=== PATIENT | female | born 1995 | race Asian ===

== ENCOUNTER 2021-06-24 12:14 | Inpatient (IN) ==
[2021-06-24 13:15] LABS: Eosinophils # (auto) 0.01 K/uL (0-0.5); Eosinophils % (auto) 0.2 %; Hematocrit (blood only) 33.2 % (37-47); Immature Granulocytes # (auto) 0.02 K/uL (0.00-0.02); Immature Granulocytes % (auto) 0.3 %; Lymphocytes # (auto) 1.26 K/uL (1.2-3.4); Mean Corpuscular Hemoglobin 29.1 pg (25-34); Mean Corpuscular Volume 87.8 fL (80-100); Mean Platelet Volume 9.9 fL (7.4-10.4); Monocytes # (auto) 0.22 K/uL (0.11-0.59); Monocytes % (auto) 3.3 %; Neutrophils # (auto) 5.12 K/uL (1.4-6.5); Neutrophils % (auto) 77.2 %; Platelet Count 115 K/uL (130-400); RDW Coefficient of Variation 13.3 % (11.5-14.5); RDW Standard Deviation 42.7 fL (36.4-46.3); Red Blood Count 3.78 M/uL (4.2-5.4); White Blood Count 6.63 K/uL (4.8-10.8)
[2021-06-24 13:21] LABS: Mean Corpuscular Hgb Conc 33.1 g/dL (32-36)
[2021-06-24 13:26] LABS: Alanine Aminotransferase 8 U/L (7-52); Albumin Globulin Ratio 0.8 (0.9-2); Albumin Level 3.2 gm/dl (3.4-5.0); Alkaline Phosphatase 236 U/L (34-104); Anion Gap 11 (3-11); Aspartate Aminotransferase 20 U/L (13-39); BUN Creatinine Ratio 22.9 (10-20); Bilirubin,Total 0.5 mg/dl (0.2-1.0); Blood Urea Nitrogen 11 mg/dl (6-23); Calcium 8.5 mg/dl (8.5-10.1); Carbon Dioxide 17 mmol/L (21-32); Chloride 103 mmol/L (98-107); Creatinine Clr Calc Pharmacy 162.1 ml/min; Est GFR (African American) > 150.0 ml/min; Est GFR (Non-African American) 137.3 ml/min; Globulin 4.1 gm/dl (2.5-4.0); Glucose 76 mg/dl (70-99(Fasting)); Potassium 3.9 mmol/L (3.5-5.1); Sodium 131 mmol/L (136-145); Total Protein 7.3 gm/dl (6.0-8.3)
[2021-06-24] MEDS ORDERED: OXYTOCIN 30 UNITS/500 ML BAG IV PRN ×2 (13:41→13:42)
[2021-06-24] MEDS ORDERED: MAG SULFATE 4GM BOLUS FROM BAG IV ONE (13:42)
[2021-06-24] MEDS ORDERED: MAGNESIUM SULFATE / WTR 40 GM/1,000 ML BAG IV SCH (13:45)
[2021-06-24] MEDS ORDERED: NIFEdipine 10 MG CAP PO STA ×2 (13:45→17:27)
[2021-06-24 14:21] LABS: Hematocrit (blood only) 33.2 % (37-47); Hemoglobin 10.9 g/dL (12.0-16.0); Mean Corpuscular Hemoglobin 28.9 pg (25-34); Mean Corpuscular Hgb Conc 32.8 g/dL (32-36); Mean Corpuscular Volume 88.1 fL (80-100); Mean Platelet Volume 10.2 fL (7.4-10.4); Platelet Count 119 K/uL (130-400); RDW Coefficient of Variation 13.3 % (11.5-14.5); RDW Standard Deviation 42.7 fL (36.4-46.3); Red Blood Count 3.77 M/uL (4.2-5.4)
--- NOTE | 2021-06-24 14:28 | History & Physical Report ---
Date of Service June 24, 2021 Assessment & Plan (1) Elevated blood pressure affecting in third trimester, antepartum: (2) Autoantibody titer positive: (3) Headache in : Plan: 25yo Female at 38W6D sent from OB clinic with concern for pre-eclampsia, noted clonus and elevated BP. -16/118 on admit 12:20 -ordered CMP, noted decreased platelets 119 -continue to monitor vitals -blood type O+, GBS - -ordered pitocin Admission and Anticipated Discharge Date Admission Date: June 24, 2021 History of Present Illness Chief Complaint: Pre-Eclampsia Primary Care Provider: Louise Bahena MD 25yo Female at 38W6D here for BP check sent from OB clinic with concern for PIH given elevated BP and beats clonus. Patient describes regular movement, denies contractions, bleeding or fluid discharge, has had regular pren atal care. Patient was taking vitamins until 2 weeks ago when she began feeling less well. She states he blood pressure had been within normal range until 2 weeks ago when it began going up. She describes a headache that has been on and off throughout , worse in the past 5 days occasionally relieved with tylenol. Patient has had nausea vomitting on and off throughout , describes SOB at night ongoing since 20W gestation. She describes ocasional feelings of stretching in her epigastric region but nothing painful. She describes swelling in her hands from carpal tunnel, denies swelling in feet. At one point she felt left sided chest discomfort, she states her doctors saw a normal cardiac strip during that time. She denies other medications, medical conditions, complications during this . No other concerns at this time. Allergies Allergy/AdvReac Type Severity Reaction Status Date / Time rhubarb Allergy Intermediate THROAT Verified 06/24/21 11:36 SLIGHTLY TIGHT, SWELLIN, RASH Home Medications Medication Instructions Recorded Confirmed Type ferrous sulfate 325 mg (65 mg 325 mg PO QAM 01/05/21 06/24/21 History iron) tablet vitamin with calcium 1 tab PO QAM 01/05/21 06/24/21 History no.72-iron 27 mg-folic acid 1 mg tablet (M- Plus) promethazine 25 mg rectal 25 mg KS HS PRN 04/17/21 06/24/21 History suppository promethazine 25 mg tablet 25 mg PO Q6H PRN #20 tab 05/19/21 06/24/21 Rx breast pump #1 ea 06/16/21 06/24/21 Rx Patient History Medical History (Updated 06/24/21 @ 14:24 by [place] Mcdonald DO) Heart palpitations Has monitor from [facility] History of migraine History of syncope Left wrist fracture Surgical History H/O wisdom tooth extraction No pertinent past surgical history Family History (Updated 05/17/21 @ 13:51 by Shirley CONTI, MANJIT) Grandmother (Maternal) Hypothyroidism Grandmother (Paternal) Diabetes Denies family history of Ovarian cancer Breast cancer Lung cancer Social History (Updated 05/17/21 @ 13:52 by Shirley CONTI, MANJIT) Smoking Status: Never smoker Second Hand Exposure: No; Hx Alcohol Use: No Hx Substance Use: No Preferred Language: Greek Communication Ability: Effective Visual Impairment: Partially Limited Hearing Ability: Normal Teacher Resource Required: No Beliefs That Will Affect Care: None marital status: Single marital status details: KARTHIK Disla (25) [phone] Current Living Situation: Significant Other Current Living Situation Comment: FOB and no pets current occupational status: student Feels Safe at Home: Yes Assistive Devices: None Review of Systems Positive headache 2/10 pain Denies fever, chills, sweats Denies shortness of breath, difficulty breathing, chest pain, palpitations, chest pressure. Denies breast pain. Denies dysuria. Denies changes in vision. Physical Exam Physical Exam: General: Alert, oriented. No acute distress. Cardiac: Regular rate and rhythm, no murmurs/rubs/gallops. Respiratory: Clear to auscultation bilaterally a/p, no wheezes/rales/rhonchi. No increased work of breathing. Symmetrical chest rise. No respiratory distress. Pelvic: Dilation 3cm; Effacement 100%; Station -[address] Reinoso Lower Extremities: 2 beat clonus on right foot, negative in left. +2 patellar reflexes b/l. No lower extremity edema or swelling. No deep calf pain. Jason's negative bilaterally Baseline:129 Variability:moderate Accelerations:present Decelerations:absent Results & Data ([facility]) Vital Signs (Past 12 Hours) Vital Signs Temp Pulse Resp BP 06/24/21 14:11 75 164/107 H 06/24/21 14:00 89 138/92 06/24/21 13:50 95 H 149/107 H 06/24/21 13:42 89 157/111 H 06/24/21 13:31 83 180/114 H 06/24/21 13:21 87 182/116 H 06/24/21 13:10 84 158/107 H 06/24/21 13:01 85 159/108 H 06/24/21 12:56 36.7 C 18 06/24/21 12:52 86 166/113 H 06/24/21 12:41 97 H 156/108 H 06/24/21 12:32 93 H 157/114 H 06/24/21 12:21 92 H 161/107 H 06/24/21 12:20 94 H 168/114 H Laboratory Results Initial OB Labs on 11/30/20 Blood Type & RH - O positive Antibody Screen - positive (see below) HCT/HGB - 13.4 / 41.7 Platelets - 308 Hep C IgG 13yrs+ Old - not preformed Pap Test - WNL Chlamydia - negative Gonorrhea- negative Rubella - positive RPR - reactive with 1:2 titer Urine Culture/Screen - WNL HBsAg - negative HIV - negative MCV - 84.4 Ultrasound anatomy scan on 02/09/21 WNL Supervising Physician Co-Signing Physician Notes Resident Physician Supervision Note: I interviewed and examined the patient. Discussed with Dr. [place] Mcdonald and agree with findings and plan as documented in the note. Any exceptions or clarifications are listed here: Platelet count on admission is 115 K. liver enzymes are normal. will repeat PET labs in 6 hours. Documented By: Latoya Wolfe MD, FACOG Resident Activity Tracking Resident Involvement: Resident Care Provided Care Provided: Adult Hospital Medicine and OB Delivery
[2021-06-24] MEDS: LACTATED RINGER'S 1,000 ML IV PRN ×3 (14:43→22:50)
[2021-06-24 16:08] LABS: Creatinine Urine Random 101.5 mg/dl; Protein Creatinine Ratio Urine 0.4 (0-0.2); Total Protein Urine Random 36.3 mg/dl (0-11.9)
[2021-06-24] MEDS ORDERED: PROMETHAZINE HCL 12.5 MG in SODIUM CHLORIDE 0.9% 50 ML IV PRN (17:01)
[2021-06-24] MEDS ORDERED: SODIUM CHLORIDE 0.9% 1000ML 500 ML IV ONE (19:04)
[2021-06-24] MEDS ORDERED: ACETAMINOPHEN 325 MG TAB ONE (19:23)
[2021-06-24] MEDS ORDERED: ACETAMINOPHEN 325 MG TAB PO PRN (19:25)
[2021-06-24 20:08] LABS: Hematocrit (blood only) 33.4 % (37-47); Hemoglobin 11.1 g/dL (12.0-16.0); Mean Corpuscular Hemoglobin 29.2 pg (25-34); Mean Corpuscular Volume 87.9 fL (80-100); Mean Platelet Volume 9.7 fL (7.4-10.4); Platelet Count 118 K/uL (130-400); RDW Coefficient of Variation 13.3 % (11.5-14.5); RDW Standard Deviation 42.6 fL (36.4-46.3); White Blood Count 6.13 K/uL (4.8-10.8)
[2021-06-24 20:11] LABS: Mean Corpuscular Hgb Conc 33.2 g/dL (32-36)
[2021-06-24] MEDS ORDERED: fentaNYL citrate 100 MCG/2 ML VIAL ONE (20:18)
[2021-06-24] MEDS ORDERED: SODIUM CHLORIDE 0.9% INJ 10 ML VIAL ONE (20:18)
[2021-06-24] MEDS ORDERED: BUPIVACAINE 0.25% 30 ML VIAL ONE (20:18)
[2021-06-24] MEDS ORDERED: ePHEDrine sulfate 50 MG/ML AMP ONE (20:18)
[2021-06-24] MEDS ORDERED: fentaNYL 2MCG/ML ROPIVACAINE 1.25MG/ML 100 ML BAG EPI ONE (20:19)
[2021-06-24 20:26] LABS: Alanine Aminotransferase 8 U/L (7-52); Albumin Globulin Ratio 0.8 (0.9-2); Albumin Level 3.1 gm/dl (3.4-5.0); Alkaline Phosphatase 246 U/L (34-104); Anion Gap 12 (3-11); Aspartate Aminotransferase 21 U/L (13-39); BUN Creatinine Ratio 20.8 (10-20); Bilirubin,Total 0.5 mg/dl (0.2-1.0); Blood Urea Nitrogen 10 mg/dl (6-23); Calcium 8.1 mg/dl (8.5-10.1); Carbon Dioxide 17 mmol/L (21-32); Chloride 102 mmol/L (98-107); Creatinine Clr Calc Pharmacy 162.1 ml/min; Est GFR (African American) > 150.0 ml/min; Est GFR (Non-African American) 137.3 ml/min; Globulin 4.1 gm/dl (2.5-4.0); Glucose 80 mg/dl (70-99(Fasting)); Potassium 3.8 mmol/L (3.5-5.1); Sodium 131 mmol/L (136-145); Total Protein 7.2 gm/dl (6.0-8.3)
[2021-06-24 20:39] LABS: Immature Granulocytes # (auto) 0.01 K/uL (0.00-0.02); Immature Granulocytes % (auto) 0.2 %; Lymphocytes # (auto) 1.35 K/uL (1.2-3.4); Monocytes # (auto) 0.16 K/uL (0.11-0.59); Monocytes % (auto) 2.6 %; Neutrophils # (auto) 4.61 K/uL (1.4-6.5); Neutrophils % (auto) 75.2 %
--- NOTE | 2021-06-24 21:18 | Anesthesiology Consultation ---
Date of Service June 24, 2021 Assessment & Plan (1) Encounter for pre-operative examination: Chart Review Chart Review: Patient NOT seen in Pre Admission Testing and Acceptable Risk for Labor Epidural Consults Requested none History Height/Weight Height: 4 ft 11 in Weight: 77.204 kg Allergies Allergy/AdvReac Type Severity Reaction Status Date / Time rhubarb Allergy Intermediate THROAT Verified 06/24/21 11:36 SLIGHTLY TIGHT, SWELLIN, RASH Medications Home Medications Medication Instructions Recorded Confirmed Last Taken ferrous sulfate 325 mg (65 mg 325 mg PO QAM 01/05/21 06/24/21 04/16/21 08:00 iron) tablet vitamin with calcium 1 tab PO QAM 01/05/21 06/24/21 04/16/21 08:00 no.72-iron 27 mg-folic acid 1 mg tablet (M- Plus) promethazine 25 mg rectal 25 mg [place] HS PRN 04/17/21 06/24/21 Unknown suppository promethazine 25 mg tablet 25 mg PO Q6H PRN #20 tab 05/19/21 06/24/21 Unknown breast pump #1 ea 06/16/21 06/24/21 Unknown Active Medications Generic Name Dose Route Start Last Admin Trade Name Freq PRN Reason Stop Dose Admin Lactated Ringer's 1,000 mls @ 125 mls/hr 06/24/21 13:41 06/24/21 20:50 Lr IV 06/26/21 13:40 999 mls/hr .Q8H PRN Infusion L&D Protocol Protocol Magnesium Sulfate 40 gm in 1,000 mls @ 50 mls/hr 06/24/21 13:45 06/24/21 19:45 Magnesium Sulfate / Wtr IV 07/24/21 13:44 50 mls/hr .Q20H GRETTA Infusion Oxytocin 30 units in 500 mls @ 15 mls/hr 06/24/21 13:42 06/24/21 20:50 Pitocin IV 06/26/21 13:41 0.9 units/hr .Q24H PRN 15 mls/hr Labor Induction/Augmentation Titration Protocol 0.9 UNITS/HR Promethazine HCl 12.5 mg/ 50.5 mls @ 202 mls/hr 06/24/21 17:01 06/24/21 19:45 Sodium Chloride IV 07/24/21 17:00 Infused Q6 PRN Infusion Nausea And Vomiting Past Medical History Medical History Heart palpitations Has monitor from [facility] History of migraine History of syncope Left wrist fracture Past Family History Family History Grandmother (Maternal) Hypothyroidism Grandmother (Paternal) Diabetes Denies family history of Ovarian cancer Breast cancer Lung cancer Past Surgical History Surgical History H/O wisdom tooth extraction No pertinent past surgical history Social History Smoking Status: Never smoker Hx Alcohol Use: No Hx Substance Use: No substance use type: does not use Physical Exam Vital Signs Last Vital Signs Temp 36.7 C 06/24/21 12:56 Pulse 90 06/24/21 21:09 Resp 16 06/24/21 20:56 BP 167/97 H 06/24/21 20:38 Pulse Ox 98 06/24/21 21:09 Testing Laboratory Results 06/24/21 19:56 06/24/21 19:55
[2021-06-24] MEDS ORDERED: ePHEDrine sulfate 50 MG/ML AMP IV PRN (21:53)
[2021-06-24] MEDS ORDERED: diphenhydrAMINE 50 MG/ML VIAL IV PRN (21:53)
[2021-06-24] MEDS ORDERED: PROMETHAZINE HCL 25 MG in SODIUM CHLORIDE 0.9% 50 ML IV PRN (21:53)
[2021-06-24] MEDS ORDERED: NALOXONE HCL 0.4 MG/1 ML VIAL/CARP IV PRN (21:53)
[2021-06-24] MEDS ORDERED: NALBUPHINE HCL INJ 10 MG/ML AMP IV PRN (21:53)
[2021-06-24] MEDS ORDERED: ONDANSETRON INJ 2 MG/ML 2 ML VIAL IV PRN (21:53)
[2021-06-24] MEDS ORDERED: fentaNYL 2MCG/ML ROPIVACAINE 1.25MG/ML 100 ML BAG EPI PRN (21:53)
[2021-06-24] MEDS ORDERED: NALOXONE HCL 1 MG in SODIUM CHLORIDE 0.9% 1000ML 1,000 ML IV PRN (21:53)
[2021-06-24] MEDS ORDERED: SODIUM CHLORIDE 0.9% 250 ML IV PRN (22:57)
[2021-06-24] MEDS ORDERED: CITRIC ACID/SODIUM CITRATE 15 ML UDC ONE ×2 (22:59→23:04)
--- NOTE | 2021-06-24 23:00 | Obstetrical Progress Note ---
Date of Service June 24, 2021 Assessment & Plan (1) Pre-eclampsia: Admission and Anticipated Discharge Date Admission Date: June 24, 2021 Subjective passed palm sized clot after AROM for clear fluid. cervix was 4cm 100/0. FHT's 's were reassuring initially then after epidural analgesia, her BP has also dropped to 100's/60-70. with ephedrine BP did come up - now with prolonged decelerations to 160's with spontaneous contractions that have continued after stopping pitocin. after discussing situation with patient and SOB,that baby is not tolerating labor and that the cause most likely is abruption. will consent her for section. all questions were answered to their satisfaction. Review of Systems Review of Systems: All systems reviewed & are unremarkable except as noted in HPI & below Physical Exam Constitutional: WD/WN, vitals as above Psychiatric: A+Ox3, euthymic affect Genitourinary: Manual OB Exam: + cervical dilation 6 cm, + cervical effacement 100% and + station -1 OB Exam Monitor Tracing: + external FHT monitor used, + external uterine monitor used, + category II, + normal FHT variability and + variable decelerations Results & Data ([facility]) Vital Signs (Past 12 Hours) Vital Signs Temp Pulse Resp BP Pulse Ox 06/24/21 22:49 88 100 06/24/21 22:48 88 100/55 L 06/24/21 22:45 94 H 113/64 06/24/21 22:44 89 100 06/24/21 22:42 87 109/56 L 06/24/21 22:39 91 H 120/68 100 06/24/21 22:36 71 92/55 L 06/24/21 22:34 65 99 06/24/21 22:33 79 100/55 L 06/24/21 22:31 79 104/53 L 06/24/21 22:30 86 104/58 L 06/24/21 22:29 82 98 06/24/21 22:27 81 105/58 L 06/24/21 22:24 84 109/59 L 97 06/24/21 22:21 90 113/58 L 06/24/21 22:19 91 H 98 06/24/21 22:18 95 H 116/63 06/24/21 22:15 96 H 112/63 06/24/21 22:14 93 H 97 04/22/22 22:12 99 H 118/67 06/24/21 22:09 94 H 127/68 98 06/24/21 22:06 107 H 129/58 L 06/24/21 22:04 109 H 98 06/24/21 22:03 109 H 135/66 06/24/21 22:00 127 H 147/78 H 06/24/21 21:59 120 H 146/94 H 98 06/24/21 21:54 112 H 124/64 98 06/24/21 21:53 80 95/53 L 06/24/21 21:52 78 94/53 L 06/24/21 21:51 81 95/51 L 06/24/21 21:49 84 96 06/24/21 21:48 90 102/56 L 06/24/21 21:45 106 H 116/55 L 06/24/21 21:44 105 H 98 06/24/21 21:39 119 H 139/78 98 06/24/21 21:36 75 147/79 H 06/24/21 21:34 77 105/64 98 06/24/21 21:32 82 107/65 06/24/21 21:29 86 99 06/24/21 21:27 100 H 133/73 06/24/21 21:24 102 H 98 06/24/21 21:19 102 H 98 06/24/21 21:18 97 H 181/118 H 06/24/21 21:14 92 H 98 06/24/21 21:09 90 98 06/24/21 21:04 97 H 99 06/24/21 20:59 96 H 98 06/24/21 20:56 16 06/24/21 20:54 92 H 99 06/24/21 20:49 92 H 99 06/24/21 20:44 97 H 98 06/24/21 20:39 96 H 98 06/24/21 20:38 96 H 167/97 H 06/24/21 20:34 96 H 99 06/24/21 20:29 102 H 99 06/24/21 20:24 108 H 153/97 H 06/24/21 20:00 16 06/24/21 19:07 95 H 144/96 H 06/24/21 19:00 16 06/24/21 18:45 18 06/24/21 18:38 90 152/106 H 06/24/21 18:07 93 H 161/98 H 06/24/21 17:45 19 06/24/21 17:37 86 146/91 H 06/24/21 16:59 85 150/99 H 06/24/21 16:49 87 132/92 06/24/21 16:40 88 153/101 H 06/24/21 16:39 18 06/24/21 16:29 86 154/105 H 06/24/21 16:20 86 149/102 H 06/24/21 16:09 87 148/101 H 06/24/21 15:59 86 144/97 H 06/24/21 15:49 92 H 142/107 H 06/24/21 15:45 18 06/24/21 15:39 88 137/101 H 06/24/21 15:29 101 H 143/101 H 06/24/21 15:19 123 H 176/105 H 06/24/21 15:09 90 143/99 H 06/24/21 14:59 90 140/99 06/24/21 14:49 82 151/96 H 06/24/21 14:45 18 06/24/21 14:11 75 164/107 H 06/24/21 14:00 89 138/92 06/24/21 13:50 95 H 149/107 H 06/24/21 13:42 89 157/111 H 06/24/21 13:31 83 180/114 H 06/24/21 13:21 87 182/116 H 06/24/21 13:10 84 158/107 H 06/24/21 13:01 85 159/108 H 06/24/21 12:56 98.1 F 18 06/24/21 12:52 86 166/113 H 06/24/21 12:41 97 H 156/108 H 06/24/21 12:32 93 H 157/114 H 06/24/21 12:21 92 H 161/107 H 06/24/21 12:20 94 H 168/114 H PG Care Time/CCT Total # of Minutes Spent Total Time Spent with Patient: Total time spent is greater than 50% in coordination of care (as documented) at patient's floor/unit and/or counseling patient: Coding Level of Care Code None Diagnoses Pre-eclampsia O14.90
[2021-06-24] MEDS ORDERED: ceFAZolin 2000MG 2,000 MG/15 ML SYR IV SCH (23:10)
[2021-06-24] MEDS ORDERED: OXYTOCIN 10 UNITS/ML VIAL ONE (23:18)
[2021-06-25] MEDS ORDERED: OXYTOCIN 10 UNITS/ML 10ML VIAL ONE ×5 (00:09→11:03)
[2021-06-25] MEDS ORDERED: PHENYLEPHRINE 100MCG/ML 5ML SYR ONE (00:09)
[2021-06-25] MEDS ORDERED: PHENYLEPHRINE HCL 10 MG/ML VIAL ONE (00:09)
[2021-06-25] MEDS ORDERED: LIDOCAINE 2%/EPINEPHRINE 1:200,000 20 ML SDV ONE (00:12)
[2021-06-25] MEDS ORDERED: MoRPHine SULFATE PF 1 MG/ML 10 ML AMP/VIAL ONE (00:20)
[2021-06-25] MEDS ORDERED: MIDAZOLAM HCL 1 MG/ML 2ML VIAL ONE ×3 (00:32→08:44)
[2021-06-25] MEDS ORDERED: MAGNESIUM HYDROXIDE SUSP 30 ML UDC PO PRN (01:18)
[2021-06-25] MEDS ORDERED: diphenhydrAMINE Capsule 25 MG CAP PO PRN (01:18)
[2021-06-25] MEDS ORDERED: DIPHTHERIA/TETANUS/PERTUSSIS 0.5 ML SYR/VIAL IM ONE (01:18)
[2021-06-25] MEDS ORDERED: SENNA 8.6 MG TAB PO PRN (01:18)
[2021-06-25] MEDS ORDERED: diphenhydrAMINE 50 MG/ML VIAL IV PRN ×2 (01:18→03:44)
[2021-06-25] MEDS ORDERED: IBUPROFEN 600 MG TAB PO PRN (01:18)
[2021-06-25] MEDS ORDERED: KETOROLAC 30 MG/ML VIAL IV PRN (01:18)
[2021-06-25] MEDS ORDERED: ONDANSETRON INJ 2 MG/ML 2 ML VIAL IV PRN ×2 (01:18→03:44)
[2021-06-25] MEDS ORDERED: HYDROCORTISONE ACETATE 25 MG SUPP PR PRN (01:18)
[2021-06-25] MEDS ORDERED: PROMETHAZINE HCL 25 MG in SODIUM CHLORIDE 0.9% 50 ML IV PRN (01:18)
[2021-06-25] MEDS ORDERED: BENZOCAINE 20% AER SPR 82.5 GM CAN EXT PRN (01:18)
[2021-06-25] MEDS ORDERED: MEPERIDINE HCL 50 MG/ML CARP IV PRN (01:18)
[2021-06-25] MEDS ORDERED: oxyCODONE/ACETAMINOPHEN 5mg/325mg TAB PO PRN (01:18)
--- NOTE | 2021-06-25 01:23 | Operative Report ---
PG Post Operative Report Pre & Post Diagnosis Operation Date: 06/24/21 23:30 Pre-Op Diagnosis: Primary Section for distress under services of Dr Reinoso Post-Op Diagnosis: Same; delivery of a live male child at 2358 I identified the patient and participated in the time-out.: Yes Procedure Operation Date: 06/24/21 23:30 Actual Procedures p Primary Section in LD for distress. Delivery of a viable baby boy at 2358.(Bilateral) - Latoya Wolfe MD, FACOG Surgeon Latoya Wolfe MD, FACOG [employer] Janis Braden RN Estimated Blood Loss 800 Findings Consistent with Post-Op Diagnosis gravid uterus bilateral ovaries and tubes are normal Specimens placenta Drains Nazario to straight drainage- clear urine at end of case Anesthesia Type Labor Epidural Complications none Disposition Accompanied Patient To Recovery: Yes Indications Patient is a 25-year-old 1 P0 female with an EDC of 07/02/2021 who presented at 39 weeks after having elevated blood pressure reading in the office today. Upon arrival in labor and delivery her pressures were markedly elevated with systolics in the 160s, & diastolics in the 100 range. Her labs are normal except her platelet count was decreased at 117,000 and urine protein to creatinine ratio was elevated at 0.4. She also was complaining of a frontal headache. She met the criteria for preeclampsia with severe features and she was admitted and begun on magnesium sulfate and Pitocin augmentation of her contractions. She progressed to 4 cm dilated and membranes were ruptured for clear fluid. Shortly after rupture she passed Palm sized clots vaginally. heart tones remained category 1 at this time. Following epidural analgesia her blood pressures markedly decreased and there was an increase in vaginal bleeding at this time. Subsequently, moderate to severe variables occurred with contractions but with good return to baseline in between the contractions. The Pitocin was discontinued and contractions continued to space out however the moderate to severe variables continued. At this time her exam was 6 cm dilated and 100% effaced with vertex at -1 station. Because of the persistence of the vaginal bleeding and the variable decelerations with contractions it felt prudent to proceed with section. The indications for the procedure as well as the procedure itself were reviewed at length with the patient and her significant other and they are willing to proceed after questions were answered to their satisfaction. Description of Procedure After the patient received effective epidural anesthesia, she was prepped and draped in usual sterile fashion. A low transverse skin incision was made with a scalpel and carried to the fascia with the same scalpel. The fascial incision was was extended with Aguilera scissors and the edges grasped with Heidi clamps. The rectus muscles were then bluntly sharply dissected off of the overlying fascia. The rectus muscles were then divided along the midline and the underlying peritoneum elevated and entered sharply. The bladder was then taken down off the anterior surface of the uterus and placed behind the bladder blade. The lower uterine segment was entered with the scalpel and extended transversely. There was clear amniotic fluid noted upon entering the uterine cavity. The was delivered from the vertex presentation and moderate fundal pressure. A body cord was also noted upon delivery. The was vigorous upon delivery and moving all 4 limbs. The cord was then clamped and cut after approximately 30 seconds. Placenta was expressed intact with a three- vessel cord. The uterus was then exteriorized and covered with a clean lap sponge. The uterine cavity was explored and some retained membranes were removed. The uterus was then closed in 2 layers in a running locking imbricating fashion with 0 Monocryl. Bleeding off of the left corner of the incision was secured with a [id number] stitch of 0 Monocryl. Hemostasis at this point was excellent from the incision. There appeared to be some bleeding coming from just behind the pubic symphysis. It took some time to identify the area of bleeding which appeared to be coming from the posterior side of the rectus muscle. [id number] stitches were placed within the muscle and at this point the bleeding was resolved. The area in question was observed for some time after the stitch and hemostasis continued to be satisfactory. There did appear to be some bleeding coming from the edge of the fascia as well. This was secured with the Bovie. The fascia was then closed in a running fashion with 0 Vicryl. The adipose layer was then irrigated and bleeding sites in the left corner of the incision were secured with the Bovie. Skin edges are then be brought approximated with a subcuticular stitch of 4-0 Vicryl. Urine was clear at the end of the case. Mother and infant were in stable condition upon arrival back in labor and delivery . I attest to the content of the Intraoperative Record and any orders documented therein. Any exceptions are noted below. OB Procedure Charges 75412
[2021-06-25] MEDS ORDERED: ALBUMIN 5% 250 ML IV ONE ×2 (01:59→03:58)
[2021-06-25 02:00] LABS: Hemoglobin 5.8 g/dL (12.0-16.0); Mean Corpuscular Hemoglobin 28.9 pg (25-34); Mean Corpuscular Hgb Conc 32.2 g/dL (32-36); Mean Corpuscular Volume 89.6 fL (80-100); Mean Platelet Volume 9.4 fL (7.4-10.4); Platelet Count 97 K/uL (130-400); RDW Coefficient of Variation 13.3 % (11.5-14.5); RDW Standard Deviation 43.4 fL (36.4-46.3); Red Blood Count 2.01 M/uL (4.2-5.4); White Blood Count 9.11 K/uL (4.8-10.8)
[2021-06-25] MEDS ORDERED: SODIUM CHLORIDE 0.9% 250 ML IV PRN ×2 (02:02→12:48)
[2021-06-25 02:10] LABS: Eosinophils # (auto) 0.01 K/uL (0-0.5); Eosinophils % (auto) 0.1 %; Immature Granulocytes # (auto) 0.02 K/uL (0.00-0.02); Immature Granulocytes % (auto) 0.2 %; Lymphocytes # (auto) 1.07 K/uL (1.2-3.4); Lymphocytes % (auto) 11.7 %; Monocytes # (auto) 0.24 K/uL (0.11-0.59); Monocytes % (auto) 2.6 %; Neutrophils # (auto) 7.77 K/uL (1.4-6.5); Neutrophils % (auto) 85.4 %; Platelet Estimate Decreased (Normal)
[2021-06-25 02:33] LABS: Alanine Aminotransferase 5 U/L (7-52); Albumin Globulin Ratio 0.9 (0.9-2); Albumin Level 1.8 gm/dl (3.4-5.0); Alkaline Phosphatase 129 U/L (34-104); Anion Gap 12 (3-11); Aspartate Aminotransferase 15 U/L (13-39); BUN Creatinine Ratio 16.1 (10-20); Bilirubin,Total 0.5 mg/dl (0.2-1.0); Blood Urea Nitrogen 9 mg/dl (6-23); Calcium 6.6 mg/dl (8.5-10.1); Carbon Dioxide 13 mmol/L (21-32); Chloride 107 mmol/L (98-107); Creatinine Clr Calc Pharmacy 138.9 ml/min; Est GFR (African American) > 150.0 ml/min; Est GFR (Non-African American) 130.5 ml/min; Globulin 2.1 gm/dl (2.5-4.0); Glucose 184 mg/dl (70-99(Fasting)); Magnesium Therapeutic L&D Only 6.4 mg/dL (4.0-8.0); Potassium 3.2 mmol/L (3.5-5.1); Sodium 132 mmol/L (136-145); Total Protein 3.9 gm/dl (6.0-8.3)
--- NOTE | 2021-06-25 03:13 | Obstetrical Progress Note ---
Date of Service June 25, 2021 Assessment & Plan Admission and Anticipated Discharge Date Admission Date: June 24, 2021 Subjective patient somnolent after but did receive Phenergan and anti-anxiolytics because of a panic attack during the section. urine output has been good with 300 ml's post-operatively which is not concentrated. BP's remain low but pulse is normal. surgical dressing is dry and lochia is small. uterus firm at 1 above U. labs drawn postoperatively show a normal Magnesium level but a hemoglobin of 5.8 and platelet count of 97,000 which is slightly down from 118,000. she will get albumin per Dr. Frias and we will transfuse 2units PRBC's now. & recheck CBC 2 hours post transfusion. Results & Data ([facility]) Vital Signs (Past 12 Hours) Vital Signs Temp Pulse Resp BP Pulse Ox 06/25/21 03:07 83 100 06/25/21 03:06 78 71/36 L 06/25/21 03:03 93 H 73/35 L 06/25/21 03:02 77 71/35 L 100 06/25/21 03:00 96.4 F L 16 99 06/25/21 02:57 90 100 06/25/21 02:53 84 73/35 L 06/25/21 02:52 80 99 06/25/21 02:51 83 73/38 L 06/25/21 02:47 84 100 06/25/21 02:43 90 79/46 L 06/25/21 02:42 84 98 06/25/21 02:37 79 100 06/25/21 02:33 78 79/37 L 06/25/21 02:32 77 99 06/25/21 02:30 16 100 06/25/21 02:28 75 81/37 L 06/25/21 02:27 77 100 06/25/21 02:23 16 97 06/25/21 02:22 86 98 06/25/21 02:20 16 100 06/25/21 02:17 84 99 06/25/21 02:16 83 89/42 L 06/25/21 02:12 84 99 06/25/21 02:07 69 100 06/25/21 02:06 82 72/36 L 06/25/21 02:02 80 98 06/25/21 02:01 75 75/38 L 06/25/21 01:57 66 100 06/25/21 01:56 61 59/31 L 06/25/21 01:55 70 60/22 L 06/25/21 01:52 60 100 06/25/21 01:50 67 88 L 06/25/21 01:47 73 100 06/25/21 01:46 73 69/32 L 06/25/21 01:45 74 73/36 L 06/25/21 01:42 80 100 06/25/21 01:38 82 84/45 L 06/25/21 01:37 86 97 06/25/21 01:36 88 84/46 L 06/25/21 01:34 88 83/40 L 06/25/21 01:32 87 98 06/25/21 01:31 88 94 06/25/21 01:30 90 87/43 L 06/25/21 01:28 92 H 95/52 L 06/24/21 23:35 90 100 06/24/21 23:30 109 H 117/75 100 06/24/21 23:24 120 H 100 06/24/21 23:21 120 H 129/60 06/24/21 23:19 112 H 100 06/24/21 23:15 114 H 115/62 06/24/21 23:14 114 H 99 06/24/21 23:12 118 H 115/65 06/24/21 23:10 100 H 134/67 06/24/21 23:09 114 H 98 06/24/21 23:06 68 86/48 L 06/24/21 23:04 75 99 06/24/21 23:03 76 84/48 L 06/24/21 23:00 83 94/51 L 06/24/21 22:59 82 100 06/24/21 22:57 85 84/45 L 06/24/21 22:54 86 93/52 L 100 06/24/21 22:51 83 89/52 L 06/24/21 22:49 88 100 06/24/21 22:48 88 100/55 L 06/24/21 22:45 94 H 113/64 06/24/21 22:44 89 100 06/24/21 22:42 87 109/56 L 06/24/21 22:39 91 H 120/68 100 06/24/21 22:36 71 92/55 L 06/24/21 22:34 65 99 06/24/21 22:33 79 100/55 L 06/24/21 22:31 79 104/53 L 06/24/21 22:30 86 104/58 L 06/24/21 22:29 82 98 06/24/21 22:27 81 105/58 L 06/24/21 22:24 84 109/59 L 97 06/24/21 22:21 90 113/58 L 06/24/21 22:19 91 H 98 06/24/21 22:18 95 H 116/63 06/24/21 22:15 96 H 112/63 06/24/21 22:14 93 H 97 06/24/21 22:12 99 H 118/67 06/24/21 22:09 94 H 127/68 98 06/24/21 22:06 107 H 129/58 L 06/24/21 22:04 109 H 98 06/24/21 22:03 109 H 135/66 06/24/21 22:00 127 H 147/78 H 06/24/21 21:59 120 H 146/94 H 98 06/24/21 21:54 112 H 124/64 98 06/24/21 21:53 80 95/53 L 06/24/21 21:52 78 94/53 L 06/24/21 21:51 81 95/51 L 06/24/21 21:49 84 96 06/24/21 21:48 90 102/56 L 06/24/21 21:45 106 H 116/55 L 06/24/21 21:44 105 H 98 06/24/21 21:39 119 H 139/78 98 06/24/21 21:36 75 147/79 H 06/24/21 21:34 77 105/64 98 06/24/21 21:32 82 107/65 06/24/21 21:29 86 99 06/24/21 21:27 100 H 133/73 06/24/21 21:24 102 H 98 06/24/21 21:19 102 H 98 06/24/21 21:18 97 H 181/118 H 06/24/21 21:14 92 H 98 06/24/21 21:09 90 98 06/24/21 21:04 97 H 99 06/24/21 20:59 96 H 98 06/24/21 20:56 16 06/24/21 20:54 92 H 99 06/24/21 20:49 92 H 99 06/24/21 20:44 97 H 98 06/24/21 20:39 96 H 98 06/24/21 20:38 96 H 167/97 H 06/24/21 20:34 96 H 99 06/24/21 20:29 102 H 99 06/24/21 20:24 108 H 153/97 H 06/24/21 20:00 16 06/24/21 19:07 95 H 144/96 H 06/24/21 19:00 16 06/24/21 18:45 18 06/24/21 18:38 90 152/106 H 06/24/21 18:07 93 H 161/98 H 06/24/21 17:45 19 06/24/21 17:37 86 146/91 H 06/24/21 16:59 85 150/99 H 06/24/21 16:49 87 132/92 06/24/21 16:40 88 153/101 H 06/24/21 16:39 18 06/24/21 16:29 86 154/105 H 06/24/21 16:20 86 149/102 H 06/24/21 16:09 87 148/101 H 06/24/21 15:59 86 144/97 H 06/24/21 15:49 92 H 142/107 H 06/24/21 15:45 18 06/24/21 15:39 88 137/101 H 06/24/21 15:29 101 H 143/101 H 06/24/21 15:19 123 H 176/105 H 06/24/21 15:09 90 143/99 H PG Care Time/CCT Total # of Minutes Spent Total Time Spent with Patient: Total time spent is greater than 50% in coordination of care (as documented) at patient's floor/unit and/or counseling patient: Coding Level of Care Code None
[2021-06-25] MEDS ORDERED: ePHEDrine sulfate 50 MG/ML AMP ONE (03:16)
[2021-06-25] MEDS ORDERED: ePHEDrine sulfate 50 MG/ML AMP IM ONE (03:33)
[2021-06-25] MEDS ORDERED: ACETAMINOPHEN 1000 MG/100 ML IV IV PRN (03:43)
[2021-06-25] MEDS ORDERED: NALOXONE HCL 1 MG in SODIUM CHLORIDE 0.9% 1000ML 1,000 ML IV PRN (03:44)
[2021-06-25] MEDS ORDERED: NALOXONE HCL 0.08 MG in SYRINGE 1.8 ML IV PRN (03:44)
[2021-06-25] MEDS ORDERED: PROMETHAZINE HCL 12.5 MG in SODIUM CHLORIDE 0.9% 50 ML IV PRN (03:44)
[2021-06-25] MEDS ORDERED: ePHEDrine sulfate 50 MG/ML AMP IV PRN (03:44)
[2021-06-25] MEDS ORDERED: NALOXONE HCL 0.4 MG/1 ML VIAL/CARP IV PRN (03:44)
[2021-06-25] MEDS ORDERED: MoRPHine SULFATE PF 1 MG/ML 10 ML AMP/VIAL EPI ONE (03:44)
[2021-06-25] MEDS ORDERED: NALBUPHINE HCL INJ 10 MG/ML AMP IV PRN (03:44)
[2021-06-25] MEDS ORDERED: LACTATED RINGER'S 500 ML IV PRN (03:44)
[2021-06-25] MEDS ORDERED: HYDROmorphone INJ 0.5 MG/0.5 ML SYR IV PRN (03:44)
[2021-06-25] MEDS ORDERED: SODIUM CHLORIDE 0.9% 1000ML 1,000 ML IV SCH ×2 (03:45→09:15)
[2021-06-25] MEDS ORDERED: DC INTRASPINAL MORPHINE SCH (03:45)
[2021-06-25] MEDS ORDERED: NO NARCOTICS OR SEDATIVES SCH (03:45)
[2021-06-25 04:25] LABS: Hematocrit (blood only) 21.7 % (37-47); Mean Corpuscular Hemoglobin 28.8 pg (25-34); Mean Corpuscular Volume 89.3 fL (80-100); Mean Platelet Volume 9.6 fL (7.4-10.4); Platelet Count 105 K/uL (130-400); RDW Coefficient of Variation 14.3 % (11.5-14.5); Red Blood Count 2.43 M/uL (4.2-5.4); White Blood Count 8.18 K/uL (4.8-10.8)
[2021-06-25 04:33] LABS: Mean Corpuscular Hgb Conc 32.3 g/dL (32-36)
--- NOTE | 2021-06-25 05:04 | Anesthesiology Progress Note ---
Date of Service June 25, 2021 Anesthesia Post Procedure Vital Signs Vital Signs: Temp Pulse Resp BP Pulse Ox 06/25/21 04:57 90 100 06/25/21 04:54 85 66/30 L 06/25/21 04:52 79 16 100 06/25/21 04:47 93 H 100 06/25/21 04:43 94 H 74/36 L 06/25/21 04:42 91 H 100 06/25/21 04:37 94 H 100 06/25/21 04:35 35.9 C L 84 18 74/36 L 100 06/25/21 04:34 96 H 69/40 L 06/25/21 04:33 35.9 C L 82 18 70/34 L 100 06/25/21 04:32 101 H 100 06/25/21 04:27 80 100 06/25/21 04:23 79 70/34 L 06/25/21 04:22 81 83 L 06/25/21 04:17 80 100 06/25/21 04:12 81 100 06/25/21 04:07 91 H 99 06/25/21 04:05 35.9 C L 90 16 85/43 L 100 06/25/21 04:04 92 H 85/43 L 06/25/21 04:02 91 H 100 06/25/21 03:57 68 100 06/25/21 03:53 75 64/30 L 06/25/21 03:52 78 99 06/25/21 03:50 36.3 C L 76 16 64/30 L 99 06/25/21 03:47 78 100 06/25/21 03:43 80 73/36 L 06/25/21 03:42 87 100 06/25/21 03:37 87 100 06/25/21 03:34 35.8 C L 86 16 84/50 L 100 06/25/21 03:33 81 84/50 L 06/25/21 03:32 84 100 06/25/21 03:31 73 88/50 L 06/25/21 03:27 77 100 06/25/21 03:26 60 54/24 L 06/25/21 03:25 36.1 C L 16 100 06/25/21 03:23 64 60/25 L 06/25/21 03:22 68 100 06/25/21 03:20 35.8 C L 63 16 60/25 L 100 06/25/21 03:17 72 100 06/25/21 03:13 74 66/31 L 06/25/21 03:12 76 99 06/25/21 03:07 83 100 06/25/21 03:06 78 71/36 L 06/25/21 03:03 93 H 73/35 L 06/25/21 03:02 77 71/35 L 100 06/25/21 03:00 35.8 C L 16 99 06/25/21 02:57 90 100 06/25/21 02:53 84 73/35 L 06/25/21 02:52 80 99 06/25/21 02:51 83 73/38 L 06/25/21 02:47 84 100 06/25/21 02:43 90 79/46 L 06/25/21 02:42 84 98 06/25/21 02:37 79 100 06/25/21 02:33 78 79/37 L 06/25/21 02:32 77 99 06/25/21 02:30 16 100 06/25/21 02:28 75 81/37 L 06/25/21 02:27 77 100 06/25/21 02:23 16 97 06/25/21 02:22 86 98 06/25/21 02:20 16 100 06/25/21 02:17 84 99 06/25/21 02:16 83 89/42 L 06/25/21 02:12 84 99 06/25/21 02:07 69 100 06/25/21 02:06 82 72/36 L 06/25/21 02:02 80 98 06/25/21 02:01 75 75/38 L 06/25/21 01:57 66 100 06/25/21 01:56 61 59/31 L 06/25/21 01:55 70 60/22 L 06/25/21 01:52 60 100 06/25/21 01:50 67 88 L 06/25/21 01:47 73 100 06/25/21 01:46 73 69/32 L 06/25/21 01:45 74 73/36 L 06/25/21 01:42 80 100 06/25/21 01:38 82 84/45 L 06/25/21 01:37 86 97 06/25/21 01:36 88 84/46 L 06/25/21 01:34 88 83/40 L 06/25/21 01:32 87 98 06/25/21 01:31 88 94 06/25/21 01:30 90 87/43 L 06/25/21 01:28 92 H 95/52 L 06/24/21 23:35 90 100 06/24/21 23:30 109 H 117/75 100 06/24/21 23:24 120 H 100 06/24/21 23:21 120 H 129/60 06/24/21 23:19 112 H 100 06/24/21 23:15 114 H 115/62 06/24/21 23:14 114 H 99 06/24/21 23:12 118 H 115/65 06/24/21 23:10 100 H 134/67 06/24/21 23:09 114 H 98 06/24/21 23:06 68 86/48 L 06/24/21 23:04 75 99 06/24/21 23:03 76 84/48 L 06/24/21 23:00 83 20 94/51 L 06/24/21 22:59 82 100 06/24/21 22:57 85 84/45 L 06/24/21 22:54 86 93/52 L 100 06/24/21 22:51 83 89/52 L 06/24/21 22:49 88 100 06/24/21 22:48 88 100/55 L 06/24/21 22:45 94 H 113/64 06/24/21 22:44 89 100 06/24/21 22:42 87 109/56 L 06/24/21 22:39 91 H 120/68 100 06/24/21 22:36 71 92/55 L 06/24/21 22:34 65 99 06/24/21 22:33 79 100/55 L 06/24/21 22:31 79 104/53 L 06/24/21 22:30 86 104/58 L 06/24/21 22:29 82 98 06/24/21 22:27 81 105/58 L 06/24/21 22:24 84 109/59 L 97 06/24/21 22:21 90 113/58 L 06/24/21 22:19 91 H 98 06/24/21 22:18 95 H 116/63 06/24/21 22:15 96 H 112/63 06/24/21 22:14 93 H 97 06/24/21 22:12 99 H 118/67 06/24/21 22:09 94 H 127/68 98 06/24/21 22:06 107 H 129/58 L 06/24/21 22:04 109 H 98 06/24/21 22:03 109 H 135/66 06/24/21 22:00 127 H 18 147/78 H 06/24/21 21:59 120 H 146/94 H 98 06/24/21 21:54 112 H 124/64 98 06/24/21 21:53 80 95/53 L 06/24/21 21:52 78 94/53 L 06/24/21 21:51 81 95/51 L 06/24/21 21:49 84 96 06/24/21 21:48 90 102/56 L 06/24/21 21:45 106 H 116/55 L 06/24/21 21:44 105 H 98 06/24/21 21:39 119 H 139/78 98 06/24/21 21:36 75 147/79 H 06/24/21 21:34 77 105/64 98 06/24/21 21:32 82 107/65 06/24/21 21:29 86 99 06/24/21 21:27 100 H 133/73 06/24/21 21:24 102 H 98 06/24/21 21:19 102 H 98 06/24/21 21:18 97 H 181/118 H 06/24/21 21:14 92 H 98 06/24/21 21:09 90 98 06/24/21 21:04 97 H 99 06/24/21 20:59 96 H 98 06/24/21 20:56 16 06/24/21 20:54 92 H 99 06/24/21 20:49 92 H 99 06/24/21 20:44 97 H 98 06/24/21 20:39 96 H 98 06/24/21 20:38 96 H 167/97 H 06/24/21 20:34 96 H 99 06/24/21 20:29 102 H 99 06/24/21 20:24 108 H 153/97 H 06/24/21 20:00 16 06/24/21 19:07 95 H 144/96 H 06/24/21 19:00 16 06/24/21 18:45 18 06/24/21 18:38 90 152/106 H 06/24/21 18:07 93 H 161/98 H 06/24/21 17:45 19 06/24/21 17:37 86 146/91 H 06/24/21 16:59 85 150/99 H 06/24/21 16:49 87 132/92 06/24/21 16:40 88 153/101 H 06/24/21 16:39 18 06/24/21 16:29 86 154/105 H 06/24/21 16:20 86 149/102 H 06/24/21 16:09 87 148/101 H 06/24/21 15:59 86 144/97 H 06/24/21 15:49 92 H 142/107 H 06/24/21 15:45 18 06/24/21 15:39 88 137/101 H 06/24/21 15:29 101 H 143/101 H 06/24/21 15:19 123 H 176/105 H 06/24/21 15:09 90 143/99 H 06/24/21 14:59 90 140/99 06/24/21 14:49 82 151/96 H 06/24/21 14:45 18 06/24/21 14:11 75 164/107 H 06/24/21 14:00 89 138/92 06/24/21 13:50 95 H 149/107 H 06/24/21 13:42 89 157/111 H 06/24/21 13:31 83 180/114 H 06/24/21 13:21 87 182/116 H 06/24/21 13:10 84 158/107 H 06/24/21 13:01 85 159/108 H 06/24/21 12:56 36.7 C 18 06/24/21 12:52 86 166/113 H 06/24/21 12:41 97 H 156/108 H 06/24/21 12:32 93 H 157/114 H 06/24/21 12:21 92 H 161/107 H 06/24/21 12:20 94 H 168/114 H Transfer of Care Handoff Completed per policy Notes Mental Status: alert / awake / arousable and participated in evaluation Nausea / Vomiting: adequately controlled Pain: adequately controlled Airway Patency, RR, SpO2: stable & adequate BP & HR: see Notes below Hydration State: stable & adequate Neuraxial Anesthesia: was administered and sensory block is resolving Anesthetic Complications: no major complications apparent and Pt Satisfied with anesthetic care Notes: Pt was hypotensive on arrival to recovery. IV phenylephrine and ephedrine were given with good response. Albumin was ordered and started. Stat cbc showed significant anemia and blood was ordered. I personally hung the first unit of blood to enable faster administration (unit # [id number]). Second unit of blood was hunb by nursing OB team. Patient remained hypotensive without any significant response. She was given 40 mg of IM ephedrine without improvement. A second bottle of albumin was ordered and hung. Despite these interventions, the patient is still requiring occasional boluses of phenylephrine to maintain SBP around 80s. The patient is arousable and denies pain or presyncope. She answers questions appropriately and epidural level is resolving. Dr. Reinoso plans to hold the patient's magnesium at this time to see if her BP improves. At this time, the patient still has her epidural in place. Will plan to pull epidural in the morning when repeat labs are done and patient's blood pressure is stabilized.
[2021-06-25] MEDS: OXYTOCIN 20 UNITS in LACTATED RINGER'S 1,000 ML IV SCH ×2 (06:53→12:18)
[2021-06-25 07:47] LABS: Hematocrit (blood only) 21.3 % (37-47); Hemoglobin 7.1 g/dL (12.0-16.0); Mean Corpuscular Hemoglobin 29.7 pg (25-34); Mean Corpuscular Hgb Conc 33.3 g/dL (32-36); Mean Corpuscular Volume 89.1 fL (80-100); Mean Platelet Volume 9.8 fL (7.4-10.4); Platelet Count 130 K/uL (130-400); RDW Coefficient of Variation 14.4 % (11.5-14.5); RDW Standard Deviation 47.3 fL (36.4-46.3); Red Blood Count 2.39 M/uL (4.2-5.4); White Blood Count 9.47 K/uL (4.8-10.8)
[2021-06-25] MEDS ORDERED: DOCUSATE SODIUM 100 MG CAP PO SCH (08:00)
[2021-06-25] MEDS ORDERED: FERROUS SULFATE 325 MG TAB PO SCH (08:00)
[2021-06-25] MEDS ORDERED: PRENATAL VITAMIN 1 TAB PO SCH (08:00)
[2021-06-25] MEDS ORDERED: SIMETHICONE 80 MG CHEW PO SCH (08:00)
[2021-06-25 08:09] LABS: ALC (manual) 1.25 K/uL (1.2-3.4); ANC (manual) 8.22 K/uL (1.4-6.5); Lymphocytes # (manual) 1.25 K/uL (1.2-3.4); Lymphocytes % (manual) 13.2 %; Neutrophils # (manual) 8.22 K/uL (1.4-6.5); Neutrophils % (manual) 86.8 %; Polychromasia 1+
[2021-06-25 08:11] LABS: INR 0.9 (0.9-1.1); Partial Thromboplastin Ratio 1.7; Prothrombin Time 9.9 Seconds (9.0-12.0)
[2021-06-25] MEDS ORDERED: OPTIRAY 320 125ml IV ONE (08:19)
[2021-06-25 08:21] LABS: Creatinine Clr Calc Pharmacy 73.4 ml/min; Est GFR (African American) 85.1 ml/min; Est GFR (Non-African American) 73.4 ml/min
--- NOTE | 2021-06-25 08:23 | CT Scan Report ---
HEAD CT NONCONTRAST CT DOSE: HISTORY: hypotension s/p TECHNIQUE: Multiaxial CT images of the head were performed without the use of intravenous contrast. A utomated exposure control was utilized for this study. A dose lowering technique was utilized adheri ng to the principles of ALARA. Comparison: Head CT 09/11/2020. Findings: The paranasal sinuses and mastoid air cells are clear. The calvarium and skull base are int act. The ventricles and sulci are within normal limits. There is no mass, hematoma, midline shift, or acute infarct. Impression: No acute intracranial abnormality. ACT 112: Negative or not required by law. Electronically signed by: Yared Acosta M.D. 06/25/2021 8:21 AM
--- NOTE | 2021-06-25 08:34 | CT Scan Report ---
CT ANGIOGRAPHY OF THE CHEST, PULMONARY EMBOLUS PROTOCOL CLINICAL HISTORY: unexplained hypotension- s/p section COMPARISON STUDY: Chest CT April 16, 2021. TECHNIQUE: Following IV administration of 120 mL of Optiray, helical axial images of the chest were o btained utilizing the pulmonary embolus protocol. Maximal intensity projections and sagittal and cor onal reformats were viewed on an independent 3D workstation. IV contrast was administered without co mplication. Automated exposure control was utilized for the study. A dose lowering technique was ut ilized adhering to the principles of ALARA. CT DOSE: 2176.21 mGy.cm FINDINGS: No central pulmonary emboli are identified. The remainder of the pulmonary arteries are steinberg boptimally assessed due to suboptimal opacification and respiratory motion artifact. There is no thor acic aortic dissection. Size of the heart is at the upper limits of normal. Trace pericardial effusio n. No pneumothorax or pleural effusion is noted. No consolidation is identified. Mildly enlarged bila teral axillary lymph nodes are similar to CT of April 16, 2021. Esophagus is mildly dilated. Gas w ithin the lower thoracic canal is likely related to recent anesthesia. Abdomen and pelvis will be rep orted separately. Hemoperitoneum is better depicted on that exam. IMPRESSION: 1. Technically compromised exam. No central pulmonary emboli. Remainder of pulmonary arteries subopti camilo assessed on this exam, as described above. 2. Hemoperitoneum, better depicted on the CT of the abdomen and pelvis which will be reported separat maynor. Please see that report for further description. 2. No change in mildly enlarged bilateral axillary lymph nodes since CT of April 16, 2021. These a re nonspecific. ACT 112: Negative or not required by law. Electronically signed by: William Spears M.D. 06/25/2021 8:33 AM
[2021-06-25 08:39] LABS: Partial Thromboplastin Time 47.7 Seconds (21.0-31.0)
--- NOTE | 2021-06-25 08:41 | CT Scan Report ---
CT OF THE ABDOMEN AND PELVIS WITH CONTRAST CLINICAL HISTORY: hypotension, status post COMPARISON STUDY: Renal ultrasound April 16, 2021. TECHNIQUE: Following IV administration of 120 mL of Optiray, axial images of the abdomen and pelvis w ere obtained from the lung bases to the proximal femurs. Images were reviewed in the axial, sagittal, and coronal planes. IV contrast was administered without complication. Automated exposure control w as utilized for the study. A dose lowering technique was utilized adhering to the principles of ANGELA Jacob. FINDINGS: The liver, spleen, adrenal glands, left kidney and pancreas are normal. There is no biliary or pancreatic ductal dilatation. There is mild right hydroureteronephrosis likely due to mass effect upon the ureter by the enlarged uterus. No evidence for a bowel obstruction. Moderate hemoperitoneum is noted with layering clot within the right paracolic gutter. This hemorrhage originates from the p tiffany with multiple sites of active extravasation within the anterior aspect of the pelvis, anterior to the uterus. There is associated extraperitoneal and intraperitoneal hemorrhage. Gas within the abd ominal wall as well as extraperitoneal gas is noted following recent section. The uterus is enlarged. There is gas and hemorrhage within the uterus which is not unexpected following se ction. Nazario balloon within the bladder is present. Epidural catheter is in place. IMPRESSION: 1. Moderate hemoperitoneum and moderate extraperitoneal hemorrhage with several sites of active extra vasation within the anterior pelvis, anterior to the uterus. These represent sites of active bleeding following recent section. Findings discussed with Dr. Wolfe at time of dictation. 2. Gas and clot within an enlarged uterus. 3. Mild right hydroureteronephrosis likely due to mass effect upon the distal ureter by the enlarged uterus. ACT 112: Negative or not required by law. Electronically signed by: William Spears M.D. 06/25/2021 8:39 AM
[2021-06-25] MEDS: LACTATED RINGER'S 1,000 ML IV SCH ×2 (08:43→12:54)
[2021-06-25] MEDS ORDERED: fentaNYL citrate 100 MCG/2 ML VIAL ONE ×2 (08:44→10:39)
--- NOTE | 2021-06-25 09:10 | Anesthesiology Consultation ---
Date of Service June 25, 2021 Assessment & Plan (1) Encounter for pre-operative examination: Chart Review Chart Review: Acceptable Risk for Surgery and Patient NOT seen in Pre Admission Testing Consults Requested none ASA [id number] Proposed Anesthesia Anesthesia Type: General Anesthesia Line Insertion: Arterial line Risk / Benefits Reviewed With: PT / POA / Parent / Guardian, Accepts Plan and Informed Consent Obtained Additional Notes Patient taken emergently to operating room - note completed after start of procedure due to the emergent nature of the case. Patients support person, FOB and significant other signed consent and in agreement with anesthetic plan. History Surgery Operation Date: 06/24/21 23:30 Proposed Procedures p Section in LD(Bilateral) - Latoya Wolfe MD, FACOG Operation Date: 06/25/21 09:00 Proposed Procedures p Total Abdominal Hysterectomy - Latoya Wolfe MD, FACOG Height/Weight Height: 4 ft 11 in Weight: 77.204 kg Allergies Allergy/AdvReac Type Severity Reaction Status Date / Time rhubarb Allergy Intermediate THROAT Verified 06/24/21 11:36 SLIGHTLY TIGHT, SWELLIN, RASH Medications Home Medications Medication Instructions Recorded Confirmed Last Taken ferrous sulfate 325 mg (65 mg 325 mg PO QAM 01/05/21 06/24/21 04/16/21 08:00 iron) tablet vitamin with calcium 1 tab PO QAM 01/05/21 06/24/21 04/16/21 08:00 no.72-iron 27 mg-folic acid 1 mg tablet (M- Plus) promethazine 25 mg rectal 25 mg DC HS PRN 04/17/21 06/24/21 Unknown suppository promethazine 25 mg tablet 25 mg PO Q6H PRN #20 tab 05/19/21 06/24/21 Unknown breast pump #1 ea 06/16/21 06/24/21 Unknown Active Medications Generic Name Dose Route Start Last Admin Trade Name Freq PRN Reason Stop Dose Admin Lactated Ringer's 1,000 mls @ 125 mls/hr 06/24/21 13:41 06/24/21 22:50 Lr IV 06/26/21 13:40 125 mls/hr .Q8H PRN Administration L&D Protocol Protocol Magnesium Sulfate 40 gm in 1,000 mls @ 0 mls/hr 06/24/21 13:45 06/25/21 04:55 Magnesium Sulfate / Wtr IV 07/24/21 13:44 0 mls/hr .Q0M GRETTA Infusion Oxytocin 30 units in 500 mls @ 17 mls/hr 06/24/21 13:42 06/24/21 22:05 Pitocin IV 06/26/21 13:41 1.02 units/hr .Q24H PRN 17 mls/hr Labor Induction/Augmentation Titration Protocol 1.02 UNITS/HR Lactated Ringer's 1,000 mls @ 125 mls/hr 06/25/21 01:30 06/25/21 08:43 Lr IV 07/25/21 01:29 500 mls/hr .Q8H GRETTA Administration Oxytocin 20 units/ Lactated 1,002 mls @ 125 mls/hr 06/25/21 01:30 06/25/21 06:53 Ringer's IV 06/25/21 17:31 125 mls/hr .Q8H1M GRETTA Administration NPO Date Last Intake of Fluids: 06/24/21 Time Last Intake of Fluids: 21:00 Date Last Intake of Solids: 06/24/21 Time Last Intake of Solids: 09:00 Past Medical History Medical History [facility] pal[facility]ations [facility] History of migraine History of syncope Left wrist fracture Exercise / Class Metabolic Activity IV < 2 Limit ADL/Bedbound (at this time - prior pt appropriately ambulatory) significant other reports history of occasional CP, syncope/presyncope that is being evaluated by cardiology at this time. (History of normal echo) Past Family History Family History Grandmother (Maternal) Hypothyroidism Grandmother (Paternal) Diabetes Denies family history of Ovarian cancer Breast cancer Lung cancer Past Surgical History Surgical History H/O wisdom tooth extraction No pertinent past surgical history Past Anesthesia History No Hx of Anesthesia Complications History of PONV No Hx of PONV Social History Smoking Status: Never smoker Hx Alcohol Use: No Hx Substance Use: No substance use type: does not use Review of Systems Continued post operative hypotension. STAT CT concerning for bleeding Physical Exam Vital Signs Last Vital Signs Temp 36.2 C L 06/25/21 05:33 Pulse 114 H 06/25/21 08:47 Resp 18 06/25/21 05:33 BP 79/44 L 06/25/21 08:41 Pulse Ox 100 06/25/21 08:47 Constitutional not obese somnolent ENMT Mouth: no TMJ abnormality and oral opening not small Thyromental Distance: > or= 3.5 Finger Breadths Mallampati Class: II Neck normal visual inspection; neck extension not limited Respiratory normal respiratory effort Auscultation: lungs clear to auscultation bilaterally Cardiovascular Rate/Rhythm: regular rhythm and + tachycardic Heart Sounds: no murmur Neurologic moves all extremities Psychiatric Orientation: oriented x 3 somnolent, but oriented Testing Laboratory Results 06/25/21 07:34 06/25/21 07:33 PT 9.9 Seconds (9.0-12.0) 06/25/21 07:33 INR 0.9 (0.9-1.1) 06/25/21 07:33 APTT 47.7 Seconds (21.0-31.0) H* 06/25/21 07:33 Blood Type O Positive 06/24/21 13:56 Antibody Screen NEGATIVE 06/24/21 13:56
[2021-06-25] MEDS ORDERED: TRANEXAMIC ACID 1,000 MG in 0.9 % SODIUM CHLORIDE 100 ML IV ONE (09:30)
[2021-06-25] MEDS ORDERED: TRANEXAMIC ACID / 0.7% NACL 1,000 MG/100 ML BAG IV ONE (09:30)
[2021-06-25] MEDS ORDERED: ceFAZolin 2000MG 2,000 MG/15 ML SYR IV ONE (09:37)
[2021-06-25] MEDS ORDERED: OXYTOCIN 10 UNITS/ML 10ML VIAL IM ONE (09:51)
[2021-06-25 10:05] LABS: Hematocrit (blood only) 19.4 % (37-47); Hemoglobin 6.4 g/dL (12.0-16.0); Mean Corpuscular Hemoglobin 29.5 pg (25-34); Mean Corpuscular Volume 89.4 fL (80-100); Mean Platelet Volume 9.7 fL (7.4-10.4); Platelet Count 108 K/uL (130-400); RDW Coefficient of Variation 14.4 % (11.5-14.5); RDW Standard Deviation 47.2 fL (36.4-46.3); Red Blood Count 2.17 M/uL (4.2-5.4); White Blood Count 6.56 K/uL (4.8-10.8)
--- NOTE | 2021-06-25 10:06 | Procedure Note ---
Procedure Note Date of Service June 25, 2021 Note Radial arterial line placed in left wrist prior to induction in preparation for emergent exploratory lap with Dr. Reinoso. Patient given midazolam. Left wrist prepped with chlorhexidine. 20 G angiocath placed under sterile technique ut ilizing sterile gloves, surgical hats and masks and ultrasound guidance. Catheter threaded using seldinger technique with return of pulsatile, bright red blood. Site covered with occlusive dressing and taped in place. Waveform consistent with correct arterial placement. After placement, fingers of procedural hand had normal perfusion. Patient tolerated procedure well without complications. Lilliana Frias MD, PhD Anesthesiologist Coding
[2021-06-25 10:26] LABS: Fibrinogen 123 mg/dl (184-400); INR 1.1 (0.9-1.1); Partial Thromboplastin Ratio 2.5; Prothrombin Time 11.4 Seconds (9.0-12.0)
[2021-06-25 10:30] LABS: D Dimer 930 ug/L FEU (0-500)
[2021-06-25 10:31] LABS: BUN Creatinine Ratio 12.1 (10-20); Calcium 5.9 mg/dl (8.5-10.1); Creatinine Clr Calc Pharmacy 85.5 ml/min; Est GFR (African American) 102.3 ml/min; Est GFR (Non-African American) 88.3 ml/min; Potassium 5.2 mmol/L (3.5-5.1)
[2021-06-25] MEDS ORDERED: CALCIUM GLUCONATE 10% 2,000 MG in SODIUM CHLORIDE 0.9% 50 ML IV ONE (10:45)
[2021-06-25] MEDS ORDERED: PROPOFOL IV EMULSION 10 MG/ML 100 ML VIAL IV ONE (10:56)
[2021-06-25] MEDS ORDERED: fentaNYL citrate 2,500 MCG/250 ML BAG IV ONE (10:56)
[2021-06-25] MEDS ORDERED: STAT IV Infusion **Titration per Protocol STA (10:58)
[2021-06-25] MEDS ORDERED: PROPOFOL BOLUS FROM BAG IV PRN (10:58)
[2021-06-25] MEDS ORDERED: fentaNYL citrate 2,500 MCG/250 ML BAG IV SCH (11:00)
[2021-06-25] MEDS ORDERED: propofoL 1,000 MG/100 ML VIAL IV SCH (11:00)
[2021-06-25] MEDS ORDERED: PROPOFOL IV EMULSION 10 MG/ML 20 ML VIAL IV ONE (11:03)
--- NOTE | 2021-06-25 11:09 | Critical Care Consultation ---
Date of Consultation June 25, 2021 Assessment & Plan (1) hemorrhage: (2) Pre-eclampsia: 25-year-old eclampsia presenting to the hospital with decreased movements, stat and hemorrhage. She is currently intubated and sedated. Neurologic: Propofol and fentanyl for sedation. CT head negative. Monitor for seizure activity. Pulmonary: Continue lung protective ventilation strategy. Vent settings minimal at this time. Cardiovascular: Hypertensive likely secondary to pain. Will initiate fentanyl. Prior echo reviewed with no abnormalities. Gastrointestinal: Monitor for signs of liver failure. N.p.o. at this time. Renal: Monitoring of acidosis noted with hyperkalemia. Blood loss anemia. Fluid resuscitation. Infectious disease: Received preprocedural antibiotics with cefazolin per anesthesiology. Hematologic: hemorrhage. Currently undergoing massive transfusion protocol. We will repeat labs including CBC, INR. She received tranexamic acid in the OR, 2 units of FFP, 6 units of packed RBCs cryoprecipitate. Endocrine: Monitor for signs of Susan syndrome. Lines and tubes: Nazario in place. Peripheral IVs in place. VTE prophylaxis: SCDs CODE STATUS: Full Family at bedside: None at bedside currently Disposition: I have personally spent 54 minutes of critical care time in the direct management of this patient. This is a life/limb threatening event. This includes time spent evaluating patient, direct bedside care, chart review, placing orders, interpretation of diagnostic studies, discussion with consultants, patient, and family members, as well as other required patient management activities. This time is exclusive of all separately billable procedures, and teaching time and separate from and in addition to any other critical care service time. Thank you for allowing us to participate in the care of this patient. History of Present Illness Reason for Consultation: hemorrhage currently intubated Attending Physician: Latoya Wolfe MD, FACOG History of Present Illness 25-year-old female with no significant past medical history presenting to OB triage with a headache. Patient unable to give any history as she is currently intubated and sedated. History obtained from discussion with the anesthesiol ogist and the chart review. Overnight and this morning patient was dilated and had prolonged decelerations. There is concern for abruption. Patient was taken for section. Per surgery patient was somnolent and found to be severely anemic with a hemoglobin of 5.8. She was taken back to the surgery for hysterectomy. She underwent massive transfusion protocol. She is brought to the ICU and is currently intubated and sedated. She has no arterial line in place. She is hypertensive at present. Chest CTA completed demonstrated pneumoperitoneum with mildly enlarged bilateral axillary lymph nodes. No central pulmonary emboli seen. Remainder of the pulmonary arteries are suboptimally assessed. Esophagus mildly dilated. CT head was negative for acute findings. Latest hemoglobin was 6.4 9:50 AM. Platelet count 100,000. Patient acidotic with a bicarb of 15. Potassium 5.2. Calcium 5.9. Allergies Allergy/AdvReac Type Severity Reaction Status Date / Time rhubarb Allergy Intermediate THROAT Verified 06/24/21 11:36 SLIGHTLY TIGHT, SWELLIN, RASH Home Medications Medication Instructions Recorded Confirmed Type ferrous sulfate 325 mg (65 mg 325 mg PO QAM 01/05/21 06/24/21 History iron) tablet vitamin with calcium 1 tab PO QAM 01/05/21 06/24/21 History no.72-iron 27 mg-folic acid 1 mg tablet (M-Marcia Plus) promethazine 25 mg rectal 25 mg AZ HS PRN 04/17/21 06/24/21 History suppository promethazine 25 mg tablet 25 mg PO Q6H PRN #20 tab 05/19/21 06/24/21 Rx breast pump #1 ea 06/16/21 06/24/21 Rx Patient History Medical History (Updated 06/25/21 @ 11:06 by Nick Payne MD) Heart palpitations Has monitor from [facility] History of migraine History of syncope Left wrist fracture hemorrhage Surgical History H/O wisdom tooth extraction No pertinent past surgical history Family History Grandmother (Maternal) Hypothyroidism Grandmother (Paternal) Diabetes Denies family history of Ovarian cancer Breast cancer Lung cancer Social History (Updated 05/17/21 @ 13:52 by Shirley CONTI RN) Smoking Status: Never smoker Second Hand Exposure: No; Hx Alcohol Use: No Hx Substance Use: No Preferred Language: Yoruba Communication Ability: Effective Visual Impairment: Partially Limited Hearing Ability: Normal Inpatient Coder Required: No Beliefs That Will Affect Care: None marital status: Single marital status details: KARTHIK Disla (25) [phone] Current Living Situation: Significant Other Current Living Situation Comment: FOB and no pets current occupational status: student Feels Safe at Home: Yes Assistive Devices: None Review of Systems Review of Systems: Unobtainable due to cognitive status and Unobtainable due to endotracheal tube Physical Exam Physical Exam: Constitutional: Currently heavily sedated and intubated. Eyes: Pupils are equal round and reactive to light. Conjunctivae are normal. Anicteric sclera. Ears nose, mouth and throat: ET tube in place Neck: Trachea is midline. Visual inspection is normal. Respiratory: Clear to auscultation bilaterally. No use of accessory muscles. No significant clubbing noted. Cardiovascular: Regular rate and rhythm. No murmurs. No edema. Gastrointestinal: Surgical incision noted. Musculoskeletal: No cyanosis. Skin: No rashes, warm dry and intact. Neurologic: Currently sedated. Psychiatric: Unable to assess Results & Data Results & Data ([facility]) Vital Signs (Past 12 Hours) Vital Signs Temp Pulse Resp BP Pulse Ox 06/25/21 08:47 114 H 100 06/25/21 08:42 113 H 100 06/25/21 08:41 112 H 79/44 L 06/25/21 08:37 125 H 100 06/25/21 08:32 124 H 100 06/25/21 08:27 128 H 100 06/25/21 08:25 36.8 C 133 H 24 100 06/25/21 08:23 131 H 101/58 L 06/25/21 08:22 130 H 100 06/25/21 07:53 108 H 66/34 L 06/25/21 07:52 105 H 100 06/25/21 07:47 116 H 89 L 06/25/21 07:43 110 H 68/36 L 06/25/21 07:42 117 H 73/34 L 92 06/25/21 07:37 111 H 100 06/25/21 07:35 36.8 C 116 H 24 100 06/25/21 07:33 109 H 58/35 L 06/25/21 07:32 106 H 100 06/25/21 07:31 107 H 59/34 L 06/25/21 07:29 112 H 58/30 L 06/25/21 07:27 105 H 100 06/25/21 07:22 114 H 100 06/25/21 07:17 120 H 100 06/25/21 07:13 111 H 75/37 L 06/25/21 07:12 108 H 99 06/25/21 07:07 103 H 72/32 L 100 06/25/21 07:05 110 H 56/30 L 06/25/21 07:03 103 H 53/29 L 06/25/21 07:02 95 H 98 06/25/21 06:57 104 H 98 06/25/21 06:53 101 H 58/30 L 06/25/21 06:52 106 H 99 06/25/21 06:47 101 H 98 06/25/21 06:43 64/32 L 06/25/21 06:42 105 H 98 06/25/21 06:37 105 H 96 06/25/21 06:33 96 H 61/31 L 06/25/21 06:32 92 H 98 06/25/21 06:27 103 H 99 06/25/21 06:23 100 H 60/31 L 06/25/21 06:22 104 H 99 06/25/21 06:17 98 H 99 06/25/21 06:13 99 H 59/32 L 06/25/21 06:12 94 H 99 06/25/21 06:07 82 99 06/25/21 06:03 97 H 63/31 L 06/25/21 06:02 89 100 06/25/21 05:57 101 H 99 06/25/21 05:53 114 H 75/39 L 06/25/21 05:52 109 H 100 06/25/21 05:47 118 H 100 06/25/21 05:44 112 H 82/44 L 06/25/21 05:42 99 H 100 06/25/21 05:37 100 H 99 06/25/21 05:33 36.2 C L 101 H 18 73/39 L 100 06/25/21 05:32 97 H 100 06/25/21 05:27 103 H 100 06/25/21 05:23 99 H 74/41 L 06/25/21 05:22 97 H 100 06/25/21 05:17 102 H 100 06/25/21 05:13 98 H 70/37 L 06/25/21 05:12 98 H 100 06/25/21 05:07 93 H 100 06/25/21 05:05 36.4 C L 93 H 18 65/34 L 100 06/25/21 05:03 93 H 65/34 L 06/25/21 05:02 92 H 100 06/25/21 04:57 90 100 06/25/21 04:55 16 06/25/21 04:54 85 66/30 L 06/25/21 04:52 79 16 100 06/25/21 04:47 93 H 100 06/25/21 04:43 94 H 74/36 L 06/25/21 04:42 91 H 100 06/25/21 04:37 94 H 100 06/25/21 04:35 35.9 C L 84 18 74/36 L 100 06/25/21 04:34 96 H 69/40 L 06/25/21 04:33 35.9 C L 82 18 70/34 L 100 06/25/21 04:32 101 H 100 06/25/21 04:27 80 100 06/25/21 04:23 79 70/34 L 06/25/21 04:22 81 83 L 06/25/21 04:17 80 100 06/25/21 04:12 81 100 06/25/21 04:07 91 H 99 06/25/21 04:05 35.9 C L 90 16 85/43 L 100 06/25/21 04:04 92 H 85/43 L 06/25/21 04:02 91 H 100 06/25/21 03:57 68 100 06/25/21 03:53 75 64/30 L 06/25/21 03:52 78 99 06/25/21 03:50 36.3 C L 76 16 64/30 L 99 06/25/21 03:47 78 100 06/25/21 03:43 80 73/36 L 06/25/21 03:42 87 100 06/25/21 03:37 87 100 06/25/21 03:34 35.8 C L 86 16 84/50 L 100 06/25/21 03:33 81 84/50 L 06/25/21 03:32 84 100 06/25/21 03:31 73 88/50 L 06/25/21 03:27 77 100 06/25/21 03:26 60 54/24 L 06/25/21 03:25 36.1 C L 16 100 06/25/21 03:23 64 60/25 L 06/25/21 03:22 68 100 06/25/21 03:20 35.8 C L 63 16 60/25 L 100 06/25/21 03:17 72 100 06/25/21 03:13 74 66/31 L 06/25/21 03:12 76 99 06/25/21 03:07 83 100 06/25/21 03:06 78 71/36 L 06/25/21 03:03 93 H 73/35 L 06/25/21 03:02 77 71/35 L 100 06/25/21 03:00 35.8 C L 16 99 06/25/21 02:57 90 100 06/25/21 02:53 84 73/35 L 06/25/21 02:52 80 99 06/25/21 02:51 83 73/38 L 06/25/21 02:47 84 100 06/25/21 02:43 90 79/46 L 06/25/21 02:42 84 98 06/25/21 02:37 79 100 06/25/21 02:33 78 79/37 L 06/25/21 02:32 77 99 06/25/21 02:30 16 100 06/25/21 02:28 75 81/37 L 06/25/21 02:27 77 100 06/25/21 02:23 16 97 06/25/21 02:22 86 98 06/25/21 02:20 16 100 06/25/21 02:17 84 99 06/25/21 02:16 83 89/42 L 06/25/21 02:12 84 99 06/25/21 02:07 69 100 06/25/21 02:06 82 72/36 L 06/25/21 02:02 80 98 06/25/21 02:01 75 75/38 L 06/25/21 01:57 66 100 06/25/21 01:56 61 59/31 L 06/25/21 01:55 70 60/22 L 06/25/21 01:52 60 100 06/25/21 01:50 67 88 L 06/25/21 01:47 73 100 06/25/21 01:46 73 69/32 L 06/25/21 01:45 74 73/36 L 06/25/21 01:42 80 100 06/25/21 01:38 82 84/45 L 06/25/21 01:37 86 97 06/25/21 01:36 88 84/46 L 06/25/21 01:34 88 83/40 L 06/25/21 01:32 87 98 06/25/21 01:31 88 94 06/25/21 01:30 90 87/43 L 06/25/21 01:28 92 H 95/52 L 06/24/21 23:35 90 100 06/24/21 23:30 109 H 117/75 100 06/24/21 23:24 120 H 100 06/24/21 23:21 120 H 129/60 06/24/21 23:19 112 H 100 06/24/21 23:15 114 H 115/62 06/24/21 23:14 114 H 99 06/24/21 23:12 118 H 115/65 06/24/21 23:10 100 H 134/67 06/24/21 23:09 114 H 98 06/24/21 23:06 68 86/48 L 06/24/21 23:04 75 99 06/24/21 23:03 76 84/48 L Coding Level of Care Code Critical Care 1st -74 mins Diagnoses hemorrhage O72.1 Pre-eclampsia O14.90
--- NOTE | 2021-06-25 11:25 | Operative Report ---
PG Post Operative Report Pre & Post Diagnosis Operation Date: 06/24/21 23:30 Pre-Op Diagnosis: Primary Section for distress under services of Dr Reinoso Post-Op Diagnosis: Same; delivery of a live male child at 2358 Operation Date: 06/25/21 09:00 Pre-Op Diagnosis: Status Post Section Post Operative Bleeding Post-Op Diagnosis: Status Post Section Post Operative Bleeding I identified the patient and participated in the time-out.: Yes Procedure Operation Date: 06/24/21 23:30 Actual Procedures p Primary Section in for distress. Delivery of a viable baby boy at 2358.(Bilateral) - Latoya Wolfe MD, FACOG Operation Date: 06/25/21 09:00 Actual Procedures p Exploratory Laparotomy with Control of Bleeding - Latoya Wolfe MD, FACOG Surgeon Latoya Wolfe MD, FACOG [employer] Planner Janis Braden RN for C/S - Eden Dalton MD for exp laparotomy Estimated Blood Loss 100 Findings Consistent with Post-Op Diagnosis After reopening the abdominal incision, there was noted to be some small areas of dark clot in the adipose layer. After opening the fascial incision and noted to be more adherent dark clot noted between the rectus muscles and the abdominal wall. In the peritoneal cavity there was approximately 1700 cc of clot and blood present. There was bleeding noted from the left side of the uterine incision with a moderate retroperitoneal collection of blood within the ovarian vessels on the left side of the uterus. Bleeding in the rectus muscle area was minimal and was controlled with the Bovie. Fluids See anesthesia's record. Specimens none Drains Nazario catheter to straight drainage Anesthesia Type Labor Epidural Complications none Disposition Accompanied Patient To Recovery: Yes Indications Patient underwent a low transverse section because of nonlethal reassuring heart rate pattern and probable little placental abruption in light of preeclampsia with severe features. Her blood pressure had been low kem rtly after her epidural analgesia was effective and continued to be low except for a short period of time at the beginning of her section. Post section hemoglobin was 5.8 and she was given 2 units of packed cells at that time. Despite the blood transfusion her blood pressure remained in the hypotensive range. Pulse however remained in the normal range. Patient was somnolent and there was a concern that the magnesium sulfate may be contributing to her somnolence. This was stopped at 05 100 but her mental status remained unchanged. Hemoglobin after 2 units of packed cells was 7.1. Because of the ongoing mental status change and a concern for encephalopathy pulmonary embolus cardiomyopathy or intra-abdominal bleeding that might be causing these changes and hypotension a CT scan of the brain which was normal was done. Chest CT scan was also normal. However on the abdominal CT scan there appeared to be active bleeding which was originating from the pelvic area. Patient was then immediately prepped for the OR for exploratory laparotomy to identify the source of the bleeding. Patient was unable to sign the consent form but her boyfriend signed it for her after reviewing the reason for performing the exploratory laparotomy. All of his questions were answered to his satisfaction and he he was willing to sign the consent on her behalf. Description of Procedure After the patient received adequate general tracheal anesthesia and blood products were made available, the abdomen was prepped and draped in the usual sterile fashion. The original low transverse skin incision was opened and the adipose layer was explored as above following this the fascial incision was then opened and findings again were noted as above. Upon entering the peritoneal cavity there was a large amount of free blood and clot present. This was suctioned with the pool suction device. After removing the hemoperitoneum, the uterus was exteriorized and examined. Bleeding was noted to be coming from the left side of the uterine incision where a [id number] stitch had been placed at the time of the section for bleeding. 0 Vicryl was then used to create a hemostatic stitch superior and an additional stitch was placed inferior to the uterine incision encompassing the left ovarian vessels. At this point hemostasis was then noted to be satisfactory. The uterine incision was continued to be examined with the uterus back inside the abdomen and not on tension. The uterine incision continued to have excellent hemostasis the rest of the abdomen was thoroughly examined for any other sources of bleeding from the adipose layer, fascial layer, and abdominal rectus muscle layer. All levels appeared to have excellent hemostasis after observing these layers and examining thoroughly. Once we were satisfied that there was satisfactory hemostasis on all layers, the fascial incision was then closed in a running fashion with 0 Vicryl. The adipose layer was then irrigated with normal saline before being closed with laila. Urine remained clear throughout the case. Patient was transferred to the ICU for further observation and remained intubated at that time. I attest to the content of the Intraoperative Record and any orders documented therein. Any exceptions are noted below.
--- NOTE | 2021-06-25 11:26 | Anesthesiology Progress Note ---
Date of Service June 25, 2021 Anesthesia Post Procedure Vital Signs Vital Signs: Temp Pulse Pulse Resp BP BP Pulse Ox 06/25/21 11:15 36.5 C 116 H 22 179/109 H 100 06/25/21 11:05 36.5 C 109 H 22 165/98 H 100 06/25/21 11:02 115 H 27 H 98 06/25/21 10:55 36.5 C 111 H 28 H 175/98 H 99 06/25/21 08:47 114 H 100 06/25/21 08:42 113 H 100 06/25/21 08:41 112 H 79/44 L 06/25/21 08:37 125 H 100 06/25/21 08:32 124 H 100 06/25/21 08:27 128 H 100 06/25/21 08:25 36.8 C 133 H 24 100 06/25/21 08:23 131 H 101/58 L 06/25/21 08:22 130 H 100 06/25/21 07:53 108 H 66/34 L 06/25/21 07:52 105 H 100 06/25/21 07:47 116 H 89 L 06/25/21 07:43 110 H 68/36 L 06/25/21 07:42 117 H 73/34 L 92 06/25/21 07:37 111 H 100 06/25/21 07:35 36.8 C 116 H 24 100 06/25/21 07:33 109 H 58/35 L 06/25/21 07:32 106 H 100 06/25/21 07:31 107 H 59/34 L 06/25/21 07:29 112 H 58/30 L 06/25/21 07:27 105 H 100 06/25/21 07:22 114 H 100 06/25/21 07:17 120 H 100 06/25/21 07:13 111 H 75/37 L 06/25/21 07:12 108 H 99 06/25/21 07:07 103 H 72/32 L 100 06/25/21 07:05 110 H 56/30 L 06/25/21 07:03 103 H 53/29 L 06/25/21 07:02 95 H 98 06/25/21 06:57 104 H 98 06/25/21 06:53 101 H 58/30 L 06/25/21 06:52 106 H 99 06/25/21 06:47 101 H 98 06/25/21 06:43 64/32 L 06/25/21 06:42 105 H 98 06/25/21 06:37 105 H 96 06/25/21 06:33 96 H 61/31 L 06/25/21 06:32 92 H 98 06/25/21 06:27 103 H 99 06/25/21 06:23 100 H 60/31 L 06/25/21 06:22 104 H 99 06/25/21 06:17 98 H 99 06/25/21 06:13 99 H 59/32 L 06/25/21 06:12 94 H 99 06/25/21 06:07 82 99 06/25/21 06:03 97 H 63/31 L 06/25/21 06:02 89 100 06/25/21 05:57 101 H 99 06/25/21 05:53 114 H 75/39 L 06/25/21 05:52 109 H 100 06/25/21 05:47 118 H 100 06/25/21 05:44 112 H 82/44 L 06/25/21 05:42 99 H 100 06/25/21 05:37 100 H 99 06/25/21 05:33 36.2 C L 101 H 18 73/39 L 100 06/25/21 05:32 97 H 100 06/25/21 05:27 103 H 100 06/25/21 05:23 99 H 74/41 L 06/25/21 05:22 97 H 100 06/25/21 05:17 102 H 100 06/25/21 05:13 98 H 70/37 L 06/25/21 05:12 98 H 100 06/25/21 05:07 93 H 100 06/25/21 05:05 36.4 C L 93 H 18 65/34 L 100 06/25/21 05:03 93 H 65/34 L 06/25/21 05:02 92 H 100 06/25/21 04:57 90 100 06/25/21 04:55 16 06/25/21 04:54 85 66/30 L 06/25/21 04:52 79 16 100 06/25/21 04:47 93 H 100 06/25/21 04:43 94 H 74/36 L 06/25/21 04:42 91 H 100 06/25/21 04:37 94 H 100 06/25/21 04:35 35.9 C L 84 18 74/36 L 100 06/25/21 04:34 96 H 69/40 L 06/25/21 04:33 35.9 C L 82 18 70/34 L 100 06/25/21 04:32 101 H 100 06/25/21 04:27 80 100 06/25/21 04:23 79 70/34 L 06/25/21 04:22 81 83 L 06/25/21 04:17 80 100 06/25/21 04:12 81 100 06/25/21 04:07 91 H 99 06/25/21 04:05 35.9 C L 90 16 85/43 L 100 06/25/21 04:04 92 H 85/43 L 06/25/21 04:02 91 H 100 06/25/21 03:57 68 100 06/25/21 03:53 75 64/30 L 06/25/21 03:52 78 99 06/25/21 03:50 36.3 C L 76 16 64/30 L 99 06/25/21 03:47 78 100 06/25/21 03:43 80 73/36 L 06/25/21 03:42 87 100 06/25/21 03:37 87 100 06/25/21 03:34 35.8 C L 86 16 84/50 L 100 06/25/21 03:33 81 84/50 L 06/25/21 03:32 84 100 06/25/21 03:31 73 88/50 L 06/25/21 03:27 77 100 06/25/21 03:26 60 54/24 L 06/25/21 03:25 36.1 C L 16 100 06/25/21 03:23 64 60/25 L 06/25/21 03:22 68 100 06/25/21 03:20 35.8 C L 63 16 60/25 L 100 06/25/21 03:17 72 100 06/25/21 03:13 74 66/31 L 06/25/21 03:12 76 99 06/25/21 03:07 83 100 06/25/21 03:06 78 71/36 L 06/25/21 03:03 93 H 73/35 L 06/25/21 03:02 77 71/35 L 100 06/25/21 03:00 35.8 C L 16 99 06/25/21 02:57 90 100 06/25/21 02:53 84 73/35 L 06/25/21 02:52 80 99 06/25/21 02:51 83 73/38 L 06/25/21 02:47 84 100 06/25/21 02:43 90 79/46 L 06/25/21 02:42 84 98 06/25/21 02:37 79 100 06/25/21 02:33 78 79/37 L 06/25/21 02:32 77 99 06/25/21 02:30 16 100 06/25/21 02:28 75 81/37 L 06/25/21 02:27 77 100 06/25/21 02:23 16 97 06/25/21 02:22 86 98 06/25/21 02:20 16 100 06/25/21 02:17 84 99 06/25/21 02:16 83 89/42 L 06/25/21 02:12 84 99 06/25/21 02:07 69 100 06/25/21 02:06 82 72/36 L 06/25/21 02:02 80 98 06/25/21 02:01 75 75/38 L 06/25/21 01:57 66 100 06/25/21 01:56 61 59/31 L 06/25/21 01:55 70 60/22 L 06/25/21 01:52 60 100 06/25/21 01:50 67 88 L 06/25/21 01:47 73 100 06/25/21 01:46 73 69/32 L 06/25/21 01:45 74 73/36 L 06/25/21 01:42 80 100 06/25/21 01:38 82 84/45 L 06/25/21 01:37 86 97 06/25/21 01:36 88 84/46 L 06/25/21 01:34 88 83/40 L 06/25/21 01:32 87 98 06/25/21 01:31 88 94 06/25/21 01:30 90 87/43 L 06/25/21 01:28 92 H 95/52 L 06/24/21 23:35 90 100 06/24/21 23:30 109 H 117/75 100 06/24/21 23:24 120 H 100 0422/22 23:21 120 H 129/60 06/24/21 23:19 112 H 100 06/24/21 23:15 114 H 115/62 06/24/21 23:14 114 H 99 06/24/21 23:12 118 H 115/65 06/24/21 23:10 100 H 134/67 06/24/21 23:09 114 H 98 06/24/21 23:06 68 86/48 L 06/24/21 23:04 75 99 06/24/21 23:03 76 84/48 L 06/24/21 23:00 83 20 94/51 L 06/24/21 22:59 82 100 06/24/21 22:57 85 84/45 L 06/24/21 22:54 86 93/52 L 100 06/24/21 22:51 83 89/52 L 06/24/21 22:49 88 100 06/24/21 22:48 88 100/55 L 06/24/21 22:45 94 H 113/64 06/24/21 22:44 89 100 06/24/21 22:42 87 109/56 L 06/24/21 22:39 91 H 120/68 100 06/24/21 22:36 71 92/55 L 06/24/21 22:34 65 99 06/24/21 22:33 79 100/55 L 06/24/21 22:31 79 104/53 L 06/24/21 22:30 86 104/58 L 06/24/21 22:29 82 98 06/24/21 22:27 81 105/58 L 06/24/21 22:24 84 109/59 L 97 06/24/21 22:21 90 113/58 L 06/24/21 22:19 91 H 98 06/24/21 22:18 95 H 116/63 06/24/21 22:15 96 H 112/63 06/24/21 22:14 93 H 97 06/24/21 22:12 99 H 118/67 06/24/21 22:09 94 H 127/68 98 06/24/21 22:06 107 H 129/58 L 06/24/21 22:04 109 H 98 06/24/21 22:03 109 H 135/66 06/24/21 22:00 127 H 18 147/78 H 06/24/21 21:59 120 H 146/94 H 98 06/24/21 21:54 112 H 124/64 98 06/24/21 21:53 80 95/53 L 06/24/21 21:52 78 94/53 L 06/24/21 21:51 81 95/51 L 06/24/21 21:49 84 96 06/24/21 21:48 90 102/56 L 06/24/21 21:45 106 H 116/55 L 06/24/21 21:44 105 H 98 06/24/21 21:39 119 H 139/78 98 06/24/21 21:36 75 147/79 H 06/24/21 21:34 77 105/64 98 06/24/21 21:32 82 107/65 06/24/21 21:29 86 99 06/24/21 21:27 100 H 133/73 06/24/21 21:24 102 H 98 06/24/21 21:19 102 H 98 06/24/21 21:18 97 H 181/118 H 06/24/21 21:14 92 H 98 06/24/21 21:09 90 98 06/24/21 21:04 97 H 99 06/24/21 20:59 96 H 98 06/24/21 20:56 16 06/24/21 20:54 92 H 99 06/24/21 20:49 92 H 99 06/24/21 20:44 97 H 98 06/24/21 20:39 96 H 98 06/24/21 20:38 96 H 167/97 H 06/24/21 20:34 96 H 99 06/24/21 20:29 102 H 99 06/24/21 20:24 108 H 153/97 H 06/24/21 20:00 16 06/24/21 19:07 95 H 144/96 H 06/24/21 19:00 16 06/24/21 18:45 18 06/24/21 18:38 90 152/106 H 06/24/21 18:07 93 H 161/98 H 06/24/21 17:45 19 06/24/21 17:37 86 146/91 H 06/24/21 16:59 85 150/99 H 06/24/21 16:49 87 132/92 06/24/21 16:40 88 153/101 H 06/24/21 16:39 18 06/24/21 16:29 86 154/105 H 06/24/21 16:20 86 149/102 H 06/24/21 16:09 87 148/101 H 06/24/21 15:59 86 144/97 H 06/24/21 15:49 92 H 142/107 H 06/24/21 15:45 18 06/24/21 15:39 88 137/101 H 06/24/21 15:29 101 H 143/101 H 06/24/21 15:19 123 H 176/105 H 06/24/21 15:09 90 143/99 H 06/24/21 14:59 90 140/99 06/24/21 14:49 82 151/96 H 06/24/21 14:45 18 06/24/21 14:11 75 164/107 H 06/24/21 14:00 89 138/92 06/24/21 13:50 95 H 149/107 H 06/24/21 13:42 89 157/111 H 06/24/21 13:31 83 180/114 H 06/24/21 13:21 87 182/116 H 06/24/21 13:10 84 158/107 H 06/24/21 13:01 85 159/108 H 06/24/21 12:56 36.7 C 18 06/24/21 12:52 86 166/113 H 06/24/21 12:41 97 H 156/108 H 06/24/21 12:32 93 H 157/114 H 06/24/21 12:21 92 H 161/107 H 06/24/21 12:20 94 H 168/114 H Transfer of Care Handoff Completed per policy Notes Mental Status: alert / awake / arousable and participated in evaluation Patient Amnestic to Procedure: Yes Nausea / Vomiting: adequately controlled Pain: adequately controlled Airway Patency, RR, SpO2: see Notes below (pt remains intubated) BP & HR: stable & adequate Hydration State: stable & adequate Anesthetic Complications: no major complications apparent and Pt Satisfied with anesthetic care Notes: i went to remove the patients epidural. Pt platelets were 87. her ptt was slightly elevated, but had improved dramatically from the previous recording. I did not feel the patient was in a coagulopathy. I felt leaving the epidural in longer increased her risk of infection. Upon turning patient, pt epidural had removed itself from her back over the course of several transfers. tape was intact,but tip was out. tip intact.
[2021-06-25 11:32] LABS: iSTAT Arterial Blood Gas HCO3 17 meg/L (19-24); iSTAT Arterial Blood Gas pCO2 32 mmHg (35-46); iSTAT Arterial Blood Gas pH 7.34 (7.35-7.45); iSTAT Arterial Blood Gas pO2 94 mmHg (80-95); iSTAT Carbon Dioxide 18 mmol/L (24-31); iSTAT FiO2 40 %; iSTAT Site Art Line
[2021-06-25 11:34] LABS: Hematocrit (blood only) 31.4 % (37-47); Hemoglobin 10.5 g/dL (12.0-16.0); Mean Corpuscular Hemoglobin 30.4 pg (25-34); Mean Corpuscular Hgb Conc 33.4 g/dL (32-36); Mean Platelet Volume 9.2 fL (7.4-10.4); Platelet Count 87 K/uL (130-400); RDW Coefficient of Variation 15.9 % (11.5-14.5); RDW Standard Deviation 51.5 fL (36.4-46.3); Red Blood Count 3.45 M/uL (4.2-5.4); White Blood Count 5.39 K/uL (4.8-10.8)
[2021-06-25 11:38] LABS: INR 0.9 (0.9-1.1); Partial Thromboplastin Ratio 1.3; Partial Thromboplastin Time 36.3 Seconds (21.0-31.0); Prothrombin Time 9.8 Seconds (9.0-12.0)
[2021-06-25 11:39] LABS: Fibrinogen 296 mg/dl (184-400)
[2021-06-25 11:40] LABS: D Dimer 1170 ug/L FEU (0-500)
[2021-06-25 12:40] LABS: BUN Creatinine Ratio 12.8 (10-20); Calcium 6.4 mg/dl (8.5-10.1); Creatinine Clr Calc Pharmacy 99.7 ml/min; Est GFR (African American) 123.3 ml/min; Est GFR (Non-African American) 106.4 ml/min; Potassium 4.2 mmol/L (3.5-5.1)
[2021-06-25 12:42] LABS: Albumin Globulin Ratio 1.4 (0.9-2); Albumin Level 2.7 gm/dl (3.4-5.0); Bilirubin,Total 0.7 mg/dl (0.2-1.0); Magnesium 5.4 mg/dl (1.7-2.4); Phosphorus 5.6 mg/dl (2.5-4.9); Total Protein 4.7 gm/dl (6.0-8.3)
--- NOTE | 2021-06-25 14:54 | Hospitalist Consultation ---
Date of Consultation June 25, 2021 Assessment & Plan (1) Pre-eclampsia: 25-year-old 1 para 1 at 8 weeks 6-day gestation presents with frontal headache eventually escalated to -induced hypertension and preeclampsia. Initial liver enzymes were normal and platelet counts was 115. Magnesium and Pitocin or ordered on presentation and admitted at 1414 hrs. Later that evening after rupture of membranes patient passed a small sized clot and there were some decelerations noted on monitoring with concern for placental abruption and decision was made to proceed to as she had only progressed to 4 cm dilatation by to Pitocin the patient progressed with moderate to severe decelerations and then she was only progressive dilatation at 6 cm. Vaginal bleeding persisted and eventually proceeded to the operating room at 2230 hours, EBL the procedure was 800 mL Throughout the evening the patient persisted with low blood pressures patient was somnolent but did receive a get a emetics and anxiolytics. Urine output was good throughout the evening postoperative labs showed a hemoglobin of 5.8 and platelet count 97,000. Her admission hemoglobin was 11 g. 2 units packed red blood cells were ordered and transfused Consult to Hospital medicine was called somewhere around 8:00 on 06/25. I spoke to Dr. Avelino Reinoso she informed me that the patient's blood pressure had indeed remain low urine output was good she was becoming slightly tachycardic and she was sent to CAT scan for chest abdomen pelvis and head. I recommended transfer to ICU for blood pressure support. Prior to transfer to the intensive care unit a large amount of free fluid in the abdomen was identified possibly consistent with hemorrhage. He was taken to the operating room prior to presenting to the intensive care unit. During the transition from mother-baby unit to the operating room to the ICU I did speak with Edna Joyner our coagulation specialist and initiated the massive transfusion protocol. I informed the anesthesiologist in the operating room of such. Tranexamic acid cryoprecipitate was ordered, patient was found to have bleeding from the uterus incision in the operating room and 17 and mL of estimated blood in her pelvis. The patient was given 4 units packed red blood cells in the radiogram and 3 units of FFP with an additional 1 unit FFP to make a total of 4 units of FFP postoperative fibrinogen was acceptable Patient was transferred to the intensive care unit and eventually extubated quickly by intensive care team. Her hemoglobin postoperatively after the 6 units of blood was 10.5. Her platelet count had dipped to 87. Patient was hemodynamically stable to hypertensive when she returned to the intensive care unit. At this time intensive care unit has been consulted and are managing the patient there is no formal consult from obstetric gynecology for the hospitalist consultation that was called this morning subsequently I am presenting this organizational time on the vent to best of my knowledge will be gladly involved with the patient if need be in the future. History of Present Illness Attending Physician: Latoya Wolfe MD, FACOG Allergies Allergy/AdvReac Type Severity Reaction Status Date / Time rhubarb Allergy Intermediate THROAT Verified 06/24/21 11:36 SLIGHTLY TIGHT, SWELLIN, RASH Home Medications Medication Instructions Recorded Confirmed Type ferrous sulfate 325 mg (65 mg 325 mg PO QAM 01/05/21 06/24/21 History iron) tablet vitamin with calcium 1 tab PO QAM 01/05/21 06/24/21 History no.72-iron 27 mg-folic acid 1 mg tablet (M- Plus) promethazine 25 mg rectal 25 mg MA HS PRN 04/17/21 06/24/21 History suppository promethazine 25 mg tablet 25 mg PO Q6H PRN #20 tab 05/19/21 06/24/21 Rx breast pump #1 ea 06/16/21 06/24/21 Rx Patient History Medical History (Updated 06/25/21 @ 11:06 by Nick Payne MD) Heart palpitations Has monitor from [facility] History of migraine History of syncope Left wrist fracture hemorrhage Surgical History H/O wisdom tooth extraction No pertinent past surgical history Family History Grandmother (Maternal) Hypothyroidism Grandmother (Paternal) Diabetes Denies family history of Ovarian cancer Breast cancer Lung cancer Social History (Updated 05/17/21 @ 13:52 by Shirley CONTI RN) Smoking Status: Never smoker Second Hand Exposure: No; Hx Alcohol Use: No Hx Substance Use: No Preferred Language: Chadian Communication Ability: Effective Visual Impairment: Partially Limited Hearing Ability: Normal Fish Liver Sorter Required: No Beliefs That Will Affect Care: None marital status: Single marital status details: KARTHIK Disla (25) [phone] Current Living Situation: Significant Other Current Living Situation Comment: FOB and no pets current occupational status: student Feels Safe at Home: Yes Assistive Devices: None Results & Data Results & Data ([facility]) Vital Signs (Past 12 Hours) Vital Signs Temp Pulse Pulse Resp BP BP Pulse Ox 06/25/21 13:20 99.3 F 116 H 19 146/103 H 99 06/25/21 13:10 99.1 F 103 H 20 133/103 H 100 06/25/21 13:00 98.8 F 107 H 19 147/104 H 100 06/25/21 12:50 98.6 F 102 H 21 140/91 100 06/25/21 12:40 98.6 F 116 H 31 H 100 06/25/21 12:30 98.2 F 103 H 21 143/102 H 100 06/25/21 12:24 98.2 F 110 H 18 100 06/25/21 11:15 97.7 F 116 H 22 179/109 H 100 06/25/21 11:05 97.7 F 109 H 22 165/98 H 100 06/25/21 11:02 115 H 27 H 98 06/25/21 10:55 97.7 F 111 H 28 H 175/98 H 99 06/25/21 08:47 114 H 100 06/25/21 08:42 113 H 100 06/25/21 08:41 112 H 79/44 L 06/25/21 08:37 125 H 100 06/25/21 08:32 124 H 100 06/25/21 08:27 128 H 100 06/25/21 08:25 98.2 F 133 H 24 100 06/25/21 08:23 131 H 101/58 L 06/25/21 08:22 130 H 100 06/25/21 07:53 108 H 66/34 L 06/25/21 07:52 105 H 100 06/25/21 07:47 116 H 89 L 06/25/21 07:43 110 H 68/36 L 06/25/21 07:42 117 H 73/34 L 92 06/25/21 07:37 111 H 100 06/25/21 07:35 98.2 F 116 H 24 100 06/25/21 07:33 109 H 58/35 L 06/25/21 07:32 106 H 100 06/25/21 07:31 107 H 59/34 L 06/25/21 07:29 112 H 58/30 L 06/25/21 07:27 105 H 100 06/25/21 07:22 114 H 100 06/25/21 07:17 120 H 100 06/25/21 07:13 111 H 75/37 L 06/25/21 07:12 108 H 99 06/25/21 07:07 103 H 72/32 L 100 06/25/21 07:05 110 H 56/30 L 06/25/21 07:03 103 H 53/29 L 06/25/21 07:02 95 H 98 06/25/21 06:57 104 H 98 06/25/21 06:53 101 H 58/30 L 06/25/21 06:52 106 H 99 06/25/21 06:47 101 H 98 06/25/21 06:43 64/32 L 06/25/21 06:42 105 H 98 06/25/21 06:37 105 H 96 06/25/21 06:33 96 H 61/31 L 06/25/21 06:32 92 H 98 06/25/21 06:27 103 H 99 06/25/21 06:23 100 H 60/31 L 06/25/21 06:22 104 H 99 06/25/21 06:17 98 H 99 06/25/21 06:13 99 H 59/32 L 06/25/21 06:12 94 H 99 06/25/21 06:07 82 99 06/25/21 06:03 97 H 63/31 L 06/25/21 06:02 89 100 06/25/21 05:57 101 H 99 06/25/21 05:53 114 H 75/39 L 06/25/21 05:52 109 H 100 06/25/21 05:47 118 H 100 06/25/21 05:44 112 H 82/44 L 06/25/21 05:42 99 H 100 06/25/21 05:37 100 H 99 06/25/21 05:33 97.2 F L 101 H 18 73/39 L 100 06/25/21 05:32 97 H 100 06/25/21 05:27 103 H 100 06/25/21 05:23 99 H 74/41 L 06/25/21 05:22 97 H 100 06/25/21 05:17 102 H 100 06/25/21 05:13 98 H 70/37 L 06/25/21 05:12 98 H 100 06/25/21 05:07 93 H 100 06/25/21 05:05 97.5 F L 93 H 18 65/34 L 100 06/25/21 05:03 93 H 65/34 L 06/25/21 05:02 92 H 100 06/25/21 04:57 90 100 06/25/21 04:55 16 06/25/21 04:54 85 66/30 L 06/25/21 04:52 79 16 100 06/25/21 04:47 93 H 100 06/25/21 04:43 94 H 74/36 L 06/25/21 04:42 91 H 100 06/25/21 04:37 94 H 100 06/25/21 04:35 96.6 F L 84 18 74/36 L 100 06/25/21 04:34 96 H 69/40 L 06/25/21 04:33 96.6 F L 82 18 70/34 L 100 06/25/21 04:32 101 H 100 06/25/21 04:27 80 100 06/25/21 04:23 79 70/34 L 06/25/21 04:22 81 83 L 06/25/21 04:17 80 100 06/25/21 04:12 81 100 06/25/21 04:07 91 H 99 06/25/21 04:05 96.6 F L 90 16 85/43 L 100 06/25/21 04:04 92 H 85/43 L 06/25/21 04:02 91 H 100 06/25/21 03:57 68 100 06/25/21 03:53 75 64/30 L 06/25/21 03:52 78 99 06/25/21 03:50 97.3 F L 76 16 64/30 L 99 06/25/21 03:47 78 100 06/25/21 03:43 80 73/36 L 06/25/21 03:42 87 100 06/25/21 03:37 87 100 06/25/21 03:34 96.4 F L 86 16 84/50 L 100 06/25/21 03:33 81 84/50 L 06/25/21 03:32 84 100 06/25/21 03:31 73 88/50 L 06/25/21 03:27 77 100 06/25/21 03:26 60 54/24 L 06/25/21 03:25 97.0 F L 16 100 06/25/21 03:23 64 60/25 L 06/25/21 03:22 68 100 06/25/21 03:20 96.4 F L 63 16 60/25 L 100 06/25/21 03:17 72 100 06/25/21 03:13 74 66/31 L 06/25/21 03:12 76 99 06/25/21 03:07 83 100 06/25/21 03:06 78 71/36 L 06/25/21 03:03 93 H 73/35 L 06/25/21 03:02 77 71/35 L 100 06/25/21 03:00 96.4 F L 16 99 06/25/21 02:57 90 100 06/25/21 02:53 84 73/35 L 06/25/21 02:52 80 99 06/25/21 02:51 83 73/38 L 06/25/21 02:47 84 100 PG Care Time/CCT Total # of Minutes Spent Total Time Spent with Patient: Total time spent is greater than 50% in coordination of care (as documented) at patient's floor/unit and/or counseling patient: Coding Level of Care Code None Diagnoses Pre-eclampsia O14.90
[2021-06-25] MEDS: HYDROmorphone INJ 0.5 MG/0.5 ML SYR IV PRN ×2 (15:02→20:03)
[2021-06-25] MEDS: ceFAZolin 2000MG 2,000 MG/15 ML SYR IV SCH ×2 (15:28→23:15)
[2021-06-25] MEDS: oxyCODONE/ACETAMINOPHEN 5mg/325mg TAB PO PRN (21:22)
[2021-06-26] MEDS: HYDROmorphone INJ 0.5 MG/0.5 ML SYR IV PRN ×2 (02:10→06:24)
[2021-06-26 04:36] LABS: Hematocrit (blood only) 26.5 % (37-47); Hemoglobin 9.3 g/dL (12.0-16.0); Mean Corpuscular Hgb Conc 35.1 g/dL (32-36); Mean Corpuscular Volume 88.3 fL (80-100); Mean Platelet Volume 8.9 fL (7.4-10.4); Platelet Count 118 K/uL (130-400); RDW Coefficient of Variation 16.2 % (11.5-14.5); RDW Standard Deviation 51.3 fL (36.4-46.3); White Blood Count 6.72 K/uL (4.8-10.8)
[2021-06-26 05:12] LABS: Anion Gap 7 (3-11); BUN Creatinine Ratio 17.3 (10-20); Blood Urea Nitrogen 9 mg/dl (6-23); Calcium 7.6 mg/dl (8.5-10.1); Carbon Dioxide 21 mmol/L (21-32); Chloride 105 mmol/L (98-107); Creatinine Clr Calc Pharmacy 149.6 ml/min; Est GFR (African American) > 150.0 ml/min; Est GFR (Non-African American) 133.7 ml/min; Glucose 124 mg/dl (70-99(Fasting)); Phosphorus 3.5 mg/dl (2.5-4.9); Potassium 3.8 mmol/L (3.5-5.1); Sodium 133 mmol/L (136-145)
[2021-06-26 05:13] LABS: Dohle Bodies 1+; INR 0.9 (0.9-1.1); Immature Granulocytes # (auto) 0.02 K/uL (0.00-0.02); Immature Granulocytes % (auto) 0.3 %; Lymphocytes # (auto) 0.66 K/uL (1.2-3.4); Lymphocytes % (auto) 9.8 %; Monocytes # (auto) 0.23 K/uL (0.11-0.59); Monocytes % (auto) 3.4 %; Neutrophils # (auto) 5.81 K/uL (1.4-6.5); Neutrophils % (auto) 86.5 %; Prothrombin Time 9.2 Seconds (9.0-12.0)
[2021-06-26] MEDS: oxyCODONE/ACETAMINOPHEN 5mg/325mg TAB PO PRN ×4 (05:40→20:57)
[2021-06-26] MEDS: ceFAZolin 2000MG 2,000 MG/15 ML SYR IV SCH (06:25)
[2021-06-26 07:45] LABS: Hematocrit (blood only) 27.8 % (37-47); Hemoglobin 9.8 g/dL (12.0-16.0); Mean Corpuscular Hemoglobin 30.7 pg (25-34); Mean Corpuscular Volume 87.1 fL (80-100); Platelet Count 112 K/uL (130-400); RDW Coefficient of Variation 16.4 % (11.5-14.5); RDW Standard Deviation 51.8 fL (36.4-46.3); Red Blood Count 3.19 M/uL (4.2-5.4); White Blood Count 7.93 K/uL (4.8-10.8)
--- NOTE | 2021-06-26 07:46 | Obstetrical Progress Note ---
Date of Service June 26, 2021 Assessment & Plan (1) Severe preeclampsia: Patient diagnosed pre-delivery with severe preeclampsia, was on magnesium therapy before and through her delivery. It was stopped on the morning of 06/25 due to concern it was causing or contributing to hypotension. This was not resumed in ICU. The behavioral health consultant consult mentions her hypertension and opines that it is related to pain at that point. Pain is likely a component, but I note the patient has been persistently hypertensive since the exploratory laparotomy even when she was in the ICU pre-extubation, so I'm concerned that pain is not the whole story. She also has c/o headache, involuntary jerking motions (though I cannot produce hyperreflexia on exam to corroborate this), and BP remains at least some of the time in severe range. Now that she is hemodynamically stable and her losses are corrected, I feel it's important to resume magnesium therapy for what still seems to be severe preeclampsia, possibly symptomatic; the risk of treating seems less than the risks of non- treatment. Labs have been re-ordered (changing from BMP/H&H to CMP/CBC), patient will be transferred to L&D, therapeutic magnesium will be restarted after a gentle bolus, and our usual monitoring for this therapy will commence. Boyle to remain in situ. Serial labs may be valuable in this patient given her difficult course. All will be discussed in detail with the oncoming provider for SENIOR DEVELOPER today. (2) Hemoperitoneum: Patient with postoperative hypotension, decreased alertness, and abdominal distension. Returned to OR after finding of large hemoperitoneum on CT scan, and intraoperative finding of bleed from L angle of uterine repair consistent with unsecured L uterine artery was identified. This was secured using an O'Clark stitch above and below the level of the hysterotomy on the L side of the uterus, carefully excluding the ovarian pedicle, fallopian tube, and ureter. 1750cc of clot and blood were removed from the abdomen as well. Patient was re- closed, and transferred to ICU remaining intubated, and receiving 1:1:1 transfusion to replace volume losses. She has remained hemodynamically stable without drifting significantly downward of Hgb, indicating her surgical losses are stopped. Lochia is expected and has been appropriate. She is now extubated and ready for return to a non-intensive care setting. (3) state: Routine care will be provided in addition to the management of her preeclampsia as per our usual protocols on L&D floor. Subjective Patient evaluated in ICU room 7 with her partner at bedside, discussed with MANJIT Correa, and behavioral health consultant note reviewed this morning. Voices abdominal pain around 8/10, just recently medicated and not yet feeling effect. Also notes LUCIA currently. No vision disturbance. Pain in belly not near RUQ or ribcage, rather is lower near her incision and bilateral. Still has boyle. Notes that she feels like she has to cough but is afraid to do so because it would hurt. I ask if she is using her incentive spirometer and she isn't sure what that is; a quick survey of the room shows none in evidence. No cough witnessed while I'm in room. She also c/o "involuntary spasms." I ask her to describe these and it's like a leg will jerk quickly without her meaning to. She has appetite. She is fearful of moving around much due to discomfort. Physical Exam Patient is extubated, awake, alert, resting supine. PERRL, face symmetric Conjunctiva clear No hearing or speaking abnormality Abdomen is soft, mildly distended vs obese, and diffusely TTP. NOLAN dressing in place and clean, without any staining visible. Fundus just below umbilicus SCDs in place, removed briefly to check DTR, 2+ without clonus Edema trace Urine in boyle light yellow Results & Data ([facility]) Vital Signs (Past 12 Hours) Vital Signs Temp Pulse Resp BP Pulse Ox 06/26/21 06:00 99.1 F 90 28 H 166/107 H 98 06/26/21 05:30 99.0 F 83 23 153/107 H 96 06/26/21 05:00 99.0 F 85 24 157/103 H 97 06/26/21 04:30 98.8 F 87 27 H 167/103 H 97 06/26/21 04:00 98.6 F 88 20 151/102 H 95 06/26/21 03:30 98.6 F 88 18 134/90 96 06/26/21 03:00 98.6 F 91 H 21 149/103 H 96 06/26/21 02:30 98.6 F 88 19 139/92 95 06/26/21 02:00 98.6 F 95 H 21 148/99 H 95 06/26/21 01:30 98.6 F 93 H 26 H 151/101 H 96 06/26/21 01:00 98.6 F 95 H 24 143/96 H 96 06/26/21 00:30 98.6 F 93 H 23 138/95 95 06/26/21 00:20 98.8 F 92 H 19 131/87 96 06/26/21 00:10 98.8 F 96 H 23 131/88 95 06/26/21 00:00 98.8 F 93 H 24 142/89 H 95 06/25/21 23:59 89 06/25/21 23:50 98.8 F 93 H 23 131/88 95 06/25/21 23:40 98.8 F 92 H 23 141/89 H 95 06/25/21 23:30 98.8 F 95 H 21 132/89 95 06/25/21 23:20 99.0 F 96 H 20 132/84 95 06/25/21 23:10 99.0 F 96 H 22 141/90 H 96 06/25/21 23:00 99.0 F 97 H 23 137/95 97 06/25/21 22:50 99.0 F 108 H 26 H 141/101 H 97 06/25/21 22:40 99.1 F 94 H 22 129/86 96 06/25/21 22:30 99.1 F 99 H 25 H 144/96 H 96 06/25/21 22:20 99.1 F 98 H 22 131/85 96 06/25/21 22:10 99.3 F 102 H 27 H 142/102 H 97 06/25/21 22:00 99.3 F 99 H 23 142/89 H 96 06/25/21 21:50 99.3 F 102 H 21 138/93 97 06/25/21 21:40 99.5 F 102 H 25 H 135/89 96 06/25/21 21:30 99.5 F 103 H 25 H 138/95 96 06/25/21 21:20 99.5 F 107 H 28 H 131/100 97 06/25/21 21:10 99.7 F H 103 H 17 146/95 H 97 06/25/21 21:00 99.7 F H 107 H 19 138/97 97 06/25/21 20:50 99.9 F H 109 H 23 145/100 H 97 06/25/21 20:40 99.9 F H 107 H 23 136/91 95 06/25/21 20:30 100.0 F H 110 H 18 137/99 97 06/25/21 20:20 100.2 F H 113 H 24 164/108 H 96 06/25/21 20:11 100.2 F H 118 H 24 154/106 H 94 06/25/21 20:00 100.0 F H 109 H 28 H 142/107 H 96 06/25/21 19:50 100.0 F H 110 H 26 H 153/105 H 96 06/25/21 19:40 100.0 F H 105 H 24 154/104 H 96 Laboratory Results Laboratory Results - last 24 hr 06/24/21 06/25/21 06/25/21 13:56 07:33 07:33 WBC RBC Hgb Hct MCV MCH MCHC RDW Std Deviation RDW Coeff of Mohit Plt Count MPV Immature Gran % (Auto) Neut % (Auto) Lymph % (Auto) [place] % (Auto) Eos % (Auto) Baso % (Auto) Neut # (Auto) Lymph # (Auto) [place] # (Auto) Eos # (Auto) Baso # (Auto) Immature Gran # (Auto) Neutrophils % (Manual) Lymphocytes % (Manual) Neutrophils # (Manual) Total Absolute Neuts Lymphocytes # (Manual) Total Abs Lymphocytes Dohle Bodies Polychromasia PT 9.9 INR 0.9 APTT 47.7 H* PTT Ratio 1.7 Fibrinogen D-Dimer Sample Site POC pH POC pCO2 POC pO2 POC HCO3 POC Total CO2 POC Base Excess POC ABG O2 Sat Damon Test O2 Delivery Device POC O2 Rate POC FiO2 Tidal Volume PEEP Sodium Potassium Chloride Carbon Dioxide Anion Gap BUN Creatinine 1.06 D Est Cr Clr Drug Dosing 73.4 Est GFR ( Amer) 85.1 Est GFR (Non-Af Amer) 73.4 BUN/Creatinine Ratio Glucose Calcium Ionized Calcium Phosphorus Magnesium 8.0 H* Total Bilirubin AST ALT Alkaline Phosphatase Total Protein Albumin Globulin Albumin/Globulin Ratio Blood Type O Positive Antibody Screen NEGATIVE Crossmatch See Detail 06/25/21 06/25/21 06/25/21 07:34 09:50 09:50 WBC 6.56 RBC 2.17 L Hgb 6.4 L* Hct 19.4 L* MCV 89.4 MCH 29.5 MCHC 33.0 RDW Std Deviation 47.2 H RDW Coeff of Mohit 14.4 Plt Count 108 L MPV 9.7 Immature Gran % (Auto) Neut % (Auto) Lymph % (Auto) [place] % (Auto) Eos % (Auto) Baso % (Auto) Neut # (Auto) Lymph # (Auto) [place] # (Auto) Eos # (Auto) Baso # (Auto) Immature Gran # (Auto) Neutrophils % (Manual) 86.8 Lymphocytes % (Manual) 13.2 Neutrophils # (Manual) 8.22 H Total Absolute Neuts 8.22 H Lymphocytes # (Manual) 1.25 Total Abs Lymphocytes 1.25 Dohle Bodies Polychromasia 1+ PT 11.4 INR 1.1 APTT 70.0 H* PTT Ratio 2.5 Fibrinogen 123 L D-Dimer 930 H* Sample Site POC pH POC pCO2 POC pO2 POC HCO3 POC Total CO2 POC Base Excess POC ABG O2 Sat Damon Test O2 Delivery Device POC O2 Rate POC FiO2 Tidal Volume PEEP Sodium Potassium Chloride Carbon Dioxide Anion Gap BUN Creatinine Est Cr Clr Drug Dosing Est GFR ( Amer) Est GFR (Non-Af Amer) BUN/Creatinine Ratio Glucose Calcium Ionized Calcium Phosphorus Magnesium Total Bilirubin AST ALT Alkaline Phosphatase Total Protein Albumin Globulin Albumin/Globulin Ratio Blood Type Antibody Screen Crossmatch 06/25/21 06/25/21 06/25/21 09:50 09:50 11:06 WBC 5.39 RBC 3.45 L Hgb 10.5 L D Hct 31.4 L MCV 91.0 MCH 30.4 MCHC 33.4 RDW Std Deviation 51.5 H RDW Coeff of Mohit 15.9 H Plt Count 87 L MPV 9.2 Immature Gran % (Auto) Neut % (Auto) Lymph % (Auto) [place] % (Auto) Eos % (Auto) Baso % (Auto) Neut # (Auto) Lymph # (Auto) [place] # (Auto) Eos # (Auto) Baso # (Auto) Immature Gran # (Auto) Neutrophils % (Manual) Lymphocytes % (Manual) Neutrophils # (Manual) Total Absolute Neuts Lymphocytes # (Manual) Total Abs Lymphocytes Dohle Bodies Polychromasia PT INR APTT PTT Ratio Fibrinogen D-Dimer Sample Site POC pH POC pCO2 POC pO2 POC HCO3 POC Total CO2 POC Base Excess POC ABG O2 Sat Damon Test O2 Delivery Device POC O2 Rate POC FiO2 Tidal Volume PEEP Sodium 133 L Potassium 5.2 H D Chloride 108 H Carbon Dioxide 15 L Anion Gap 10 BUN 11 Creatinine 0.91 Est Cr Clr Drug Dosing 85.5 Est GFR ( Amer) 102.3 Est GFR (Non-Af Amer) 88.3 BUN/Creatinine Ratio 12.1 Glucose 157 H Calcium 5.9 L* Ionized Calcium 0.85 L Phosphorus Magnesium Total Bilirubin AST ALT Alkaline Phosphatase Total Protein Albumin Globulin Albumin/Globulin Ratio Blood Type Antibody Screen Crossmatch 06/25/21 06/25/21 06/25/21 11:06 11:06 11:18 WBC RBC Hgb Hct MCV MCH MCHC RDW Std Deviation RDW Coeff of Mohit Plt Count MPV Immature Gran % (Auto) Neut % (Auto) Lymph % (Auto) [place] % (Auto) Eos % (Auto) Baso % (Auto) Neut # (Auto) Lymph # (Auto) [place] # (Auto) Eos # (Auto) Baso # (Auto) Immature Gran # (Auto) Neutrophils % (Manual) Lymphocytes % (Manual) Neutrophils # (Manual) Total Absolute Neuts Lymphocytes # (Manual) Total Abs Lymphocytes Dohle Bodies Polychromasia PT 9.8 INR 0.9 APTT 36.3 H PTT Ratio 1.3 Fibrinogen 296 D D-Dimer 1170 H* Sample Site Art Line POC pH 7.34 L POC pCO2 32 L POC pO2 94 POC HCO3 17 L POC Total CO2 18 L POC Base Excess -8.0 POC ABG O2 Sat 97.0 H Damon Test NA O2 Delivery Device Ventilator POC O2 Rate 22 POC FiO2 40 Tidal Volume 280 PEEP 5 Sodium 137 Potassium 4.2 Chloride 109 H Carbon Dioxide 17 L Anion Gap 11 BUN 10 Creatinine 0.78 Est Cr Clr Drug Dosing 99.7 Est GFR ( Amer) 123.3 Est GFR (Non-Af Amer) 106.4 BUN/Creatinine Ratio 12.8 Glucose 175 H Calcium 6.4 L Ionized Calcium Phosphorus 5.6 H Magnesium 5.4 H* Total Bilirubin 0.7 AST 30 ALT 9 Alkaline Phosphatase 80 Total Protein 4.7 L Albumin 2.7 L Globulin 2.0 L Albumin/Globulin Ratio 1.4 Blood Type Antibody Screen Crossmatch 06/26/21 06/26/21 06/26/21 04:24 04:24 04:24 WBC 6.72 RBC 3.00 L Hgb 9.3 L Hct 26.5 L MCV 88.3 MCH 31.0 MCHC 35.1 RDW Std Deviation 51.3 H RDW Coeff of Mohit 16.2 H Plt Count 118 L MPV 8.9 Immature Gran % (Auto) 0.3 Neut % (Auto) 86.5 Lymph % (Auto) 9.8 [place] % (Auto) 3.4 Eos % (Auto) 0.0 Baso % (Auto) 0.0 Neut # (Auto) 5.81 Lymph # (Auto) 0.66 L [place] # (Auto) 0.23 Eos # (Auto) 0.00 Baso # (Auto) 0.00 Immature Gran # (Auto) 0.02 Neutrophils % (Manual) Lymphocytes % (Manual) Neutrophils # (Manual) Total Absolute Neuts Lymphocytes # (Manual) Total Abs Lymphocytes Dohle Bodies 1+ Polychromasia PT 9.2 INR 0.9 APTT PTT Ratio Fibrinogen D-Dimer Sample Site POC pH POC pCO2 POC pO2 POC HCO3 POC Total CO2 POC Base Excess POC ABG O2 Sat Damon Test O2 Delivery Device POC O2 Rate POC FiO2 Tidal Volume PEEP Sodium 133 L Potassium 3.8 Chloride 105 Carbon Dioxide 21 Anion Gap 7 BUN 9 Creatinine 0.52 L Est Cr Clr Drug Dosing 149.6 Est GFR ( Amer) > 150.0 Est GFR (Non-Af Amer) 133.7 BUN/Creatinine Ratio 17.3 Glucose 124 H Calcium 7.6 L Ionized Calcium Phosphorus 3.5 D Magnesium 3.0 H Total Bilirubin AST ALT Alkaline Phosphatase Total Protein Albumin Globulin Albumin/Globulin Ratio Blood Type Antibody Screen Crossmatch 06/26/21 06/26/21 07:32 07:32 WBC 7.93 RBC 3.19 L Hgb 9.8 L Hct 27.8 L MCV 87.1 MCH 30.7 MCHC 35.3 RDW Std Deviation 51.8 H RDW Coeff of Mohit 16.4 H Plt Count 112 L MPV 9.0 Immature Gran % (Auto) Neut % (Auto) Lymph % (Auto) [place] % (Auto) Eos % (Auto) Baso % (Auto) Neut # (Auto) Lymph # (Auto) [place] # (Auto) Eos # (Auto) Baso # (Auto) Immature Gran # (Auto) Neutrophils % (Manual) Lymphocytes % (Manual) Neutrophils # (Manual) Total Absolute Neuts Lymphocytes # (Manual) Total Abs Lymphocytes Dohle Bodies Polychromasia PT INR APTT PTT Ratio Fibrinogen D-Dimer Sample Site POC pH POC pCO2 POC pO2 POC HCO3 POC Total CO2 POC Base Excess POC ABG O2 Sat Damon Test O2 Delivery Device POC O2 Rate POC FiO2 Tidal Volume PEEP Sodium Pending Potassium Pending Chloride Pending Carbon Dioxide Pending Anion Gap Pending BUN Pending Creatinine Pending Est Cr Clr Drug Dosing Pending Est GFR ( Amer) Pending Est GFR (Non-Af Amer) Pending BUN/Creatinine Ratio Pending Glucose Pending Calcium Pending Ionized Calcium Phosphorus Magnesium Total Bilirubin Pending AST Pending ALT Pending Alkaline Phosphatase Pending Total Protein Pending Albumin Pending Globulin Pending Albumin/Globulin Ratio Pending Blood Type Antibody Screen Crossmatch
[2021-06-26 07:51] LABS: Mean Corpuscular Hgb Conc 35.3 g/dL (32-36)
[2021-06-26] MEDS ORDERED: diphenhydrAMINE 50 MG/ML VIAL IV PRN (08:00)
[2021-06-26] MEDS ORDERED: MEASLES, MUMPS & RUBELLA VIRUS VIAL SQ ONE (08:00)
[2021-06-26] MEDS ORDERED: MEPERIDINE HCL 50 MG/ML CARP IV PRN (08:00)
[2021-06-26] MEDS ORDERED: SENNA 8.6 MG TAB PO PRN (08:00)
[2021-06-26] MEDS ORDERED: MAG SULFATE 4GM BOLUS FROM BAG IV ONE (08:00)
[2021-06-26] MEDS ORDERED: diphenhydrAMINE Capsule 25 MG CAP PO PRN (08:00)
[2021-06-26] MEDS ORDERED: PROMETHAZINE HCL 25 MG in SODIUM CHLORIDE 0.9% 50 ML IV PRN (08:00)
[2021-06-26] MEDS ORDERED: HYDROCORTISONE ACETATE 25 MG SUPP PR PRN (08:00)
[2021-06-26] MEDS ORDERED: BENZOCAINE 20% AER SPR 82.5 GM CAN EXT PRN (08:00)
[2021-06-26] MEDS ORDERED: ONDANSETRON INJ 2 MG/ML 2 ML VIAL IV PRN (08:00)
[2021-06-26 08:09] LABS: Alanine Aminotransferase 7 U/L (7-52); Albumin Level 2.6 gm/dl (3.4-5.0); Alkaline Phosphatase 96 U/L (34-104); Anion Gap 7 (3-11); Aspartate Aminotransferase 19 U/L (13-39); Bilirubin,Total 0.3 mg/dl (0.2-1.0); Blood Urea Nitrogen 9 mg/dl (6-23); Calcium 7.8 mg/dl (8.5-10.1); Carbon Dioxide 21 mmol/L (21-32); Chloride 105 mmol/L (98-107); Creatinine Clr Calc Pharmacy 155.6 ml/min; Est GFR (African American) > 150.0 ml/min; Est GFR (Non-African American) 135.5 ml/min; Globulin 2.7 gm/dl (2.5-4.0); Glucose 115 mg/dl (70-99(Fasting)); Potassium 3.8 mmol/L (3.5-5.1); Sodium 133 mmol/L (136-145); Total Protein 5.3 gm/dl (6.0-8.3)
--- NOTE | 2021-06-26 08:20 | Anesthesiology Progress Note ---
Date of Service June 26, 2021 Anesthesia Post Procedure Vital Signs Vital Signs: Temp Pulse Pulse Resp BP BP Pulse Ox 06/26/21 07:50 37.3 C 102 H 31 H 94 06/26/21 07:40 37.3 C 108 H 26 H 95 06/26/21 07:30 37.4 C 89 26 H 166/110 H 96 06/26/21 07:20 37.3 C 90 22 96 06/26/21 07:10 37.3 C 92 H 25 H 96 06/26/21 07:00 37.4 C 96 H 27 H 148/107 H 95 06/26/21 06:00 37.3 C 90 28 H 166/107 H 98 06/26/21 05:30 37.2 C 83 23 153/107 H 96 06/26/21 05:00 37.2 C 85 24 157/103 H 97 06/26/21 04:30 37.1 C 87 27 H 167/103 H 97 06/26/21 04:00 37.0 C 88 20 151/102 H 95 06/26/21 03:30 37.0 C 88 18 134/90 96 06/26/21 03:00 37.0 C 91 H 21 149/103 H 96 06/26/21 02:30 37.0 C 88 19 139/92 95 06/26/21 02:00 37.0 C 95 H 21 148/99 H 95 06/26/21 01:30 37.0 C 93 H 26 H 151/101 H 96 06/26/21 01:00 37.0 C 95 H 24 143/96 H 96 06/26/21 00:30 37.0 C 93 H 23 138/95 95 06/26/21 00:20 37.1 C 92 H 19 131/87 96 06/26/21 00:10 37.1 C 96 H 23 131/88 95 06/26/21 00:00 37.1 C 93 H 24 142/89 H 95 06/25/21 23:59 89 06/25/21 23:50 37.1 C 93 H 23 131/88 95 06/25/21 23:40 37.1 C 92 H 23 141/89 H 95 06/25/21 23:30 37.1 C 95 H 21 132/89 95 06/25/21 23:20 37.2 C 96 H 20 132/84 95 04/23/22 23:10 37.2 C 96 H 22 141/90 H 96 06/25/21 23:00 37.2 C 97 H 23 137/95 97 06/25/21 22:50 37.2 C 108 H 26 H 141/101 H 97 06/25/21 22:40 37.3 C 94 H 22 129/86 96 06/25/21 22:30 37.3 C 99 H 25 H 144/96 H 96 06/25/21 22:20 37.3 C 98 H 22 131/85 96 06/25/21 22:10 37.4 C 102 H 27 H 142/102 H 97 06/25/21 22:00 37.4 C 99 H 23 142/89 H 96 06/25/21 21:50 37.4 C 102 H 21 138/93 97 06/25/21 21:40 37.5 C 102 H 25 H 135/89 96 06/25/21 21:30 37.5 C 103 H 25 H 138/95 96 06/25/21 21:20 37.5 C 107 H 28 H 131/100 97 06/25/21 21:10 37.6 C H 103 H 17 146/95 H 97 06/25/21 21:00 37.6 C H 107 H 19 138/97 97 06/25/21 20:50 37.7 C H 109 H 23 145/100 H 97 06/25/21 20:40 37.7 C H 107 H 23 136/91 95 06/25/21 20:30 37.8 C H 110 H 18 137/99 97 06/25/21 20:20 37.9 C H 113 H 24 164/108 H 96 06/25/21 20:11 37.9 C H 118 H 24 154/106 H 94 06/25/21 20:00 37.8 C H 109 H 28 H 142/107 H 96 06/25/21 19:50 37.8 C H 110 H 26 H 153/105 H 96 06/25/21 19:40 37.8 C H 105 H 24 154/104 H 96 06/25/21 19:30 37.8 C H 107 H 24 144/103 H 97 06/25/21 19:20 37.8 C H 107 H 21 148/106 H 97 06/25/21 19:10 37.8 C H 104 H 21 145/102 H 97 06/25/21 19:00 37.8 C H 106 H 20 154/107 H 98 06/25/21 18:50 37.8 C H 107 H 18 154/108 H 99 06/25/21 18:40 37.8 C H 103 H 18 145/101 H 97 06/25/21 18:30 37.7 C H 108 H 17 153/110 H 97 06/25/21 18:20 37.7 C H 108 H 31 H 155/110 H 98 06/25/21 18:10 37.7 C H 106 H 31 H 152/105 H 97 06/25/21 18:00 37.6 C H 107 H 6 L 128/96 97 06/25/21 17:50 37.6 C H 108 H 26 H 96 06/25/21 17:40 37.6 C H 109 H 15 148/109 H 96 06/25/21 17:30 37.5 C 113 H 30 H 157/104 H 97 06/25/21 17:20 37.5 C 109 H 29 H 165/105 H 97 06/25/21 17:10 37.5 C 112 H 34 H 161/102 H 97 06/25/21 17:00 37.5 C 113 H 36 H 168/107 H 98 06/25/21 16:50 37.5 C 106 H 23 138/97 97 06/25/21 16:40 37.5 C 106 H 27 H 150/104 H 98 06/25/21 16:30 37.5 C 109 H 19 135/98 97 06/25/21 16:20 37.4 C 107 H 29 H 144/100 H 97 06/25/21 16:10 37.5 C 113 H 27 H 141/119 H 96 06/25/21 16:00 37.5 C 112 H 25 H 157/104 H 98 06/25/21 15:50 37.6 C H 111 H 15 127/100 96 06/25/21 15:40 37.7 C H 111 H 21 124/102 H 97 06/25/21 15:30 37.7 C H 109 H 20 130/93 97 06/25/21 15:20 37.7 C H 117 H 24 127/90 98 06/25/21 15:12 37.7 C H 114 H 20 144/87 H 97 06/25/21 15:11 37.7 C H 114 H 20 144/87 H 97 06/25/21 15:10 37.7 C H 114 H 21 141/98 H 97 06/25/21 15:07 37.7 C H 114 H 20 144/87 H 97 06/25/21 15:00 37.7 C H 112 H 20 144/95 H 98 06/25/21 14:50 37.7 C H 117 H 24 135/103 H 98 06/25/21 14:40 37.7 C H 110 H 22 98 06/25/21 14:30 37.7 C H 112 H 23 141/99 H 99 06/25/21 14:20 37.6 C H 111 H 6 L 142/110 H 98 06/25/21 14:10 37.6 C H 109 H 18 145/106 H 98 06/25/21 14:00 37.6 C H 109 H 17 140/97 99 06/25/21 13:50 37.6 C H 107 H 19 139/100 99 06/25/21 13:40 37.5 C 109 H 22 133/99 100 06/25/21 13:30 37.5 C 107 H 16 99 06/25/21 13:20 37.4 C 116 H 19 146/103 H 99 06/25/21 13:10 37.3 C 103 H 20 133/103 H 100 06/25/21 13:00 37.1 C 107 H 19 147/104 H 100 06/25/21 12:50 37.0 C 102 H 21 140/91 100 06/25/21 12:40 37.0 C 116 H 31 H 100 06/25/21 12:30 36.8 C 103 H 21 143/102 H 100 06/25/21 12:24 36.8 C 110 H 18 100 06/25/21 11:15 36.5 C 116 H 22 179/109 H 100 06/25/21 11:05 36.5 C 109 H 22 165/98 H 100 06/25/21 11:02 115 H 27 H 98 06/25/21 10:55 36.5 C 111 H 28 H 175/98 H 99 06/25/21 08:47 114 H 100 06/25/21 08:42 113 H 100 06/25/21 08:41 112 H 79/44 L 06/25/21 08:37 125 H 100 06/25/21 08:32 124 H 100 06/25/21 08:27 128 H 100 06/25/21 08:25 36.8 C 133 H 24 100 06/25/21 08:23 131 H 101/58 L 06/25/21 08:22 130 H 100 Transfer of Care Handoff Completed per policy Notes Mental Status: alert / awake / arousable and participated in evaluation Patient Amnestic to Procedure: Yes (see below) Nausea / Vomiting: adequately controlled Pain: see Notes below Airway Patency, RR, SpO2: stable & adequate BP & HR: see Notes below Hydration State: stable & adequate Neuraxial Anesthesia: was administered and sensory block resolved Anesthetic Complications: see Notes below and Pt Satisfied with anesthetic care Notes: Pt and spouse are satisfied with anesthetic care at this time and epidural catheter is out, but anesthesia will continue to follow due to the patient's complicated course. Today patient and the father of the baby report that she is doing much better. She continues to describe headache and her blood pressure is now hypertensive. They report that the team is preparing transfer to post where she will restart her magnesium treatment due to her preeclampsia. The patient is complaining of significant pain at the incision and the left side of her abdomen. I suspect that the patient will have higher pain needs than is common for the course of most postoperative c-sections. The patient did receive 3mg of epidural morphine at the time of her initial , but that is no longer available in her system to contribute to pain control. The team may need to consider a short course of IV narcotics if PO narcotics and pain adjuvants (Tylenol and ibuprofen - if approved by the team) are insufficient to manage her pain once she is up on the unit. The patient reports having no recall of her perioperative course after reaching 6cm (time of epidural placement) until ICU extubation other than a brief time meeting her baby in the room. She has no questions about anesthesia at this time. We will continue to follow and are available for the team and family if questions or concerns develop.
[2021-06-26] MEDS: LACTATED RINGER'S 1,000 ML IV SCH ×2 (08:38→21:00)
[2021-06-26] MEDS: MAGNESIUM SULFATE / WTR 40 GM/1,000 ML BAG IV SCH (08:39)
[2021-06-26] MEDS: DOCUSATE SODIUM 100 MG CAP PO SCH ×3 (09:05→20:57)
[2021-06-26] MEDS: PRENATAL VITAMIN 1 TAB PO SCH (09:16)
[2021-06-26] MEDS: FERROUS SULFATE 325 MG TAB PO SCH (09:16)
[2021-06-26] MEDS: SIMETHICONE 80 MG CHEW PO SCH ×4 (09:16→20:58)
[2021-06-26] MEDS: IBUPROFEN 600 MG TAB PO PRN ×3 (09:47→20:57)
[2021-06-26 13:59] LABS: Hematocrit (blood only) 26.3 % (37-47); Hemoglobin 9.2 g/dL (12.0-16.0); Mean Corpuscular Hemoglobin 31.4 pg (25-34); Mean Corpuscular Volume 89.8 fL (80-100); Nucleated RBC # (auto) 0.02 K/uL (0-0); Nucleated RBC % (auto) 0.2 %; Platelet Count 131 K/uL (130-400); RDW Coefficient of Variation 16.4 % (11.5-14.5); RDW Standard Deviation 52.8 fL (36.4-46.3); Red Blood Count 2.93 M/uL (4.2-5.4); White Blood Count 8.44 K/uL (4.8-10.8)
[2021-06-26 14:26] LABS: Alanine Aminotransferase 6 U/L (7-52); Albumin Globulin Ratio 0.9 (0.9-2); Albumin Level 2.5 gm/dl (3.4-5.0); Alkaline Phosphatase 96 U/L (34-104); Anion Gap 10 (3-11); Aspartate Aminotransferase 17 U/L (13-39); BUN Creatinine Ratio 17.8 (10-20); Bilirubin,Total 0.3 mg/dl (0.2-1.0); Blood Urea Nitrogen 8 mg/dl (6-23); Calcium 7.8 mg/dl (8.5-10.1); Carbon Dioxide 20 mmol/L (21-32); Chloride 104 mmol/L (98-107); Creatinine Clr Calc Pharmacy 172.9 ml/min; Est GFR (African American) > 150.0 ml/min; Est GFR (Non-African American) 140.2 ml/min; Globulin 2.8 gm/dl (2.5-4.0); Glucose 117 mg/dl (70-99(Fasting)); Magnesium Therapeutic L&D Only 5.5 mg/dL (4.0-8.0); Potassium 3.4 mmol/L (3.5-5.1); Sodium 134 mmol/L (136-145); Total Protein 5.3 gm/dl (6.0-8.3)
--- NOTE | 2021-06-26 16:57 | Communication Note ---
Date of Service: June 26, 2021 Rounds to check on patient. She was lying comfortably in bed. Previous IV infiltrated and therefore IV team is at bedside to replace IV site. Patient is doing ok - she is awake and talking. Has had a few crackers, but felt like her mouth was too dry to eat them - has been doing well with PO fluids. Does report some crampy pelvic pain. SCDs were off at patient's request because they were causing sweating - I recommended that she at least have the ordered CATRACHO hose on to reduce risk of blood clots during postop recovery - patient agreeable and these were placed by nursing staff. She is having some facial flushing/clamminess - discussed that since her temp has been normal, suspect this is from the magnesium. Reviewed that labs are stable/improving. BPs are elevated, however have not been in 160s/110s. Will continue to monitor labs and BPs in the setting of severe preeclampsia. Discussed that I expect, as long as she seems to clinically improve, magnesium infusion will likely stop tomorrow. Hopeful to move her to unit tomorrow. Her abdomen is soft. Incision covered by NOLAN dressing - NOLAN is clean/dry. Trace LE edema.
[2021-06-26] MEDS ORDERED: bisacodyL 5 MG TABEC PO SCH (20:00)
[2021-06-26 20:16] LABS: Hematocrit (blood only) 27.8 % (37-47); Hemoglobin 9.7 g/dL (12.0-16.0); Mean Corpuscular Hemoglobin 30.7 pg (25-34); Mean Corpuscular Hgb Conc 34.9 g/dL (32-36); Mean Platelet Volume 8.9 fL (7.4-10.4); Nucleated RBC # (auto) 0.04 K/uL (0-0); Nucleated RBC % (auto) 0.4 %; Platelet Count 149 K/uL (130-400); RDW Coefficient of Variation 16.2 % (11.5-14.5); RDW Standard Deviation 51.9 fL (36.4-46.3); Red Blood Count 3.16 M/uL (4.2-5.4); White Blood Count 8.85 K/uL (4.8-10.8)
[2021-06-26 20:35] LABS: Alanine Aminotransferase 7 U/L (7-52); Albumin Globulin Ratio 0.9 (0.9-2); Albumin Level 2.5 gm/dl (3.4-5.0); Alkaline Phosphatase 98 U/L (34-104); Anion Gap 12 (3-11); Aspartate Aminotransferase 17 U/L (13-39); BUN Creatinine Ratio 14.3 (10-20); Bilirubin,Total 0.3 mg/dl (0.2-1.0); Blood Urea Nitrogen 7 mg/dl (6-23); Calcium 7.6 mg/dl (8.5-10.1); Carbon Dioxide 19 mmol/L (21-32); Chloride 105 mmol/L (98-107); Creatinine Clr Calc Pharmacy 158.7 ml/min; Est GFR (African American) > 150.0 ml/min; Est GFR (Non-African American) 136.4 ml/min; Globulin 2.7 gm/dl (2.5-4.0); Glucose 135 mg/dl (70-99(Fasting)); Potassium 3.3 mmol/L (3.5-5.1); Sodium 136 mmol/L (136-145); Total Protein 5.2 gm/dl (6.0-8.3)
[2021-06-27] MEDS ORDERED: bisacodyL 10 MG SUPP PR PRN
[2021-06-27] MEDS: MAGNESIUM SULFATE / WTR 40 GM/1,000 ML BAG IV SCH (03:08)
[2021-06-27] MEDS: IBUPROFEN 600 MG TAB PO PRN ×4 (06:27→22:21)
[2021-06-27] MEDS: oxyCODONE/ACETAMINOPHEN 5mg/325mg TAB PO PRN ×4 (06:28→22:22)
[2021-06-27 07:07] LABS: Hematocrit (blood only) 25.8 % (37-47); Hemoglobin 8.8 g/dL (12.0-16.0); Mean Corpuscular Hemoglobin 30.7 pg (25-34); Mean Corpuscular Hgb Conc 34.1 g/dL (32-36); Mean Corpuscular Volume 89.9 fL (80-100); Nucleated RBC # (auto) 0.06 K/uL (0-0); Nucleated RBC % (auto) 0.9 %; Platelet Count 174 K/uL (130-400); RDW Coefficient of Variation 16.5 % (11.5-14.5); RDW Standard Deviation 54.1 fL (36.4-46.3); Red Blood Count 2.87 M/uL (4.2-5.4); White Blood Count 6.29 K/uL (4.8-10.8)
--- NOTE | 2021-06-27 07:07 | Anesthesiology Progress Note ---
Date of Service June 27, 2021 Anesthesia Post Procedure Vital Signs Vital Signs: Temp Pulse Resp BP Pulse Ox 06/27/21 06:55 88 96 06/27/21 06:50 96 H 96 06/27/21 06:45 94 H 96 06/27/21 06:43 85 130/87 06/27/21 06:40 97 H 97 06/27/21 06:35 92 H 97 06/27/21 06:30 92 H 97 06/27/21 06:25 91 H 95 06/27/21 06:20 92 H 95 06/27/21 06:15 95 H 96 06/27/21 06:10 83 95 06/27/21 06:05 82 95 06/27/21 06:00 82 18 95 06/27/21 05:55 81 95 06/27/21 05:50 82 95 06/27/21 05:45 84 96 06/27/21 05:43 75 150/82 H 06/27/21 05:40 82 95 06/27/21 05:35 79 96 06/27/21 05:30 76 95 06/27/21 05:25 82 96 06/27/21 05:20 88 96 06/27/21 05:15 88 95 06/27/21 05:10 84 95 06/27/21 05:05 79 95 06/27/21 05:00 82 16 95 06/27/21 04:55 85 95 06/27/21 04:50 84 94 06/27/21 04:45 85 94 06/27/21 04:43 86 154/84 H 06/27/21 04:40 87 94 06/27/21 04:35 96 H 95 06/27/21 04:30 87 94 06/27/21 04:25 84 95 06/27/21 04:20 90 95 06/27/21 04:15 85 95 06/27/21 04:10 87 95 06/27/21 04:05 88 95 06/27/21 04:03 16 06/27/21 04:00 90 96 06/27/21 03:55 91 H 95 06/27/21 03:50 90 96 06/27/21 03:45 90 95 06/27/21 03:43 91 H 134/79 06/27/21 03:40 90 95 06/27/21 03:35 93 H 95 22 03:30 95 H 95 0422 03:25 89 95 0422 03:24 90 94 04 03:20 87 94 06/27/21 03:15 95 H 95 04 03:10 88 95 06/27/21 03:05 83 95 06/27/21 03:00 36.9 C 84 16 95 06/27/21 02:55 85 95 06/27/21 02:50 85 95 22 02:45 92 H 95 22 02:43 88 137/79 0422 02:40 85 95 22 02:35 87 95 06/27/21 02:30 85 95 06/27/21 02:25 84 95 06/27/21 02:20 84 95 06/27/21 02:15 101 H 96 06/27/21 02:10 84 95 06/27/21 02:05 90 95 06/27/21 02:00 87 16 95 06/27/21 01:55 87 95 06/27/21 01:50 88 95 06/27/21 01:45 93 H 96 06/27/21 01:43 82 135/75 06/27/21 01:40 83 95 06/27/21 01:35 90 95 06/27/21 01:33 89 92 06/27/21 01:30 90 96 06/27/21 01:25 86 95 06/27/21 01:20 85 95 06/27/21 01:15 88 95 06/27/21 01:10 88 96 06/27/21 01:05 88 96 06/27/21 01:00 91 H 16 96 22 00:55 87 96 06/27/21 00:50 85 96 22 00:45 90 95 22 00:43 88 141/78 H 22 00:40 86 96 06/27/21 00:35 86 96 06/27/21 00:30 87 96 06/27/21 00:25 87 96 06/27/21 00:20 91 H 95 22 00:15 87 95 22 00:14 18 06/27/21 00:10 90 95 22 00:05 94 H 96 06/27/21 00:00 92 H 96 06/26/21 23:55 91 H 96 06/26/21 23:50 95 H 96 06/26/21 23:46 88 94 06/26/21 23:45 88 95 06/26/21 23:43 88 151/79 H 06/26/21 23:40 101 H 96 06/26/21 23:35 93 H 92 06/26/21 23:30 90 96 06/26/21 23:25 91 H 96 06/26/21 23:20 92 H 96 06/26/21 23:15 100 H 97 06/26/21 23:10 93 H 96 06/26/21 23:05 96 H 96 06/26/21 23:00 94 H 96 06/26/21 22:55 95 H 96 06/26/21 22:50 93 H 96 06/26/21 22:45 95 H 96 06/26/21 22:43 97 H 158/81 H 06/26/21 22:40 94 H 96 06/26/21 22:35 92 H 96 06/26/21 22:30 103 H 96 06/26/21 22:25 96 H 96 06/26/21 22:20 91 H 96 06/26/21 22:15 92 H 96 06/26/21 22:10 94 H 96 06/26/21 22:05 92 H 96 06/26/21 22:00 87 16 96 06/26/21 21:55 92 H 96 06/26/21 21:50 96 H 96 06/26/21 21:45 95 H 96 06/26/21 21:43 96 H 141/83 H 06/26/21 21:40 94 H 95 06/26/21 21:38 91 H 93 06/26/21 21:35 96 H 95 06/26/21 21:30 92 H 96 06/26/21 21:25 92 H 96 06/26/21 21:20 96 H 95 06/26/21 21:15 98 H 96 06/26/21 21:10 96 H 96 06/26/21 21:05 100 H 96 06/26/21 21:00 107 H 16 96 06/26/21 20:55 95 H 96 06/26/21 20:50 97 H 96 06/26/21 20:45 97 H 96 06/26/21 20:43 95 H 140/80 06/26/21 20:40 96 H 96 06/26/21 20:35 96 H 95 06/26/21 20:30 95 H 95 06/26/21 20:25 102 H 95 06/26/21 20:20 101 H 95 06/26/21 20:15 93 H 95 06/26/21 20:10 95 H 96 06/26/21 20:05 96 H 95 06/26/21 20:00 100 H 18 96 06/26/21 19:55 100 H 96 06/26/21 19:50 102 H 96 06/26/21 19:45 100 H 96 06/26/21 19:43 106 H 147/85 H 06/26/21 19:40 105 H 96 06/26/21 19:35 101 H 96 06/26/21 19:30 100 H 96 06/26/21 19:25 94 H 96 06/26/21 19:20 94 H 96 06/26/21 19:15 97 H 96 06/26/21 19:10 94 H 96 06/26/21 19:05 99 H 95 06/26/21 19:00 36.7 C 91 H 18 95 06/26/21 18:55 96 H 96 06/26/21 18:50 96 H 96 06/26/21 18:45 100 H 96 06/26/21 18:43 96 H 140/79 06/26/21 18:40 107 H 96 06/26/21 18:35 107 H 18 96 06/26/21 18:30 108 H 95 06/26/21 18:25 102 H 95 06/26/21 18:20 104 H 96 06/26/21 18:15 99 H 96 06/26/21 18:10 102 H 97 06/26/21 18:05 98 H 97 06/26/21 18:00 103 H 97 06/26/21 17:55 112 H 97 06/26/21 17:50 113 H 96 06/26/21 17:45 100 H 96 06/26/21 17:43 94 H 137/81 06/26/21 17:40 98 H 97 06/26/21 17:35 106 H 96 06/26/21 17:30 98 H 18 97 06/26/21 17:25 98 H 96 04/24/22 17:20 103 H 97 06/26/21 17:15 94 H 97 06/26/21 17:10 91 H 97 06/26/21 17:05 100 H 97 06/26/21 17:00 98 H 97 06/26/21 16:55 105 H 97 06/26/21 16:50 101 H 94 06/26/21 16:47 92 H 159/96 H 06/26/21 16:45 94 H 98 06/26/21 16:39 94 H 97 06/26/21 16:34 91 H 97 06/26/21 16:30 36.9 C 18 06/26/21 16:29 101 H 97 06/26/21 16:24 99 H 97 06/26/21 16:19 99 H 97 06/26/21 16:14 98 H 97 06/26/21 16:09 90 97 06/26/21 16:04 85 97 06/26/21 15:59 89 96 06/26/21 15:54 92 H 96 06/26/21 15:49 92 H 95 06/26/21 15:44 86 95 06/26/21 15:43 86 139/83 06/26/21 15:39 85 96 06/26/21 15:37 18 06/26/21 15:34 87 96 06/26/21 15:29 107 H 96 06/26/21 15:24 87 96 06/26/21 15:19 90 96 06/26/21 15:14 85 96 06/26/21 15:09 86 97 06/26/21 15:04 89 96 06/26/21 14:59 91 H 96 06/26/21 14:54 90 96 06/26/21 14:50 36.7 C 16 06/26/21 14:49 93 H 96 06/26/21 14:44 96 H 96 06/26/21 14:43 96 H 139/87 06/26/21 14:39 90 96 06/26/21 14:34 87 96 06/26/21 14:29 98 H 97 06/26/21 14:24 92 H 95 06/26/21 14:19 102 H 97 06/26/21 14:14 84 96 06/26/21 14:09 88 96 06/26/21 14:04 90 95 06/26/21 13:59 89 95 06/26/21 13:54 94 H 95 06/26/21 13:49 98 H 96 06/26/21 13:46 94 H 152/79 H 06/26/21 13:44 100 H 96 06/26/21 13:42 88 94 06/26/21 13:39 91 H 96 06/26/21 13:34 92 H 96 06/26/21 13:29 93 H 96 06/26/21 13:25 37.0 C 16 97 06/26/21 13:24 93 H 96 06/26/21 13:19 94 H 96 06/26/21 13:16 93 H 139/83 06/26/21 13:14 91 H 96 06/26/21 13:09 90 96 06/26/21 13:04 93 H 96 06/26/21 12:59 90 96 06/26/21 12:54 94 H 96 06/26/21 12:49 93 H 96 06/26/21 12:46 91 H 148/82 H 06/26/21 12:44 92 H 96 06/26/21 12:39 92 H 96 06/26/21 12:34 91 H 96 06/26/21 12:30 16 96 06/26/21 12:29 93 H 96 06/26/21 12:24 89 96 06/26/21 12:19 94 H 96 06/26/21 12:16 101 H 142/87 H 06/26/21 12:14 104 H 96 06/26/21 12:09 94 H 96 06/26/21 12:04 95 H 96 06/26/21 11:59 91 H 96 06/26/21 11:54 88 97 06/26/21 11:49 93 H 96 06/26/21 11:46 93 H 149/84 H 06/26/21 11:44 95 H 96 06/26/21 11:39 92 H 96 06/26/21 11:34 92 H 96 06/26/21 11:29 91 H 97 06/26/21 11:24 92 H 95 06/26/21 11:21 18 06/26/21 11:19 99 H 95 06/26/21 11:14 93 H 96 06/26/21 11:09 100 H 96 06/26/21 11:04 97 H 97 06/26/21 11:02 94 H 149/90 H 06/26/21 10:59 95 H 97 06/26/21 10:54 95 H 97 06/26/21 10:49 98 H 97 06/26/21 10:47 96 H 150/90 H 06/26/21 10:44 97 H 96 06/26/21 10:39 95 H 97 06/26/21 10:34 101 H 97 06/26/21 10:32 96 H 153/93 H 06/26/21 10:30 18 97 06/26/21 10:29 95 H 97 06/26/21 10:24 97 H 98 06/26/21 10:19 98 H 97 06/26/21 10:17 100 H 153/92 H 06/26/21 10:14 97 H 97 06/26/21 10:09 98 H 98 06/26/21 10:04 100 H 98 06/26/21 10:02 96 H 151/92 H 06/26/21 09:59 96 H 98 06/26/21 09:54 97 H 98 06/26/21 09:49 97 H 98 06/26/21 09:47 98 H 143/90 H 06/26/21 09:44 93 H 97 06/26/21 09:41 95 H 140/89 06/26/21 09:39 94 H 98 06/26/21 09:34 98 H 98 06/26/21 09:32 100 H 162/102 H 06/26/21 09:30 20 06/26/21 09:29 98 H 97 06/26/21 09:24 103 H 98 06/26/21 09:19 100 H 173/104 H 98 06/26/21 09:17 106 H 164/106 H 06/26/21 09:14 101 H 98 06/26/21 09:09 98 H 97 06/26/21 09:04 97 H 97 06/26/21 09:02 96 H 136/89 06/26/21 09:00 37.2 C 20 97 06/26/21 08:59 101 H 97 06/26/21 08:54 98 H 98 06/26/21 08:49 100 H 98 06/26/21 08:47 104 H 147/100 H 06/26/21 08:44 97 H 97 06/26/21 08:39 95 H 97 06/26/21 07:50 37.3 C 102 H 31 H 94 06/26/21 07:40 37.3 C 108 H 26 H 95 06/26/21 07:30 37.4 C 89 26 H 166/110 H 96 06/26/21 07:20 37.3 C 90 22 96 06/26/21 07:10 37.3 C 92 H 25 H 96 Transfer of Care Handoff Completed per policy Notes Mental Status: alert / awake / arousable and participated in evaluation Nausea / Vomiting: adequately controlled Pain: see Notes below Airway Patency, RR, SpO2: stable & adequate BP & HR: stable & adequate Hydration State: stable & adequate Anesthetic Complications: no major complications apparent and Pt Satisfied with anesthetic care Notes: Checked on the patient and the father of the baby this morning. Both are doing well. Patient is still complaining of significant pain and is edematous this morning in all extremities. The team plans to stop magnesium this morning and then the patient will be able to ambulate more. I encouraged the patient to focus on ambulating this morning and I shared that her pain and edema will both begin to improve when she starts to move. Today, in order to facilitate ambulation, I would encourage the team to think about her this morning as a POD#1 who did not receive duramorph. She will probably require some bridging with IV narcotics in order to facilitate her initial attempts. She might also benefit from seeing PT today to help her get up and ambulate with confidence. Anesthesia will officially sign off at this point, but we will remain available to the team if any questions or concerns develop.
--- NOTE | 2021-06-27 07:09 | Obstetrical Progress Note ---
Date of Service June 27, 2021 Assessment & Plan (1) state: Improving. Labs have trended towards normal, still awaiting results from this AM. BPs have been 130/70s-150/80s. Discussed with patient that will plan to stop the magnesium infusion at the 24h calista - and will continue to monitor BP throughout the day. Discussed goals of ambulation today, working with for . Subjective Voiding: boyle catheter in place Diet Tolerance:: regular diet Lochia:: Moderate Doing well. Awake in bed, talking. Has tolerated food/drink well. Has not yet been up to ambulate. She is concerned about adequate pain control for ambulation. Currently using PO pain meds. Passing gas. Has not yet breastfed, but would like to start today. Review of Systems All systems reviewed & are unremarkable except as noted in HPI & below Physical Exam Constitutional WD/WN, vitals as above no acute distress Respiratory normal respiratory effort Cardiovascular Rate/Rhythm: regular rate and regular rhythm Gastrointestinal (Abdomen) Inspection/Auscultation: abdomen normal to inspection; abdomen not distended Percussion/Palpation: abdomen soft NOLAN dressing in place, CDI. : min lochia Genitourinary OB Exam Abdomen: + fundal height Fundus: + firm; not tender Results & Data ([facility]) Vital Signs (Past 12 Hours) Vital Signs Temp Pulse Resp BP Pulse Ox 06/27/21 07:05 91 H 95 06/27/21 07:00 95 H 96 06/27/21 06:55 88 96 06/27/21 06:50 96 H 96 06/27/21 06:45 94 H 96 06/27/21 06:43 85 130/87 06/27/21 06:40 97 H 97 06/27/21 06:35 92 H 97 06/27/21 06:30 92 H 97 06/27/21 06:25 91 H 95 06/27/21 06:20 92 H 95 06/27/21 06:15 95 H 96 06/27/21 06:10 83 95 06/27/21 06:05 82 95 06/27/21 06:00 82 18 95 06/27/21 05:55 81 95 06/27/21 05:50 82 95 06/27/21 05:45 84 96 06/27/21 05:43 75 150/82 H 06/27/21 05:40 82 95 04/25/22 05:35 79 96 04 05:30 76 95 06/27/21 05:25 82 96 06/27/21 05:20 88 96 06/27/21 05:15 88 95 06/27/21 05:10 84 95 06/27/21 05:05 79 95 06/27/21 05:00 82 16 95 06/27/21 04:55 85 95 06/27/21 04:50 84 94 06/27/21 04:45 85 94 06/27/21 04:43 86 154/84 H 06/27/21 04:40 87 94 06/27/21 04:35 96 H 95 06/27/21 04:30 87 94 06/27/21 04:25 84 95 06/27/21 04:20 90 95 06/27/21 04:15 85 95 06/27/21 04:10 87 95 06/27/21 04:05 88 95 06/27/21 04:03 16 06/27/21 04:00 90 96 06/27/21 03:55 91 H 95 06/27/21 03:50 90 96 06/27/21 03:45 90 95 06/27/21 03:43 91 H 134/79 06/27/21 03:40 90 95 06/27/21 03:35 93 H 95 06/27/21 03:30 95 H 95 06/27/21 03:25 89 95 06/27/21 03:24 90 94 06/27/21 03:20 87 94 06/27/21 03:15 95 H 95 06/27/21 03:10 88 95 06/27/21 03:05 83 95 06/27/21 03:00 36.9 C 84 16 95 06/27/21 02:55 85 95 06/27/21 02:50 85 95 06/27/21 02:45 92 H 95 06/27/21 02:43 88 137/79 06/27/21 02:40 85 95 06/27/21 02:35 87 95 06/27/21 02:30 85 95 06/27/21 02:25 84 95 06/27/21 02:20 84 95 06/27/21 02:15 101 H 96 06/27/21 02:10 84 95 06/27/21 02:05 90 95 04/25/22 02:00 87 16 95 06/27/21 01:55 87 95 06/27/21 01:50 88 95 06/27/21 01:45 93 H 96 06/27/21 01:43 82 135/75 06/27/21 01:40 83 95 06/27/21 01:35 90 95 06/27/21 01:33 89 92 06/27/21 01:30 90 96 06/27/21 01:25 86 95 06/27/21 01:20 85 95 06/27/21 01:15 88 95 06/27/21 01:10 88 96 06/27/21 01:05 88 96 06/27/21 01:00 91 H 16 96 06/27/21 00:55 87 96 06/27/21 00:50 85 96 06/27/21 00:45 90 95 06/27/21 00:43 88 141/78 H 06/27/21 00:40 86 96 06/27/21 00:35 86 96 06/27/21 00:30 87 96 06/27/21 00:25 87 96 06/27/21 00:20 91 H 95 06/27/21 00:15 87 95 06/27/21 00:14 18 06/27/21 00:10 90 95 06/27/21 00:05 94 H 96 06/27/21 00:00 92 H 96 06/26/21 23:55 91 H 96 06/26/21 23:50 95 H 96 06/26/21 23:46 88 94 06/26/21 23:45 88 95 06/26/21 23:43 88 151/79 H 06/26/21 23:40 101 H 96 06/26/21 23:35 93 H 92 06/26/21 23:30 90 96 06/26/21 23:25 91 H 96 06/26/21 23:20 92 H 96 06/26/21 23:15 100 H 97 06/26/21 23:10 93 H 96 06/26/21 23:05 96 H 96 06/26/21 23:00 94 H 96 06/26/21 22:55 95 H 96 06/26/21 22:50 93 H 96 06/26/21 22:45 95 H 96 06/26/21 22:43 97 H 158/81 H 06/26/21 22:40 94 H 96 06/26/21 22:35 92 H 96 06/26/21 22:30 103 H 96 06/26/21 22:25 96 H 96 06/26/21 22:20 91 H 96 06/26/21 22:15 92 H 96 06/26/21 22:10 94 H 96 06/26/21 22:05 92 H 96 06/26/21 22:00 87 16 96 06/26/21 21:55 92 H 96 06/26/21 21:50 96 H 96 06/26/21 21:45 95 H 96 06/26/21 21:43 96 H 141/83 H 06/26/21 21:40 94 H 95 06/26/21 21:38 91 H 93 06/26/21 21:35 96 H 95 06/26/21 21:30 92 H 96 06/26/21 21:25 92 H 96 06/26/21 21:20 96 H 95 06/26/21 21:15 98 H 96 06/26/21 21:10 96 H 96 06/26/21 21:05 100 H 96 06/26/21 21:00 107 H 16 96 06/26/21 20:55 95 H 96 06/26/21 20:50 97 H 96 06/26/21 20:45 97 H 96 06/26/21 20:43 95 H 140/80 06/26/21 20:40 96 H 96 06/26/21 20:35 96 H 95 06/26/21 20:30 95 H 95 06/26/21 20:25 102 H 95 06/26/21 20:20 101 H 95 06/26/21 20:15 93 H 95 06/26/21 20:10 95 H 96 06/26/21 20:05 96 H 95 06/26/21 20:00 100 H 18 96 06/26/21 19:55 100 H 96 06/26/21 19:50 102 H 96 06/26/21 19:45 100 H 96 06/26/21 19:43 106 H 147/85 H 06/26/21 19:40 105 H 96 06/26/21 19:35 101 H 96 06/26/21 19:30 100 H 96 06/26/21 19:25 94 H 96 06/26/21 19:20 94 H 96 06/26/21 19:15 97 H 96 06/26/21 19:10 94 H 96
[2021-06-27 07:23] LABS: Alanine Aminotransferase 8 U/L (7-52); Albumin Globulin Ratio 0.9 (0.9-2); Albumin Level 2.3 gm/dl (3.4-5.0); Alkaline Phosphatase 96 U/L (34-104); Anion Gap 8 (3-11); Aspartate Aminotransferase 15 U/L (13-39); BUN Creatinine Ratio 21.1 (10-20); Bilirubin,Total 0.3 mg/dl (0.2-1.0); Blood Urea Nitrogen 8 mg/dl (6-23); Calcium 7.2 mg/dl (8.5-10.1); Carbon Dioxide 23 mmol/L (21-32); Chloride 106 mmol/L (98-107); Creatinine Clr Calc Pharmacy 204.7 ml/min; Est GFR (African American) > 150.0 ml/min; Est GFR (Non-African American) 148.3 ml/min; Globulin 2.7 gm/dl (2.5-4.0); Glucose 104 mg/dl (70-99(Fasting)); Potassium 3.4 mmol/L (3.5-5.1); Sodium 137 mmol/L (136-145)
[2021-06-27] MEDS: FERROUS SULFATE 325 MG TAB PO SCH (08:30)
[2021-06-27] MEDS: PRENATAL VITAMIN 1 TAB PO SCH (08:30)
[2021-06-27] MEDS: DOCUSATE SODIUM 100 MG CAP PO SCH ×2 (08:30→21:07)
[2021-06-27] MEDS: SIMETHICONE 80 MG CHEW PO SCH ×4 (08:30→21:07)
[2021-06-27] MEDS: LABETALOL HCL 100 MG TAB PO SCH ×2 (11:37→21:07)
[2021-06-27] MEDS: LACTATED RINGER'S 1,000 ML IV SCH (16:05)
[2021-06-28] MEDS: IBUPROFEN 600 MG TAB PO PRN ×3 (03:28→14:08)
[2021-06-28] MEDS: oxyCODONE/ACETAMINOPHEN 5mg/325mg TAB PO PRN ×5 (03:28→23:27)
--- NOTE | 2021-06-28 07:22 | Obstetrical Progress Note ---
Date of Service June 28, 2021 Assessment & Plan (1) state: stable, doing well. cont diet, ambulation, pain meds. trying to breast feed/pump, encouraged. bps are better on labetalol bid. will continue to monitor and see if needs any adjustments. voiding well. routine care. can have iv out. expect PT consult today. Day #:: 3 Subjective Ambulation: ambulating normally Voiding: no voiding problems Passing Gas:: Yes Diet Tolerance:: regular diet Lochia:: Small Feeding Type:: breast feeding (pumping) doing well this am. no further dizziness. has been ambulating, good pain control. denies ro, visual changes, cp or sob Physical Exam Constitutional WD/WN, vitals as above Respiratory normal respiratory effort, lungs clear to auscultation Cardiovascular Rate/Rhythm: regular rate and regular rhythm Gastrointestinal (Abdomen) Inspection/Auscultation: abdomen normal to inspection and + abdominal surgical incision (dressed with NOLAN dressing) Percussion/Palpation: abdomen soft Fundus firm 2cm down Musculoskeletal nt calves tr edema Neurologic grossly normal Psychiatric A+Ox3, euthymic affect Results & Data ([facility]) Vital Signs (Past 12 Hours) Vital Signs Temp Pulse Resp BP Pulse Ox 06/28/21 03:30 98.1 F 95 H 18 149/93 H 97 06/28/21 00:05 98.8 F 97 H 18 136/87 96 06/27/21 20:30 98.2 F 88 18 145/89 H 95
[2021-06-28] MEDS: DOCUSATE SODIUM 100 MG CAP PO SCH ×2 (09:06→20:21)
[2021-06-28] MEDS: LABETALOL HCL 100 MG TAB PO SCH ×2 (09:06→20:20)
[2021-06-28] MEDS: SIMETHICONE 80 MG CHEW PO SCH ×4 (09:06→20:21)
[2021-06-28] MEDS: FERROUS SULFATE 325 MG TAB PO SCH (09:06)
[2021-06-28] MEDS: PRENATAL VITAMIN 1 TAB PO SCH (09:06)
[2021-06-28 16:26] LABS: Nucleated RBC # (auto) 0.13 K/uL (0-0); Nucleated RBC % (auto) 3.4 %
[2021-06-28] MEDS ORDERED: NIFEdipine 10 MG CAP PO STA (16:26)
--- NOTE | 2021-06-28 16:37 | Communication Note ---
Date of Service: June 28, 2021 Notified by nursing of deteriorating patient's condition she stated she felt unwell blood pressure elevated and then felt fever and chills she also felt back pain no difficulties and shortness of breath Graph on exam patient looks uncomfortable feels feverish her chest is clear abdomen is soft no sign of infection Hospitalist is also reconsulted will assess for infection and imaging After reviewing labs her hemoglobin is stable her white count is not elevated but it is somewhat suppressed. CT scan is reviewed with the radiologist there is no active hemorrhage there is some blood possible endometritis inside of the endometrium there is less blood seen outside of the uterus and was on the last CAT scan 3 days ago. I reviewed with the hospital Dr. Eddy and I think a reasonable tentative diagnosis at this stage is endometritis consider starting clindamycin 900 mg IV every 8 and gentamicin 5 mg/kg once daily dosing
[2021-06-28 16:39] LABS: Hematocrit (blood only) 28.1 % (37-47); Hemoglobin 9.3 g/dL (12.0-16.0); Mean Corpuscular Hemoglobin 30.7 pg (25-34); Mean Corpuscular Hgb Conc 33.1 g/dL (32-36); Mean Corpuscular Volume 92.7 fL (80-100); Mean Platelet Volume 8.9 fL (7.4-10.4); Platelet Count 265 K/uL (130-400); RDW Coefficient of Variation 16.3 % (11.5-14.5); RDW Standard Deviation 54.2 fL (36.4-46.3); Red Blood Count 3.03 M/uL (4.2-5.4)
[2021-06-28 17:12] LABS: Oxygen Saturation VBG 82.2 %; pH VBG 7.49 (7.36-7.41)
[2021-06-28 17:16] LABS: Alanine Aminotransferase 9 U/L (7-52); Albumin Globulin Ratio 0.8 (0.9-2); Albumin Level 2.3 gm/dl (3.4-5.0); Alkaline Phosphatase 115 U/L (34-104); Anion Gap 7 (3-11); Aspartate Aminotransferase 26 U/L (13-39); BUN Creatinine Ratio 25.5 (10-20); Bilirubin,Total 0.3 mg/dl (0.2-1.0); Blood Urea Nitrogen 12 mg/dl (6-23); Calcium 7.9 mg/dl (8.5-10.1); Carbon Dioxide 22 mmol/L (21-32); Chloride 108 mmol/L (98-107); Creatinine Clr Calc Pharmacy 165.5 ml/min; Est GFR (African American) > 150.0 ml/min; Est GFR (Non-African American) 138.3 ml/min; Globulin 2.9 gm/dl (2.5-4.0); Glucose 87 mg/dl (70-99(Fasting)); Sodium 137 mmol/L (136-145); Total Protein 5.2 gm/dl (6.0-8.3)
--- NOTE | 2021-06-28 17:44 | CT Scan Report ---
CT abd pelvis wo con CLINICAL HISTORY: Abdominal pain, concern for hemorrhage TECHNIQUE: Helical axial images of the abdomen and pelvis were obtained. Automated dose lowering tech niques and/or adjustment according to patient size were utilized for this exam. This exam was perfor med without intravenous contrast. CT DOSE: 999.59 mGycm COMPARISON: Comparison is made to CT abdomen pelvis 06/25/2021 FINDINGS: Lower chest: Trace bilateral pleural effusions and atelectasis are seen. Liver: The liver measures 17 cm at the midclavicular line. Gallbladder and biliary tree: No calcified gallstones. Normal caliber wall. No intra- or extrahepatic biliary ductal dilation. Pancreas: Unremarkable, no focal lesions. Spleen: Unremarkable. Adrenals: Unremarkable. Kidneys and ureters: Bilateral hydronephrosis and hydroureter are seen. Bladder: Unremarkable. Reproductive organs: Redemonstration of postsurgical changes of recent section with hyperden se endometrial contents and foci of air in the uterus. Hyperdensity has increased from prior exam and may represent blood products. Bowel: Unremarkable. Lymph nodes Retroperitoneal: Unremarkable. Mesenteric: Unremarkable. Pelvic: Unremarkable. Peritoneum: Hyperdense fluid is seen in the pelvis, increased in density with decrease in extent from prior exam. Vessels: Unremarkable. Abdominal wall: Anasarca is increased from prior exam. Postsurgical changes are seen in the anterior abdominal wall including soft tissue swelling and subcutaneous emphysema. Bones: Unremarkable. IMPRESSION: 1. Postsurgical changes of section. Hyperdense material in the uterus may represent hemorrh age. 2. Decreased amount of hyperdense fluid in the peritoneum. 3. Anasarca is new from prior exam. ACT 112: Negative or not required by law. Electronically signed by: Contreras Arellano M.D. 06/28/2021 5:41 PM
[2021-06-28 18:04] LABS: Fibrinogen 491 mg/dl (184-400); INR 0.8 (0.9-1.1); Partial Thromboplastin Ratio 1.7; Prothrombin Time 9.1 Seconds (9.0-12.0)
[2021-06-28 18:16] LABS: Partial Thromboplastin Time 47.3 Seconds (21.0-31.0)
[2021-06-28] MEDS ORDERED: GENTAMICIN CONSULT ACTIVE PRN (18:24)
[2021-06-28] MEDS ORDERED: HYDROmorphone INJ 0.5 MG/0.5 ML SYR IV PRN (18:25)
[2021-06-28] MEDS ORDERED: CLINDAMYCIN HCL 150 MG CAP PO SCH (18:30)
--- NOTE | 2021-06-28 18:31 | Hospitalist Consultation ---
Date of Consultation June 28, 2021 Assessment & Plan (1) Endometriosis: Per radiologist, CT a/p from 06/28 indicates some concern for endometriosis which would fit with the patient's fever and leukopenia. - Per Ob, pharmacy, and UTD, the treatment of choice would be clindamycin + gentamicin - Monitor blood cultures and clinical status - Should see improvement in 24 - 48 hours. (2) Hemoperitoneum: After . - Notable that her PTT is elevated. This can be seen in a variety of factor deficiencies, von Willebrand disease, and lupus anticoagulant (though you would see thrombosis with this, not bleeding) -> Will need work-up as outpatient given her complications this so that she can be better advised if she were to become again. (3) Severe preeclampsia: With some hypertension presently. Will closely monitor, but per Ob, no role for magnesium at this time. - Monitor History of Present Illness Attending Physician: Latoya Wolfe MD, FACOG History of Present Illness 25yo F w/ no major PMH who presents with possible endometritis. The patient has had a complex delivery where she had a on 06/25 due to concern with distress. However, she then approx. 10 hours later, her blood pressure dropped. She had CT c/a/p ordered which showed hemoperitoneum and extraperitoneal hemorrhage. She required a massive transfusion protocol and was in the ICU intubated for a time. Luckily, she did well, and she was transitioned back to OB. Today, she planned to go home, but per her significant other, she walked to the restroom, had a bowel movement, and had significant pain afterward. In addition, she also had some increased tiredness and confusion. The patient reports lower abdominal pain that radiates into the back. She also notes a fever. Allergies Allergy/AdvReac Type Severity Reaction Status Date / Time rhubarb Allergy Intermediate THROAT Verified 06/24/21 11:36 SLIGHTLY TIGHT, SWELLIN, RASH Home Medications Medication Instructions Recorded Confirmed Type ferrous sulfate 325 mg (65 mg 325 mg PO QAM 01/05/21 06/24/21 History iron) tablet vitamin with calcium 1 tab PO QAM 01/05/21 06/24/21 History no.72-iron 27 mg-folic acid 1 mg tablet (M-Marcia Plus) promethazine 25 mg rectal 25 mg NV HS PRN 04/17/21 06/24/21 History suppository promethazine 25 mg tablet 25 mg PO Q6H PRN #20 tab 05/19/21 06/24/21 Rx breast pump #1 ea 06/16/21 06/24/21 Rx Patient History Medical History Heart palpitations Has monitor from [facility] History of migraine History of syncope Left wrist fracture hemorrhage Surgical History H/O wisdom tooth extraction No pertinent past surgical history Family History Grandmother (Maternal) Hypothyroidism Grandmother (Paternal) Diabetes Denies family history of Ovarian cancer Breast cancer Lung cancer Social History Smoking Status: Never smoker Second Hand Exposure: No; Hx Alcohol Use: No Hx Substance Use: No Preferred Language: Lao Communication Ability: Effective Visual Impairment: Partially Limited Hearing Ability: Normal Sock Knitter Required: No Beliefs That Will Affect Care: None marital status: Single marital status details: KARTHIK Disla (25) [phone] Current Living Situation: Significant Other Current Living Situation Comment: FOB and no pets current occupational status: student Feels Safe at Home: Yes Assistive Devices: None Review of Systems Review of Systems: All systems reviewed & are unremarkable except as noted in HPI & below Physical Exam Constitutional: WD/WN, vitals as above Eyes: EOM intact bilaterally; no conjunctival abnormality ENMT: external ear and nose normal, oropharynx normal Neck: trachea midline, no thyromegaly normal visual inspection Respiratory: normal respiratory effort, lungs clear to auscultation no respiratory distress Cardiovascular: RRR, no murmur, no edema Gastrointestinal (Abdomen): Inspection/Auscultation: + abdominal surgical incision (No drainage, no erythema noted.); + abdomen abnormal to inspection and abdomen not distended Musculoskeletal: no cyanosis or clubbing, extremities motor strength 5/5 Skin: no rashes, warm and dry Neurologic: moves all extremities and awake Psychiatric: Orientation: alert, oriented to person and cooperative Results & Data Results & Data ([facility]) Vital Signs (Past 12 Hours) Vital Signs Temp Pulse Resp BP Pulse Ox 06/28/21 13:15 97 06/28/21 12:46 142/96 H 06/28/21 07:50 37.2 C 85 16 152/98 H 96 PG Care Time/CCT Total # of Minutes Spent Total Time Spent with Patient: Total time spent is greater than 50% in coordination of care (as documented) at patient's floor/unit and/or counseling patient: Coding Level of Care Code 23658 Inpt Consult Level 5 Diagnoses Endometriosis N80.9 Hemoperitoneum K66.1 Severe preeclampsia O14.10
[2021-06-28] MEDS: KETOROLAC 30 MG/ML VIAL IV PRN (20:23)
[2021-06-28] MEDS ORDERED: GENTAMICIN SULFATE 380 MG in DEXTROSE 5% 100 ML IV SCH (20:30)
[2021-06-28] MEDS: CLINDAMYCIN 900 MG in DEXTROSE 5% 50 ML IV SCH (20:41)
[2021-06-28] MEDS: GENTAMICIN SULFATE 380 MG in DEXTROSE 5% 100 ML IV SCH (21:32)
[2021-06-29] MEDS: CLINDAMYCIN 900 MG in DEXTROSE 5% 50 ML IV SCH ×3 (04:05→20:40)
[2021-06-29] MEDS: IBUPROFEN 600 MG TAB PO PRN ×3 (04:12→17:11)
[2021-06-29] MEDS ORDERED: LABETALOL HCL IV 5 MG/ML 20ML IV STA (04:33)
[2021-06-29] MEDS: LABETALOL HCL 200 MG TAB PO SCH ×2 (05:28→19:59)
[2021-06-29 06:21] LABS: Basophils # (auto) 0.02 K/uL (0-0.2); Basophils % (auto) 0.5 %; Eosinophils # (auto) 0.02 K/uL (0-0.5); Eosinophils % (auto) 0.5 %; Hematocrit (blood only) 25.4 % (37-47); Hemoglobin 8.4 g/dL (12.0-16.0); Immature Granulocytes % (auto) 2.7 %; Lymphocytes # (auto) 0.99 K/uL (1.2-3.4); Lymphocytes % (auto) 26.4 %; Mean Corpuscular Hemoglobin 30.1 pg (25-34); Mean Corpuscular Hgb Conc 33.1 g/dL (32-36); Mean Platelet Volume 4.2 fL (7.4-10.4); Monocytes # (auto) 0.28 K/uL (0.11-0.59); Monocytes % (auto) 7.5 %; Neutrophils # (auto) 2.34 K/uL (1.4-6.5); Neutrophils % (auto) 62.4 %; Nucleated RBC % (auto) 2.7 %; Platelet Count 234 K/uL (130-400); RDW Coefficient of Variation 16.2 % (11.5-14.5); RDW Standard Deviation 52.7 fL (36.4-46.3); Red Blood Count 2.79 M/uL (4.2-5.4); White Blood Count 3.75 K/uL (4.8-10.8)
[2021-06-29 06:49] LABS: Alanine Aminotransferase 10 U/L (7-52); Albumin Globulin Ratio 0.8 (0.9-2); Albumin Level 2.3 gm/dl (3.4-5.0); Alkaline Phosphatase 124 U/L (34-104); Anion Gap 8 (3-11); Bilirubin,Total 0.4 mg/dl (0.2-1.0); Blood Urea Nitrogen 8 mg/dl (6-23); Carbon Dioxide 23 mmol/L (21-32); Chloride 104 mmol/L (98-107); Creatinine Clr Calc Pharmacy 194.5 ml/min; Est GFR (African American) > 150.0 ml/min; Est GFR (Non-African American) 145.8 ml/min; Glucose 76 mg/dl (70-99(Fasting)); Sodium 135 mmol/L (136-145); Total Protein 5.3 gm/dl (6.0-8.3)
[2021-06-29] MEDS: oxyCODONE/ACETAMINOPHEN 5mg/325mg TAB PO PRN ×3 (06:54→19:37)
[2021-06-29 06:58] LABS: Polychromasia 1+
[2021-06-29] MEDS ORDERED: NURSING DECISION MEDICATION ONE (07:28)
--- NOTE | 2021-06-29 07:37 | Obstetrical Progress Note ---
Date of Service June 29, 2021 Assessment & Plan (1) state: (2) Endometritis: Patient had a set back yesterday with increased pain and temperature elevation. Imaging suggested possible endometritis. IV clinda and Gent started. BPs elevated and adjusting labetalol dose to 200mg BID. will need to monitor closely This morning she is actually feeling much better she has far less pain in the back pain and more on the right side seems to have dissipated quite a bit she has not had a bowel movement yet but is now sitting up in a chair and looking much better I reviewed her course in detail and again we will continue the IV antibiotics await cultures she has some urine burning as well with urination so we will send a culture for the and continue to monitor blood pressure very carefully Subjective Ambulation: ambulating normally Voiding: no voiding problems Passing Gas:: Yes Physical Exam Gastrointestinal (Abdomen) normal bowel sounds, soft, nontender, no hepatosplenomegaly Results & Data ([facility]) Vital Signs (Past 12 Hours) Vital Signs Temp Pulse Resp BP BP Pulse Ox 06/29/21 06:51 97 H 138/93 06/29/21 05:01 95 H 165/107 H 06/29/21 04:00 98.2 F 94 H 16 177/119 H 96 06/28/21 23:00 98.2 F 97 H 16 155/100 H 96
--- NOTE | 2021-06-29 07:38 | Pharmacy Report ---
Pharmacy [facility] Short Note - Date of Service June 29, 2021 - Assessment & Plan Assessment 25 year old F receiving Gentamicin/Clindamycin for treatment of endometritis. Pertinent microbiologic data includes: N/A. Day # 1 of antimicrobial therapy. Plan Gentamicin * Will utilize Anoop nomogram with 5 mg/kg of ACTUAL body weight due to post- status * Check random level tomorrow morning ~10 hours after dose to ensure q24 hour dosing appropriate Pharmacy will continue to follow and will adjust dose/frequency as necessary. Thank you.
[2021-06-29 07:51] LABS: Potassium 3.7 mmol/L (3.5-5.1)
[2021-06-29] MEDS: PRENATAL VITAMIN 1 TAB PO SCH (09:11)
[2021-06-29] MEDS: SIMETHICONE 80 MG CHEW PO SCH ×4 (09:11→20:40)
[2021-06-29] MEDS: FERROUS SULFATE 325 MG TAB PO SCH (09:11)
[2021-06-29] MEDS: DOCUSATE SODIUM 100 MG CAP PO SCH ×2 (09:11→20:40)
[2021-06-29 11:10] LABS: Appearance Urine Clear (Clear); Bacteria Urine Automated Negative (Negative); Bilirubin Urine Negative (Negative); Blood Urine 3+ (Negative); Color Urine Yellow; Glucose Urine UA Negative (Negative); Ketones Urine Negative (Negative); Leukocyte Esterase Urine 1+ (Negative); Nitrite Urine Negative (Negative); Protein Urine Negative (Negative); Specific Gravity Urine 1.008 (1.000-1.030); Urobilinogen Urine Negative (Negative); pH Urine 8.5 (4.5-7.5)
--- NOTE | 2021-06-29 12:45 | Hospitalist Progress Note ---
Date of Service June 29, 2021 Assessment & Plan (1) Endometritis: Plan: fever developed (101.89) on 06/28. CT of A/P showing concern for endometritis - now on clindamycin + gentamicin (treatment of choice per up-to-date and pharmacy)--> patient not currently breast-feeding - Per up-to-date, patient requires 48 hours of IV antibiotics. Would be safe to discharge once she remains afebrile for >/= 24-hour with no need for continued antibiotics - If patient remains febrile after 48 hours or continues to deterioratewould need to repeat CT of the abdomen and pelvis to ensure abscess did not develop - Blood cultures have been ordered and are pending. (2) hemorrhage: Plan: - Hemoglobin down to 5.8 - Patient is s/p massive hemorrhage protocol: 8U PRBC's, TXA, 2U FFP and cryoprecipitate - Posttransfusion, hemoglobin was up to 10.5. Down to 8.4 today (some of this might be dilutional as receiving aggressive IV hydration) - recommend FU CBC tomorrow - recommend D/C IVF as tolerating oral intake at this time (3) Severe preeclampsia: Plan: - Hypertensive with proteinuria leading to induction - on 06/24 - BP remains elevated. On labetalol with titration per [employer] - Blood pressure remains slightly elevated (146/98). Would advise discontinuation of IV fluids at this time as she is tolerating oral intake--BP may improve with discontinuation of IV fluids Plan: We will sign off from a medical standpoint but do not hesitate to reconsult should a problem arise. Thank you for allowing us to participate in the care of this patient. Plan of care will be discussed with Dr. Figueroa. Further orders as warranted per Admission and Anticipated Discharge Date Admission Date: June 24, 2021 Subjective Patient seen on daily rounds today. Induction for pre-eclampsia on 06/24 membranes ruptured with large blood clot noted baby did not tolerate induction (prolonged decelerations) leading to Post-delivery: hypotensive with Hgb down to 5.8 (2U PRBC's given) continued with post delivery hemorrhage causing hypotension requiring pressor support. Intubated and taken back to the OR 06/25: exploratory laparotomy-- bleeding from uterine incision, repaired. Taken back to the ICU and received Massive hemorrhage protocol (TXA, FFP, additional bloodtotal of 8 units and cryoprecipitate). showed favorable response. Was doing well with plan for D/C yesterday but throughout the day, developed low back pain, abd pain and a fever (101.8). W/U included CT A/P showing concern for endometritis- no drainage abscess. Now on Clinda + Gentamicin Patient has since defervesced. She is remaining hemodynamically stable. She reports the lower abdominal discomfort has improved. She is having subtle foul odor leukorrhea but no mucopurulent drainage. She currently is not breast-feeding Reports "this is the best she has felt in days". Review of Systems Review of Systems: All systems reviewed and are unremarkable except as noted in HPI and below Denies fevers, chills, headache, nasal congestion, sore throat, cough, chest pain, shortness of breath, palpitations, orthopnea, PND, abdominal pain, nausea, vomiting, diarrhea, constipation, dysuria, hematuria, frequency, back pain, joint pain or swelling, easy bruising or bleeding, skin lesions or rashes. Physical Exam Physical Exam: General: Resting comfortably in her hospital bed. She does not appear ill or toxic. NAD. HEENT: Head is AT/NC. Buccal mucosa is moist and pink Neck: No JVD. Negative hepatojugular reflex Cardiac: RRR with 1/6 to 2/6 MARTA Lungs: CTA without W/R/R Abdomen: Normoactive X4. Soft and nontender in all quadrants. Surgical dressing dry and intact. Extremities: No peripheral clubbing cyanosis or edema Neuro: A&O X4. Cranial nerves II through XII are grossly intact. No focal neuro deficits Skin: No obvious skin lesions or rashes Psych: Appropriate affect. Pleasant and cooperative Results & Data Results & Data ([facility]) Vital Signs (Past 12 Hours) Vital Signs Temp Pulse Resp BP BP Pulse Ox 06/29/21 07:40 36.5 C 88 18 146/98 H 97 06/29/21 06:51 97 H 138/93 06/29/21 05:01 95 H 165/107 H 06/29/21 04:00 36.8 C 94 H 16 177/119 H 96 Laboratory Results 06/29/21 05:10 06/29/21 07:12 PG Care Time/CCT Total # of Minutes Spent Total Time Spent with Patient: Total time spent is greater than 50% in coordination of care (as documented) at patient's floor/unit and/or counseling patient: Coding Level of Care Code 11694 Inpt Consult Level 4 Diagnoses Endometritis N71.9 hemorrhage O72.1 Severe preeclampsia O14.10
[2021-06-29] MEDS ORDERED: LABETALOL HCL 100 MG TAB PO ONE (21:28)
[2021-06-29] MEDS: GENTAMICIN SULFATE 380 MG in DEXTROSE 5% 100 ML IV SCH (22:09)
[2021-06-29] MEDS ORDERED: NIFEdipine 10 MG CAP PO STA (23:51)
[2021-06-30] MEDS: oxyCODONE/ACETAMINOPHEN 5mg/325mg TAB PO PRN ×6 (00:22→22:12)
[2021-06-30] MEDS: IBUPROFEN 600 MG TAB PO PRN ×6 (00:22→22:11)
[2021-06-30] MEDS: CLINDAMYCIN 900 MG in DEXTROSE 5% 50 ML IV SCH ×2 (04:34→13:10)
[2021-06-30 08:02] LABS: Basophils # (auto) 0.02 K/uL (0-0.2); Basophils % (auto) 0.4 %; Eosinophils # (auto) 0.06 K/uL (0-0.5); Eosinophils % (auto) 1.2 %; Hematocrit (blood only) 27.3 % (37-47); Hemoglobin 9.2 g/dL (12.0-16.0); Immature Granulocytes % (auto) 4.1 %; Lymphocytes # (auto) 0.96 K/uL (1.2-3.4); Lymphocytes % (auto) 19.6 %; Mean Corpuscular Hemoglobin 30.5 pg (25-34); Mean Corpuscular Hgb Conc 33.7 g/dL (32-36); Mean Corpuscular Volume 90.4 fL (80-100); Mean Platelet Volume 8.5 fL (7.4-10.4); Monocytes # (auto) 0.23 K/uL (0.11-0.59); Monocytes % (auto) 4.7 %; Neutrophils # (auto) 3.42 K/uL (1.4-6.5); Nucleated RBC # (auto) 0.08 K/uL (0-0); Nucleated RBC % (auto) 1.6 %; Platelet Count 251 K/uL (130-400); RDW Coefficient of Variation 15.9 % (11.5-14.5); RDW Standard Deviation 52.4 fL (36.4-46.3); Red Blood Count 3.02 M/uL (4.2-5.4); White Blood Count 4.89 K/uL (4.8-10.8)
--- NOTE | 2021-06-30 08:12 | Obstetrical Progress Note ---
Date of Service June 30, 2021 Assessment & Plan (1) Severe preeclampsia: BP is 132/88 this morning sitting on the edge of the bed with feet flat on a stool. will continue with labetalol 300mg bid now. may need to increase to every 8 hours labs pending this morning blood cultures no growth so far afebrile now for 36 hours - continue clindamycin and gentamicin for 48 hours- done this evening. urine culture still pending- working diagnosis for fever is still endometritis. (2) hemorrhage: recheck labs this morning- hemoglobin has been stable no evidence of ongoing bleeding at this time Subjective Ambulation: ambulating normally Voiding: no voiding problems Passing Gas:: Yes Diet Tolerance:: regular diet Lochia:: Small Feeding Type:: breast feeding (with pumping and supplementation) no PIH symptoms. feeling much better after a shower. labetalol dose was longer than 12 hours between last night and BP increased again requiring an extra 100mg labetalol and 10 mg nifedipine. Review of Systems All systems reviewed & are unremarkable except as noted in HPI & below Physical Exam Constitutional WD/WN, vitals as above Gastrointestinal (Abdomen) Inspection/Auscultation: abdomen normal to inspection and + abdominal surgical incision (NOLAN dressing intact and dry- no cellulitis noted); abdomen not d istended Psychiatric A+Ox3, euthymic affect Results & Data ([facility]) Vital Signs (Past 12 Hours) Vital Signs Temp Pulse Pulse Resp BP 06/30/21 04:35 98.6 F 96 H 96 H 18 142/101 H 06/30/21 01:40 102 H 118/82 06/29/21 23:30 97.7 F 92 H 92 H 18 162/116 H 06/29/21 21:22 161/109 H 06/29/21 21:20 164/117 H
[2021-06-30] MEDS: FERROUS SULFATE 325 MG TAB PO SCH (08:22)
[2021-06-30] MEDS: PRENATAL VITAMIN 1 TAB PO SCH (08:22)
[2021-06-30] MEDS: SIMETHICONE 80 MG CHEW PO SCH ×4 (08:22→20:15)
[2021-06-30] MEDS: DOCUSATE SODIUM 100 MG CAP PO SCH ×2 (08:22→20:15)
[2021-06-30 08:23] LABS: Alanine Aminotransferase 11 U/L (7-52); Albumin Globulin Ratio 0.8 (0.9-2); Albumin Level 2.5 gm/dl (3.4-5.0); Alkaline Phosphatase 137 U/L (34-104); Anion Gap 9 (3-11); Aspartate Aminotransferase 31 U/L (13-39); BUN Creatinine Ratio 18.4 (10-20); Bilirubin,Total 0.3 mg/dl (0.2-1.0); Blood Urea Nitrogen 9 mg/dl (6-23); Calcium 8.5 mg/dl (8.5-10.1); Carbon Dioxide 24 mmol/L (21-32); Chloride 105 mmol/L (98-107); Creatinine Clr Calc Pharmacy 157.4 ml/min; Est GFR (African American) > 150.0 ml/min; Est GFR (Non-African American) 135.4 ml/min; Globulin 3.1 gm/dl (2.5-4.0); Glucose 79 mg/dl (70-99(Fasting)); Potassium 4.1 mmol/L (3.5-5.1); Sodium 138 mmol/L (136-145); Total Protein 5.6 gm/dl (6.0-8.3)
[2021-06-30 08:36] LABS: Partial Thromboplastin Ratio 1.7
[2021-06-30 08:42] LABS: Partial Thromboplastin Time 47.6 Seconds (21.0-31.0)
[2021-06-30] MEDS ORDERED: LABETALOL HCL 300 MG TAB PO SCH ×2 (09:00→17:00)
--- NOTE | 2021-06-30 11:30 | Pharmacy Report ---
Pharmacy [facility] Short Note - Date of Service June 30, 2021 - Assessment & Plan Assessment 26 year old F receiving gentamicin and clindamycin for treatment of endometritis * No pertinent microbiologic data * Day # 2 of antimicrobial therapy Plan Gentamicin * Current dose: 5 mg/kg IV q24h per actual body weight * Random level of 6.28 mcg/mL drawn ~7.4 hours after the second dose - may continue current dose * Per provider notes, plan to treat x 48 hours only, therefore no level will be ordered * If gentamicin is continued beyond 48 hours, recommend utilizing trough levels to assess for dose appropriateness (obtained 30 minutes prior to next dose, target trough < 1 mcg/mL Pharmacy will continue to follow and will adjust dose/frequency as necessary. Thank you.
[2021-06-30] MEDS: KETOROLAC 30 MG/ML VIAL IV PRN (20:18)
[2021-06-30] MEDS: LABETALOL HCL 300 MG TAB PO SCH (22:02)
[2021-07-01] MEDS: LABETALOL HCL 300 MG TAB PO SCH ×2 (06:08→13:28)
--- NOTE | 2021-07-01 07:48 | Obstetrical Progress Note ---
Date of Service July 01, 2021 Assessment & Plan (1) state: POD#6 s/p section and subsequent return to OR for exploratory laparotomy Doing much better today. States she's feeling "pretty good." BP - started q8h dosing of 300mg labetalol yesterday, has had labile BPs. Will continue to monitor this closely. Incision - NOLAN dressing removed this morning, incision healing well. Laila removed also. Endometritis - doing much better. Is now s/p 48h antibiotics. She had one temp 38 last night, however repeats were all normal. Will continue to monitor temperatures - if no further elevations and doing well otherwise, anticipate DC home tomorrow. Upon discharge, will need Rx for labetalol (at whichever dosing ends up being most appropriate after further monitoring) and Percocet - family is requesting to send to [facility]. Subjective Ambulation: ambulating normally Voiding: no voiding problems Diet Tolerance:: regular diet Lochia:: Moderate Is attempting to breast pump, is not getting much output. Review of Systems All systems reviewed & are unremarkable except as noted in HPI & below Physical Exam Constitutional WD/WN, vitals as above no acute distress Respiratory normal respiratory effort Cardiovascular Rate/Rhythm: regular rate and regular rhythm Gastrointestinal (Abdomen) Inspection/Auscultation: abdomen normal to inspection; abdomen not distended Percussion/Palpation: abdomen soft NOLAN and laila removed this morning, incision healing well - clean/dry/intact. Genitourinary OB Exam Abdomen: + fundal height Fundus: + firm; not tender Results & Data ([facility]) Vital Signs (Past 12 Hours) Vital Signs Temp Pulse Resp BP Pulse Ox 07/01/21 06:13 83 20 147/111 H 07/01/21 04:48 36.6 C 87 18 140/105 H 99 06/30/21 23:15 37.1 C 97 H 20 138/98 99 06/30/21 22:00 37.1 C 97 H 20 142/103 H 99 06/30/21 21:27 37 C 06/30/21 20:50 38 C H 94 H 20 155/107 H 99
[2021-07-01 08:41] LABS: Hematocrit (blood only) 30.2 % (37-47); Hemoglobin 9.5 g/dL (12.0-16.0); Mean Corpuscular Hemoglobin 29.5 pg (25-34); Mean Corpuscular Hgb Conc 31.5 g/dL (32-36); Mean Corpuscular Volume 93.8 fL (80-100); Mean Platelet Volume 8.9 fL (7.4-10.4); Nucleated RBC # (auto) 0.05 K/uL (0-0); Nucleated RBC % (auto) 0.8 %; Platelet Count 336 K/uL (130-400); RDW Coefficient of Variation 15.9 % (11.5-14.5); Red Blood Count 3.22 M/uL (4.2-5.4); White Blood Count 6.08 K/uL (4.8-10.8)
[2021-07-01] MEDS: SIMETHICONE 80 MG CHEW PO SCH ×2 (08:56→13:27)
[2021-07-01] MEDS: oxyCODONE/ACETAMINOPHEN 5mg/325mg TAB PO PRN (08:57)
[2021-07-01] MEDS: DOCUSATE SODIUM 100 MG CAP PO SCH (08:57)
[2021-07-01] MEDS: FERROUS SULFATE 325 MG TAB PO SCH (08:57)
[2021-07-01] MEDS: PRENATAL VITAMIN 1 TAB PO SCH (08:57)
[2021-07-01] MEDS: IBUPROFEN 600 MG TAB PO PRN (08:57)
--- NOTE | 2021-07-01 10:40 | Obstetrical Progress Note ---
Date of Service July 01, 2021 Assessment & Plan (1) state: Presented to discuss patient desire for discharge. We discussed concerns for patient being discharged today. BPs are mild range and meds being tolerated well. She had a borderline temp last night with recheck shortly following being normal. Discussed risk of endometritis recurring. Discussed recommendation to monitor until tomorrow am. Patient strongly prefers discharge today. Discussed that she will need to continue with close monitoring of any symptoms and any concerns develop. Discussed monitoring of temps, worsening pain or generalized ill feeling. Patient giving written post precautions. Will place dis charge. Results & Data ([facility]) Vital Signs (Past 12 Hours) Vital Signs Temp Pulse Resp BP Pulse Ox 07/01/21 06:13 83 20 147/111 H 07/01/21 04:48 36.6 C 87 18 140/105 H 99 06/30/21 23:15 37.1 C 97 H 20 138/98 99
--- NOTE | 2021-07-09 13:22 | Discharge Summary (DS) ---
DATE OF ADMISSION: 06/24/2021. DATE OF DISCHARGE: 07/01/2021. PRINCIPAL DIAGNOSES: Intrauterine at 39 weeks. There was preeclampsia with severe feature s. Post- fever with suspected endometritis. hemorrhage. PRINCIPAL PROCEDURES: Were primary section for nonreassuring heart rate and explorato ry laparotomy for intraperitoneal bleeding. HOSPITAL COURSE: The patient is a 25-year-old 1, P0 white female who had presented from the office because of elevated blood pressures. Upon arrival in labor and delivery, her pressures were no michaela to be consistent with preeclampsia with severe changes. She was begun on magnesium sulfate for p rophylaxis and Pitocin augmentation of her labor. She was noted to be 3 cm, 100% effaced upon admiss ion. heart rate pattern was reassuring on her admission and continued to be so until shortly a fter she received epidural analgesia for pain relief. Her blood pressures then dropped significantly . Her cervix was 4 cm dilated at that time and membranes were ruptured for clear fluid. I was caldera d to evaluate the patient approximately an hour later because of passing a large clot vaginally. Insri salvador, the bleeding was increased, but not significant; however, there were moderate to severe varia bles with each contraction at this time. The suspicion for placental abruption was entertained haim hernandez of the ongoing nonreassuring heart rate pattern. Pitocin had to be stopped. The vaginal bleeding continued to be more than expected and she was taken to the section. S he did have bleeding in the rectus muscle area near the insertion on the symphysis pubis. This was s ecured with bmquas-ai-luaeo stitches. Hemostasis appeared to be excellent at this point, prior to cl osing the abdomen. Estimated blood loss at the time of the section was 800 mL. She had rece ived Demerol and IV anti-anxiolytic because of a panic attack during the course of the secti on. She remained significantly somnolent with hypertensive and hypotensive postoperatively. Hemoglob in done 1 hour after her section was 5.8. She was given 1 unit of packed red cells and hemo globin climbed to 7. Her blood pressures continued to be hypotensive despite pressors. Her magnesium sulfate was then stopped. An hour later, she continued to have low pressures and continued to be so mnolent. After 2 units of packed cells, hemoglobin was 7.1. Because of the ongoing mental status change and sanjuana kuo concern for preeclampsia with severe changes, the possibility of encephalopathy, pulmonary embolus , cardiomyopathy or intra-abdominal bleeding was a part of the differential diagnosis. CT scans of sanjuana kuo head, chest and abdomen were obtained. A CT scan of the brain and chest CT were normal. Abdominal CT scan, which showed to have evidence of recent active bleeding. She was then immediately prepped for return to the OR for exploratory laparotomy. The massive hemorrhage protocol was then instituted and she received multiple blood products including additional packed cells, albumin, platelets, bejarano examic acid and fresh frozen plasma. At the time of exploratory laparotomy, she was noted to have 17 00 mL of blood in her belly, but no evidence of active bleeding. The assumption was bleeding was com ing from the section scar, particularly from the left corner as there was a pezwsd-ju-rusax stitch placed there at the time of the section because of active bleeding noted. However, th e bleeding had been secured prior to closing the abdomen with the section. [id number] stitches of 0 Vicryl were placed to ligate the uterine vessels on the left. After th oroughly examining the abdomen and the rectus muscle in all layers and found to have excellent hemost asis and after as much of the hemoperitoneum was evacuated, the abdomen was closed. At this point, sh e continued to improve and her blood pressures also normalized and then became hypertensive once agai n. Magnesium sulfate was restarted for 24 hours. She was begun on labetalol 100 mg b.i.d., which was then increased eventually to 300 mg q. 8 hours. Her hemoglobin stayed stable at the 8.6-8.2 range a nd her white count also remained in the normal range. Initially, her platelets had been decreased an d they began to increase substantially after delivery. PT was normal. Creatinine was normal at 0.5 and continued to be in the normal range during the rest of her hospital stay. On her fourth hospital day, she developed elevated temperature. The patient was feeling more unwell at that time, blood pressures continued to be elevated. She was begun on clindamycin and gentamicin for suspected endometritis. CT scan did not show any evidence of continued bleeding nor any significa nt hemoperitoneum at that time. The uterus was consistent with a recent delivery and jean baptiste es. She remained on antibiotics for 48 hours and her temperature remained normal until shortly with an elevation to 38 late on the day of 06/30/2021. After this, her temperatures remained afebrile. S he was sent home on 07/01/2021 with labetalol 300 mg q. 8 hours, although her pressures continued to remain elevated, patient was requesting discharge with close followup in the office. She was sent frieda e with prescriptions for labetalol 300 mg p.o. q. 8 hours and prescriptions for Percocet 1 tablet p.o . q. 6 hours and Motrin 600 mg p.o. q. 6 hours p.r.n. pain. She is to call for any preeclamptic type symptoms, increased drainage on her NOLAN dressing, increased abdominal pain, burning with urination, increased vaginal bleeding, temperature of 101 degrees or higher, calf tenderness or any other citlaly rns. She is to be seen in the office on Sunday or Sunday for another blood pressure check and anoth er reevaluation. Job ID: [id number]
== END 2021-07-01 14:10 | disposition home or self-care (01) | DRG 786 ==
LOC: OPB 12:14 → 4S1 12:15 → 1E 06-25 10:54 → 4S1 06-26 08:37 → 4E2 06-27 20:19

== ENCOUNTER 2021-07-05 12:06 | Inpatient (IN) ==
[2021-07-05] MEDS ORDERED: SODIUM CHLORIDE 0.9% 1000ML 1,000 ML IV SCH (12:15)
--- NOTE | 2021-07-05 12:38 | XRay Report ---
SINGLE VIEW CHEST CLINICAL HISTORY: Sepsis. FINDINGS: An AP, portable, upright chest radiograph is compared to study dated 01/05/2021 and correlat ed with chest CT dated 06/25/2021.. The cardiomediastinal silhouette is unremarkable. The lungs and pl eural spaces are clear. No pneumothorax is seen. The bony thorax is grossly intact. IMPRESSION: No active disease in the chest. ACT 112: Negative or not required by law. Electronically signed by: Aden Brantley M.D. 07/05/2021 12:37 PM
[2021-07-05 14:23] LABS: INR 0.9 (0.9-1.1); Partial Thromboplastin Ratio 1.7; Prothrombin Time 9.8 Seconds (9.0-12.0)
[2021-07-05 14:28] LABS: Hematocrit (blood only) 25.8 % (37-47); Hemoglobin 8.3 g/dL (12.0-16.0); Mean Corpuscular Hemoglobin 29.6 pg (25-34); Mean Corpuscular Hgb Conc 32.2 g/dL (32-36); Mean Corpuscular Volume 92.1 fL (80-100); Mean Platelet Volume 8.6 fL (7.4-10.4); Nucleated RBC # (auto) 0.04 K/uL (0-0); Nucleated RBC % (auto) 0.5 %; Platelet Count 363 K/uL (130-400); RDW Coefficient of Variation 15.9 % (11.5-14.5); RDW Standard Deviation 53.3 fL (36.4-46.3); White Blood Count 8.02 K/uL (4.8-10.8)
[2021-07-05 14:41] LABS: Adenovirus PCR Not Detected (NotDetected); Bordetella parapertussis PCR Not Detected (NotDetected); Bordetella pertussis PCR Not Detected (NotDetected); Chlamydia pneumoniae PCR Not Detected (NotDetected); Coronavirus 229E PCR Not Detected (NotDetected); Coronavirus CoV-2 (COVID19)PCR Not Detected (NotDetected); Coronavirus HKU1 PCR Not Detected (NotDetected); Coronavirus NL63 PCR Not Detected (NotDetected); Coronavirus OC43PCR Not Detected (NotDetected); Human Metapneumovirus PCR Not Detected (NotDetected); Influenza A PCR Not Detected (NotDetected); Influenza B PCR Not Detected (NotDetected); Mycoplasma pneumoniae PCR Not Detected (NotDetected); Parainfluenza Virus 1 PCR Not Detected (NotDetected); Parainfluenza Virus 2 PCR Not Detected (NotDetected); Parainfluenza Virus 3 PCR Not Detected (NotDetected); Parainfluenza Virus 4 PCR Not Detected (NotDetected); Respiratory Syncytial VirusPCR Not Detected (NotDetected); Rhinovirus/Enterovirus PCR Not Detected (NotDetected)
[2021-07-05 14:45] LABS: BUN Creatinine Ratio 12.9 (10-20); Bilirubin Direct 0.1 mg/dl (0-0.2); Bilirubin,Total 0.5 mg/dl (0.2-1.0); Calcium 8.6 mg/dl (8.5-10.1); Creatinine Clr Calc Pharmacy 54.8 ml/min; Est GFR (African American) 56.9 ml/min; Est GFR (Non-African American) 49.1 ml/min; Magnesium 1.9 mg/dl (1.7-2.4); Potassium 4.2 mmol/L (3.5-5.1); Total Protein 6.5 gm/dl (6.0-8.3)
--- NOTE | 2021-07-05 14:48 | Emergency Department Note ---
History of Present Illness General Chief complaint: Illness Stated complaint: FEVER & POST DELIVERY ISSUES Time Seen by Provider: 07/05/21 12:14 History of Present Illness Provider complaint: fever Onset (ago): day(s) 3 Maximum Pain Intensity: 7 26-year-old female G1, P1 presents emergency department for fever. Patient was referred in by her [employer] Dr. Christensen. Patient had a delivery on June 24 had a very complicated course with bleeding, multiple transfusions, endometritis, labile blood pressures, preeclampsia. Patient has had a fever T-max 102. She reports shortness of breath. She reports abdominal pain by her stitches. She also reports headache. Home Medications Medication Instructions Recorded Confirmed Type ferrous sulfate 325 mg (65 mg 325 mg PO QAM 01/05/21 07/05/21 History iron) tablet labetalol 300 mg tablet 300 mg PO Q8 30 Days #90 tab 07/01/21 07/05/21 Rx oxycodone-acetaminophen 5 mg-325 1 tab PO Q4H PRN #20 tab 07/01/21 07/05/21 Rx mg tablet (Percocet) ibuprofen 400 mg tablet 0 mg PO Q6H 07/05/21 07/05/21 History Allergies Allergy/AdvReac Type Severity Reaction Status Date / Time rhubarb Allergy Intermediate THROAT Verified 07/05/21 10:40 SLIGHTLY TIGHT, SWELLIN, RASH Past Med/Surg History Medical History Heart palpitations Has monitor from [facility] History of migraine History of syncope Left wrist fracture hemorrhage Surgical History H/O wisdom tooth extraction No pertinent past surgical history Family History Grandmother (Maternal) Hypothyroidism Grandmother (Paternal) Diabetes Denies family history of Ovarian cancer Breast cancer Lung cancer Social History Smoking Status: Never smoker Second Hand Exposure: No; Hx Alcohol Use: No Hx Substance Use: No Preferred Language: Slovak Communication Ability: Effective Visual Impairment: Partially Limited Hearing Ability: Normal Loss Control Consultant Required: No Beliefs That Will Affect Care: None marital status: Single marital status details: KARTHIK Disla (25) [phone] Current Living Situation: Significant Other Current Living Situation Comment: FOB and no pets current occupational status: student Feels Safe at Home: Yes Assistive Devices: None Review of Systems A total of 10 systems reviewed and were otherwise negative Physical Exam Vital Signs Vital Signs - 24 hr 07/05/21 12:09 07/05/21 12:49 07/05/21 13:39 Temperature 36.7 C Temperature Source Temporal Artery Scan Pulse Rate 90 84 Pulse Rate [Apical] 84 82 Pulse Rhythm [Apical] Regular Respiratory Rate 18 18 16 Respiratory Effort / Characteristics Non-Labored Non-Labored Respiratory Depth Normal Normal Blood Pressure 132/92 Blood Pressure [Right Arm] 129/98 130/90 Blood Pressure Mean 105 Blood Pressure Mean [Right Arm] 108 103 Pulse Oximetry 97 98 99 Oxygen Delivery Method Room Air Room Air Room Air Sepsis Recent Fever Within 48 Hours No Sepsis New/Unexplained Change in Mental Status No Sepsis Action Taken by Nursing No Action Required 07/05/21 15:12 07/05/21 16:21 Temperature Temperature Source Pulse Rate Pulse Rate [Apical] 81 89 Pulse Rhythm [Apical] Respiratory Rate 18 20 Respiratory Effort / Characteristics Non-Labored Non-Labored Respiratory Depth Normal Normal Blood Pressure Blood Pressure [Right Arm] 150/107 H 165/122 H Blood Pressure Mean Blood Pressure Mean [Right Arm] 121 136 Pulse Oximetry 99 99 Oxygen Delivery Method Room Air Room Air Sepsis Recent Fever Within 48 Hours Sepsis New/Unexplained Change in Mental Status Sepsis Action Taken by Nursing Physical Exam GENERAL: She is oriented to person, place, and time. She appears well-developed and well-nourished. She does not appear distressed. HENT: Exam performed. -Head: Normocephalic and atraumatic. -Right Ear: External ear normal. No mastoid tenderness. -Left Ear: External ear normal. No mastoid tenderness. -Mouth/Throat: The oropharynx is clear and moist. No trismus in the jaw. No dental abscesses or uvula swelling. No oropharyngeal exudate or tonsillar abscesses. EYES: Conjunctivae and EOM are normal. Pupils are equal, round, and reactive to light. Right eye exhibits no discharge. Left eye exhibits no discharge. No scleral icterus. NECK: Normal range of motion. Neck supple. No JVD present. No spinous process tenderness present. No carotid bruit present. No rigidity. No tracheal deviation and normal range of motion present. No Brudzinski's sign and no Kernig's sign noted. CV: Normal rate, regular rhythm, normal heart sounds and intact distal pulses. There is no peripheral edema. Palpable radial pulses bue. PULM/CHEST: Effort normal and breath sounds normal. No respiratory distress. No stridor. She has no wheezes. She has no rales. -Chest Wall: She exhibits no tenderness. ABD: The abdomen is soft. Bowel sounds are normal. She has no distension. No m ass is present. There is no tenderness. There is no rebound, no guarding, no Mcconnell's sign and no tenderness at McBurney's point. Rovsig negative MUSC/SKEL: Normal range of motion. There is no peripheral edema, tenderness or deformity. LYMPH: No cervical adenopathy. NEURO: She is alert and oriented to person, place, and time. She has normal strength. No cranial nerve deficit or sensory deficit. Coordination and gait normal. GCS eye subscore is 4. GCS verbal subscore is 5. GCS motor subscore is 6 . Cerebellar tests wnl. SKIN: Skin is warm and dry. She is not diaphoretic. section scar is clean and dry without discharge. PSYCH: She has a normal mood and affect. Behavior is normal. Judgment and thought content normal. Course Course 1214: The patient was evaluated in room C1. A complete history and physical exam was performed Cardiac monitoring: An order was placed for continuous cardiac monitoring. The monitor shows a rate of 80 with sinus rhythm 1618: Vital signs stable. Labs within normal limits with exception of elevated troponin. Imaging shows no acute surgical pathology. Discussed with Dr. Cooper [facility] [employer] who states she will be down to evaluate the patient. 1649: Dr. Cooper states she will admit to her service. Administered Medications Discontinued Medications Acetaminophen (Acetaminophen 500 Mg Tab) 1,000 mg PO NOW STA Stop: 07/05/21 16:06 Last Admin: 07/05/21 16:19 Dose: 1,000 mg Documented by: [id number] Sodium Chloride (Nss 1000ml) 1,000 mls @ 999 mls/hr IV .Q1H1M GRETTA Stop: 07/05/21 13:15 Last Infusion: 07/05/21 15:11 Dose: 0 mls/hr Documented by: [id number] Admin: 07/05/21 13:37 Dose: 999 mls/hr Documented by: [id number] Ioversol (Optiray 320 125ml) 116 ml IV ONCE ONE Stop: 07/05/21 15:44 Last Admin: 07/05/21 15:43 Dose: 116 ml Documented by: [id number] Labetalol HCl (Labetalol Hcl 300 Mg Tab) 300 mg PO NOW STA Stop: 07/05/21 16:25 Last Admin: 07/05/21 16:45 Dose: 300 mg Documented by: [id number] Morphine Sulfate (Morphine Sulfate 2 Mg/Ml Carp) 2 mg IV NOW STA Stop: 07/05/21 16:45 Last Admin: 07/05/21 16:47 Dose: Not Given Documented by: [id number] Oxycodone/Acetaminophen (Oxycodone/Acetaminophen 5mg/325mg Tab) 1 tab PO NOW STA Stop: 07/05/21 16:27 Last Admin: 07/05/21 16:44 Dose: 1 tab Documented by: [id number] Medical Decision Making Laboratory Data Result diagrams: 07/05/21 13:19 07/05/21 13:19 Lab Results 07/05/21 07/05/21 07/05/21 Range/Units 12:57 13:19 13:19 WBC (4.8-10.8) K/uL RBC (4.2-5.4) M/uL Hgb (12.0-16.0) g/dL Hct (37-47) % MCV (80-100) fL MCH (25-34) pg MCHC (32-36) g/dL RDW Std Deviation (36.4-46.3) fL RDW Coeff of Mohit (11.5-14.5) % Plt Count (130-400) K/uL MPV (7.4-10.4) fL Immature Gran % (Auto) % Neut % (Auto) % Lymph % (Auto) % [place] % (Auto) % Eos % (Auto) % Baso % (Auto) % Neut # (Auto) (1.4-6.5) K/uL Lymph # (Auto) (1.2-3.4) K/uL [place] # (Auto) (0.11-0.59) K/uL Eos # (Auto) (0-0.5) K/uL Baso # (Auto) (0-0.2) K/uL Immature Gran # (Auto) (0.00-0.02) K/uL Absolute Nucleated RBC (0-0) K/uL Nucleated RBC % (auto) % PT (9.0-12.0) Seconds INR (0.9-1.1) APTT (21.0-31.0) Seconds PTT Ratio Sodium 136 (136-145) mmol/L Potassium 4.2 (3.5-5.1) mmol/L Chloride 104 (98-107) mmol/L Carbon Dioxide 22 (21-32) mmol/L Anion Gap 10 (3-11) BUN 19 (6-23) mg/dl Creatinine 1.47 H (0.6-1.2) mg/dl Est Cr Clr Drug Dosing 54.8 ml/min Est GFR ( Amer) 56.9 ml/min Est GFR (Non-Af Amer) 49.1 ml/min BUN/Creatinine Ratio 12.9 (10-20) Glucose 81 (70-99(Fasting)) mg/dl Lactate (0.4-2.0) mmol/L Calcium 8.6 (8.5-10.1) mg/dl Magnesium 1.9 (1.7-2.4) mg/dl Total Bilirubin 0.5 (0.2-1.0) mg/dl Direct Bilirubin 0.1 (0-0.2) mg/dl AST 26 (13-39) U/L ALT 9 (7-52) U/L Alkaline Phosphatase 143 H (34-104) U/L Lactate Dehydrogenase 250 H (86-244) U/L Troponin I High Sens 17.3 H (0-14) pg/ml Total Protein 6.5 (6.0-8.3) gm/dl Albumin 3.0 L (3.4-5.0) gm/dl Lipase 24 (11-82) U/L Procalcitonin (0-0.5) ng/ml Urine Color Urine Appearance (Clear) Urine pH (4.5-7.5) Ur Specific [place] (1.000-1.030) Urine Protein (Negative) Urine Glucose (UA) (Negative) Urine Ketones (Negative) Urine Blood (Negative) Urine Nitrite (Negative) Urine Bilirubin (Negative) Urine Urobilinogen (Negative) Ur Leukocyte Esterase (Negative) Urine WBC (Auto) (0-5) /hpf Urine RBC (Auto) (0-4) /hpf U Hyaline Cast (Auto) (0-5) /lpf U Epithel Cells (Auto) (0-5) /lpf Urine Bacteria (Auto) (Negative) Adenovirus (PCR) Not Detected (NotDetected) B. pertussis DNA (PCR) Not Detected (NotDetected) B.parapertussis DNA PCR Not Detected (NotDetected) C. pneumoniae DNA (PCR) Not Detected (NotDetected) Coronavirus OC43 (PCR) Not Detected (NotDetected) Coronavirus HKU1 (PCR) Not Detected (NotDetected) Coronavirus 229E (PCR) Not Detected (NotDetected) SARS-CoV-2 (PCR) Not Detected (NotDetected) Coronavirus NL63 (PCR) Not Detected (NotDetected) Human Metapneumovir PCR Not Detected (NotDetected) Influenza Type A (PCR) Not Detected (NotDetected) Influenza Type B (PCR) Not Detected (NotDetected) M. pneumoniae (PCR) Not Detected (NotDetected) Parainfluenza 1 (PCR) Not Detected (NotDetected) Parainfluenza 2 (PCR) Not Detected (NotDetected) Parainfluenza 3 (PCR) Not Detected (NotDetected) Parainfluenza 4 (PCR) Not Detected (NotDetected) RSV (PCR) Not Detected (NotDetected) Entero/Rhino (PCR) Not Detected (NotDetected) 07/05/21 07/05/21 07/05/21 Range/Units 13:19 13:19 13:19 WBC 8.02 (4.8-10.8) K/uL RBC 2.80 L (4.2-5.4) M/uL Hgb 8.3 L (12.0-16.0) g/dL Hct 25.8 L (37-47) % MCV 92.1 (80-100) fL MCH 29.6 (25-34) pg MCHC 32.2 (32-36) g/dL RDW Std Deviation 53.3 H (36.4-46.3) fL RDW Coeff of Mohit 15.9 H (11.5-14.5) % Plt Count 363 (130-400) K/uL MPV 8.6 (7.4-10.4) fL Immature Gran % (Auto) 1.6 % Neut % (Auto) 79.7 % Lymph % (Auto) 15.3 % [place] % (Auto) 2.4 % Eos % (Auto) 0.9 % Baso % (Auto) 0.1 % Neut # (Auto) 6.39 (1.4-6.5) K/uL Lymph # (Auto) 1.23 (1.2-3.4) K/uL [place] # (Auto) 0.19 (0.11-0.59) K/uL Eos # (Auto) 0.07 (0-0.5) K/uL Baso # (Auto) 0.01 (0-0.2) K/uL Immature Gran # (Auto) 0.13 H (0.00-0.02) K/uL Absolute Nucleated RBC 0.04 H (0-0) K/uL Nucleated RBC % (auto) 0.5 % PT 9.8 (9.0-12.0) Seconds INR 0.9 (0.9-1.1) APTT 46.3 H* (21.0-31.0) Seconds PTT Ratio 1.7 Sodium (136-145) mmol/L Potassium (3.5-5.1) mmol/L Chloride (98-107) mmol/L Carbon Dioxide (21-32) mmol/L Anion Gap (3-11) BUN (6-23) mg/dl Creatinine (0.6-1.2) mg/dl Est Cr Clr Drug Dosing ml/min Est GFR ( Amer) ml/min Est GFR (Non-Af Amer) ml/min BUN/Creatinine Ratio (10-20) Glucose (70-99(Fasting)) mg/dl Lactate (0.4-2.0) mmol/L Calcium (8.5-10.1) mg/dl Magnesium (1.7-2.4) mg/dl Total Bilirubin (0.2-1.0) mg/dl Direct Bilirubin (0-0.2) mg/dl AST (13-39) U/L ALT (7-52) U/L Alkaline Phosphatase (34-104) U/L Lactate Dehydrogenase (86-244) U/L Troponin I High Sens (0-14) pg/ml Total Protein (6.0-8.3) gm/dl Albumin (3.4-5.0) gm/dl Lipase (11-82) U/L Procalcitonin 0.16 (0-0.5) ng/ml Urine Color Urine Appearance (Clear) Urine pH (4.5-7.5) Ur Specific [place] (1.000-1.030) Urine Protein (Negative) Urine Glucose (UA) (Negative) Urine Ketones (Negative) Urine Blood (Negative) Urine Nitrite (Negative) Urine Bilirubin (Negative) Urine Urobilinogen (Negative) Ur Leukocyte Esterase (Negative) Urine WBC (Auto) (0-5) /hpf Urine RBC (Auto) (0-4) /hpf U Hyaline Cast (Auto) (0-5) /lpf U Epithel Cells (Auto) (0-5) /lpf Urine Bacteria (Auto) (Negative) Adenovirus (PCR) (NotDetected) B. pertussis DNA (PCR) (NotDetected) B.parapertussis DNA PCR (NotDetected) C. pneumoniae DNA (PCR) (NotDetected) Coronavirus OC43 (PCR) (NotDetected) Coronavirus HKU1 (PCR) (NotDetected) Coronavirus 229E (PCR) (NotDetected) SARS-CoV-2 (PCR) (NotDetected) Coronavirus NL63 (PCR) (NotDetected) Human Metapneumovir PCR (NotDetected) Influenza Type A (PCR) (NotDetected) Influenza Type B (PCR) (NotDetected) M. pneumoniae (PCR) (NotDetected) Parainfluenza 1 (PCR) (NotDetected) Parainfluenza 2 (PCR) (NotDetected) Parainfluenza 3 (PCR) (NotDetected) Parainfluenza 4 (PCR) (NotDetected) RSV (PCR) (NotDetected) Entero/Rhino (PCR) (NotDetected) 07/05/21 07/05/21 07/05/21 Range/Units 13:19 13:27 15:20 WBC (4.8-10.8) K/uL RBC (4.2-5.4) M/uL Hgb (12.0-16.0) g/dL Hct (37-47) % MCV (80-100) fL MCH (25-34) pg MCHC (32-36) g/dL RDW Std Deviation (36.4-46.3) fL RDW Coeff of Mohit (11.5-14.5) % Plt Count (130-400) K/uL MPV (7.4-10.4) fL Immature Gran % (Auto) % Neut % (Auto) % Lymph % (Auto) % [place] % (Auto) % Eos % (Auto) % Baso % (Auto) % Neut # (Auto) (1.4-6.5) K/uL Lymph # (Auto) (1.2-3.4) K/uL [place] # (Auto) (0.11-0.59) K/uL Eos # (Auto) (0-0.5) K/uL Baso # (Auto) (0-0.2) K/uL Immature Gran # (Auto) (0.00-0.02) K/uL Absolute Nucleated RBC (0-0) K/uL Nucleated RBC % (auto) % PT (9.0-12.0) Seconds INR (0.9-1.1) APTT (21.0-31.0) Seconds PTT Ratio Sodium (136-145) mmol/L Potassium (3.5-5.1) mmol/L Chloride (98-107) mmol/L Carbon Dioxide (21-32) mmol/L Anion Gap (3-11) BUN (6-23) mg/dl Creatinine (0.6-1.2) mg/dl Est Cr Clr Drug Dosing ml/min Est GFR ( Amer) ml/min Est GFR (Non-Af Amer) ml/min BUN/Creatinine Ratio (10-20) Glucose (70-99(Fasting)) mg/dl Lactate 0.6 (0.4-2.0) mmol/L Calcium (8.5-10.1) mg/dl Magnesium (1.7-2.4) mg/dl Total Bilirubin (0.2-1.0) mg/dl Direct Bilirubin (0-0.2) mg/dl AST (13-39) U/L ALT (7-52) U/L Alkaline Phosphatase (34-104) U/L Lactate Dehydrogenase (86-244) U/L Troponin I High Sens 15.5 H (0-14) pg/ml Total Protein (6.0-8.3) gm/dl Albumin (3.4-5.0) gm/dl Lipase (11-82) U/L Procalcitonin (0-0.5) ng/ml Urine Color [place] Urine Appearance Clear (Clear) Urine pH 6.5 (4.5-7.5) Ur Specific [place] 1.009 (1.000-1.030) Urine Protein 1+ H (Negative) Urine Glucose (UA) Negative (Negative) Urine Ketones Negative (Negative) Urine Blood 3+ H (Negative) Urine Nitrite Negative (Negative) Urine Bilirubin Negative (Negative) Urine Urobilinogen Negative (Negative) Ur Leukocyte Esterase 2+ H (Negative) Urine WBC (Auto) >30 H (0-5) /hpf Urine RBC (Auto) 10-30 H (0-4) /hpf U Hyaline Cast (Auto) 5-10 H (0-5) /lpf U Epithel Cells (Auto) 0-5 (0-5) /lpf Urine Bacteria (Auto) Negative (Negative) Adenovirus (PCR) (NotDetected) B. pertussis DNA (PCR) (NotDetected) B.parapertussis DNA PCR (NotDetected) C. pneumoniae DNA (PCR) (NotDetected) Coronavirus OC43 (PCR) (NotDetected) Coronavirus HKU1 (PCR) (NotDetected) Coronavirus 229E (PCR) (NotDetected) SARS-CoV-2 (PCR) (NotDetected) Coronavirus NL63 (PCR) (NotDetected) Human Metapneumovir PCR (NotDetected) Influenza Type A (PCR) (NotDetected) Influenza Type B (PCR) (NotDetected) M. pneumoniae (PCR) (NotDetected) Parainfluenza 1 (PCR) (NotDetected) Parainfluenza 2 (PCR) (NotDetected) Parainfluenza 3 (PCR) (NotDetected) Parainfluenza 4 (PCR) (NotDetected) RSV (PCR) (NotDetected) Entero/Rhino (PCR) (NotDetected) Imaging Data Radiologist's Impression: Abdomen/Pelvis CT 07/05/21 12:15 CT SCAN OF THE ABDOMEN AND PELVIS WITH IV CONTRAST CLINICAL HISTORY: fever. Hemorrhage. COMPARISON STUDY: Abdominal CT dated 06/28/2021. TECHNIQUE: Following the IV administration of 116 cc of Optiray 320, CT scan of the abdomen and pelvis is performed from the lung bases to the proximal femora. Images are reviewed in the axial, sagittal, and coronal planes. IV contrast was administered without complication. A dose lowering technique was utilized adhering to the principles of ALARA. FINDINGS: Lung bases: The heart is normal in size and without pericardial effusion. There are trace pleural effusions with dependant atelectasis. Liver: The contrast-enhanced liver is normal in size, contour, and attenuation. There is no intrahepatic biliary ductal dilatation. The hepatic veins and portal veins are patent. Gallbladder: Unremarkable. Spleen: Normal in size and attenuation. Pancreas: Unremarkable. Adrenal glands: Unremarkable. Kidneys: The contrast enhanced kidneys are normal in size and without hydro nephrosis. The kidneys enhance symmetrically. A circumaortic left renal vein is incidentally noted. Abdominal vasculature: The abdominal aorta is normal in course and caliber. Bowel: There is no bowel obstruction. The appendix is not clearly visualized Peritoneum: There is no intraperitoneal free air or abdominal ascites. Intraperitoneal blood is almost completely resolved. Lymphadenopathy: None. Pelvic viscera: The post gravid uterus is enlarged and heterogeneous. A section scar is noted in the lower uterine segment anteriorly. The endometrial canal is distended with complex material. No gas is identified within the endometrial lumen. The bladder is decompressed and appears circumferentially thick walled. A 1.4 cm fat attenuation structure seen in the anterior right adnexa on image #366. A small amount of free fluid is noted in the cul-de-sac. Skeletal structures: No lytic or blastic lesions are seen. Soft tissues: Induration and foci of subcutaneous gas within the ventral pelvic wall likely represent postsurgical change. IMPRESSION: 1. The post gravid uterus is enlarged and heterogeneous. 2. There is complex debris distending the endometrial canal. This likely represents blood products. Retained products of conception or endometritis cannot be excluded and clinical correlation will be essential. 3. Intraperitoneal hemorrhage has almost completely resolved as compared to 06/28/2021. 4. A section scar/defect is seen in the anterior lower uterine segment. This is not well evaluated by CT, and the integrity of the lower uterine wall cannot be confirmed by imaging. 5. The bladder wall is thickened and hyperemic with surrounding inflammation. Correlate with clinical findings and urinalysis. 6. There is no bowel obstruction. 7. Trace pleural effusions. 8. A 1.4 cm fat attenuation structure in the anterior right adnexa is inde terminant. This could represent postoperative change, or could possibly be seen with a small dermoid. A follow-up pelvic ultrasound in several months time is recommended for reassessment. ACT 112: Negative or not required by law. Electronically signed by: Aden Brantley M.D. 07/05/2021 4:[address] 07/05/21 12:15 CT head/brain wo con CLINICAL HISTORY: 26 years-old Female with post fever and hemmohrage. Acute fever with headache TECHNIQUE: Multiple axial CT images of the head were obtained without contrast. A dose lowering technique was utilized adhering to the principles of ALARA. COMPARISON: Head CT 06/25/2021 FINDINGS: No acute intracranial hemorrhage, midline shift, intracranial mass, hydrocephalus, territorial ischemia or abnormal extra-axial collection. The calvarium is intact. The paranasal sinuses, mastoid air cells, and middle ear cavities are clear. IMPRESSION: No acute intracranial abnormality. ACT 112: Negative or not required by law. The above report was generated using voice recognition software. It may contain grammatical, syntax or spelling errors. Electronically signed by: Devon Issa M.D. 07/05/2021 3:53 PM Chest X-Ray 07/05/21 12:16 SINGLE VIEW CHEST CLINICAL HISTORY: Sepsis. FINDINGS: An AP, portable, upright chest radiograph is compared to study dated 01/05/2021 and correlated with chest CT dated 06/25/2021.. The cardiomediastinal silhouette is unremarkable. The lungs and pleural spaces are clear. No pneumothorax is seen. The bony thorax is grossly intact. IMPRESSION: No active disease in the chest. ACT 112: Negative or not required by law. Electronically signed by: Aden Brantley M.D. 07/05/2021 12:37 PM Chest CTA 07/05/21 12:22 CT ANGIOGRAPHY OF THE CHEST, PULMONARY EMBOLUS PROTOCOL CLINICAL HISTORY: Post fever. Evaluate for pulmonary embolus. COMPARISON STUDY: Chest CT June 25, 2021. Chest radiograph performed earlier today. TECHNIQUE: Following IV administration of 116 mL of Optiray, helical axial images of the chest were obtained utilizing the pulmonary embolus protocol. Maximal intensity projections and sagittal and coronal reformats were viewed on an independent 3D workstation. IV contrast was administered without com plication. Automated exposure control was utilized for the study. A dose lowering technique was utilized adhering to the principles of ALARA. CT DOSE: 1858.48 mGy.cm FINDINGS: No pulmonary emboli are identified. There is no thoracic aortic dissection. Borderline cardiomegaly is noted. No pericardial effusion is pres ent. Mildly enlarged bilateral axillary lymph nodes are unchanged since prior chest CT. These are also similar to chest CT April 16, 2021. No pneumothorax is noted. There is a trace left pleural effusion. Mild left lower lobe opacity reflects atelectasis. There is no consolidation to suggest pneumonia. Mild splenomegaly is noted. The abdomen and pelvis will be reported separately. IMPRESSION: 1. No pulmonary emboli identified. 2. No consolidation to suggest pneumonia. Minimal left lower lobe opacity consistent with atelectasis. 3. No change in multiple mildly enlarged bilateral axillary lymph nodes which remain indeterminate. ACT 112: Negative or not required by law. Electronically signed by: William Spears M.D. 07/05/2021 4:01 PM ECG Data Indication: + SOB/dyspnea Rate (beats per minute): 80 Rhythm: + normal sinus ECG Intervals/blocks: + Normal MT and + Normal QT-c ECG ST segments: + Normal ST segments Additional Comments: QRS 66 MDM Narrative 1214: The patient was evaluated in room C1. A complete history and physical exam was performed Cardiac monitoring: An order was placed for continuous cardiac monitoring. The monitor shows a rate of 80 with sinus rhythm 1618: Vital signs stable. Labs within normal limits with exception of elevated troponin. Imaging shows no acute surgical pathology. Discussed with Dr. Allison Cueva [employer] who states she will be down to evaluate the patient. 1649: Dr. Cooper states she will admit to her service. Impression & Plan fever, Elevated troponin Discharge Plan Visit Data Chief Complaint: Illness Stated Complaint: FEVER & POST DELIVERY ISSUES ED Provider: Zack Torres Discharge Problem: fever, Elevated troponin Patient Disposition: Admitted As Inpatient Forms Stand Alone Forms: [facility] Prescriptions Prescriptions: No Action oxycodone-acetaminophen [Percocet] 5-325 mg Tablet 1 tab PO Q4H PRN (Reason: pain) Qty: 20 RF: 0 labetalol 300 mg Tablet 300 mg PO Q8 30 Days Qty: 90 RF: 1 ibuprofen 400 mg Tablet 0 mg PO Q6H RF: 0 ferrous sulfate 325 mg (65 mg iron) tablet 325 mg PO QAM RF: 0 Referrals Referrals: Louise Bahena MD [Primary Care Provider] -
[2021-07-05 14:55] LABS: Basophils # (auto) 0.01 K/uL (0-0.2); Basophils % (auto) 0.1 %; Eosinophils # (auto) 0.07 K/uL (0-0.5); Eosinophils % (auto) 0.9 %; Immature Granulocytes # (auto) 0.13 K/uL (0.00-0.02); Immature Granulocytes % (auto) 1.6 %; Lymphocytes # (auto) 1.23 K/uL (1.2-3.4); Lymphocytes % (auto) 15.3 %; Monocytes # (auto) 0.19 K/uL (0.11-0.59); Monocytes % (auto) 2.4 %; Neutrophils # (auto) 6.39 K/uL (1.4-6.5); Neutrophils % (auto) 79.7 %
[2021-07-05 15:11] LABS: Troponin I High Sensitivity 17.3 pg/ml (0-14)
[2021-07-05 15:16] LABS: Partial Thromboplastin Time 46.3 Seconds (21.0-31.0)
[2021-07-05] MEDS ORDERED: OPTIRAY 320 125ml IV ONE (15:43)
--- NOTE | 2021-07-05 15:54 | CT Scan Report ---
CT head/brain wo con CLINICAL HISTORY: 26 years-old Female with post fever and hemmohrage. Acute fever with hea dache TECHNIQUE: Multiple axial CT images of the head were obtained without contrast. A dose lowering tech nique was utilized adhering to the principles of ALARA. COMPARISON: Head CT 06/25/2021 FINDINGS: No acute intracranial hemorrhage, midline shift, intracranial mass, hydrocephalus, territorial ischem ia or abnormal extra-axial collection. The calvarium is intact. The paranasal sinuses, mastoid air cells, and middle ear cavities are clear . IMPRESSION: No acute intracranial abnormality. ACT 112: Negative or not required by law. The above report was generated using voice recognition software. It may contain grammatical, syntax o r spelling errors. Electronically signed by: Devon Issa M.D. 07/05/2021 3:53 PM
--- NOTE | 2021-07-05 16:03 | CT Scan Report ---
CT ANGIOGRAPHY OF THE CHEST, PULMONARY EMBOLUS PROTOCOL CLINICAL HISTORY: Post fever. Evaluate for pulmonary embolus. COMPARISON STUDY: Chest CT June 25, 2021. Chest radiograph performed earlier today. TECHNIQUE: Following IV administration of 116 mL of Optiray, helical axial images of the chest were o btained utilizing the pulmonary embolus protocol. Maximal intensity projections and sagittal and cor onal reformats were viewed on an independent 3D workstation. IV contrast was administered without co mplication. Automated exposure control was utilized for the study. A dose lowering technique was ut ilized adhering to the principles of ALARA. CT DOSE: 1858.48 mGy.cm FINDINGS: No pulmonary emboli are identified. There is no thoracic aortic dissection. Borderline car diomegaly is noted. No pericardial effusion is present. Mildly enlarged bilateral axillary lymph node s are unchanged since prior chest CT. These are also similar to chest CT April 16, 2021. No pneumo thorax is noted. There is a trace left pleural effusion. Mild left lower lobe opacity reflects atelec tasis. There is no consolidation to suggest pneumonia. Mild splenomegaly is noted. The abdomen and pe lvis will be reported separately. IMPRESSION: 1. No pulmonary emboli identified. 2. No consolidation to suggest pneumonia. Minimal left lower lobe opacity consistent with atelectasis . 3. No change in multiple mildly enlarged bilateral axillary lymph nodes which remain indeterminate. ACT 112: Negative or not required by law. Electronically signed by: William Spears M.D. 07/05/2021 4:01 PM
[2021-07-05] MEDS ORDERED: ACETAMINOPHEN 500 MG TAB PO STA (16:05)
--- NOTE | 2021-07-05 16:05 | CT Scan Report ---
CT SCAN OF THE ABDOMEN AND PELVIS WITH IV CONTRAST CLINICAL HISTORY: fever. Hemorrhage. COMPARISON STUDY: Abdominal CT dated 06/28/2021. TECHNIQUE: Following the IV administration of 116 cc of Optiray 320, CT scan of the abdomen and pelv is is performed from the lung bases to the proximal femora. Images are reviewed in the axial, sagitta l, and coronal planes. IV contrast was administered without complication. A dose lowering technique w as utilized adhering to the principles of ALARA. FINDINGS: Lung bases: The heart is normal in size and without pericardial effusion. There are trace pleural eff usions with dependant atelectasis. Liver: The contrast-enhanced liver is normal in size, contour, and attenuation. There is no intrahepa tic biliary ductal dilatation. The hepatic veins and portal veins are patent. Gallbladder: Unremarkable. Spleen: Normal in size and attenuation. Pancreas: Unremarkable. Adrenal glands: Unremarkable. Kidneys: The contrast enhanced kidneys are normal in size and without hydronephrosis. The kidneys enh ance symmetrically. A circumaortic left renal vein is incidentally noted. Abdominal vasculature: The abdominal aorta is normal in course and caliber. Bowel: There is no bowel obstruction. The appendix is not clearly visualized Peritoneum: There is no intraperitoneal free air or abdominal ascites. Intraperitoneal blood is almos t completely resolved. Lymphadenopathy: None. Pelvic viscera: The post gravid uterus is enlarged and heterogeneous. A section scar is note d in the lower uterine segment anteriorly. The endometrial canal is distended with complex material. No gas is identified within the endometrial lumen. The bladder is decompressed and appears circumfere ntially thick walled. A 1.4 cm fat attenuation structure seen in the anterior right adnexa on image # 366. A small amount of free fluid is noted in the cul-de-sac. Skeletal structures: No lytic or blastic lesions are seen. Soft tissues: Induration and foci of subcutaneous gas within the ventral pelvic wall likely represent postsurgical change. IMPRESSION: 1. The post gravid uterus is enlarged and heterogeneous. 2. There is complex debris distending the endometrial canal. This likely represents blood products. R etained products of conception or endometritis cannot be excluded and clinical correlation will be es sential. 3. Intraperitoneal hemorrhage has almost completely resolved as compared to 06/28/2021. 4. A section scar/defect is seen in the anterior lower uterine segment. This is not well kwasi luated by CT, and the integrity of the lower uterine wall cannot be confirmed by imaging. 5. The bladder wall is thickened and hyperemic with surrounding inflammation. Correlate with clinical findings and urinalysis. 6. There is no bowel obstruction. 7. Trace pleural effusions. 8. A 1.4 cm fat attenuation structure in the anterior right adnexa is indeterminant. This could repre sent postoperative change, or could possibly be seen with a small dermoid. A follow-up pelvic ultraso und in several months time is recommended for reassessment. ACT 112: Negative or not required by law. Electronically signed by: Aden Brantley M.D. 07/05/2021 4:03 PM
[2021-07-05 16:22] LABS: Appearance Urine Clear (Clear); Bacteria Urine Automated Negative (Negative); Bilirubin Urine Negative (Negative); Blood Urine 3+ (Negative); Color Urine Orange; Epithelial Cell Urine Auto 0-5 /lpf (0-5); Glucose Urine UA Negative (Negative); Ketones Urine Negative (Negative); Leukocyte Esterase Urine 2+ (Negative); Nitrite Urine Negative (Negative); Protein Urine 1+ (Negative); Specific Gravity Urine 1.009 (1.000-1.030); Urobilinogen Urine Negative (Negative); WBC Urine Automated >30 /hpf (0-5); pH Urine 6.5 (4.5-7.5)
[2021-07-05] MEDS ORDERED: LABETALOL HCL 300 MG TAB PO STA (16:24)
[2021-07-05] MEDS ORDERED: oxyCODONE/ACETAMINOPHEN 5mg/325mg TAB PO STA (16:26)
[2021-07-05] MEDS ORDERED: MoRPHine SULFATE 2 MG/ML CARP IV STA (16:44)
[2021-07-05] MEDS ORDERED: PIPERACILL/TAZOBAC CONSULT ACTIVE PRN (17:27)
[2021-07-05] MEDS ORDERED: PIPERACILLIN/TAZOBACTAM 4.5 GM in DEXTROSE 5% 100 ML IV ONE (17:45)
--- NOTE | 2021-07-05 17:57 | History & Physical Report ---
Date of Service July 05, 2021 Assessment & Plan (1) fever: Plan: -Pt notes spiking temps over last few days, taken by oral and axillary temps. Do not have it documented today however has been taking ibuprofen/tylenol throughout the day. CBC shows no leukocytosis, imaging does not have evidence of abscess or residual hemorrhage. Bladder appears inflamed however was dissected down during CS. UA obtained but likely contaminated due to lochia so will await culture to determine if UTI involved. Imaging and panels not indicative of respiratory source either. -there is a 1.4cm fat attenuated structure in R adnexa but op report notes normal tubes and ovaries. Suspect this is postop change but do not think related to her fevers. -At this point, working diagnosis is septic thrombophlebitis which is diagnosis of exclusion as I have low suspicion for endometritis given previous treatment, no white count, appropriate abdominal tenderness, normal lochia. Blood products are seen in uterus consistent with lochia, low suspicion for retained products. Did speak to radiology and they do not see any abnormalities w/ pelvic vessels, but neg CT scan does not rule out thrombophlebitis. Will plan for antibiotics and anticoagulation for treatment of working diagnosis. -will plan for zosyn 4.5mg q8h as current creatinine is elevated so would avoid gent/clinda and she has been on this already. Hospitalist consult in place for the problems listed below as well as for assistance with therapeutic anticoagulation given her kidney function as part of SPT treatment. Plan to continue antibiotics and anticoagulation until 48 hours afebrile (or remains afebrile). Will await blood cultures obtained in ER to determine whether outpt antibiotics are indicated, do not think anticoagulation is indicated following the 48 hours as no documented thrombus is seen but will await consult as well (2) Severe preeclampsia: Plan: -labetalol 300mg q8h continued, has appropriate response to labetalol but will also appreciate hospitalist assistance with BP management (3) CINDY (acute kidney injury): Plan: -creatinine 1.47 on admit here, was < 0.5 prior to discharge from initial admit. Pt reports appropriate NSAID use, is hydrating so unclear to cause of CINDY. Appreciate hospitalist input for this -NSAIDs held for pain control, will use tylenol/oxycodone for now (4) Elevated troponin: Plan: -EKG, CXR normal, pt denies cardiac symptoms currently. Appreciate hospitalist input for management History of Present Illness Chief Complaint: Subjective spiking fevers, abdominal pain s/p complicated course, uncontrolled blood pressures Primary Care Provider: Louise Bahena MD 26 y/o POD11 s/p primary LTCS for distress during IOL for pre- eclampsia w/ SF complicated by post-op bleeding that required ex lap on POD1 for evacuation of hemoperitoneum and repair of bleeding from uterine incision presents to ER from clinic with multiple complaints. In review of her course, following re-operation on POD1 due to active bleeding, she was sent to ICU where she received a total of 6units of PRBCS, 4 units of FFP. During initial ICU course, magnesium was restarted for pre-eclampsia treatment as it had been held on admit to ICU and continued for 24 hours. She was also started on labetalol and titrated up to 300mg q8h. She continued to recover well until POD4 s/p CS when she was diagnosed with endometritis and started on gent/clinda x 48 hours. She had one temp 38C right before the 48 hours concluded on the evening of the with normal temps following and planned for dc on the however requested discharge and after counseling was discharged home on the on labetalol 300mg q8h and percocet.. -Since discharge, the pt reports intermittent fever spikes - 102.7 on Sat AM and 101 yesterday AM. Both times, pt took ibuprofen and percoet which would break the fever after a few hours. She did note chills this AM but did not take temp before ibuprofen and percocet. When takes ibuprofen, takes 2 x 200mg every 4-6 hrs -has been taking labetalol 300mg q8h, last around 930 this AM. Just before meds will be 150s-160s, 1hr after meds is normotensive to 120s. She notes a LUCIA just before medication is taken, consistent with her elevated BPs, that resolves w/ lower BP. -She notes pain at her incision with moving, but denies pain at rest. She does note a persistent R sided pain. Normal lochia, denies worsening odor or quantity since discharge. Denies difficulty w/ b/b. Is pumping but no breast concerns. -Denies persistent CP, SOB. Allergies Allergy/AdvReac Type Severity Reaction Status Date / Time rhubarb Allergy Intermediate THROAT Verified 07/05/21 10:40 SLIGHTLY TIGHT, SWELLIN, RASH Home Medications Medication Instructions Recorded Confirmed Type ferrous sulfate 325 mg (65 mg 325 mg PO QAM 01/05/21 07/05/21 History iron) tablet labetalol 300 mg tablet 300 mg PO Q8 30 Days #90 tab 07/01/21 07/05/21 Rx oxycodone-acetaminophen 5 mg-325 1 tab PO Q4H PRN #20 tab 07/01/21 07/05/21 Rx mg tablet (Percocet) ibuprofen 400 mg tablet 0 mg PO Q6H 07/05/21 07/05/21 History Patient History Medical History (Updated 07/05/21 @ 17:49 by Darlyn Cooper MD) Heart palpitations Has monitor from [facility] History of migraine History of syncope Left wrist fracture hemorrhage Surgical History (Updated 07/05/21 @ 17:43 by Darlyn Cooper MD) H/O wisdom tooth extraction No pertinent past surgical history S/P S/P exploratory laparotomy POD1 from CS, evac of hemoperitoneum, repair of scar arterial bleed Family History Grandmother (Maternal) Hypothyroidism Grandmother (Paternal) Diabetes Denies family history of Ovarian cancer Breast cancer Lung cancer Social History Smoking Status: Never smoker Second Hand Exposure: No; Hx Alcohol Use: No Hx Substance Use: No Preferred Language: Chinese Communication Ability: Effective Visual Impairment: Partially Limited Hearing Ability: Normal Technical Sales Support Manager Required: No Beliefs That Will Affect Care: None marital status: Single marital status details: KARTHIK Newbyargelia (25) [phone] Current Living Situation: Significant Other Current Living Situation Comment: FOB and no pets current occupational status: student Feels Safe at Home: Yes Assistive Devices: None Review of Systems neg except as noted in HPI Physical Exam Constitutional: WD/WN, vitals as above Respiratory: normal respiratory effort, lungs clear to auscultation Cardiovascular: RRR, no murmur, no edema Gastrointestinal (Abdomen): Abd soft, appropriately tender in lower abdomen, ND. Incision c/d/i. Results & Data ([facility]) Vital Signs (Past 12 Hours) Vital Signs Temp Pulse Pulse Resp BP BP Pulse Ox 07/05/21 16:21 89 20 165/122 H 99 07/05/21 15:12 81 18 150/107 H 99 07/05/21 13:39 82 16 130/90 99 07/05/21 12:49 84 84 18 129/98 98 07/05/21 12:09 98.1 F 90 18 132/92 97 Laboratory Results 07/05/21 07/05/21 07/05/21 Range/Units 15:20 13:27 13:19 WBC (4.8-10.8) K/uL RBC (4.2-5.4) M/uL Hgb (12.0-16.0) g/dL Hct (37-47) % MCV (80-100) fL MCH (25-34) pg MCHC (32-36) g/dL RDW Std Deviation (36.4-46.3) fL RDW Coeff of Mohit (11.5-14.5) % Plt Count (130-400) K/uL MPV (7.4-10.4) fL Immature Gran % (Auto) % Neut % (Auto) % Lymph % (Auto) % [place] % (Auto) % Eos % (Auto) % Baso % (Auto) % Neut # (Auto) (1.4-6.5) K/uL Lymph # (Auto) (1.2-3.4) K/uL [place] # (Auto) (0.11-0.59) K/uL Eos # (Auto) (0-0.5) K/uL Baso # (Auto) (0-0.2) K/uL Immature Gran # (Auto) (0.00-0.02) K/uL Absolute Nucleated RBC (0-0) K/uL Nucleated RBC % (auto) % PT (9.0-12.0) Seconds INR (0.9-1.1) APTT (21.0-31.0) Seconds PTT Ratio Sodium (136-145) mmol/L Potassium (3.5-5.1) mmol/L Chloride (98-107) mmol/L Carbon Dioxide (21-32) mmol/L Anion Gap (3-11) BUN (6-23) mg/dl Creatinine (0.6-1.2) mg/dl Est Cr Clr Drug Dosing ml/min Est GFR ( Amer) ml/min Est GFR (Non-Af Amer) ml/min BUN/Creatinine Ratio (10-20) Glucose (70-99(Fasting)) mg/dl Lactate 0.6 (0.4-2.0) mmol/L Calcium (8.5-10.1) mg/dl Magnesium (1.7-2.4) mg/dl Total Bilirubin (0.2-1.0) mg/dl Direct Bilirubin (0-0.2) mg/dl AST (13-39) U/L ALT (7-52) U/L Alkaline Phosphatase (34-104) U/L Lactate Dehydrogenase (86-244) U/L Troponin I High Sens 15.5 H (0-14) pg/ml Total Protein (6.0-8.3) gm/dl Albumin (3.4-5.0) gm/dl Lipase (11-82) U/L Procalcitonin (0-0.5) ng/ml Urine Color [place] Urine Appearance Clear (Clear) Urine pH 6.5 (4.5-7.5) Ur Specific [place] 1.009 (1.000-1.030) Urine Protein 1+ H (Negative) Urine Glucose (UA) Negative (Negative) Urine Ketones Negative (Negative) Urine Blood 3+ H (Negative) Urine Nitrite Negative (Negative) Urine Bilirubin Negative (Negative) Urine Urobilinogen Negative (Negative) Ur Leukocyte Esterase 2+ H (Negative) Urine WBC (Auto) >30 H (0-5) /hpf Urine RBC (Auto) 10-30 H (0-4) /hpf U Hyaline Cast (Auto) 5-10 H (0-5) /lpf U Epithel Cells (Auto) 0-5 (0-5) /lpf Urine Bacteria (Auto) Negative (Negative) Adenovirus (PCR) (NotDetected) B. pertussis DNA (PCR) (NotDetected) B.parapertussis DNA PCR (NotDetected) C. pneumoniae DNA (PCR) (NotDetected) Coronavirus OC43 (PCR) (NotDetected) Coronavirus HKU1 (PCR) (NotDetected) Coronavirus 229E (PCR) (NotDetected) SARS-CoV-2 (PCR) (NotDetected) Coronavirus NL63 (PCR) (NotDetected) Human Metapneumovir PCR (NotDetected) Influenza Type A (PCR) (NotDetected) Influenza Type B (PCR) (NotDetected) M. pneumoniae (PCR) (NotDetected) Parainfluenza 1 (PCR) (NotDetected) Parainfluenza 2 (PCR) (NotDetected) Parainfluenza 3 (PCR) (NotDetected) Parainfluenza 4 (PCR) (NotDetected) RSV (PCR) (NotDetected) Entero/Rhino (PCR) (NotDetected) 07/05/21 07/05/21 07/05/21 Range/Units 13:19 13:19 13:19 WBC 8.02 (4.8-10.8) K/uL RBC 2.80 L (4.2-5.4) M/uL Hgb 8.3 L (12.0-16.0) g/dL Hct 25.8 L (37-47) % MCV 92.1 (80-100) fL MCH 29.6 (25-34) pg MCHC 32.2 (32-36) g/dL RDW Std Deviation 53.3 H (36.4-46.3) fL RDW Coeff of Mohit 15.9 H (11.5-14.5) % Plt Count 363 (130-400) K/uL MPV 8.6 (7.4-10.4) fL Immature Gran % (Auto) 1.6 % Neut % (Auto) 79.7 % Lymph % (Auto) 15.3 % [place] % (Auto) 2.4 % Eos % (Auto) 0.9 % Baso % (Auto) 0.1 % Neut # (Auto) 6.39 (1.4-6.5) K/uL Lymph # (Auto) 1.23 (1.2-3.4) K/uL [place] # (Auto) 0.19 (0.11-0.59) K/uL Eos # (Auto) 0.07 (0-0.5) K/uL Baso # (Auto) 0.01 (0-0.2) K/uL Immature Gran # (Auto) 0.13 H (0.00-0.02) K/uL Absolute Nucleated RBC 0.04 H (0-0) K/uL Nucleated RBC % (auto) 0.5 % PT 9.8 (9.0-12.0) Seconds INR 0.9 (0.9-1.1) APTT 46.3 H* (21.0-31.0) Seconds PTT Ratio 1.7 Sodium (136-145) mmol/L Potassium (3.5-5.1) mmol/L Chloride (98-107) mmol/L Carbon Dioxide (21-32) mmol/L Anion Gap (3-11) BUN (6-23) mg/dl Creatinine (0.6-1.2) mg/dl Est Cr Clr Drug Dosing ml/min Est GFR ( Amer) ml/min Est GFR (Non-Af Amer) ml/min BUN/Creatinine Ratio (10-20) Glucose (70-99(Fasting)) mg/dl Lactate (0.4-2.0) mmol/L Calcium (8.5-10.1) mg/dl Magnesium (1.7-2.4) mg/dl Total Bilirubin (0.2-1.0) mg/dl Direct Bilirubin (0-0.2) mg/dl AST (13-39) U/L ALT (7-52) U/L Alkaline Phosphatase (34-104) U/L Lactate Dehydrogenase (86-244) U/L Troponin I High Sens (0-14) pg/ml Total Protein (6.0-8.3) gm/dl Albumin (3.4-5.0) gm/dl Lipase (11-82) U/L Procalcitonin 0.16 (0-0.5) ng/ml Urine Color Urine Appearance (Clear) Urine pH (4.5-7.5) Ur Specific [place] (1.000-1.030) Urine Protein (Negative) Urine Glucose (UA) (Negative) Urine Ketones (Negative) Urine Blood (Negative) Urine Nitrite (Negative) Urine Bilirubin (Negative) Urine Urobilinogen (Negative) Ur Leukocyte Esterase (Negative) Urine WBC (Auto) (0-5) /hpf Urine RBC (Auto) (0-4) /hpf U Hyaline Cast (Auto) (0-5) /lpf U Epithel Cells (Auto) (0-5) /lpf Urine Bacteria (Auto) (Negative) Adenovirus (PCR) (NotDetected) B. pertussis DNA (PCR) (NotDetected) B.parapertussis DNA PCR (NotDetected) C. pneumoniae DNA (PCR) (NotDetected) Coronavirus OC43 (PCR) (NotDetected) Coronavirus HKU1 (PCR) (NotDetected) Coronavirus 229E (PCR) (NotDetected) SARS-CoV-2 (PCR) (NotDetected) Coronavirus NL63 (PCR) (NotDetected) Human Metapneumovir PCR (NotDetected) Influenza Type A (PCR) (NotDetected) Influenza Type B (PCR) (NotDetected) M. pneumoniae (PCR) (NotDetected) Parainfluenza 1 (PCR) (NotDetected) Parainfluenza 2 (PCR) (NotDetected) Parainfluenza 3 (PCR) (NotDetected) Parainfluenza 4 (PCR) (NotDetected) RSV (PCR) (NotDetected) Entero/Rhino (PCR) (NotDetected) 07/05/21 07/05/21 07/05/21 Range/Units 13:19 13:19 12:57 WBC (4.8-10.8) K/uL RBC (4.2-5.4) M/uL Hgb (12.0-16.0) g/dL Hct (37-47) % MCV (80-100) fL MCH (25-34) pg MCHC (32-36) g/dL RDW Std Deviation (36.4-46.3) fL RDW Coeff of Mohit (11.5-14.5) % Plt Count (130-400) K/uL MPV (7.4-10.4) fL Immature Gran % (Auto) % Neut % (Auto) % Lymph % (Auto) % [place] % (Auto) % Eos % (Auto) % Baso % (Auto) % Neut # (Auto) (1.4-6.5) K/uL Lymph # (Auto) (1.2-3.4) K/uL [place] # (Auto) (0.11-0.59) K/uL Eos # (Auto) (0-0.5) K/uL Baso # (Auto) (0-0.2) K/uL Immature Gran # (Auto) (0.00-0.02) K/uL Absolute Nucleated RBC (0-0) K/uL Nucleated RBC % (auto) % PT (9.0-12.0) Seconds INR (0.9-1.1) APTT (21.0-31.0) Seconds PTT Ratio Sodium 136 (136-145) mmol/L Potassium 4.2 (3.5-5.1) mmol/L Chloride 104 (98-107) mmol/L Carbon Dioxide 22 (21-32) mmol/L Anion Gap 10 (3-11) BUN 19 (6-23) mg/dl Creatinine 1.47 H (0.6-1.2) mg/dl Est Cr Clr Drug Dosing 54.8 ml/min Est GFR ( Amer) 56.9 ml/min Est GFR (Non-Af Amer) 49.1 ml/min BUN/Creatinine Ratio 12.9 (10-20) Glucose 81 (70-99(Fasting)) mg/dl Lactate (0.4-2.0) mmol/L Calcium 8.6 (8.5-10.1) mg/dl Magnesium 1.9 (1.7-2.4) mg/dl Total Bilirubin 0.5 (0.2-1.0) mg/dl Direct Bilirubin 0.1 (0-0.2) mg/dl AST 26 (13-39) U/L ALT 9 (7-52) U/L Alkaline Phosphatase 143 H (34-104) U/L Lactate Dehydrogenase 250 H (86-244) U/L Troponin I High Sens 17.3 H (0-14) pg/ml Total Protein 6.5 (6.0-8.3) gm/dl Albumin 3.0 L (3.4-5.0) gm/dl Lipase 24 (11-82) U/L Procalcitonin (0-0.5) ng/ml Urine Color Urine Appearance (Clear) Urine pH (4.5-7.5) Ur Specific [place] (1.000-1.030) Urine Protein (Negative) Urine Glucose (UA) (Negative) Urine Ketones (Negative) Urine Blood (Negative) Urine Nitrite (Negative) Urine Bilirubin (Negative) Urine Urobilinogen (Negative) Ur Leukocyte Esterase (Negative) Urine WBC (Auto) (0-5) /hpf Urine RBC (Auto) (0-4) /hpf U Hyaline Cast (Auto) (0-5) /lpf U Epithel Cells (Auto) (0-5) /lpf Urine Bacteria (Auto) (Negative) Adenovirus (PCR) Not Detected (NotDetected) B. pertussis DNA (PCR) Not Detected (NotDetected) B.parapertussis DNA PCR Not Detected (NotDetected) C. pneumoniae DNA (PCR) Not Detected (NotDetected) Coronavirus OC43 (PCR) Not Detected (NotDetected) Coronavirus HKU1 (PCR) Not Detected (NotDetected) Coronavirus 229E (PCR) Not Detected (NotDetected) SARS-CoV-2 (PCR) Not Detected (NotDetected) Coronavirus NL63 (PCR) Not Detected (NotDetected) Human Metapneumovir PCR Not Detected (NotDetected) Influenza Type A (PCR) Not Detected (NotDetected) Influenza Type B (PCR) Not Detected (NotDetected) M. pneumoniae (PCR) Not Detected (NotDetected) Parainfluenza 1 (PCR) Not Detected (NotDetected) Parainfluenza 2 (PCR) Not Detected (NotDetected) Parainfluenza 3 (PCR) Not Detected (NotDetected) Parainfluenza 4 (PCR) Not Detected (NotDetected) RSV (PCR) Not Detected (NotDetected) Entero/Rhino (PCR) Not Detected (NotDetected) Diagnostic Findings Chest CTA: IMPRESSION: 1. No pulmonary emboli identified. 2. No consolidation to suggest pneumonia. Minimal left lower lobe opacity consistent with atelectasis. 3. No change in multiple mildly enlarged bilateral axillary lymph nodes which remain indeterminate. CXR: IMPRESSION: No active disease in the chest. CT A/P: IMPRESSION: 1. The post gravid uterus is enlarged and heterogeneous. 2. There is complex debris distending the endometrial canal. This likely represents blood products. Retained products of conception or endometritis cannot be excluded and clinical correlation will be essential. 3. Intraperitoneal hemorrhage has almost completely resolved as compared to 06/28/2021. 4. A section scar/defect is seen in the anterior lower uterine segment. This is not well evaluated by CT, and the integrity of the lower uterine wall cannot be confirmed by imaging. 5. The bladder wall is thickened and hyperemic with surrounding inflammation. Correlate with clinical findings and urinalysis. 6. There is no bowel obstruction. 7. Trace pleural effusions. 8. A 1.4 cm fat attenuation structure in the anterior right adnexa is indeterminant. This could represent postoperative change, or could possibly be seen with a small dermoid. A follow-up pelvic ultrasound in several months time is recommended for reassessment. Coding Level of Care Code 28412 Initial Inpt Care Lvl 3 Diagnoses fever O86.4 Severe preeclampsia O14.10 CINDY (acute kidney injury) N17.9 Elevated troponin R77.8
[2021-07-05] MEDS ORDERED: ONDANSETRON INJ 2 MG/ML 2 ML VIAL IV PRN (19:50)
--- NOTE | 2021-07-05 19:53 | Hospitalist Consultation ---
Date of Consultation July 05, 2021 Assessment & Plan (1) Endometritis: (2) Elevated troponin: (3) fever: (4) CINDY (acute kidney injury): (5) History of syncope: (6) History of migraine: Diane is a 26 year old female w/ past history of syncope, endometritis + hemoperitoneum on previous hospitalization requiring antibiotics and PRBC admitted for undulating fevers post and post endometritis concerning for possible septic pelvic thrombophlebitis to the OB service. fever/?SPT: -Afebrile in hospital but with fevers at home up to 102.7. -CT abd/pelv: complex debris distending into endometrial canal - possibly blood products. Bladder wall thickened, hyperemic w/ surrounding inflammation. Intraperitoneal hemorrhage mostly resolved since 06/28. -CT head negative for signs of infection -CTA chest: No evidence of PE, no consolidation to suggest PE. Minimal atelectasis LLL. -U/A negative for bacteria. Blood and urine cultures pending. -No obvious source of infection, would meet criteria for SPT. Most likely fevers secondary to VTE if the case. -If anticoagulating patient as part of treatment would recommend unfractionated heparin without bolus at low dose. -Continue anticoagulation for 48 hours and look for improvement. -Continue with Zosyn (renally dosed) for anaerobic/pseudomonal coverage, would also add on MRSA swab and daptomycin at 6g/kg for gram (+) & MRSA coverage. Abx started 07/05. -If MRSA negative can de-escalate antibiotics to just Zosyn. CINDY: -Creat 1.47 on admission. -May be pre-renal ATN from low hemoglobin. -Recommend fluid at 100ml/hr -Repeat BMP in AM. Elevated Troponin: -Troponin 17.3 and 15.5 at 13:19 today. -Most likely due to demand ischemia. -Trend AM Trop. Suspect likely to trend down with rehydration. HTN: -Patient with history of pre-eclampsia, post period hypertension. -On Labetalol 300mg TID. -Pressures have been running 160's systolic and 110's-120's diastolic at times before scheduled dose of Labetalol. -Can trial 5-10mg Hydralazine 1-2 hours before scheduled Labetalol to keep BP <180 systolic and <100 diastolic. Aphous Ulcers: -Unclear etiology at this time, may be 2/2 post intubation. -Magic Swizzle q8h PRN ordered. Hx Syncope/?Migraine presentation: -Cardiac and neurological workup in the past negative according to patient. -May benefit from further analysis/migraine treatment discussion outpatient. DVT Prophylaxis: Heparin low dose F/E/N/GI: Regular diet. Code Status: Full code. Dispo: OB Service. Supervising Physician Co-Signing Physician Notes Attending addendum: I have physically seen this patient, have supervised the medical residents activities, and agree with the H&P unless as otherwise noted. Assessment and Plan: Endometriyis- Follow blood culture sensitivities Zosyn 4.5 g IV every 8 hours MRSA swab daptomycin 6 mg kilogram IV daily Acute kidney injury- Creatinine 1.47 upon admission, with base around 0.4 Rehydrate with NSS@100 mils per hour Follow serial BMP and magnesium level elevated troponin- High-sensitivity troponin borderline elevated 17.3, with repeat of 15.5 Follow on telemetry recheck laboratories. Likely type II supply demand mismatch Hypertension/preeclampsia history- Continue labetalol 20 mg p.o. 3 times daily- Hydralazine 10 mg IV every 4 hours as needed systolic blood pressure greater than 160 Remaining orders and notations as noted History of Present Illness Reason for Consultation: Anticoagulation, CINDY, fever Requesting Physician: Darlyn Cooper M.D. Attending Physician: Pramod Razo M.D. History of Present Illness Diane is a 26 year old female w/ PmHx syncope, endometritis, pre-eclampsa in admitted for undulating fevers w/o a known source. Patient was previously in the hospital from 06/24-07/01 for due to concern for decreased movement. Patient describes having nausea/vomiting during , especially prominent the last few weeks before delivery. During her previous hospital stay she experienced several spikes of fever along with imaging consistent with endometritis. Hemoglobin reached a level of 5.8 requiring 6 units of PRBC transfusion at last stay due to post bleed requiring exploratory laparotomy and ICU stay while intubated. Upon discharge hemoglobin was 9.5 stable. She was given 48 hours of clindamycin + gentamicin at the time and sent home when seen to be fever free for 24 hours. Patient said she feels her pain has been progressively better since her discharge, with most of the pain at the site of incision, however without leakage of fluid or redness to the area. She states Sunday she was discharged, Sunday morning she felt feverish, had chills, as well as high blood pressure and a headache. She had a measured fever of 101 that morning and the fever lasted a few hours before breaking. She again had the same symptoms Sunday morning and had a recorded fever at home of 102.7. Both times she would take her Labetalol, ibuprofen, and Percocet and although it would help with the pain, the fevers would still persist for a few hours before breaking. She did not take any acetaminophen, only endorses ibuprofen and Percocet. She stated she has had increased vaginal bleeding since being discharged from the hospital but it is less than a heavy period. She has passed a few clots while peeing although says they have varied in size from dime sized to a little over a quarter size. She has also developed mouth and throat sores that have made swallowing painful fore her. She endorses developing multiple throughout her mouth and throat. She says she has had good intake, keeping hydrated, and her appetite is good. Denies any foul smell or pain on urination, lightheaded/dizziness, focal weakness or numbness/tingling, itching, hearing loss, rhinorrhea, cough, chest pain, palpitations, increased leg swelling, CRUZ, bruising, diarrhea, reflux. Inquired further about past history of syncope. Patient states she has had syncopal episodes since before her . She had maybe 1-2 episodes of syncope per year and has been worked up cardiovascularly. She had EKG, Echo, and holter monitor workup in the past with benign results. She stated she also had an MRI and neuro eval in the past and according to her has been benign as well. She states she usually gets an aura before the episodes happen and can tell when they will come on. Patient stated she doesn't have a personal history of migraines but her mother has a history of migraines. Allergies Allergy/AdvReac Type Severity Reaction Status Date / Time rhubarb Allergy Intermediate THROAT Verified 07/05/21 10:40 SLIGHTLY TIGHT, SWELLIN, RASH Home Medications Medication Instructions Recorded Confirmed Type ferrous sulfate 325 mg (65 mg 325 mg PO QAM 01/05/21 07/05/21 History iron) tablet labetalol 300 mg tablet 300 mg PO Q8 30 Days #90 tab 07/01/21 07/05/21 Rx oxycodone-acetaminophen 5 mg-325 1 tab PO Q4H PRN #20 tab 07/01/21 07/05/21 Rx mg tablet (Percocet) ibuprofen 400 mg tablet 0 mg PO Q6H 07/05/21 07/05/21 History amoxicillin 500 mg-potassium 1 tab PO BID #4 tab 07/10/21 Rx clavulanate 125 mg tablet (Augmentin) oxycodone-acetaminophen 5 mg-325 1 tab PO Q6H PRN #10 tab 07/10/21 Rx mg tablet Patient History Medical History (Updated 07/05/21 @ 17:49 by Darlyn Cooper MD) Heart palpitations Has monitor from [facility] History of migraine History of syncope Left wrist fracture hemorrhage Surgical History (Updated 07/06/21 @ 16:36 by Travis Calderon MD) H/O wisdom tooth extraction No pertinent past surgical history S/P S/P exploratory laparotomy POD1 from CS, evac of hemoperitoneum, repair of scar arterial bleed Family History Grandmother (Maternal) Hypothyroidism Grandmother (Paternal) Diabetes Denies family history of Ovarian cancer Breast cancer Lung cancer Social History Smoking Status: Never smoker Second Hand Exposure: No; Hx Alcohol Use: No Hx Substance Use: No Preferred Language: Frisian Communication Ability: Effective Visual Impairment: Partially Limited Hearing Ability: Normal Market Research Assistant Required: No Beliefs That Will Affect Care: None marital status: Single marital status details: KARTHIK Disla (25) [phone] Current Living Situation: Other Current Living Situation Comment: Boyfriend current occupational status: student Feels Safe at Home: Yes Assistive Devices: None Review of Systems Constitutional: as per Subjective / HPI Physical Exam Constitutional: WD/WN, vitals as above Eyes: PERRL, conjunctivae normal, anicteric sclerae Neck: trachea midline, no thyromegaly Respiratory: normal respiratory effort, lungs clear to auscultation Cardiovascular: RRR, no murmur, no edema Gastrointestinal (Abdomen): normal bowel sounds, soft, nontender, no hepatosplenomegaly post gravid abdomen, surgical scar from healing well and without any drainage. Skin: no rashes, warm and dry Results & Data Results & Data ([facility]) Vital Signs (Past 12 Hours) Vital Signs Temp Pulse Pulse Resp BP BP Pulse Ox 07/05/21 18:28 85 18 128/99 98 07/05/21 17:31 98 H 18 138/106 H 98 07/05/21 16:21 89 20 165/122 H 99 07/05/21 15:12 81 18 150/107 H 99 07/05/21 13:39 82 16 130/90 99 07/05/21 12:49 84 84 18 129/98 98 07/05/21 12:09 36.7 C 90 18 132/92 97 Resident Activity Tracking Resident Involvement: Resident Care Provided Care Provided: Adult Hospital Medicine
[2021-07-05] MEDS ORDERED: Heparin IV Adult Wt-Based Low-Dose *NO* Bolus Protocol IV SCH (20:22)
[2021-07-05] MEDS: LACTATED RINGER'S 1,000 ML IV SCH (21:00)
[2021-07-05] MEDS ORDERED: DAPTOmycin 300 MG in SYRINGE 0 ML IV SCH (21:00)
[2021-07-05 21:29] LABS: Hematocrit (blood only) 25.4 % (37-47); Hemoglobin 8.2 g/dL (12.0-16.0); Mean Corpuscular Hemoglobin 29.7 pg (25-34); Mean Corpuscular Hgb Conc 32.3 g/dL (32-36); Mean Platelet Volume 8.3 fL (7.4-10.4); Platelet Count 336 K/uL (130-400); RDW Standard Deviation 52.6 fL (36.4-46.3); Red Blood Count 2.76 M/uL (4.2-5.4); White Blood Count 7.27 K/uL (4.8-10.8)
[2021-07-05 21:55] LABS: ALC (manual) 1.01 K/uL (1.2-3.4); ANC (manual) 5.88 K/uL (1.4-6.5); Lymphocytes # (manual) 1.01 K/uL (1.2-3.4); Lymphocytes % (manual) 13.9 %; Monocytes # (manual) 0.31 K/uL (0.11-0.59); Monocytes % (manual) 4.3 %; Myelocytes # (manual) 0.07 K/uL (0-0); Myelocytes % (manual) 0.9 %; Neutrophils # (manual) 5.88 K/uL (1.4-6.5); Neutrophils % (manual) 80.9 %; RBC Morphology Unremarkable
[2021-07-05 21:56] LABS: INR 0.9 (0.9-1.1); Partial Thromboplastin Ratio 1.7; Prothrombin Time 9.8 Seconds (9.0-12.0)
[2021-07-05 22:06] LABS: Partial Thromboplastin Time 46.3 Seconds (21.0-31.0)
[2021-07-05] MEDS: LABETALOL HCL 300 MG TAB PO SCH (22:09)
[2021-07-05] MEDS: HEPARIN SODIUM/DEXTROSE 25,000 UNITS/500 ML BAG IV SCH (22:20)
[2021-07-05] MEDS ORDERED: FIRST - Mouthwash BLM 119 ML PO PRN (22:24)
[2021-07-05] MEDS: PIPERACILLIN/TAZOBACTAM 4.5 GM in DEXTROSE 5% 100 ML IV SCH (23:33)
[2021-07-06] MEDS: ACETAMINOPHEN 325 MG TAB PO PRN ×4 (03:28→23:57)
[2021-07-06 05:02] LABS: Hematocrit (blood only) 25.4 % (37-47); Hemoglobin 8.3 g/dL (12.0-16.0); Mean Corpuscular Hgb Conc 32.7 g/dL (32-36); Mean Corpuscular Volume 91.7 fL (80-100); Mean Platelet Volume 8.3 fL (7.4-10.4); Platelet Count 395 K/uL (130-400); RDW Coefficient of Variation 15.9 % (11.5-14.5); RDW Standard Deviation 52.6 fL (36.4-46.3); Red Blood Count 2.77 M/uL (4.2-5.4); White Blood Count 9.08 K/uL (4.8-10.8)
[2021-07-06 05:30] LABS: Albumin Globulin Ratio 0.8 (0.9-2); Albumin Level 2.9 gm/dl (3.4-5.0); Bilirubin,Total 0.5 mg/dl (0.2-1.0); Calcium 8.5 mg/dl (8.5-10.1); Creatinine Clr Calc Pharmacy 59.8 ml/min; Est GFR (African American) 70.6 ml/min; Est GFR (Non-African American) 60.9 ml/min; Globulin 3.6 gm/dl (2.5-4.0); Total Protein 6.5 gm/dl (6.0-8.3); Troponin I High Sensitivity 20.1 pg/ml (0-14)
[2021-07-06 05:34] LABS: Partial Thromboplastin Ratio 1.9
[2021-07-06 05:45] LABS: Partial Thromboplastin Time 52.2 Seconds (21.0-31.0)
[2021-07-06] MEDS: LABETALOL HCL 300 MG TAB PO SCH ×3 (05:54→21:50)
[2021-07-06 06:14] LABS: ALC (manual) 1.59 K/uL (1.2-3.4); ANC (manual) 7.25 K/uL (1.4-6.5); Eosinophils # (manual) 0.08 K/uL (0-0.5); Eosinophils % (manual) 0.9 %; Lymphocytes # (manual) 1.59 K/uL (1.2-3.4); Lymphocytes % (manual) 17.5 %; Monocytes # (manual) 0.08 K/uL (0.11-0.59); Monocytes % (manual) 0.9 %; Myelocytes # (manual) 0.08 K/uL (0-0); Myelocytes % (manual) 0.9 %; Neutrophils # (manual) 7.25 K/uL (1.4-6.5); Neutrophils % (manual) 79.8 %; Polychromasia 1+
[2021-07-06] MEDS: LACTATED RINGER'S 1,000 ML IV SCH (06:37)
[2021-07-06] MEDS: PIPERACILLIN/TAZOBACTAM 4.5 GM in DEXTROSE 5% 100 ML IV SCH ×3 (06:46→23:54)
--- NOTE | 2021-07-06 07:42 | Obstetrical Progress Note ---
Date of Service July 06, 2021 Assessment & Plan (1) fever: Plan: -there is a 1.4cm fat attenuated structure in R adnexa but op report notes normal tubes and ovaries. Suspect this is postop change but do not think related to her fevers. -white count stable, pt did spike fever this AM with appropriate response to medication -On zosyn 4.5mg q8h, daptomycin started by hospitalist team for mrsa coverage while swab is pending - appears to have resulted neg so will defer to them regarding continuation. Appreciate their assistance with heparin drip for anticoag treatment as well (2) Severe preeclampsia: Plan: -labetalol 300mg q8h continued, has appropriate response to labetalol but will also appreciate hospitalist assistance with BP management. pt notes improvement in symptoms following labetalol this AM, BP an hour later is still elevated so may need to increase dosing but will await their thoughts (3) CINDY (acute kidney injury): Plan: -creatinine 1.47 on admit here, improved to 1.2 this AM -NSAIDs held for pain control, will use tylenol/oxycodone for now (4) Elevated troponin: Plan: -EKG, CXR normal, pt denies cardiac symptoms currently. Has elevated more this AM, not sure if related to extent of demand due to SPT - will await hospitalist input Admission and Anticipated Discharge Date Admission Date: July 05, 2021 Subjective Last evening had a LUCIA just before labetalol dose which resolved following administration. Did have fever spike early this AM which improved following medication administration. BP mild range and had LUCIA just before labetalol dose this AM and pt notes that she is already feeling better from that standpoint after an hour. Voiding w/o difficulty, passing gas. Does note on days that she has BM that she will get a fever. Denies CP, SOB, abd pain. Physical Exam Constitutional: WD/WN, vitals as above Respiratory: normal respiratory effort, lungs clear to auscultation Cardiovascular: RRR, no murmur, no edema Gastrointestinal (Abdomen): Inspection/Auscultation: abdomen normal to inspection; abdomen not distended Percussion/Palpation: + abdomen tender (appropriately tender) and abdomen soft; no guarding and abdomen not rigid Results & Data ([facility]) Vital Signs (Past 12 Hours) Vital Signs Temp Pulse Resp BP BP Pulse Ox 07/06/21 07:03 98.1 F 87 18 157/107 H 97 07/06/21 05:53 92 H 148/104 H 07/06/21 04:27 100.0 F H 95 H 20 145/105 H 97 07/06/21 03:29 102.2 F H 92 H 18 146/109 H 95 07/06/21 00:07 99.1 F 92 H 20 151/111 H 96 07/05/21 22:07 97.9 F 87 18 147/98 H 97 07/05/21 19:54 97.9 F 82 18 108/78 98 Laboratory Results 07/06/21 07/06/21 07/06/21 Range/Units 04:40 04:40 04:40 WBC 9.08 (4.8-10.8) K/uL RBC 2.77 L (4.2-5.4) M/uL Hgb 8.3 L (12.0-16.0) g/dL Hct 25.4 L (37-47) % MCV 91.7 (80-100) fL MCH 30.0 (25-34) pg MCHC 32.7 (32-36) g/dL RDW Std Deviation 52.6 H (36.4-46.3) fL RDW Coeff of Mohit 15.9 H (11.5-14.5) % Plt Count 395 (130-400) K/uL MPV 8.3 (7.4-10.4) fL Immature Gran % (Auto) % Neut % (Auto) % Lymph % (Auto) % [place] % (Auto) % Eos % (Auto) % Baso % (Auto) % Neut # (Auto) (1.4-6.5) K/uL Lymph # (Auto) (1.2-3.4) K/uL [place] # (Auto) (0.11-0.59) K/uL Eos # (Auto) (0-0.5) K/uL Baso # (Auto) (0-0.2) K/uL Immature Gran # (Auto) (0.00-0.02) K/uL Absolute Nucleated RBC (0-0) K/uL Nucleated RBC % (auto) % Neutrophils % (Manual) 79.8 % Lymphocytes % (Manual) 17.5 % Monocytes % (Manual) 0.9 % Eosinophils % (Manual) 0.9 % Myelocytes % (Man) 0.9 % Neutrophils # (Manual) 7.25 H (1.4-6.5) K/uL Total Absolute Neuts 7.25 H (1.4-6.5) K/uL Lymphocytes # (Manual) 1.59 (1.2-3.4) K/uL Total Abs Lymphocytes 1.59 (1.2-3.4) K/uL Monocytes # (Manual) 0.08 L (0.11-0.59) K/uL Eosinophils # (Manual) 0.08 (0-0.5) K/uL Myelocytes # (Manual) 0.08 H (0-0) K/uL RBC Morphology Polychromasia 1+ PT (9.0-12.0) Seconds INR (0.9-1.1) APTT 52.2 H* (21.0-31.0) Seconds PTT Ratio 1.9 Sodium 132 L (136-145) mmol/L Potassium (3.5-5.1) mmol/L Chloride 102 (98-107) mmol/L Carbon Dioxide 20 L (21-32) mmol/L Anion Gap 10 (3-11) BUN 16 (6-23) mg/dl Creatinine 1.23 H (0.6-1.2) mg/dl Est Cr Clr Drug Dosing 59.8 ml/min Est GFR ( Amer) 70.6 ml/min Est GFR (Non-Af Amer) 60.9 ml/min BUN/Creatinine Ratio 13.0 (10-20) Glucose 90 (70-99(Fasting)) mg/dl Lactate (0.4-2.0) mmol/L Calcium 8.5 (8.5-10.1) mg/dl Magnesium (1.7-2.4) mg/dl Total Bilirubin 0.5 (0.2-1.0) mg/dl Direct Bilirubin (0-0.2) mg/dl AST (13-39) U/L ALT 9 (7-52) U/L Alkaline Phosphatase 171 H (34-104) U/L Lactate Dehydrogenase (86-244) U/L Troponin I High Sens 20.1 H (0-14) pg/ml Total Protein 6.5 (6.0-8.3) gm/dl Albumin 2.9 L (3.4-5.0) gm/dl Globulin 3.6 (2.5-4.0) gm/dl Albumin/Globulin Ratio 0.8 L (0.9-2) Lipase (11-82) U/L Procalcitonin (0-0.5) ng/ml Urine Color Urine Appearance (Clear) Urine pH (4.5-7.5) Ur Specific [place] (1.000-1.030) Urine Protein (Negative) Urine Glucose (UA) (Negative) Urine Ketones (Negative) Urine Blood (Negative) Urine Nitrite (Negative) Urine Bilirubin (Negative) Urine Urobilinogen (Negative) Ur Leukocyte Esterase (Negative) Urine WBC (Auto) (0-5) /hpf Urine RBC (Auto) (0-4) /hpf U Hyaline Cast (Auto) (0-5) /lpf U Epithel Cells (Auto) (0-5) /lpf Urine Bacteria (Auto) (Negative) Nasal Screen MRSA (PCR) (Negative) Adenovirus (PCR) (NotDetected) B. pertussis DNA (PCR) (NotDetected) B.parapertussis DNA PCR (NotDetected) C. pneumoniae DNA (PCR) (NotDetected) Coronavirus OC43 (PCR) (NotDetected) Coronavirus HKU1 (PCR) (NotDetected) Coronavirus 229E (PCR) (NotDetected) SARS-CoV-2 (PCR) (NotDetected) Coronavirus NL63 (PCR) (NotDetected) Human Metapneumovir PCR (NotDetected) Influenza Type A (PCR) (NotDetected) Influenza Type B (PCR) (NotDetected) M. pneumoniae (PCR) (NotDetected) Parainfluenza 1 (PCR) (NotDetected) Parainfluenza 2 (PCR) (NotDetected) Parainfluenza 3 (PCR) (NotDetected) Parainfluenza 4 (PCR) (NotDetected) RSV (PCR) (NotDetected) Entero/Rhino (PCR) (NotDetected) 07/05/21 07/05/21 07/05/21 Range/Units 21:05 21:05 20:40 WBC 7.27 (4.8-10.8) K/uL RBC 2.76 L (4.2-5.4) M/uL Hgb 8.2 L (12.0-16.0) g/dL Hct 25.4 L (37-47) % MCV 92.0 (80-100) fL MCH 29.7 (25-34) pg MCHC 32.3 (32-36) g/dL RDW Std Deviation 52.6 H (36.4-46.3) fL RDW Coeff of Mohit 16.0 H (11.5-14.5) % Plt Count 336 (130-400) K/uL MPV 8.3 (7.4-10.4) fL Immature Gran % (Auto) % Neut % (Auto) % Lymph % (Auto) % [place] % (Auto) % Eos % (Auto) % Baso % (Auto) % Neut # (Auto) (1.4-6.5) K/uL Lymph # (Auto) (1.2-3.4) K/uL [place] # (Auto) (0.11-0.59) K/uL Eos # (Auto) (0-0.5) K/uL Baso # (Auto) (0-0.2) K/uL Immature Gran # (Auto) (0.00-0.02) K/uL Absolute Nucleated RBC (0-0) K/uL Nucleated RBC % (auto) % Neutrophils % (Manual) 80.9 % Lymphocytes % (Manual) 13.9 % Monocytes % (Manual) 4.3 % Eosinophils % (Manual) % Myelocytes % (Man) 0.9 % Neutrophils # (Manual) 5.88 (1.4-6.5) K/uL Total Absolute Neuts 5.88 (1.4-6.5) K/uL Lymphocytes # (Manual) 1.01 L (1.2-3.4) K/uL Total Abs Lymphocytes 1.01 L (1.2-3.4) K/uL Monocytes # (Manual) 0.31 (0.11-0.59) K/uL Eosinophils # (Manual) (0-0.5) K/uL Myelocytes # (Manual) 0.07 H (0-0) K/uL RBC Morphology Unremarkable Polychromasia PT 9.8 (9.0-12.0) Seconds INR 0.9 (0.9-1.1) APTT 46.3 H* (21.0-31.0) Seconds PTT Ratio 1.7 Sodium (136-145) mmol/L Potassium (3.5-5.1) mmol/L Chloride (98-107) mmol/L Carbon Dioxide (21-32) mmol/L Anion Gap (3-11) BUN (6-23) mg/dl Creatinine (0.6-1.2) mg/dl Est Cr Clr Drug Dosing ml/min Est GFR ( Amer) ml/min Est GFR (Non-Af Amer) ml/min BUN/Creatinine Ratio (10-20) Glucose (70-99(Fasting)) mg/dl Lactate (0.4-2.0) mmol/L Calcium (8.5-10.1) mg/dl Magnesium (1.7-2.4) mg/dl Total Bilirubin (0.2-1.0) mg/dl Direct Bilirubin (0-0.2) mg/dl AST (13-39) U/L ALT (7-52) U/L Alkaline Phosphatase (34-104) U/L Lactate Dehydrogenase (86-244) U/L Troponin I High Sens (0-14) pg/ml Total Protein (6.0-8.3) gm/dl Albumin (3.4-5.0) gm/dl Globulin (2.5-4.0) gm/dl Albumin/Globulin Ratio (0.9-2) Lipase (11-82) U/L Procalcitonin (0-0.5) ng/ml Urine Color Urine Appearance (Clear) Urine pH (4.5-7.5) Ur Specific [place] (1.000-1.030) Urine Protein (Negative) Urine Glucose (UA) (Negative) Urine Ketones (Negative) Urine Blood (Negative) Urine Nitrite (Negative) Urine Bilirubin (Negative) Urine Urobilinogen (Negative) Ur Leukocyte Esterase (Negative) Urine WBC (Auto) (0-5) /hpf Urine RBC (Auto) (0-4) /hpf U Hyaline Cast (Auto) (0-5) /lpf U Epithel Cells (Auto) (0-5) /lpf Urine Bacteria (Auto) (Negative) Nasal Screen MRSA (PCR) Negative (Negative) Adenovirus (PCR) (NotDetected) B. pertussis DNA (PCR) (NotDetected) B.parapertussis DNA PCR (NotDetected) C. pneumoniae DNA (PCR) (NotDetected) Coronavirus OC43 (PCR) (NotDetected) Coronavirus HKU1 (PCR) (NotDetected) Coronavirus 229E (PCR) (NotDetected) SARS-CoV-2 (PCR) (NotDetected) Coronavirus NL63 (PCR) (NotDetected) Human Metapneumovir PCR (NotDetected) Influenza Type A (PCR) (NotDetected) Influenza Type B (PCR) (NotDetected) M. pneumoniae (PCR) (NotDetected) Parainfluenza 1 (PCR) (NotDetected) Parainfluenza 2 (PCR) (NotDetected) Parainfluenza 3 (PCR) (NotDetected) Parainfluenza 4 (PCR) (NotDetected) RSV (PCR) (NotDetected) Entero/Rhino (PCR) (NotDetected) 07/05/21 07/05/21 07/05/21 Range/Units 15:20 13:27 13:19 WBC (4.8-10.8) K/uL RBC (4.2-5.4) M/uL Hgb (12.0-16.0) g/dL Hct (37-47) % MCV (80-100) fL MCH (25-34) pg MCHC (32-36) g/dL RDW Std Deviation (36.4-46.3) fL RDW Coeff of Mohit (11.5-14.5) % Plt Count (130-400) K/uL MPV (7.4-10.4) fL Immature Gran % (Auto) % Neut % (Auto) % Lymph % (Auto) % [place] % (Auto) % Eos % (Auto) % Baso % (Auto) % Neut # (Auto) (1.4-6.5) K/uL Lymph # (Auto) (1.2-3.4) K/uL [place] # (Auto) (0.11-0.59) K/uL Eos # (Auto) (0-0.5) K/uL Baso # (Auto) (0-0.2) K/uL Immature Gran # (Auto) (0.00-0.02) K/uL Absolute Nucleated RBC (0-0) K/uL Nucleated RBC % (auto) % Neutrophils % (Manual) % Lymphocytes % (Manual) % Monocytes % (Manual) % Eosinophils % (Manual) % Myelocytes % (Man) % Neutrophils # (Manual) (1.4-6.5) K/uL Total Absolute Neuts (1.4-6.5) K/uL Lymphocytes # (Manual) (1.2-3.4) K/uL Total Abs Lymphocytes (1.2-3.4) K/uL Monocytes # (Manual) (0.11-0.59) K/uL Eosinophils # (Manual) (0-0.5) K/uL Myelocytes # (Manual) (0-0) K/uL RBC Morphology Polychromasia PT (9.0-12.0) Seconds INR (0.9-1.1) APTT (21.0-31.0) Seconds PTT Ratio Sodium (136-145) mmol/L Potassium (3.5-5.1) mmol/L Chloride (98-107) mmol/L Carbon Dioxide (21-32) mmol/L Anion Gap (3-11) BUN (6-23) mg/dl Creatinine (0.6-1.2) mg/dl Est Cr Clr Drug Dosing ml/min Est GFR ( Amer) ml/min Est GFR (Non-Af Amer) ml/min BUN/Creatinine Ratio (10-20) Glucose (70-99(Fasting)) mg/dl Lactate 0.6 (0.4-2.0) mmol/L Calcium (8.5-10.1) mg/dl Magnesium (1.7-2.4) mg/dl Total Bilirubin (0.2-1.0) mg/dl Direct Bilirubin (0-0.2) mg/dl AST (13-39) U/L ALT (7-52) U/L Alkaline Phosphatase (34-104) U/L Lactate Dehydrogenase (86-244) U/L Troponin I High Sens 15.5 H (0-14) pg/ml Total Protein (6.0-8.3) gm/dl Albumin (3.4-5.0) gm/dl Globulin (2.5-4.0) gm/dl Albumin/Globulin Ratio (0.9-2) Lipase (11-82) U/L Procalcitonin (0-0.5) ng/ml Urine Color [place] Urine Appearance Clear (Clear) Urine pH 6.5 (4.5-7.5) Ur Specific [place] 1.009 (1.000-1.030) Urine Protein 1+ H (Negative) Urine Glucose (UA) Negative (Negative) Urine Ketones Negative (Negative) Urine Blood 3+ H (Negative) Urine Nitrite Negative (Negative) Urine Bilirubin Negative (Negative) Urine Urobilinogen Negative (Negative) Ur Leukocyte Esterase 2+ H (Negative) Urine WBC (Auto) >30 H (0-5) /hpf Urine RBC (Auto) 10-30 H (0-4) /hpf U Hyaline Cast (Auto) 5-10 H (0-5) /lpf U Epithel Cells (Auto) 0-5 (0-5) /lpf Urine Bacteria (Auto) Negative (Negative) Nasal Screen MRSA (PCR) (Negative) Adenovirus (PCR) (NotDetected) B. pertussis DNA (PCR) (NotDetected) B.parapertussis DNA PCR (NotDetected) C. pneumoniae DNA (PCR) (NotDetected) Coronavirus OC43 (PCR) (NotDetected) Coronavirus HKU1 (PCR) (NotDetected) Coronavirus 229E (PCR) (NotDetected) SARS-CoV-2 (PCR) (NotDetected) Coronavirus NL63 (PCR) (NotDetected) Human Metapneumovir PCR (NotDetected) Influenza Type A (PCR) (NotDetected) Influenza Type B (PCR) (NotDetected) M. pneumoniae (PCR) (NotDetected) Parainfluenza 1 (PCR) (NotDetected) Parainfluenza 2 (PCR) (NotDetected) Parainfluenza 3 (PCR) (NotDetected) Parainfluenza 4 (PCR) (NotDetected) RSV (PCR) (NotDetected) Entero/Rhino (PCR) (NotDetected) 07/05/21 07/05/21 07/05/21 Range/Units 13:19 13:19 13:19 WBC 8.02 (4.8-10.8) K/uL RBC 2.80 L (4.2-5.4) M/uL Hgb 8.3 L (12.0-16.0) g/dL Hct 25.8 L (37-47) % MCV 92.1 (80-100) fL MCH 29.6 (25-34) pg MCHC 32.2 (32-36) g/dL RDW Std Deviation 53.3 H (36.4-46.3) fL RDW Coeff of Mohit 15.9 H (11.5-14.5) % Plt Count 363 (130-400) K/uL MPV 8.6 (7.4-10.4) fL Immature Gran % (Auto) 1.6 % Neut % (Auto) 79.7 % Lymph % (Auto) 15.3 % [place] % (Auto) 2.4 % Eos % (Auto) 0.9 % Baso % (Auto) 0.1 % Neut # (Auto) 6.39 (1.4-6.5) K/uL Lymph # (Auto) 1.23 (1.2-3.4) K/uL [place] # (Auto) 0.19 (0.11-0.59) K/uL Eos # (Auto) 0.07 (0-0.5) K/uL Baso # (Auto) 0.01 (0-0.2) K/uL Immature Gran # (Auto) 0.13 H (0.00-0.02) K/uL Absolute Nucleated RBC 0.04 H (0-0) K/uL Nucleated RBC % (auto) 0.5 % Neutrophils % (Manual) % Lymphocytes % (Manual) % Monocytes % (Manual) % Eosinophils % (Manual) % Myelocytes % (Man) % Neutrophils # (Manual) (1.4-6.5) K/uL Total Absolute Neuts (1.4-6.5) K/uL Lymphocytes # (Manual) (1.2-3.4) K/uL Total Abs Lymphocytes (1.2-3.4) K/uL Monocytes # (Manual) (0.11-0.59) K/uL Eosinophils # (Manual) (0-0.5) K/uL Myelocytes # (Manual) (0-0) K/uL RBC Morphology Polychromasia PT 9.8 (9.0-12.0) Seconds INR 0.9 (0.9-1.1) APTT 46.3 H* (21.0-31.0) Seconds PTT Ratio 1.7 Sodium (136-145) mmol/L Potassium (3.5-5.1) mmol/L Chloride (98-107) mmol/L Carbon Dioxide (21-32) mmol/L Anion Gap (3-11) BUN (6-23) mg/dl Creatinine (0.6-1.2) mg/dl Est Cr Clr Drug Dosing ml/min Est GFR ( Amer) ml/min Est GFR (Non-Af Amer) ml/min BUN/Creatinine Ratio (10-20) Glucose (70-99(Fasting)) mg/dl Lactate (0.4-2.0) mmol/L Calcium (8.5-10.1) mg/dl Magnesium (1.7-2.4) mg/dl Total Bilirubin (0.2-1.0) mg/dl Direct Bilirubin (0-0.2) mg/dl AST (13-39) U/L ALT (7-52) U/L Alkaline Phosphatase (34-104) U/L Lactate Dehydrogenase (86-244) U/L Troponin I High Sens (0-14) pg/ml Total Protein (6.0-8.3) gm/dl Albumin (3.4-5.0) gm/dl Globulin (2.5-4.0) gm/dl Albumin/Globulin Ratio (0.9-2) Lipase (11-82) U/L Procalcitonin 0.16 (0-0.5) ng/ml Urine Color Urine Appearance (Clear) Urine pH (4.5-7.5) Ur Specific [place] (1.000-1.030) Urine Protein (Negative) Urine Glucose (UA) (Negative) Urine Ketones (Negative) Urine Blood (Negative) Urine Nitrite (Negative) Urine Bilirubin (Negative) Urine Urobilinogen (Negative) Ur Leukocyte Esterase (Negative) Urine WBC (Auto) (0-5) /hpf Urine RBC (Auto) (0-4) /hpf U Hyaline Cast (Auto) (0-5) /lpf U Epithel Cells (Auto) (0-5) /lpf Urine Bacteria (Auto) (Negative) Nasal Screen MRSA (PCR) (Negative) Adenovirus (PCR) (NotDetected) B. pertussis DNA (PCR) (NotDetected) B.parapertussis DNA PCR (NotDetected) C. pneumoniae DNA (PCR) (NotDetected) Coronavirus OC43 (PCR) (NotDetected) Coronavirus HKU1 (PCR) (NotDetected) Coronavirus 229E (PCR) (NotDetected) SARS-CoV-2 (PCR) (NotDetected) Coronavirus NL63 (PCR) (NotDetected) Human Metapneumovir PCR (NotDetected) Influenza Type A (PCR) (NotDetected) Influenza Type B (PCR) (NotDetected) M. pneumoniae (PCR) (NotDetected) Parainfluenza 1 (PCR) (NotDetected) Parainfluenza 2 (PCR) (NotDetected) Parainfluenza 3 (PCR) (NotDetected) Parainfluenza 4 (PCR) (NotDetected) RSV (PCR) (NotDetected) Entero/Rhino (PCR) (NotDetected) 07/05/21 07/05/21 07/05/21 Range/Units 13:19 13:19 12:57 WBC (4.8-10.8) K/uL RBC (4.2-5.4) M/uL Hgb (12.0-16.0) g/dL Hct (37-47) % MCV (80-100) fL MCH (25-34) pg MCHC (32-36) g/dL RDW Std Deviation (36.4-46.3) fL RDW Coeff of Mohit (11.5-14.5) % Plt Count (130-400) K/uL MPV (7.4-10.4) fL Immature Gran % (Auto) % Neut % (Auto) % Lymph % (Auto) % [place] % (Auto) % Eos % (Auto) % Baso % (Auto) % Neut # (Auto) (1.4-6.5) K/uL Lymph # (Auto) (1.2-3.4) K/uL [place] # (Auto) (0.11-0.59) K/uL Eos # (Auto) (0-0.5) K/uL Baso # (Auto) (0-0.2) K/uL Immature Gran # (Auto) (0.00-0.02) K/uL Absolute Nucleated RBC (0-0) K/uL Nucleated RBC % (auto) % Neutrophils % (Manual) % Lymphocytes % (Manual) % Monocytes % (Manual) % Eosinophils % (Manual) % Myelocytes % (Man) % Neutrophils # (Manual) (1.4-6.5) K/uL Total Absolute Neuts (1.4-6.5) K/uL Lymphocytes # (Manual) (1.2-3.4) K/uL Total Abs Lymphocytes (1.2-3.4) K/uL Monocytes # (Manual) (0.11-0.59) K/uL Eosinophils # (Manual) (0-0.5) K/uL Myelocytes # (Manual) (0-0) K/uL RBC Morphology Polychromasia PT (9.0-12.0) Seconds INR (0.9-1.1) APTT (21.0-31.0) Seconds PTT Ratio Sodium 136 (136-145) mmol/L Potassium 4.2 (3.5-5.1) mmol/L Chloride 104 (98-107) mmol/L Carbon Dioxide 22 (21-32) mmol/L Anion Gap 10 (3-11) BUN 19 (6-23) mg/dl Creatinine 1.47 H (0.6-1.2) mg/dl Est Cr Clr Drug Dosing 54.8 ml/min Est GFR ( Amer) 56.9 ml/min Est GFR (Non-Af Amer) 49.1 ml/min BUN/Creatinine Ratio 12.9 (10-20) Glucose 81 (70-99(Fasting)) mg/dl Lactate (0.4-2.0) mmol/L Calcium 8.6 (8.5-10.1) mg/dl Magnesium 1.9 (1.7-2.4) mg/dl Total Bilirubin 0.5 (0.2-1.0) mg/dl Direct Bilirubin 0.1 (0-0.2) mg/dl AST 26 (13-39) U/L ALT 9 (7-52) U/L Alkaline Phosphatase 143 H (34-104) U/L Lactate Dehydrogenase 250 H (86-244) U/L Troponin I High Sens 17.3 H (0-14) pg/ml Total Protein 6.5 (6.0-8.3) gm/dl Albumin 3.0 L (3.4-5.0) gm/dl Globulin (2.5-4.0) gm/dl Albumin/Globulin Ratio (0.9-2) Lipase 24 (11-82) U/L Procalcitonin (0-0.5) ng/ml Urine Color Urine Appearance (Clear) Urine pH (4.5-7.5) Ur Specific [place] (1.000-1.030) Urine Protein (Negative) Urine Glucose (UA) (Negative) Urine Ketones (Negative) Urine Blood (Negative) Urine Nitrite (Negative) Urine Bilirubin (Negative) Urine Urobilinogen (Negative) Ur Leukocyte Esterase (Negative) Urine WBC (Auto) (0-5) /hpf Urine RBC (Auto) (0-4) /hpf U Hyaline Cast (Auto) (0-5) /lpf U Epithel Cells (Auto) (0-5) /lpf Urine Bacteria (Auto) (Negative) Nasal Screen MRSA (PCR) (Negative) Adenovirus (PCR) Not Detected (NotDetected) B. pertussis DNA (PCR) Not Detected (NotDetected) B.parapertussis DNA PCR Not Detected (NotDetected) C. pneumoniae DNA (PCR) Not Detected (NotDetected) Coronavirus OC43 (PCR) Not Detected (NotDetected) Coronavirus HKU1 (PCR) Not Detected (NotDetected) Coronavirus 229E (PCR) Not Detected (NotDetected) SARS-CoV-2 (PCR) Not Detected (NotDetected) Coronavirus NL63 (PCR) Not Detected (NotDetected) Human Metapneumovir PCR Not Detected (NotDetected) Influenza Type A (PCR) Not Detected (NotDetected) Influenza Type B (PCR) Not Detected (NotDetected) M. pneumoniae (PCR) Not Detected (NotDetected) Parainfluenza 1 (PCR) Not Detected (NotDetected) Parainfluenza 2 (PCR) Not Detected (NotDetected) Parainfluenza 3 (PCR) Not Detected (NotDetected) Parainfluenza 4 (PCR) Not Detected (NotDetected) RSV (PCR) Not Detected (NotDetected) Entero/Rhino (PCR) Not Detected (NotDetected) PG Care Time/CCT Total # of Minutes Spent Total Time Spent with Patient: Total time spent is greater than 50% in coordination of care (as documented) at patient's floor/unit and/or counseling patient: Coding Level of Care Code None Diagnoses fever O86.4 Severe preeclampsia O14.10 CINDY (acute kidney injury) N17.9 Elevated troponin R77.8
[2021-07-06 08:27] LABS: Potassium 4.1 mmol/L (3.5-5.1)
[2021-07-06] MEDS: FERROUS SULFATE 325 MG TAB PO SCH (09:56)
[2021-07-06] MEDS: oxyCODONE HCL IR 5 MG TAB (IMMEDIATE RELEASE) PO PRN ×3 (10:32→19:42)
[2021-07-06] MEDS: amLODIPine BESYLATE 5 MG TAB PO SCH (10:33)
[2021-07-06] MEDS ORDERED: PROMETHAZINE HCL 12.5 MG in SODIUM CHLORIDE 0.9% 50 ML IV PRN (16:21)
--- NOTE | 2021-07-06 16:26 | Hospitalist Progress Note ---
Date of Service July 06, 2021 Assessment & Plan (1) fever: Plan: Status post section on 06/24/2021 followed by exploratory laparotomy on 06/25/2021 to control bleeding Noted to have fever of 38.2 on 28 June and received oral antibiotics for an apparent endometritis She received a total of 8 unit PRBC, TXA, 2 unit FFP and cryoprecipitate for hemorrhage She has been having fever and chills and was admitted on 07/05/2021 with ongoing fever and chills Her CT of the abdomen pelvis and CTA of the chest are unremarkable UA has been negative so far No source of infection is noted except left basal atelectasis Causes of fever could be multifactorial including inflammatory, posttransfusion fever, C. difficile colitis with ongoing diarrhea, so far no evidence of infection We will continue with intravenous Zosyn and daptomycin has been discontinued due to negative MRSA No increase in white count Blood cultures x2 on of last month and urine culture were negative Await blood cultures and urine culture during this admission Clinically stable (2) S/P : Plan: on 06/24/2021 and followed by Exploratory laparotomy on for massive postop bleeding requiring a total of 8 unit PRBC, TXA, 2 unit FFP and cryoprecipitate for hemorrhage (3) hemorrhage: Plan: As above (4) Severe preeclampsia: Plan: History of severe preeclampsia Status post urgent delivery by [id number] is doing well as of today Blood pressure remains elevated We will continue with labetalol and Norvasc's was added Hypertension Continues to have high blood pressure following History of severe preeclampsia Continue current medication (5) CINDY (acute kidney injury): Plan: Noted to have CINDY likely secondary to dehydration Creatinine 1.47 on admission and is improved to 1.23 as of today Advised to drink more fluid Will try to avoid giving much normal saline due to high blood pressure (6) Endometritis: Plan: Thought to have endometritis with ongoing fever No evidence of increasing white count Has been getting Zosyn (7) Elevated troponin: Plan: Likely secondary to high blood pressure and strain pattern No evidence of ACS as per serial troponins DVT prophylaxis Has been on low-dose heparin for possible pelvic thrombophlebitis Will be continued for 48 hours as per recommendation by other hospitals Will give heparin subcu following that Admission and Anticipated Discharge Date Admission Date: July 05, 2021 Subjective 07/06/2021 The patient was seen and examined in medical floor in presence of the She complains to have generalized weakness and some discomfort in the abdomen Also has aches and pains in the muscles No more fever and or chills Review of Systems Review of Systems: All systems reviewed and are unremarkable except as noted below Musculoskeletal: Aches and pains in the muscles Neurologic: Alert awake and oriented x3. Generally very weak and lethargic Physical Exam Physical Exam: Lying in bed without any distress Constitutional: well developed, well nourished, + ill appearing and + obese Eyes: PERRL, conjunctivae normal, anicteric sclerae ENMT: external ear and nose normal, oropharynx normal Neck: trachea midline, no thyromegaly Respiratory: no respiratory distress Auscultation: + diminished lung sounds and + crackles (Left base) Cardiovascular: Rate/Rhythm: regular rate and regular rhythm; not tachycardic Heart Sounds: normal S1 and normal S2; no murmur Extremities: + edema (Trace edema bilaterally) Gastrointestinal (Abdomen): Inspection/Auscultation: + abdomen distended (Minimally distended) and normal bowel sounds Percussion/Palpation: + abdomen tender (Minimally tender lower abdomen along incision site. No drainage) and abdomen soft Musculoskeletal: No acute arthritis in any joint Neurologic: Alert, awake and oriented x3, no focal sensory and motor deficit appreciated Results & Data Results & Data ([facility]) Vital Signs (Past 12 Hours) Vital Signs Temp Pulse Resp BP Pulse Ox 07/06/21 15:24 36.7 C 90 16 163/126 H 98 07/06/21 14:59 37 C 89 16 141/102 H 98 07/06/21 10:36 36.7 C 89 16 135/96 98 07/06/21 08:00 36.7 C 82 16 160/113 H 97 07/06/21 07:03 36.7 C 87 18 157/107 H 97 07/06/21 05:53 92 H 148/104 H 07/06/21 04:27 37.8 C H 95 H 20 145/105 H 97 Laboratory Results Short CBC 07/05/21 07/06/21 Range/Units 21:05 04:40 WBC 7.27 9.08 (4.8-10.8) K/uL Hgb 8.2 L 8.3 L (12.0-16.0) g/dL Hct 25.4 L 25.4 L (37-47) % Plt Count 336 395 (130-400) K/uL BMP 07/06/21 07/06/21 04:40 07:17 Sodium 132 L Potassium 4.1 Chloride 102 Carbon Dioxide 20 L BUN 16 Creatinine 1.23 H Glucose 90 Calcium 8.5 Liver Function 07/06/21 07/06/21 Range/Units 04:40 07:17 Total Bilirubin 0.5 (0.2-1.0) mg/dl AST 29 (13-39) U/L ALT 9 (7-52) U/L Alkaline Phosphatase 171 H (34-104) U/L Albumin 2.9 L (3.4-5.0) gm/dl Medications Administered Current Inpatient Medications Acetaminophen (Acetaminophen 325 Mg Tab) 650 mg PO Q4H PRN PRN Reason: Pain or Fever Stop: 08/04/21 19:49 Last Admin: 07/06/21 15:13 Dose: 650 mg Documented by: Amlodipine Besylate (Amlodipine Besylate 5 Mg Tab) [address] [facility] Stop: 08/05/21 09:29 Last Admin: 07/06/21 10:33 Dose: 5 mg Documented by: Ferrous Sulfate (Ferrous Sulfate 325 Mg Tab) [address] [facility] Stop: 08/05/21 08:59 Last Admin: 07/06/21 09:56 Dose: 325 mg Documented by: Piperacillin Sod/Tazobactam (Sod 4.5 gm/ Dextrose) 120 mls @ 30 mls/hr IV Q8H [facility]; Protocol Stop: 07/15/21 22:59 Last Admin: 07/06/21 15:52 Dose: 30 mls/hr Documented by: Heparin Sodium/Dextrose (Heparin Sodium/Dextrose) 25,000 units in 500 mls @ 13 mls/hr IV .Q24H [facility]; Protocol Stop: 08/04/21 20:29 Last Titration: 07/06/21 07:16 Dose: 650 units/hr, 13 mls/hr Documented by: Promethazine HCl 12.5 mg/ (Sodium Chloride) 50.5 mls @ 202 mls/hr IV Q6H PRN PRN Reason: Nausea And Vomiting Stop: 08/05/21 16:20 Labetalol HCl (Labetalol Hcl 300 Mg Tab) 300 mg PO Q8 [facility] Stop: 08/04/21 21:59 Last Admin: 07/06/21 14:57 Dose: 300 mg Documented by: Miscellaneous Information (Piperacill/Tazobac Consult Active) 1 ea N/A UD PRN PRN Reason: Consult Stop: 08/04/21 17:26 Multi-Ingredient Mouthwash/Gargle (First - Mouthwash Blm 119 Ml) 5 ml PO Q8H PRN PRN Reason: apthous ulcer Stop: 08/04/21 22:29 Ondansetron HCl (Ondansetron Inj 2 Mg/Ml 2 Ml Vial) 4 mg IV Q6H PRN PRN Reason: Nausea And Vomiting Stop: 08/04/21 19:49 Oxycodone HCl (Oxycodone Hcl Ir 5 Mg Tab (Immediate Release)) 5 mg PO Q4H PRN PRN Reason: Pain Stop: 07/19/21 19:49 Last Admin: 07/06/21 15:44 Dose: 5 mg Documented by:
[2021-07-06] MEDS ORDERED: DAPTOmycin 425 MG in SYRINGE 0 ML IV SCH (21:00)
[2021-07-06] MEDS: HEPARIN SODIUM/DEXTROSE 25,000 UNITS/500 ML BAG IV SCH (22:03)
[2021-07-07 06:01] LABS: Hematocrit (blood only) 26.8 % (37-47); Hemoglobin 8.6 g/dL (12.0-16.0); Mean Corpuscular Hemoglobin 29.8 pg (25-34); Mean Corpuscular Hgb Conc 32.1 g/dL (32-36); Mean Corpuscular Volume 92.7 fL (80-100); Mean Platelet Volume 8.2 fL (7.4-10.4); Platelet Count 360 K/uL (130-400); RDW Coefficient of Variation 15.6 % (11.5-14.5); RDW Standard Deviation 52.3 fL (36.4-46.3); Red Blood Count 2.89 M/uL (4.2-5.4); White Blood Count 6.93 K/uL (4.8-10.8)
[2021-07-07] MEDS: PIPERACILLIN/TAZOBACTAM 4.5 GM in DEXTROSE 5% 100 ML IV SCH ×3 (06:07→21:49)
[2021-07-07] MEDS: LABETALOL HCL 300 MG TAB PO SCH ×3 (06:07→21:48)
[2021-07-07 06:22] LABS: Albumin Globulin Ratio 0.8 (0.9-2); Albumin Level 3.1 gm/dl (3.4-5.0); BUN Creatinine Ratio 9.7 (10-20); Bilirubin,Total 0.5 mg/dl (0.2-1.0); Calcium 8.8 mg/dl (8.5-10.1); Creatinine Clr Calc Pharmacy 65.1 ml/min; Est GFR (African American) 78.2 ml/min; Est GFR (Non-African American) 67.5 ml/min; Globulin 3.7 gm/dl (2.5-4.0); Potassium 3.6 mmol/L (3.5-5.1); Total Protein 6.8 gm/dl (6.0-8.3)
[2021-07-07 06:29] LABS: Basophils # (auto) 0.01 K/uL (0-0.2); Basophils % (auto) 0.1 %; Eosinophils # (auto) 0.04 K/uL (0-0.5); Eosinophils % (auto) 0.6 %; Immature Granulocytes # (auto) 0.06 K/uL (0.00-0.02); Immature Granulocytes % (auto) 0.9 %; Lymphocytes # (auto) 1.43 K/uL (1.2-3.4); Lymphocytes % (auto) 20.6 %; Monocytes # (auto) 0.25 K/uL (0.11-0.59); Monocytes % (auto) 3.6 %; Neutrophils # (auto) 5.14 K/uL (1.4-6.5); Neutrophils % (auto) 74.2 %
[2021-07-07 06:36] LABS: Partial Thromboplastin Ratio 1.9
[2021-07-07 06:42] LABS: Partial Thromboplastin Time 53.2 Seconds (21.0-31.0)
[2021-07-07] MEDS: ACETAMINOPHEN 325 MG TAB PO PRN ×2 (07:19→16:41)
--- NOTE | 2021-07-07 07:34 | Obstetrical Progress Note ---
Date of Service July 07, 2021 Assessment & Plan (1) S/P : Plan: Doing well from this standpoint. h/h stable. Lochia decreasing and appropriate for postop . Do not think she has endometritis. Continue to encourage ambulation. Might want to consider ISB to improve air flow. Given on heparin, probably does not need scds. (2) CINDY (acute kidney injury): Plan: dean of women down to 1.13 today. Improved with hydration and d/c nsaids. Continue management per hospitalist team. Sounds like she is having excellent UOP and potentially diuresis. (3) fever: Plan: FUO. Has been afebrile for the last 24 hours. last temp was 39.0 at 3:30am on 07/06. WBC stable. Continue to not have a localizing source and as such treating as SPT as a diagnosis of exclusion. She continues on heparin and zosyn. Would aim for 48 hours afebrile on above and then can d/c and monitor for return of temps. If continues to spike on this regimen, consider getting ID consult. I discussed with them that after stopping, we would probably watch for at least 24 hours to make sure she does not have return of temps. I see we are checking a s tool for C. diff. Blood and urine cultures are negative to date. (4) Severe preeclampsia: Plan: BPS continue to be labile , some in a severe range, 141-163/98-126. Appreciate hospitalists team help with management. See that Norvasc was added yesterday. Will continue to monitor blood pressures. discussed with them that her blood pressure issues are likely separate from her fever issues. Long conversation with them yesterday about how this blood pressure would be managed as an outpatient. For many women they are able to wean off of their meds in 6-8 weeks. But in a small subset of women, preeclampsia uncovers a need for bed bug exterminator antihypertensives and a diagnosis of CHTN. Only time will be able to tell. She will be following up with this with her PCP. We are not necessarily looking for "normal" blood pressures, but not severe range. Plan: Also discussed with them what to expect with going home. Advised that she will not feel normal and completely healed. Still has some recovery to happen. Not sure how the joint pain fits in. Was hoping that with diuresis, the knees would feel better, but she notes it is the same. The joint pain in her hands may be from carpel tunnel from which should resolve with time. Hopefully , with better controlled blood pressures alot of her symptoms--ro, sweating. etc--will improve. Will continue to monitor closely and really appreciate the help of the hospitalist team. Admission and Anticipated Discharge Date Admission Date: July 05, 2021 Subjective Patient is lying in bed this am. She notes she slept poorly--bed hard, too noisy, getting out of bed frequently to void. she notes some slight nausea. Notes minimal bleeding. Has been tolerating a regular diet. continues to note loose stools, which is different as she was constipated before. continues to note joint pain particularly bilateral knees and her left elbow. She just overall wishes she feels better and is understandably frustrated. She continues to note some headaches and sweating at times. Physical Exam Constitutional: WD/WN, vitals as above Neck: trachea midline, no thyromegaly Respiratory: normal respiratory effort, lungs clear to auscultation (decreased effort) Cardiovascular: RRR, no murmur, no edema Extremities: + pedal edema (tr) and + edema (tr); no calf tenderness Gastrointestinal (Abdomen): soft, nd, appropriately tender for post op. incision c/d/i. Unable to really palpate her uterus. Skin: no rashes, warm and dry Psychiatric: A+Ox3, euthymic affect Results & Data ([facility]) Vital Signs (Past 12 Hours) Vital Signs Temp Pulse Resp BP Pulse Ox 07/07/21 06:06 37.0 C 91 H 16 147/99 H 95 07/06/21 21:48 37.5 C 91 H 16 156/115 H 98 PG Care Time/CCT Total # of Minutes Spent Total Time Spent with Patient: Total time spent is greater than 50% in coordination of care (as documented) at patient's floor/unit and/or counseling patient: Coding Level of Care Code 05424 Subseq Hosp Care Lvl 2 Diagnoses S/P Z98.891 CINDY (acute kidney injury) N17.9 fever O86.4 Severe preeclampsia O14.10
[2021-07-07] MEDS: FERROUS SULFATE 325 MG TAB PO SCH (08:32)
[2021-07-07] MEDS: amLODIPine BESYLATE 5 MG TAB PO SCH (08:32)
--- NOTE | 2021-07-07 09:00 | Electrocardiogram Report ---
Test Reason : Blood Pressure : / mmHG Vent. Rate : 080 BPM Atrial Rate : 080 BPM P-R Int : 116 ms QRS Dur : 066 ms QT Int : 370 ms P-R-T Axes : 031 030 022 degrees QTc Int : 426 ms Normal sinus rhythm Cannot rule out Anterior infarct , age undetermined Abnormal ECG When compared with ECG of 16-APR-2021 20:09, No significant change was found Confirmed by Fidel Nix ([id number]) on 07/07/2021 9:00:08 AM Referred By: Confirmed By:Fidel Nix
[2021-07-07] MEDS: HEPARIN SODIUM/DEXTROSE 25,000 UNITS/500 ML BAG IV SCH (11:00)
[2021-07-07] MEDS: oxyCODONE HCL IR 5 MG TAB (IMMEDIATE RELEASE) PO PRN ×2 (12:56→19:55)
--- NOTE | 2021-07-07 15:44 | Hospitalist Progress Note ---
Date of Service July 07, 2021 Assessment & Plan (1) fever: Plan: Status post section on 06/24/2021 followed by exploratory laparotomy on 06/25/2021 to control bleeding Noted to have fever of 38.2 on 28 June and received oral antibiotics for an apparent endometritis She received a total of 8 unit PRBC, TXA, 2 unit FFP and cryoprecipitate for hemorrhage She has been having fever and chills and was admitted on 07/05/2021 with ongoing fever and chills Her CT of the abdomen pelvis and CTA of the chest are unremarkable UA has been negative so far No source of infection is noted except left basal atelectasis Causes of fever could be multifactorial including inflammatory, posttransfusion fever, C. difficile colitis with ongoing diarrhea, so far no evidence of infection We will continue with intravenous Zosyn and daptomycin has been discontinued due to negative MRSA No increase in white count Blood cultures x2 on of last month and urine culture were negative Blood and urine culture have been negative Patient remains afebrile without any significant symptoms He is out of bed on a chair and generally feeling better Will continue oral antibiotic on discharge to finish the course for a total of 7 days to cover mostly respiratory pathogens (2) S/P : Plan: on 06/24/2021 and followed by Exploratory laparotomy on for massive postop bleeding requiring a total of 8 unit PRBC, TXA, 2 unit FFP and cryoprecipitate for hemorrhage (3) hemorrhage: Plan: As above (4) Severe preeclampsia: Plan: History of severe preeclampsia Status post urgent delivery by [id number] is doing well as of today Blood pressure remains elevated We will continue with labetalol and Norvasc's was added Blood pressure seems to be stable Hypertension Continues to have high blood pressure following History of severe preeclampsia Continue current medication (5) CINDY (acute kidney injury): Plan: Noted to have CINDY likely secondary to dehydration Creatinine 1.47 on admission and is improved to 1.23 as of today Advised to drink more fluid Will try to avoid giving much normal saline due to high blood pressure Kidney function is normalized (6) Endometritis: Plan: Thought to have endometritis with ongoing fever No evidence of increasing white count Has been getting Zosyn (7) Elevated troponin: Plan: Likely secondary to high blood pressure and strain pattern No evidence of ACS as per serial troponins DVT prophylaxis Has been on low-dose heparin for possible pelvic thrombophlebitis Will be continued for 48 hours as per recommendation by other hospitals Will give heparin subcu following that Admission and Anticipated Discharge Date Admission Date: July 07, 2021 Subjective 07/06/2021 The patient was seen and examined in medical floor in presence of the She complains to have generalized weakness and some discomfort in the abdomen Also has aches and pains in the muscles No more fever and or chills 07/07/2021 Patient was seen and examined in medical floor She has not been and having any more fever and or chills Remains generally weak He is out of bed on a chair Review of Systems Review of Systems: All systems reviewed and are unremarkable except as noted below Musculoskeletal: Still has aches and pains involving multiple areas Physical Exam Physical Exam: Sitting on a chair without any acute distress Constitutional: well developed, well nourished, + ill appearing and + obese Eyes: PERRL, conjunctivae normal, anicteric sclerae ENMT: external ear and nose normal, oropharynx normal Neck: trachea midline, no thyromegaly Respiratory: no respiratory distress Auscultation: + diminished lung sounds and + crackles (Left base) Cardiovascular: Rate/Rhythm: regular rate and regular rhythm; not tachycardic Heart Sounds: normal S1 and normal S2; no murmur Extremities: + edema (Trace edema bilaterally) Gastrointestinal (Abdomen): Inspection/Auscultation: + abdomen distended (Minimally distended) and normal bowel sounds Percussion/Palpation: + abdomen tender (Minimally tender lower abdomen along incision site. No drainag e) and abdomen soft Musculoskeletal: No acute arthritis in any joint Neurologic: Alert, awake and oriented x3. Generally weak but no focal neurodeficit Results & Data Results & Data ([facility]) Vital Signs (Past 12 Hours) Vital Signs Temp Pulse Resp BP Pulse Ox 07/07/21 15:22 36.9 C 98 H 16 137/107 H 98 07/07/21 07:35 36.9 C 98 H 20 149/62 H 97 07/07/21 06:06 37.0 C 91 H 16 147/99 H 95 Laboratory Results Short CBC 07/07/21 Range/Units 05:49 WBC 6.93 (4.8-10.8) K/uL Hgb 8.6 L (12.0-16.0) g/dL Hct 26.8 L (37-47) % Plt Count 360 (130-400) K/uL BMP 07/07/21 05:49 Sodium 137 Potassium 3.6 Chloride 105 Carbon Dioxide 22 BUN 11 Creatinine 1.13 Glucose 88 Calcium 8.8 Liver Function 07/07/21 Range/Units 05:49 Total Bilirubin 0.5 (0.2-1.0) mg/dl AST 24 (13-39) U/L ALT 8 (7-52) U/L Alkaline Phosphatase 182 H (34-104) U/L Albumin 3.1 L (3.4-5.0) gm/dl Medications Administered Current Inpatient Medications Acetaminophen (Acetaminophen 325 Mg Tab) 650 mg PO Q4H PRN PRN Reason: Pain or Fever Stop: 08/04/21 19:49 Last Admin: 07/07/21 07:19 Dose: 650 mg Documented by: Amlodipine Besylate (Amlodipine Besylate 5 Mg Tab) 5 mg PO [facility] Stop: 08/05/21 09:29 Last Admin: 07/07/21 08:32 Dose: 5 mg Documented by: Ferrous Sulfate (Ferrous Sulfate 325 Mg Tab) 325 mg PO [facility] Stop: 08/05/21 08:59 Last Admin: 07/07/21 08:32 Dose: 325 mg Documented by: Piperacillin Sod/Tazobactam (Sod 4.5 gm/ Dextrose) 120 mls @ 30 mls/hr IV Q8H [facility]; Protocol Stop: 07/15/21 22:59 Last Infusion: 07/07/21 10:08 Dose: Infused Documented by: Heparin Sodium/Dextrose (Heparin Sodium/Dextrose) 25,000 units in 500 mls @ 13 mls/hr IV .Q24H [facility]; Protocol Stop: 07/07/21 20:29 Last Admin: 07/07/21 11:00 Dose: 650 units/hr, 13 mls/hr Documented by: Promethazine HCl 12.5 mg/ (Sodium Chloride) 50.5 mls @ 202 mls/hr IV Q6H PRN PRN Reason: Nausea And Vomiting Stop: 08/05/21 16:20 Labetalol HCl (Labetalol Hcl 300 Mg Tab) 300 mg PO Q8 [facility] Stop: 08/04/21 21:59 Last Admin: 07/07/21 14:29 Dose: 300 mg Documented by: Miscellaneous (Heparin Drip-Stop Order) 1 ea N/A ONE ONE Stop: 07/07/21 20:30 Miscellaneous Information (Piperacill/Tazobac Consult Active) 1 ea N/A UD PRN PRN Reason: Consult Stop: 08/04/21 17:26 Multi-Ingredient Mouthwash/Gargle (First - Mouthwash Blm 119 Ml) 5 ml PO Q8H PRN PRN Reason: apthous ulcer Stop: 08/04/21 22:29 Ondansetron HCl (Ondansetron Inj 2 Mg/Ml 2 Ml Vial) 4 mg IV Q6H PRN PRN Reason: Nausea And Vomiting Stop: 08/04/21 19:49 Oxycodone HCl (Oxycodone Hcl Ir 5 Mg Tab (Immediate Release)) 5 mg PO Q4H PRN PRN Reason: Pain Stop: 07/19/21 19:49 Last Admin: 07/07/21 12:56 Dose: 5 mg Documented by:
[2021-07-07] MEDS ORDERED: [UNRECOGNIZED DRUG - REMARK] ONE (20:29)
[2021-07-08] MEDS: oxyCODONE HCL IR 5 MG TAB (IMMEDIATE RELEASE) PO PRN ×3 (02:07→23:38)
[2021-07-08 05:27] LABS: Hematocrit (blood only) 24.9 % (37-47); Hemoglobin 8.2 g/dL (12.0-16.0); Mean Corpuscular Hemoglobin 29.8 pg (25-34); Mean Corpuscular Hgb Conc 32.9 g/dL (32-36); Mean Corpuscular Volume 90.5 fL (80-100); Mean Platelet Volume 8.4 fL (7.4-10.4); Platelet Count 299 K/uL (130-400); RDW Coefficient of Variation 15.6 % (11.5-14.5); RDW Standard Deviation 49.9 fL (36.4-46.3); Red Blood Count 2.75 M/uL (4.2-5.4); White Blood Count 7.06 K/uL (4.8-10.8)
[2021-07-08 05:48] LABS: Albumin Globulin Ratio 0.8 (0.9-2); BUN Creatinine Ratio 9.5 (10-20); Bilirubin,Total 0.5 mg/dl (0.2-1.0); Calcium 8.6 mg/dl (8.5-10.1); Creatinine Clr Calc Pharmacy 63.4 ml/min; Est GFR (African American) 75.8 ml/min; Est GFR (Non-African American) 65.4 ml/min; Globulin 3.9 gm/dl (2.5-4.0); Potassium 3.7 mmol/L (3.5-5.1); Total Protein 6.9 gm/dl (6.0-8.3)
[2021-07-08 05:52] LABS: Eosinophils # (auto) 0.06 K/uL (0-0.5); Eosinophils % (auto) 0.8 %; Immature Granulocytes # (auto) 0.03 K/uL (0.00-0.02); Immature Granulocytes % (auto) 0.4 %; Lymphocytes # (auto) 1.05 K/uL (1.2-3.4); Lymphocytes % (auto) 14.9 %; Monocytes # (auto) 0.21 K/uL (0.11-0.59); Neutrophils # (auto) 5.71 K/uL (1.4-6.5); Neutrophils % (auto) 80.9 %; Tear Drop Cells 1+
[2021-07-08 05:53] LABS: Partial Thromboplastin Ratio 1.7
[2021-07-08 05:54] LABS: Partial Thromboplastin Time 47.1 Seconds (21.0-31.0)
[2021-07-08] MEDS: PIPERACILLIN/TAZOBACTAM 4.5 GM in DEXTROSE 5% 100 ML IV SCH (05:56)
[2021-07-08] MEDS: LABETALOL HCL 300 MG TAB PO SCH ×2 (05:56→14:58)
[2021-07-08] MEDS: ACETAMINOPHEN 325 MG TAB PO PRN ×3 (05:56→20:45)
--- NOTE | 2021-07-08 08:08 | Obstetrical Progress Note ---
Date of Service July 08, 2021 Assessment & Plan (1) S/P : Plan: Doing well h/h stable. Lochia normal. Do not think she has endometritis. Continue to encourage ambulation. Given on heparin, probably does not need scds. 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 Improved with hydration and d/c nsaids. Continue management per hospitalist team. Good UOP. (3) fever: Plan: FUO. Has been afebrile for the last 48 hours. last temp was 39.0 at 3:30am on 07/06. WBC stable. Continue to not have a localizing source and as such treating as SPT as a diagnosis of exclusion. She continues on heparin and Zosyn. Would aim for 48 hours afebrile on above and then can d/c and monitor for return of temps. If continues to spike on this regimen, consider getting ID consult. I discussed with them that after stopping, we would probably watch for at least 24 hours to make sure she does not have return of temps. I see we are checking a stool for C. diff. Blood and urine cultures are negative to date. (4) Severe preeclampsia: Plan: BPS appear to be improving , Normal to mild range for past 24hr. Appreciate hospitalists team help with management. Will continue to monitor blood pressures. For many women they are able to wean off of their meds in 6-8 weeks. But in a small subset of women, preeclampsia uncovers a need for assisted antihypertensives and a diagnosis of CHTN. She will be following up with this with her PCP. We are not necessarily looking for "normal" blood pressures, but not severe range. Plan: Will continue to monitor closely and really appreciate the help of the hospitalist team. Admission and Anticipated Discharge Date Admission Date: July 07, 2021 Subjective No acute events overnight. Patient subjectively reports that she is feeling markedly better. She does report occasional headaches and bloating this morning. Denies and abd pain, N/V, current LUCIA. VB normal for post course Physical Exam Gastrointestinal (Abdomen): Inspection/Auscultation: abdomen normal to inspection Percussion/Palpation: abdomen soft; abdomen nontender, no guarding and abdomen not rigid Incision: healing well Results & Data ([facility]) Vital Signs (Past 12 Hours) Vital Signs Temp Pulse Resp BP Pulse Ox 07/08/21 07:51 37 C 82 16 129/87 97 07/08/21 05:56 96 H 139/96 PG Care Time/CCT Total # of Minutes Spent Total Time Spent with Patient: Total time spent is greater than 50% in coordination of care (as documented) at patient's floor/unit and/or counseling patient: Coding Level of Care Code None Diagnoses S/P Z98.891 CINDY (acute kidney injury) N17.9 fever O86.4 Severe preeclampsia O14.10
[2021-07-08] MEDS: amLODIPine BESYLATE 5 MG TAB PO SCH (08:21)
[2021-07-08] MEDS: FERROUS SULFATE 325 MG TAB PO SCH (08:21)
--- NOTE | 2021-07-08 13:42 | Hospitalist Progress Note ---
Date of Service July 08, 2021 Assessment & Plan (1) fever: Plan: Status post section on 06/24/2021 followed by exploratory laparotomy on 06/25/2021 to control bleeding Noted to have fever of 38.2 on 28 June and received oral antibiotics for an apparent endometritis She received a total of 8 unit PRBC, TXA, 2 unit FFP and cryoprecipitate for hemorrhage She has been having fever and chills and was admitted on 07/05/2021 with ongoing fever and chills Her CT of the abdomen pelvis and CTA of the chest are unremarkable UA has been negative so far No source of infection is noted except left basal atelectasis Causes of fever could be multifactorial including inflammatory, posttransfusion fever, C. difficile colitis with ongoing diarrhea, so far no evidence of infection We will continue with intravenous Zosyn and daptomycin has been discontinued due to negative MRSA No increase in white count Blood cultures x2 on of last month and urine culture were negative Blood and urine culture have been negative Patient remains afebrile without any significant symptoms He is out of bed on a chair and generally feeling better Will continue oral antibiotic on discharge to finish the course for a total of 5 days to cover mostly respiratory pathogens No more fever since yesterday Denies any symptoms except weakness and tiredness Will stop Zosyn and start Augmentin to continue for 3 more days Likely discharge tomorrow (2) S/P : Plan: on 06/24/2021 and followed by Exploratory laparotomy on for massive postop bleeding requiring a total of 8 unit PRBC, TXA, 2 unit FFP and cryoprecipitate for hemorrhage (3) hemorrhage: Plan: As above (4) Severe preeclampsia: Plan: History of severe preeclampsia Status post urgent delivery by [id number] is doing well as of today Blood pressure remains elevated We will continue with labetalol and Norvasc's was added Blood pressure seems to be stable Hypertension Continues to have high blood pressure following History of severe preeclampsia Continue current medication (5) CINDY (acute kidney injury): Plan: Noted to have CINDY likely secondary to dehydration Creatinine 1.47 on admission and is improved to 1.23 as of today Advised to drink more fluid Will try to avoid giving much normal saline due to high blood pressure Kidney function is normalized (6) Endometritis: Plan: Thought to have endometritis with ongoing fever No evidence of increasing white count Has been getting Zosyn will change to oral Augmentin for 3 more days (7) Elevated troponin: Plan: Likely secondary to high blood pressure and strain pattern No evidence of ACS as per serial troponins DVT prophylaxis Has been on low-dose heparin for possible pelvic thrombophlebitis Will be continued for 48 hours as per recommendation by other hospitals Will give heparin subcu following that Medically stable to be discharged Admission and Anticipated Discharge Date Admission Date: July 07, 2021 Subjective 07/06/2021 The patient was seen and examined in medical floor in presence of the She complains to have generalized weakness and some discomfort in the abdomen Also has aches and pains in the muscles No more fever and or chills 07/07/2021 Patient was seen and examined in medical floor She has not been and having any more fever and or chills Remains generally weak He is out of bed on a chair 07/08/2021 The patient was seen and examined in medical floor She has been feeling much better today still has weakness and aches and pains involving multiple areas She did not have any more fever since yesterday Review of Systems Review of Systems: All systems reviewed and are unremarkable except as noted below Musculoskeletal: Still has aches and pains involving multiple areas Neurologic: Alert awake and oriented x3. Generally very weak and lethargic Physical Exam Physical Exam: Sitting on a chair without any acute distress Constitutional: well developed, well nourished, + ill appearing and + obese Eyes: PERRL, conjunctivae normal, anicteric sclerae ENMT: external ear and nose normal, oropharynx normal Neck: trachea midline, no thyromegaly Respiratory: no respiratory distress Auscultation: + diminished lung sounds and + crackles (Left base) Cardiovascular: Rate/Rhythm: regular rate and regular rhythm; not tachycardic Heart Sounds: normal S1 and normal S2; no murmur Extremities: + edema (Trace edema bilaterally) Gastrointestinal (Abdomen): Inspection/Auscultation: + abdomen distended (Minimally distended) and normal bowel sounds Percussion/Palpation: + abdomen tender (Minimally tender lower abdomen along incision site. No drainage) and abdomen soft Results & Data Results & Data ([facility]) Vital Signs (Past 12 Hours) Vital Signs Temp Pulse Resp BP Pulse Ox 07/08/21 07:51 37 C 82 16 129/87 97 07/08/21 05:56 96 H 139/96 Laboratory Results Short CBC 07/08/21 Range/Units 05:05 WBC 7.06 (4.8-10.8) K/uL Hgb 8.2 L (12.0-16.0) g/dL Hct 24.9 L (37-47) % Plt Count 299 (130-400) K/uL BMP 07/08/21 05:05 Sodium 134 L Potassium 3.7 Chloride 102 Carbon Dioxide 20 L BUN 11 Creatinine 1.16 Glucose 85 Calcium 8.6 Liver Function 07/08/21 Range/Units 05:05 Total Bilirubin 0.5 (0.2-1.0) mg/dl AST 22 (13-39) U/L ALT 8 (7-52) U/L Alkaline Phosphatase 166 H (34-104) U/L Albumin 3.0 L (3.4-5.0) gm/dl Medications Administered Current Inpatient Medications Acetaminophen (Acetaminophen 325 Mg Tab) 650 mg PO Q4H PRN PRN Reason: Pain or Fever Stop: 08/04/21 19:49 Last Admin: 07/08/21 05:56 Dose: 650 mg Documented by: Amlodipine Besylate (Amlodipine Besylate 5 Mg Tab) 5 mg PO [facility] Stop: 08/05/21 09:29 Last Admin: 07/08/21 08:21 Dose: 5 mg Documented by: Amoxicillin/Clavulanate Potassium (Amoxicillin/Clavulanate 875 Mg Tab) 1 tab PO BIDM [facility] Stop: 07/11/21 08:01 Ferrous Sulfate (Ferrous Sulfate 325 Mg Tab) [facility] Stop: 08/05/21 08:59 Last Admin: 07/08/21 08:21 Dose: 325 mg Documented by: Heparin Sodium (Porcine) (Heparin Sod 5,000 Unit/0.5 Ml Vial) 5,000 units SQ Q12 [facility] Stop: 08/07/21 20:59 Promethazine HCl 12.5 mg/ (Sodium Chloride) 50.5 mls @ 202 mls/hr IV Q6H PRN PRN Reason: Nausea And Vomiting Stop: 08/05/21 16:20 Labetalol HCl (Labetalol Hcl 300 Mg Tab) 300 mg PO Q8 [facility] Stop: 08/04/21 21:59 Last Admin: 07/08/21 05:56 Dose: 300 mg Documented by: Multi-Ingredient Mouthwash/Gargle (First - Mouthwash Blm 119 Ml) 5 ml PO Q8H PRN PRN Reason: apthous ulcer Stop: 08/04/21 22:29 Ondansetron HCl (Ondansetron Inj 2 Mg/Ml 2 Ml Vial) 4 mg IV Q6H PRN PRN Reason: Nausea And Vomiting Stop: 08/04/21 19:49 Oxycodone HCl (Oxycodone Hcl Ir 5 Mg Tab (Immediate Release)) 5 mg PO Q4H PRN PRN Reason: Pain Stop: 07/19/21 19:49 Last Admin: 07/08/21 02:07 Dose: 5 mg Documented by:
[2021-07-08] MEDS: AMOXICILLIN/CLAVULANATE 875 MG TAB PO SCH (16:28)
[2021-07-08] MEDS ORDERED: DICYCLOMINE HCL 10 MG CAP PO ONE (16:30)
[2021-07-08] MEDS: HEPARIN SOD 5,000 UNIT/0.5 ML VIAL SQ SCH (23:39)
[2021-07-09] MEDS ORDERED: LABETALOL HCL 100 MG TAB PO ONE (00:08)
[2021-07-09] MEDS: LABETALOL HCL 300 MG TAB PO SCH (00:16)
[2021-07-09] MEDS: oxyCODONE HCL IR 5 MG TAB (IMMEDIATE RELEASE) PO PRN ×3 (03:22→17:12)
[2021-07-09 06:26] LABS: Hematocrit (blood only) 24.6 % (37-47); Mean Corpuscular Hemoglobin 29.4 pg (25-34); Mean Corpuscular Hgb Conc 32.5 g/dL (32-36); Mean Corpuscular Volume 90.4 fL (80-100); Mean Platelet Volume 8.5 fL (7.4-10.4); Nucleated RBC # (auto) 0.03 K/uL (0-0); Nucleated RBC % (auto) 0.4 %; Platelet Count 319 K/uL (130-400); RDW Coefficient of Variation 15.7 % (11.5-14.5); RDW Standard Deviation 50.4 fL (36.4-46.3); Red Blood Count 2.72 M/uL (4.2-5.4); White Blood Count 6.75 K/uL (4.8-10.8)
[2021-07-09 06:43] LABS: Albumin Globulin Ratio 0.8 (0.9-2); Bilirubin,Total 0.5 mg/dl (0.2-1.0); Calcium 8.5 mg/dl (8.5-10.1); Creatinine Clr Calc Pharmacy 68.1 ml/min; Est GFR (African American) 82.6 ml/min; Est GFR (Non-African American) 71.3 ml/min; Globulin 3.9 gm/dl (2.5-4.0); Potassium 3.8 mmol/L (3.5-5.1); Total Protein 6.9 gm/dl (6.0-8.3)
[2021-07-09 07:00] LABS: Basophils # (auto) 0.01 K/uL (0-0.2); Basophils % (auto) 0.1 %; Eosinophils # (auto) 0.02 K/uL (0-0.5); Eosinophils % (auto) 0.3 %; Immature Granulocytes # (auto) 0.05 K/uL (0.00-0.02); Immature Granulocytes % (auto) 0.7 %; Lymphocytes # (auto) 1.32 K/uL (1.2-3.4); Lymphocytes % (auto) 19.6 %; Monocytes # (auto) 0.27 K/uL (0.11-0.59); Neutrophils # (auto) 5.08 K/uL (1.4-6.5); Neutrophils % (auto) 75.3 %
[2021-07-09 07:08] LABS: Partial Thromboplastin Ratio 2.1
[2021-07-09 07:16] LABS: Partial Thromboplastin Time 57.4 Seconds (21.0-31.0)
--- NOTE | 2021-07-09 07:36 | Gynecologic Progress Note ---
Date of Service July 09, 2021 Assessment & Plan (1) fever: Plan: Spoke with patient continue to follow from the OB team Admission and Anticipated Discharge Date Admission Date: July 07, 2021 Results & Data ([facility]) Vital Signs (Past 12 Hours) Vital Signs Temp Pulse Pulse Resp BP Pulse Ox 07/09/21 07:25 99.0 F 105 H 16 129/88 97 07/08/21 23:01 97.7 F 61 16 150/80 H 95 PG Care Time/CCT Total # of Minutes Spent Total Time Spent with Patient: Total time spent is greater than 50% in coordination of care (as documented) at patient's floor/unit and/or counseling patient: Coding Level of Care Code None Diagnoses fever O86.4
[2021-07-09] MEDS: AMOXICILLIN/CLAVULANATE 875 MG TAB PO SCH ×2 (08:07→17:56)
[2021-07-09] MEDS: amLODIPine BESYLATE 5 MG TAB PO SCH (08:08)
[2021-07-09] MEDS: FERROUS SULFATE 325 MG TAB PO SCH (08:08)
[2021-07-09] MEDS: HEPARIN SOD 5,000 UNIT/0.5 ML VIAL SQ SCH ×2 (08:08→19:59)
[2021-07-09] MEDS ORDERED: LABETALOL HCL 300 MG TAB PO SCH (09:00)
[2021-07-09] MEDS: ACETAMINOPHEN 325 MG TAB PO PRN ×2 (11:37→19:58)
[2021-07-09] MEDS ORDERED: ALUMINUM/MAGNESIUM SUSP 30 ML UDC PO PRN (12:56)
--- NOTE | 2021-07-09 13:14 | Hospitalist Progress Note ---
Date of Service July 09, 2021 Assessment & Plan (1) fever: Plan: Status post section on 06/24/2021 followed by exploratory laparotomy on 06/25/2021 to control bleeding Noted to have fever of 38.2 on 28 June and received oral antibiotics for an apparent endometritis She received a total of 8 unit PRBC, TXA, 2 unit FFP and cryoprecipitate for hemorrhage She has been having fever and chills and was admitted on 07/05/2021 with ongoing fever and chills Her CT of the abdomen pelvis and CTA of the chest are unremarkable UA has been negative so far No source of infection is noted except left basal atelectasis Causes of fever could be multifactorial including inflammatory, posttransfusion fever, C. difficile colitis with ongoing diarrhea, so far no evidence of infection We will continue with intravenous Zosyn and daptomycin has been discontinued due to negative MRSA No increase in white count Blood cultures x2 on of last month and urine culture were negative Blood and urine culture have been negative Patient remains afebrile without any significant symptoms He is out of bed on a chair and generally feeling better Will continue oral antibiotic on discharge to finish the course for a total of 5 days to cover mostly respiratory pathogens No more fever since yesterday 07/07/2021 Denies any symptoms except weakness and tiredness Will stop Zosyn and start Augmentin to continue for 3 more days Remains afebrile but generally weak and lethargic Complains nausea likely secondary to side effect of antibiotic-advised to take the antibiotic with food Maalox and or Mylanta for dyspepsia Remains generally weak and lethargic We will get PT and OT evaluation before discharge (2) S/P : Plan: on 06/24/2021 and followed by Exploratory laparotomy on for massive postop bleeding requiring a total of 8 unit PRBC, TXA, 2 unit FFP and cryoprecipitate for hemorrhage (3) hemorrhage: Plan: As above (4) Severe preeclampsia: Plan: History of severe preeclampsia Status post urgent delivery by [id number] is doing well as of today Blood pressure remains elevated We will continue with labetalol and Norvasc's was added Blood pressure seems to be stable Blood pressure noted to be low this morning at 97/73 Amlodipine will be discontinued and labetalol has been on hold Further management of blood pressure will be as per primary Hypertension Continues to have high blood pressure following History of severe preeclampsia Blood pressure has been low since this morning Amlodipine will be discontinued and labetalol will be on hold Further recommendation will be as per [employer] OPERATOR (5) CINDY (acute kidney injury): Plan: Noted to have CINDY likely secondary to dehydration Creatinine 1.47 on admission and is improved to 1.23 as of today Advised to drink more fluid Will try to avoid giving much normal saline due to high blood pressure Kidney function is normalized (6) Endometritis: Plan: Thought to have endometritis with ongoing fever No evidence of increasing white count Has been getting Zosyn will change to oral Augmentin for 3 more days Not endometrial drainage and no history fever and or chills (7) Elevated troponin: Plan: Likely secondary to high blood pressure and strain pattern No evidence of ACS as per serial troponins DVT prophylaxis Has been on low-dose heparin for possible pelvic thrombophlebitis Will be continued for 48 hours as per recommendation by other hospitals Will give heparin subcu following that Medically stable to be discharged Admission and Anticipated Discharge Date Admission Date: July 07, 2021 Subjective 07/06/2021 The patient was seen and examined in medical floor in presence of the She complains to have generalized weakness and some discomfort in the abdomen Also has aches and pains in the muscles No more fever and or chills 07/07/2021 Patient was seen and examined in medical floor She has not been and having any more fever and or chills Remains generally weak He is out of bed on a chair 07/08/2021 The patient was seen and examined in medical floor She has been feeling much better today still has weakness and aches and pains involving multiple areas She did not have any more fever since yesterday 07/09/2021 The patient was seen and examined in medical floor She has been generally weak and feels nauseous Complains to have minimal abdominal discomfort mainly on the right side of the incision No more fever noted Review of Systems Review of Systems: All systems reviewed and are unremarkable except as noted below Musculoskeletal: Still has aches and pains involving multiple areas Neurologic: Alert awake and oriented x3. Generally very weak and lethargic Physical Exam Physical Exam: Lying in bed and looks ill Constitutional: well developed, well nourished, + ill appearing and + obese Eyes: PERRL, conjunctivae normal, anicteric sclerae ENMT: external ear and nose normal, oropharynx normal Neck: trachea midline, no thyromegaly Respiratory: no respiratory distress Auscultation: + diminished lung sounds and + crackles (Left base) Cardiovascular: Rate/Rhythm: regular rate and regular rhythm; not tachycardic Heart Sounds: normal S1 and normal S2; no murmur Extremities: + edema (Trace edema bilaterally) Gastrointestinal (Abdomen): Inspection/Auscultation: normal bowel sounds; abdomen not distended (Minimally distended) Percussion/Palpation: + abdomen tender (Minimally tender lower abdomen along incision site. No drainage) and abdomen soft Musculoskeletal: No acute arthritis in any joint Neurologic: Alert, awake and oriented x3. Generally weak. No focal neurodeficit Lymphatic: no cervical or axillary lymphadenopathy Results & Data Results & Data ([facility]) Vital Signs (Past 12 Hours) Vital Signs Temp Pulse Pulse Resp BP Pulse Ox 07/09/21 09:51 37.3 C 106 H 16 97/73 L 97 07/09/21 07:25 37.2 C 105 H 16 129/88 97 Laboratory Results Short CBC 07/09/21 Range/Units 05:38 WBC 6.75 (4.8-10.8) K/uL Hgb 8.0 L (12.0-16.0) g/dL Hct 24.6 L (37-47) % Plt Count 319 (130-400) K/uL BMP 07/09/21 05:38 Sodium 132 L Potassium 3.8 Chloride 102 Carbon Dioxide 19 L BUN 14 Creatinine 1.08 Glucose 80 Calcium 8.5 Liver Function 07/09/21 Range/Units 05:38 Total Bilirubin 0.5 (0.2-1.0) mg/dl AST 25 (13-39) U/L ALT 8 (7-52) U/L Alkaline Phosphatase 147 H (34-104) U/L Albumin 3.0 L (3.4-5.0) gm/dl Medications Administered Current Inpatient Medications Acetaminophen (Acetaminophen 325 Mg Tab) 650 mg PO Q4H PRN PRN Reason: Pain or Fever Stop: 08/04/21 19:49 Last Admin: 07/09/21 11:37 Dose: 650 mg Documented by: Al Hydrox/Mg Hydrox/Simethicone (Aluminum/Magnesium Susp 30 Ml Udc) 30 ml PO Q6H PRN PRN Reason: Dyspepsia Stop: 08/08/21 12:55 Amoxicillin/Clavulanate Potassium (Amoxicillin/Clavulanate 875 Mg Tab) 1 tab PO BIDM [facility] Stop: 07/11/21 08:01 Last Admin: 07/09/21 08:07 Dose: 1 tab Documented by: Ferrous Sulfate (Ferrous Sulfate 325 Mg Tab) 325 mg PO QAM [facility] Stop: 08/05/21 08:59 Last Admin: 07/09/21 08:08 Dose: 325 mg Documented by: Heparin Sodium (Porcine) (Heparin Sod 5,000 Unit/0.5 Ml Vial) 5,000 units SQ Q12 [facility] Stop: 08/07/21 20:59 Last Admin: 07/09/21 08:08 Dose: 5,000 units Documented by: Promethazine HCl 12.5 mg/ (Sodium Chloride) 50.5 mls @ 202 mls/hr IV Q6H PRN PRN Reason: Nausea And Vomiting Stop: 08/05/21 16:20 Labetalol HCl (Labetalol Hcl 300 Mg Tab) 300 mg PO Q8 [facility] Stop: 08/08/21 08:59 Last Admin: 07/09/21 08:08 Dose: 300 mg Documented by: Multi-Ingredient Mouthwash/Gargle (First - Mouthwash Blm 119 Ml) 5 ml PO Q8H PRN PRN Reason: apthous ulcer Stop: 08/04/21 22:29 Ondansetron HCl (Ondansetron Inj 2 Mg/Ml 2 Ml Vial) 4 mg IV Q6H PRN PRN Reason: Nausea And Vomiting Stop: 08/04/21 19:49 Oxycodone HCl (Oxycodone Hcl Ir 5 Mg Tab (Immediate Release)) 5 mg PO Q4H PRN PRN Reason: Pain Stop: 07/19/21 19:49 Last Admin: 07/09/21 08:05 Dose: 5 mg Documented by:
--- NOTE | 2021-07-09 13:37 | Gynecologic Progress Note ---
Date of Service July 09, 2021 Assessment & Plan (1) S/P : Plan: Incision well healed. Pain at R fascial suture knot discussed with patient and FOB, likely to persist to some degree until suture dissolves. Continue ambulation, pain management prn, incentive spirometry, pumping or BF if desired, advancing diet as tolerated. Focusing on foods that appeal and adequate intake overall rather than stressing about the individual nutrients or foods she can eat is OK at this point. She's almost certainly got a change in her gut yamileth from multiple broad-spectrum antibiotics and may also benefit from a probiotic, which was discussed. Her C-Diff was negative and this was shared with her today. During my lengthy visit with Diane and her partner we reviewed instructions for home, what to watch for, items like encouraging ambulation, IS, use of culturelle, expecting a BP check in the [facility] office this coming week, and more. They expressed comfort with the plans and that all their questions had been answered at this time. I also communicated these items to her nurse Kaci who was made aware I am available all weekend if issues arise. (2) fever: Plan: Discussed with Dr. Calderon today. It is the primary impression of the OB team that endometritis is far less likely than an inflammatory process such as septic pelvic thrombophlebitis. Another less likely possibility is a transfusion reaction. We may never know the true etiology(ies). She has defervesced with multiple antibiotics, antipyretics/anti-inflammatories, and heparin. We discussed the choice between sending her home with heparin medication vs. stopping at discharge. Currently Dr. Calderon has no plan to recommend that Diane continue heparin after she leaves the hospital. He does, however, want her to be prescribed oral Augmentin for a total of 5 days of therapy. As of today she has completed 2 days. (3) Severe preeclampsia: Plan: Patient has been on several antihypertensives through this admission, as she arrived with severe blood pressure elevations and acute renal injury, both possibly due to severe preeclampsia (or, also possibly, due to underlying condition). As of this morning her Norvasc was stopped and labetalol dose was lowered. Due to a hypotensive BP reading, the labetalol was also thereafter discontinued. During my discussion with Dr. Calderon the agreement was reached that this patient is not currently stable for discharge, as she has just had a major change in her antihypertensive regimen made, and we do not yet know what if any antihypertensive meds it is appropriate to send her home on. Dr. Calderon also voiced his expectation that she be seen by PT for a consultation before going home, and he believes that is to occur this weekend. I communicated to the patient that she was not expected to be going home today, and the reasoning for that. Admission and Anticipated Discharge Date Admission Date: July 07, 2021 Subjective I was contacted by the patient's RN to notify me of some concerns that she and her partner had regarding her symptoms, and requesting that she be seen. I visited with them in room 361 for approximately an hour today. Diane is experiencing increased appetite today for fruits and vegetables, which she was eating when I arrived. She continues to feel an aversion to meats, which concerns her partner who would like to see her consume more protein to help her heal and build strength. She has had hunger but no appetite or urge to eat for several days prior to today. There has not been any vomiting today. She has had diarrhea this admission, which is attributed by the patient to taking several antibiotics, but she was asking whether that seemed correct, and whether her C-Diff testing was completed and resulted. She found it confusing that she had previously been constipated even with stool softeners, and now seems not to be able to form stool. Additionally, she's having a pain at the R side of her abdomen in a spot just above and lateral to the edge of her incision that can be suddenly very sharp and severe with certain movements, and wants to be assured this is not an item of concern. Other than these questions she notes that she feels she is improved from prior, has been able to move about the room, has been able to pump milk for her infant, and is feeling better in general. Lochia is small, "less than my periods for sure." She and her partner note that another doctor was just in to see her briefly and told her she was going to be discharged today, but wasn't given instructions or information beyond that. Physical Exam Physical Exam: Sitting upright in bed, legs crossed, with tray of fruits and vegetables on bedside tray, eating a carrot while we talk. Able to lay back and sit up with minimal assistance for parts of exam. Smiling and talking with normal energy and fluidity throughout my visit. (Note: FOB in room at all times and is evidently caring and supportive. He sits or stands at the bedside and voices his concerns, helps her with positioning and reaching items, asks questions, takes notes, and seems eager to play an active role in her care both here at after discharge.) Constitutional: WD/WN, vitals as above (BPs' reviewed) Eyes: PERRL, conjunctivae normal, anicteric sclerae ENMT: Ears: no hearing impairment Nose: no external nose abnormality Mouth: no lip abnormality and no tongue abnormality Neck: normal visual inspection Respiratory: no respiratory distress Gastrointestinal (Abdomen): Inspection/Auscultation: abdomen normal to inspection and + abdominal edema (trace edema up to 1" around incision, which is c/d/i); abdomen not distended Point TTP at the spot overlying the R angle of the fascial sutures Musculoskeletal: no cyanosis or clubbing, extremities motor strength 5/5 (able to reposition to a chair between my leaving and returning to the room) Skin: no rashes, warm and dry Neurologic: moves all extremities Psychiatric: A+Ox3, euthymic affect Genitourinary: Trace VB on malu pad Results & Data ([facility]) Vital Signs (Past 12 Hours) Vital Signs Temp Pulse Pulse Resp BP Pulse Ox 07/09/21 09:51 99.1 F 106 H 16 97/73 L 97 07/09/21 07:25 99.0 F 105 H 16 129/88 97 Laboratory Results Laboratory Results - last 24 hr 07/09/21 07/09/21 07/09/21 05:38 05:38 05:38 WBC 6.75 RBC 2.72 L Hgb 8.0 L Hct 24.6 L MCV 90.4 MCH 29.4 MCHC 32.5 RDW Std Deviation 50.4 H RDW Coeff of Mohit 15.7 H Plt Count 319 MPV 8.5 Immature Gran % (Auto) 0.7 Neut % (Auto) 75.3 Lymph % (Auto) 19.6 Cameron % (Auto) 4.0 Eos % (Auto) 0.3 Baso % (Auto) 0.1 Neut # (Auto) 5.08 Lymph # (Auto) 1.32 Cameron # (Auto) 0.27 Eos # (Auto) 0.02 Baso # (Auto) 0.01 Immature Gran # (Auto) 0.05 H Absolute Nucleated RBC 0.03 H Nucleated RBC % (auto) 0.4 APTT 57.4 H* PTT Ratio 2.1 Sodium 132 L Potassium 3.8 Chloride 102 Carbon Dioxide 19 L Anion Gap 11 BUN 14 Creatinine 1.08 Est Cr Clr Drug Dosing 68.1 Est GFR ( Amer) 82.6 Est GFR (Non-Af Amer) 71.3 BUN/Creatinine Ratio 13.0 Glucose 80 Calcium 8.5 Total Bilirubin 0.5 AST 25 ALT 8 Alkaline Phosphatase 147 H Total Protein 6.9 Albumin 3.0 L Globulin 3.9 Albumin/Globulin Ratio 0.8 L PG Care Time/CCT Total # of Minutes Spent Total Time Spent with Patient: Total time spent is greater than 50% in coordination of care (as documented) at patient's floor/unit and/or counseling patient: Coding Level of Care Code 88351 Subseq Hosp Care Lvl 3 Diagnoses S/P Z98.891 fever O86.4 Severe preeclampsia O14.10
[2021-07-09] MEDS: SACCHAROMYCES BOULARDII 250 MG CAP PO SCH (17:56)
[2021-07-09] MEDS: ADVANCED PROBIOTIC 1250 MG CAPSULE PO SCH (17:56)
[2021-07-10] MEDS: ACETAMINOPHEN 325 MG TAB PO PRN ×3 (01:58→17:03)
[2021-07-10 07:33] LABS: Hematocrit (blood only) 24.5 % (37-47); Hemoglobin 8.2 g/dL (12.0-16.0); Mean Corpuscular Hemoglobin 30.8 pg (25-34); Mean Corpuscular Hgb Conc 33.5 g/dL (32-36); Mean Corpuscular Volume 92.1 fL (80-100); Mean Platelet Volume 8.7 fL (7.4-10.4); Nucleated RBC # (auto) 0.02 K/uL (0-0); Nucleated RBC % (auto) 0.4 %; Platelet Count 318 K/uL (130-400); RDW Coefficient of Variation 15.4 % (11.5-14.5); RDW Standard Deviation 50.2 fL (36.4-46.3); Red Blood Count 2.66 M/uL (4.2-5.4); White Blood Count 5.28 K/uL (4.8-10.8)
[2021-07-10 07:34] LABS: Partial Thromboplastin Ratio 1.8
[2021-07-10 07:36] LABS: Albumin Globulin Ratio 0.8 (0.9-2); Albumin Level 3.2 gm/dl (3.4-5.0); BUN Creatinine Ratio 16.5 (10-20); Bilirubin,Total 0.4 mg/dl (0.2-1.0); Calcium 8.6 mg/dl (8.5-10.1); Creatinine Clr Calc Pharmacy 71.4 ml/min; Est GFR (African American) 87.5 ml/min; Est GFR (Non-African American) 75.5 ml/min; Globulin 4.1 gm/dl (2.5-4.0); Potassium 3.9 mmol/L (3.5-5.1); Total Protein 7.3 gm/dl (6.0-8.3)
[2021-07-10] MEDS: oxyCODONE HCL IR 5 MG TAB (IMMEDIATE RELEASE) PO PRN ×3 (07:43→22:15)
[2021-07-10 07:49] LABS: Basophils # (auto) 0.01 K/uL (0-0.2); Basophils % (auto) 0.2 %; Eosinophils # (auto) 0.03 K/uL (0-0.5); Eosinophils % (auto) 0.6 %; Immature Granulocytes # (auto) 0.04 K/uL (0.00-0.02); Immature Granulocytes % (auto) 0.8 %; Lymphocytes # (auto) 0.98 K/uL (1.2-3.4); Lymphocytes % (auto) 18.6 %; Monocytes # (auto) 0.16 K/uL (0.11-0.59); Neutrophils # (auto) 4.06 K/uL (1.4-6.5); Neutrophils % (auto) 76.8 %
[2021-07-10 07:56] LABS: Partial Thromboplastin Time 48.2 Seconds (21.0-31.0)
--- NOTE | 2021-07-10 08:22 | Gynecologic Progress Note ---
Date of Service July 10, 2021 Assessment & Plan (1) state: Plan: Post-, post-exlap for hemoperitoneum, post-transfusion, readmission for exacerbation of severe preeclampsia, and fevers of uncertain origin. 1) Patient is now doing well from a surgical standpoint. Ambulation, regular diet, voiding, and stooling. Diarrhea likely 2/2 multiple antibiotics and probiotics are added. 2) Hgb has been stable and lochia small. 3) BP was severe on admission and required multiple antihypertensives as recently as yesterday morning, which were then stopped by the medicine client consultant due to the development of hypotension. We discussed yesterday mid- day and the client consultant recommended Diane to stay for at least 24 hours of observation off of antihypertensives to determine if this is the correct plan for her to be discharged home with. So far this looks promising as she has been normotensive. If remains normotensive, planned for D/C this afternoon with f/u in office Mon or . 4) Fevers of uncertain origin (endometritis, SPT, transfusion reaction, other): defervesced with abx, heparin and antipyretics. Per client consultant, to complete a 5-day course of oral antibiotics, of which today is day 3. 5) Occasional cough: reportedly present since extubation, due to "stuck" sensation in throat per patient, nonproductive and afebrile: encouraged IS, ambulation, discussed importance of deep breaths and prevention of PNA. Lozenges prn. (2) Hemoperitoneum: (3) fever: (4) CINDY (acute kidney injury): (5) Endometritis: (6) Severe preeclampsia: (7) hemorrhage: Admission and Anticipated Discharge Date Admission Date: July 07, 2021 Subjective Met with patient and FOB in room 360 this morning. 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 A BOWL ATTENDANT was asked to take her vitals which were normal (no fever, normal BP). She also c/o a sensation of phlegm in her throat and needing to cough, and she coughed several times during our visit today, which did not occur at all during a much longer visit yesterday. Nevertheless when I note that she looks overall less well to me than she did yesterday, she and FOB both assert that this cough has been unchanged since her extubation - it just doesn't happen all the time - and that she isn't feeling badly, just always has this shaky appearance when she wakes up and for a while afterwards due to "sleep paralysis." I also asked her about her report to the nurses yesterday of headache (per pain scales documented) and she says she has no headache currently, and feels that the one she had yesterday was also due to a bad dream she had just experienced. Her only current c/o is ongoing abdominal soreness at the incision, which is manageable with pain medication (a dose is delivered during our chat). The FOB is concerned that the heparin in jections make Diane "feel badly" and wonders if they can be stopped and traded for SCD's. I ask for more details and she is somewhat unclear about whether she dislikes the pain of the injection itself or whether she objects to a feeling of tiredness afterwards that she attributes to the injection. In either case, they were informed that she can decline heparin injections if she chooses, though I encouraged ambulation around the room and regular changes from bed to chair. I don't anticipate sending Diane home on heparin at this time. They both hope she is going home today. She is eating, feels ready to go, and would like to know the plan. Physical Exam Physical Exam: Sitting upright in bed, blanket pulled up to her chin, fine trembling visible, with occasional nonproductive cough. The trembling notably decreases the longer we visit and talk. Constitutional: WD/WN, vitals as above (BP reviewed, currently normotensive) Eyes: PERRL, conjunctivae normal, anicteric sclerae ENMT: Ears: no hearing impairment Neck: normal visual inspection Respiratory: no respiratory distress Cardiovascular: Rate/Rhythm: regular rate and regular rhythm Gastrointestinal (Abdomen): Inspection/Auscultation: abdomen normal to inspection; abdomen not distended Musculoskeletal: Extremities: extremities normal to inspection Skin: no rashes, warm and dry Neurologic: moves all extremities Psychiatric: A+Ox3, euthymic affect Results & Data ([facility]) Vital Signs (Past 12 Hours) Vital Signs Temp Pulse Resp BP Pulse Ox 07/10/21 07:36 98.4 F 108 H 16 128/91 99 07/09/21 22:32 99.5 F 106 H 16 116/77 97 PG Care Time/CCT Total # of Minutes Spent Total Time Spent with Patient: Total time spent is greater than 50% in coordination of care (as documented) at patient's floor/unit and/or counseling patient: Coding Level of Care Code None Diagnoses state Z39.2 Hemoperitoneum K66.1 fever O86.4 CINDY (acute kidney injury) N17.9 Endometritis N71.9 Severe preeclampsia O14.10 hemorrhage O72.1
[2021-07-10] MEDS: ADVANCED PROBIOTIC 1250 MG CAPSULE PO SCH (09:23)
[2021-07-10] MEDS: SACCHAROMYCES BOULARDII 250 MG CAP PO SCH (09:24)
[2021-07-10] MEDS: FERROUS SULFATE 325 MG TAB PO SCH (09:26)
[2021-07-10] MEDS: AMOXICILLIN/CLAVULANATE 875 MG TAB PO SCH (09:26)
[2021-07-10] MEDS: HEPARIN SOD 5,000 UNIT/0.5 ML VIAL SQ SCH ×2 (09:26→21:38)
--- NOTE | 2021-07-10 10:43 | Hospitalist Progress Note ---
Date of Service July 10, 2021 Assessment & Plan (1) fever: Plan: Status post section on 06/24/2021 followed by exploratory laparotomy on 06/25/2021 to control bleeding Noted to have fever of 38.2 on 28 June and received oral antibiotics for an apparent endometritis She received a total of 8 unit PRBC, TXA, 2 unit FFP and cryoprecipitate for hemorrhage She has been having fever and chills and was admitted on 07/05/2021 with ongoing fever and chills Her CT of the abdomen pelvis and CTA of the chest are unremarkable UA has been negative so far No source of infection is noted except left basal atelectasis Causes of fever could be multifactorial including inflammatory, posttransfusion fever, C. difficile colitis with ongoing diarrhea, so far no evidence of infection We will continue with intravenous Zosyn and daptomycin has been discontinued due to negative MRSA No increase in white count Blood cultures x2 on of last month and urine culture were negative Blood and urine culture have been negative Patient remains afebrile without any significant symptoms He is out of bed on a chair and generally feeling better Will continue oral antibiotic on discharge to finish the course for a total of 5 days to cover mostly respiratory pathogens No more fever since yesterday 07/07/2021 Denies any symptoms except weakness and tiredness Will stop Zosyn and start Augmentin to continue for 3 more days Remains afebrile but generally weak and lethargic Complains nausea likely secondary to side effect of antibiotic-advised to take the antibiotic with food Maalox and or Mylanta for dyspepsia No fever for more than last 24 hours Remains weak but otherwise clinically much improved Likely to be discharged this afternoon and will finish the course of antibiotic Remains generally weak and lethargic We will get PT and OT evaluation before discharge Strongly advised to take precautions to avoid falls (2) S/P : Plan: on 06/24/2021 and followed by Exploratory laparotomy on for massive postop bleeding requiring a total of 8 unit PRBC, TXA, 2 unit FFP and cryoprecipitate for hemorrhage Management as per JOURNALIST (3) hemorrhage: Plan: As above (4) Severe preeclampsia: Plan: History of severe preeclampsia Status post urgent delivery by [id number] is doing well as of today Blood pressure remains elevated We will continue with labetalol and Norvasc's was added Blood pressure seems to be stable Blood pressure noted to be low this morning at 97/73 Amlodipine will be discontinued and labetalol has been on hold Further management of blood pressure will be as per primary Blood pressure seems to be stable without the blood pressure medications Hypertension Continues to have high blood pressure following History of severe preeclampsia Blood pressure has been low since this morning Amlodipine will be discontinued and labetalol will be on hold Further recommendation will be as per JOURNALIST Her blood pressure remains stable without medication for the last 24 hours or so Heart rate is slightly elevated at 108 likely secondary to withdrawal from labetalol Advised to drink more fluid (5) CINDY (acute kidney injury): Plan: Noted to have CINDY likely secondary to dehydration Creatinine 1.47 on admission and is improved to 1.23 as of today Advised to drink more fluid Will try to avoid giving much normal saline due to high blood pressure Kidney function is normalized (6) Endometritis: Plan: Thought to have endometritis with ongoing fever No evidence of increasing white count Has been getting Zosyn will change to oral Augmentin for 3 more days Not endometrial drainage and no history fever and or chills Doubt any endometritis given no discharge and remains afebrile (7) Elevated troponin: Plan: Likely secondary to high blood pressure and strain pattern No evidence of ACS as per serial troponins DVT prophylaxis Has been on low-dose heparin for possible pelvic thrombophlebitis Will be continued for 48 hours as per recommendation by other hospitals Will give heparin subcu following that Medically stable to be discharged Admission and Anticipated Discharge Date Admission Date: July 07, 2021 Subjective 07/06/2021 The patient was seen and examined in medical floor in presence of the She complains to have generalized weakness and some discomfort in the abdomen Also has aches and pains in the muscles No more fever and or chills 07/07/2021 Patient was seen and examined in medical floor She has not been and having any more fever and or chills Remains generally weak He is out of bed on a chair 07/08/2021 The patient was seen and examined in medical floor She has been feeling much better today still has weakness and aches and pains involving multiple areas She did not have any more fever since yesterday 07/09/2021 The patient was seen and examined in medical floor She has been generally weak and feels nauseous Complains to have minimal abdominal discomfort mainly on the right side of the incision No more fever noted 07/10/2021 The patient was seen and examined in medical floor in presence of the boyfriend/significant other She remains generally weak Has minimal cough but denies any other significant symptoms She has had physical therapy and she will be discharged this afternoon by the primary Review of Systems Review of Systems: All systems reviewed and are unremarkable except as noted below Musculoskeletal: Still has aches and pains involving multiple areas Neurologic: Alert awake and oriented x3. Generally very weak and lethargic Physical Exam Physical Exam: Lying in bed and looks ill Constitutional: well developed, well nourished, + ill appearing and + obese Eyes: PERRL, conjunctivae normal, anicteric sclerae ENMT: external ear and nose normal, oropharynx normal Neck: trachea midline, no thyromegaly Respiratory: no respiratory distress Auscultation: + diminished lung sounds and + crackles (Minimal bibasilar) Cardiovascular: Rate/Rhythm: regular rate and regular rhythm; not tachycardic Heart Sounds: normal S1 and normal S2; no murmur Extremities: + edema (Trace edema bilaterally) Gastrointestinal (Abdomen): Inspection/Auscultation: normal bowel sounds; abdomen not distended (Minimally distended) Percussion/Palpation: + abdomen tender (Minimally tender lower abdomen along incision site. No drainage) and abdomen soft Musculoskeletal: No acute arthritis in any joint Neurologic: Alert, awake and oriented x3. Generally weak and lethargic Lymphatic: no cervical or axillary lymphadenopathy Results & Data Results & Data ([facility]) Vital Signs (Past 12 Hours) Vital Signs Temp Pulse Resp BP Pulse Ox 07/10/21 07:36 36.9 C 108 H 16 128/91 99 Laboratory Results Short CBC 07/10/21 Range/Units 06:47 WBC 5.28 (4.8-10.8) K/uL Hgb 8.2 L (12.0-16.0) g/dL Hct 24.5 L (37-47) % Plt Count 318 (130-400) K/uL BMP 07/10/21 06:47 Sodium 135 L Potassium 3.9 Chloride 104 Carbon Dioxide 21 BUN 17 Creatinine 1.03 Glucose 88 Calcium 8.6 Liver Function 07/10/21 Range/Units 06:47 Total Bilirubin 0.4 (0.2-1.0) mg/dl AST 26 (13-39) U/L ALT 9 (7-52) U/L Alkaline Phosphatase 153 H (34-104) U/L Albumin 3.2 L (3.4-5.0) gm/dl Medications Administered Current Inpatient Medications Acetaminophen (Acetaminophen 325 Mg Tab) 650 mg PO Q4H PRN PRN Reason: Pain or Fever Stop: 08/04/21 19:49 Last Admin: 07/10/21 01:58 Dose: 650 mg Documented by: Al Hydrox/Mg Hydrox/Simethicone (Aluminum/Magnesium Susp 30 Ml Udc) 30 ml PO Q6H PRN PRN Reason: Dyspepsia Stop: 08/08/21 12:55 Amoxicillin/Clavulanate Potassium (Amoxicillin/Clavulanate 875 Mg Tab) 1 tab PO BIDM [facility] Stop: 07/11/21 08:01 Last Admin: 07/10/21 09:26 Dose: 1 tab Documented by: Ferrous Sulfate (Ferrous Sulfate 325 Mg Tab) 325 mg PO QAM [facility] Stop: 08/05/21 08:59 Last Admin: 07/10/21 09:26 Dose: 325 mg Documented by: Heparin Sodium (Porcine) (Heparin Sod 5,000 Unit/0.5 Ml Vial) 5,000 units SQ Q12 [facility] Stop: 08/07/21 20:59 Last Admin: 07/10/21 09:26 Dose: Not Given Documented by: Promethazine HCl 12.5 mg/ (Sodium Chloride) 50.5 mls @ 202 mls/hr IV Q6H PRN PRN Reason: Nausea And Vomiting Stop: 08/05/21 16:20 Labetalol HCl (Labetalol Hcl 300 Mg Tab) 300 mg PO Q8 [facility] Stop: 08/08/21 08:59 Last Admin: 07/09/21 08:08 Dose: 300 mg Documented by: Lactobacillus Acidophilus (Advanced Probiotic 1250 Mg Capsule) 2 cap PO DAILY [facility] Stop: 08/08/21 14:14 Last Admin: 07/10/21 09:23 Dose: 2 cap Documented by: Multi-Ingredient Mouthwash/Gargle (First - Mouthwash Blm 119 Ml) 5 ml PO Q8H PRN PRN Reason: apthous ulcer Stop: 08/04/21 22:29 Ondansetron HCl (Ondansetron Inj 2 Mg/Ml 2 Ml Vial) 4 mg IV Q6H PRN PRN Reason: Nausea And Vomiting Stop: 08/04/21 19:49 Oxycodone HCl (Oxycodone Hcl Ir 5 Mg Tab (Immediate Release)) 5 mg PO Q4H PRN PRN Reason: Pain Stop: 07/19/21 19:49 Last Admin: 07/10/21 07:43 Dose: 5 mg Documented by: Saccharomyces Boulardii (Saccharomyces Boulardii 250 Mg Cap) 250 mg PO DAILY [facility] Stop: 08/08/21 14:14 Last Admin: 07/10/21 09:24 Dose: 250 mg Documented by:
--- NOTE | 2021-07-10 13:46 | XRay Report ---
XR chest 2V PA/lateral CLINICAL HISTORY: febrile, post op COMPARISON STUDY: Chest CT and chest radiograph July 05, 2021. FINDINGS: Lung volumes are diminished, unchanged. No pneumothorax or pleural effusion is present. The re is no evidence for pulmonary edema. There is no consolidation. The appearance of the chest is unch anged. Cardiomediastinal silhouette is unremarkable. IMPRESSION: No acute cardiopulmonary findings. ACT 112: Negative or not required by law. Electronically signed by: William Spears M.D. 07/10/2021 1:45 PM
[2021-07-10] MEDS ORDERED: OPTIRAY 320 100ml IV ONE (15:24)
--- NOTE | 2021-07-10 15:47 | CT Scan Report ---
CT OF THE ABDOMEN AND PELVIS WITH CONTRAST CLINICAL HISTORY: fever. Hemorrhage. Evaluate for abscess. COMPARISON STUDY: CT of the abdomen and pelvis July 05, 2021. TECHNIQUE: Following IV administration of 95 mL of Optiray, axial images of the abdomen and pelvis we re obtained from the lung bases to the proximal femurs. Images were reviewed in the axial, sagittal, and coronal planes. IV contrast was administered without complication. Automated exposure control wa s utilized for the study. A dose lowering technique was utilized adhering to the principles of ALARA . CT DOSE: 352.82 mGy.cm FINDINGS: No consolidation to suggest pneumonia within the visualized lower lungs is noted. No pneuma tosis, free air or portal venous gas is present. No hepatic lesions are present. There is no biliary or pancreatic ductal dilatation. Mild hepatosplenomegaly is unchanged. The adrenal glands, kidneys an d pancreas are unremarkable. There is no hydronephrosis. Nephrograms are symmetric. No evidence for a bowel obstruction. Appendix is not well visualized. Postoperative findings from section are noted. A small amount gas within the subcutaneous tissues of the lower abdominal wall and pelvis are again noted. A small amount of fluid and stranding has slightly increased since prior exam. This ove rlies the rectus sheath. No associated fluid collection is present. Prominence of the bilateral rectu s muscles is unchanged. These appear edematous. Complex debris within the endometrial canal is noted. This has decreased since prior CT of July 05, 2021. Possible defect within the right lower anterior ut erine segment is again noted. Adjacent 1.6 cm fat attenuation density is unchanged. A small amount of adjacent fluid with minimal peripheral enhancement is noted. No drainable fluid collection is presen t. This fluid is similar to prior CT. Major vasculature is patent. No new fluid collections are prese nt. No acute fracture or suspicious lesion within the visualized skeletal structures. No areas of bon y destruction to suggest acute osteomyelitis by CT. IMPRESSION: 1. Complex debris within the endometrial canal, decreased since CT of July 05, 2021. This likely reflec ts blood products. Retained products of conception or endometritis cannot be excluded. 2. Status post section. Slight increase in the fluid within the deep subcutaneous tissues si nce prior exam. This is nonspecific. No associated fluid collection. 3. Apparent defect versus section scar within the right lower anterior uterine segment. This is not well evaluated by CT and integrity of the lower uterine wall cannot be confirmed. This is unc hanged since prior CT. Adjacent fat attenuation density is also unchanged. 4. No change in a small amount of fluid with mild peripheral enhancement along anterior aspect of the lower uterine segment. This could reflect resolving hematoma or phlegmon. A small developing abscess is considered less likely. 5. No bowel obstruction. ACT 112: Negative or not required by law. Electronically signed by: William Spears M.D. 07/10/2021 3:46 PM
[2021-07-10 15:56] LABS: Appearance Urine Cloudy (Clear); Bacteria Urine Automated Negative (Negative); Bilirubin Urine Negative (Negative); Blood Urine 3+ (Negative); Color Urine Yellow; Epithelial Cell Urine Auto >30 /lpf (0-5); Glucose Urine UA Negative (Negative); Ketones Urine Negative (Negative); Leukocyte Esterase Urine 2+ (Negative); Nitrite Urine Negative (Negative); Protein Urine 1+ (Negative); Specific Gravity Urine 1.013 (1.000-1.030); Urobilinogen Urine Negative (Negative); WBC Urine Automated >30 /hpf (0-5); pH Urine 5.5 (4.5-7.5)
[2021-07-10] MEDS ORDERED: GENTAMICIN CONSULT ACTIVE PRN (16:05)
--- NOTE | 2021-07-10 16:27 | Communication Note ---
Date of Service: July 10, 2021 Update of events thus far today. Notified of fever 38.8C by floor RN Emy Murphy. Orders given for CXR and COVID, based on patient exam this AM with cough and ?chills. Review of chart also shows hypertensive BP recorded during PT evaluation within their note, but not in the patient's vital statistics log. [place] text with Dr. Calderon, requesting patient be transferred primarily to medicine service given her destabilization. He accepts that as reasonable plan and notes that he will move patient to telemetry and order additional workup to include CT C/A/P and other items. Received message from MANJIT Quevedo that patient's partner was requesting to speak with me specifically. I visited Diane and her partner. Diane was up in a chair, eating some fruits a nd vegetables, smiling, appearing comfortable. Partner notes that he is worried about transfer to the new service, and says that he also feels it is time for Diane to be transferred to a tertiary care facility. Diane herself does not seem to feel strongly about this, but does not object to the idea of a transfer to [facility] if it's available. Partner worries that a fresh set of eyes on Diane's case is needed to provide a second opinion, as she is not yet fully well. I do not know how to initiate an "elective" transfer but offer to seek information about this possibility for them. Finding MANJIT Quevedo at the nurses' station, I relayed the partner's concerns and inquired about the process for this type of transfer. She suggested that I discuss with Dr. Lakhani, which I did by phone at that time, briefly reviewing this case and asking her thoughts. Although a lateral transfer such as to [facility] is unlikely to be possible, at least with insurance coverage for the involved care, she suggested we can offer a fresh set of eyes / second opinion via the upcoming changes of shift here at [facility]. I also called case management and spoke with Thang Ram to get her input, and was similarly advised that a lateral transfer is unlikely. A pre- authorization could potentially be requested from insurance but is extremely unlikely to be given without the need for specialized care available at the second institution not available at the first. I re-located Diane and her partner in their new second floor room, and shared this with them. While it appears difficult to offer lateral transfer with insurance coverage for the care being provided on both ends, we hope to be able to meet their goals of a fresh set of eyes and a new opinion on the case by having new hospitalist team members assume coverage of this case. The partner seemed pleased with this, but continues to want to pursue the option of transfer "in case it is still needed." Diane had been mostly quiet throughout the above discussions, and did at this point ask her partner to stay calm, noting she would prefer to let the new team take care of her and go through the testing and treatment plan here for now. She tells him she is feeling better and is not worried, and would like him to try to be happy with that. My reading of the dynamic is that he is doing his best to be supportive and protective of his partner in a very frustrating, frightening time. Emotional support provided to both. Partner asked that I have case management visit with him personally, to confirm that it is truly unlikely they can be transferred, and answer his questions about what if anything he can do to attempt to facilitate this or understand why it is not possible if that's the case. Consult placed, and communicated to Thang Ram. She will see the patient and partner on Sunday when weekday resources are available to better address these questions, as it's unlikely anything more can be done today.
[2021-07-10] MEDS ORDERED: GENTAMICIN SULFATE 350 MG in DEXTROSE 5% 100 ML IV SCH (16:30)
[2021-07-10 16:31] LABS: Renal Epithelial Cells Urine 0-5 /lpf (0-5)
[2021-07-10] MEDS ORDERED: SODIUM CHLORIDE 0.9% 1000ML 1,000 ML IV SCH (17:00)
[2021-07-10] MEDS: CLINDAMYCIN 900 MG in DEXTROSE 5% 50 ML IV SCH ×2 (21:34→23:12)
[2021-07-11] MEDS: ACETAMINOPHEN 325 MG TAB PO PRN ×2 (01:39→11:48)
[2021-07-11] MEDS: guaiFENesin 600 MG TABCR PO SCH ×3 (02:30→20:17)
[2021-07-11] MEDS: BENZONATATE 100 MG CAPSULE PO PRN (02:30)
--- NOTE | 2021-07-11 02:38 | Communication Note ---
Date of Service: July 11, 2021 Patient with hemoptysis complaints as per RN. No chest pain or shortness of breath. Cough symptoms present since intubation from OB surgery 2 weeks ago. AP Hemoptysis Possible post intubation tracheitis Mucolytic Rx, antitussives as needed Solu-Medrol 1 dose Appropriate to hold heparin subcu for now Will relay to AM provider.
[2021-07-11] MEDS ORDERED: methylPREDNISolone 20 MG in SYRINGE 0 ML IV ONE (02:45)
[2021-07-11] MEDS: CLINDAMYCIN 900 MG in DEXTROSE 5% 50 ML IV SCH ×2 (06:00→13:19)
--- NOTE | 2021-07-11 07:35 | Gynecologic Progress Note ---
Date of Service July 11, 2021 Assessment & Plan (1) fever: Plan: Patient's severe preeclampsia now seems to be settling to normotension / borderline HTN without antihypertensives; may or may not require restart of labetalol, observing for now. fever of unclear origin. No obvious infectious source. CT findings could be c/w infection/inflammation in the pelvis but also can be c/w normal recovery from the delivery and laparotomy she has undergone; symptoms, clinical exam and labs suggest the latter. No visible thrombus, though SPT can be non- visualized - but she was in theory adequately treated for SPT already. Other than the warm antibody that she possesses, I have few additional suggestions to the workup already in progress. Have had lengthy and detailed signout of the weekend events with oncoming Dr. Flores, and we will continue to follow closely. Admission and Anticipated Discharge Date Admission Date: July 07, 2021 Subjective 26yo s/p CSec on 06/25 followed by ExLap evacuation of hemoperitoneum and control of L uterine artery the following morning, with subsequent hospital discharge 07/01 after management of ongoing HTN with labetalol as well as fevers treated with antibiotics. She was seen in office and then re-admitted via ER on 07/05 for hypertension with labile pressures, as well as fevers of unknown origin, theorized to be septic pelvic thrombophlebitis. Also found to have CINDY with Cr 1.47, Troponin elevation likely 2/2 demand, apthous ulcers. Patient was improved and expected to be ready for discharge over the weekend at the time I assumed her care Sunday. That day, however, she experienced hypotension and her antihypertensive meds were discontinued; she was then kept as inpatient to allow 24 hour observation without these meds to determine if this would be the right regimen for her. During that 24 hours the patient unfortunately developed fevers once again. At that point she was transferred to the medicine service for further workup and treatment. She has had significant imaging, cultures, labs, and all are reviewed; as yet there is still no obvious infectious or visible thrombotic source of her fever. This morning I visited with Diane by herself for about 15 minutes before Justus arrived to join her. She was asleep on my arrival and I woke her to ro und. She voiced that she was having no pain, eating and drinking well, voiding, still having diarrhea. Her vaginal bleeding remains scant and unchanged, and is without foul odor. She has no current cough or urge to do so but notes "it comes and goes," and did have an episode of streaky hemoptysis overnight. Denies leg cramps or swelling. No headache, vision changes or RUQ pain. Physical Exam Physical Exam: Lying supine, asleep and then woken for conversation and exam. Appears comfortable. Constitutional: WD/WN, vitals as above Eyes: PERRL, conjunctivae normal, anicteric sclerae ENMT: Ears: no hearing impairment Neck: normal visual inspection Respiratory: no respiratory distress Cardiovascular: Rate/Rhythm: regular rate and regular rhythm Gastrointestinal (Abdomen): Inspection/Auscultation: abdomen normal to inspection and + abdominal surgical incision (c/d/i); abdomen not distended and no abdominal edema Musculoskeletal: Extremities: extremities normal to inspection and strength 5/5 throughout No LE edema. SCD's not being worn. Neg Jason's. DTR 2+. Skin: no rashes, warm and dry Neurologic: moves all extremities Speech / Cognition: normal speech Motor/Sensory: no tremor and normal movement Psychiatric: A+Ox3, euthymic affect Genitourinary: Lochia scant, malu pad in place. Fundus is well contracted and nontender. Results & Data ([facility]) Vital Signs (Past 12 Hours) Vital Signs Temp Pulse Pulse Resp BP BP Pulse Ox 07/11/21 07:05 124 H 07/11/21 06:43 98.4 F 99 H 18 138/94 97 07/11/21 06:08 98.8 F 103 H 20 129/87 96 07/11/21 03:10 100.0 F H 07/11/21 01:46 134/88 07/11/21 01:44 102.9 F H 111 H 20 148/102 H 97 07/10/21 22:41 98.6 F 106 H 18 133/90 100 07/10/21 22:23 103 H 07/10/21 20:35 98.2 F 110 H 20 129/89 99 PG Care Time/CCT Total # of Minutes Spent Total Time Spent with Patient: Total time spent is greater than 50% in coordination of care (as documented) at patient's floor/unit and/or counseling patient: Coding Level of Care Code None Diagnoses fever O86.4
[2021-07-11 07:58] LABS: Hematocrit (blood only) 22.5 % (37-47); Hemoglobin 7.3 g/dL (12.0-16.0); Mean Corpuscular Hemoglobin 29.2 pg (25-34); Mean Corpuscular Hgb Conc 32.4 g/dL (32-36); Mean Platelet Volume 8.7 fL (7.4-10.4); Nucleated RBC # (auto) 0.02 K/uL (0-0); Nucleated RBC % (auto) 0.4 %; Platelet Count 299 K/uL (130-400); RDW Coefficient of Variation 15.7 % (11.5-14.5); RDW Standard Deviation 51.2 fL (36.4-46.3); White Blood Count 5.84 K/uL (4.8-10.8)
[2021-07-11 08:08] LABS: Creatinine Clr Calc Pharmacy 76.6 ml/min; Est GFR (African American) 95.3 ml/min; Est GFR (Non-African American) 82.2 ml/min
[2021-07-11 08:11] LABS: Basophils # (auto) 0.01 K/uL (0-0.2); Basophils % (auto) 0.2 %; Eosinophils # (auto) 0.01 K/uL (0-0.5); Eosinophils % (auto) 0.2 %; Immature Granulocytes # (auto) 0.05 K/uL (0.00-0.02); Immature Granulocytes % (auto) 0.9 %; Lymphocytes # (auto) 0.95 K/uL (1.2-3.4); Lymphocytes % (auto) 16.3 %; Monocytes % (auto) 1.7 %; Neutrophils # (auto) 4.72 K/uL (1.4-6.5); Neutrophils % (auto) 80.7 %; Tear Drop Cells Occasional
[2021-07-11 08:19] LABS: Partial Thromboplastin Ratio 1.9
[2021-07-11] MEDS: ADVANCED PROBIOTIC 1250 MG CAPSULE PO SCH (08:20)
[2021-07-11] MEDS: FERROUS SULFATE 325 MG TAB PO SCH (08:20)
[2021-07-11] MEDS: SACCHAROMYCES BOULARDII 250 MG CAP PO SCH (08:20)
[2021-07-11 08:25] LABS: Partial Thromboplastin Time 50.9 Seconds (21.0-31.0)
[2021-07-11] MEDS: LABETALOL HCL 100 MG TAB PO SCH ×3 (10:35→20:17)
[2021-07-11 11:39] LABS: Dohle Bodies 1+
--- NOTE | 2021-07-11 11:51 | Gynecologic Progress Note ---
Date of Service July 11, 2021 Assessment & Plan Admission and Anticipated Discharge Date Admission Date: July 07, 2021 Subjective I was asked to come to bedside to evaluate incision. After getting up this morning, Diane has had a small amount of red blood coming from the middle of the incision. Has created a quarter-sized spot on dressing. Denies pain. On examination, the incision is clean and intact, except for a pinpoint spot that is oozing a few drops of dark blood at a time at the middle of the pfannensteil incision. I was able to express a bit more dark blood with manipulation of the incision. No obvious pus. The wound itself appears to be healing well. There is no erythema or induration. No fluxuant mass at the incision site. Suspect this is some oozing of blood from incision, possibly related to recent use of anticoagulants and high PTT, rather than an incisional hematoma - given no fluxuant mass on exam and negative findings on yesterday's CT scan. Applied gauze and tape to achieve a "pressure dressing" for hemostasis. Will continue to monitor this. Patient's Hgb dropped from yesterday, there are already orders to recheck this afternoon. Results & Data ([facility]) Vital Signs (Past 12 Hours) Vital Signs Temp Pulse Pulse Pulse Resp BP BP 07/11/21 11:32 38.5 C H 97 H 18 130/88 07/11/21 07:05 124 H 07/11/21 06:43 36.9 C 99 H 18 138/94 07/11/21 06:08 37.1 C 103 H 20 129/87 07/11/21 03:10 37.8 C H 07/11/21 01:46 134/88 07/11/21 01:44 39.4 C H 111 H 20 148/102 H Pulse Ox 07/11/21 11:32 98 07/11/21 07:05 07/11/21 06:43 97 07/11/21 06:08 96 07/11/21 03:10 07/11/21 01:46 07/11/21 01:44 97
--- NOTE | 2021-07-11 14:03 | Pharmacy Report ---
ED Pharmacist Progress Note - ED Pharmacist Progress Note Date of Service:: July 11, 2021 Notes:: 26 year old F receiving gentamicin and clindamycin for treatment of possible endometritis. Patient has been febrile within the past 24 hours, cultures remain negative to date. Will monitor scr as it is somewhat elevated from baseline however CrCl remains >60 mL/min. Will obtain a trough this evening to ensure dose is appropriate given elevation of scr from baseline. If trough level > 1 may consider transition to traditional dosing. Day # 2 of antimicrobial therapy. Plan Gentamicin * 5 mg/kg actual body weight (350mg) q24h * Trough level target of <1 mcg/mL * Trough level ordered for: 07/11/21 @1999 Pharmacy will continue to follow and will adjust dose/frequency as necessary. Thank you.
[2021-07-11 15:28] LABS: Hematocrit (blood only) 22.4 % (37-47); Hemoglobin 7.4 g/dL (12.0-16.0)
[2021-07-11] MEDS: AMPICILLIN/SULBACTAM SOD 3,000 MG in 0.9 % SODIUM CHLORIDE 100 ML IV SCH ×2 (16:27→22:11)
[2021-07-11] MEDS ORDERED: GENTAMICIN TROUGH SCH (20:00)
[2021-07-11] MEDS ORDERED: GENTAMICIN SULFATE 350 MG in DEXTROSE 5% 100 ML IV SCH (21:00)
--- NOTE | 2021-07-11 21:12 | Hospitalist Progress Note ---
Date of Service July 11, 2021 Assessment & Plan (1) fever: Plan: Fever of Unknown origin Causes of fever could be multifactorial including inflammatory, posttransfusion fever, Status post section on 06/24/2021 followed by exploratory laparotomy on 06/25/2021 to control bleeding Noted to have fever of 38.2 on 28 June and received oral antibiotics for an apparent endometritis She received a total of 8 unit PRBC, TXA, 2 unit FFP and cryoprecipitate for hemorrhage She has been having fever and chills and was admitted on 07/05/2021 with ongoing fever and chills Her CT of the abdomen pelvis and CTA of the chest are unremarkable UA has been negative so far CTA chest showed consolidation to suggest pneumonia. Minimal left lower lobe opacity consistent with atelectasis. Negative blood culture, procalcitonin and no leukocytosis ID on board - IV zosyn discontinue and starting on Unasyn Repeat blood pending Continue monitor closely (2) S/P : Plan: on 06/24/2021 and followed by Exploratory laparotomy on for massive postop bleeding requiring a total of 8 unit PRBC, TXA, 2 unit FFP and cryoprecipitate for hemorrhage Management as per [employer] (3) hemorrhage: Plan: As above (4) Severe preeclampsia: Plan: History of severe preeclampsia Status post urgent delivery by [id number] is doing well as of today Blood pressure remains elevated We will continue with labetalol and Norvasc's was added Blood pressure seems to be stable Blood pressure noted to be low this morning at 97/73 Amlodipine will be discontinued and labetalol has been on hold Further management of blood pressure will be as per primary Blood pressure seems to be stable without the blood pressure medications Hypertension BP impoved Labetalol decreased from 300 to 100mg due to low BP Continue monitor BP Anemia Hgb dropped to 7.4 t Continue monitor CBC (5) CINDY (acute kidney injury): Plan: Noted to have CINDY likely secondary to dehydration Creatinine 1.47 on admission and is improved to 1.23 as of today Advised to drink more fluid Will try to avoid giving much normal saline due to high blood pressure Kidney function is normalized resolved (6) Endometritis: Plan: Thought to have endometritis with ongoing fever No evidence of increasing white count Has been getting Zosyn will change to oral Augmentin for 3 more days Not endometrial drainage and no history fever and or chills Doubt any endometritis given no discharge and remains afebrile (7) Elevated troponin: Plan: Likely secondary to high blood pressure and strain pattern No evidence of ACS as per serial troponins DVT prophylaxis- SCD/ pt was encouraged to ambulate Admission and Anticipated Discharge Date Admission Date: July 07, 2021 Subjective Pt was seen and examined for follow up of fever of unknown origin Sitting on the bed the bed with no acute distress with at bedside Pt said that she was febrile last night Pt said that fever persistent mostly at night. currently she feels ok After the encounter, pt was ok to stay in the hospital to continue receiving care Denies any chest pain, palpitation, dizziness and SOB Review of Systems Review of Systems: All systems reviewed & are unremarkable except as noted in Subjective Physical Exam Physical Exam: General- No acute distress Head- atraumatic Eyes- PERRL, EOMI, ENT- oropharynx clear Neck- supple, no JVD Lungs- clear to auscultation Heart- regular rhythm; no murmur Abdomen- normal bowel sounds, soft, +tender at the incision area, incision is clean and intact, except pinpoint spot that is oozing a few drops of dark blood in the middle of the incision. Extremities- no calf tenderness Neuro- alert, oriented x 3; PERRL, EOMI; no facial palsy; no dysarthria Skin- warm & dry Results & Data Results & Data ([facility]) Vital Signs (Past 12 Hours) Vital Signs Temp Pulse Pulse Pulse Resp BP BP 07/11/21 19:42 36.6 C 94 H 20 126/88 07/11/21 15:42 36.8 C 90 18 134/94 07/11/21 15:23 36.9 C 75 18 133/91 07/11/21 14:48 95 H 07/11/21 11:32 38.5 C H 97 H 18 130/88 Pulse Ox 07/11/21 19:42 99 07/11/21 15:42 99 07/11/21 15:23 98 07/11/21 14:48 07/11/21 11:32 98
[2021-07-12] MEDS: AMPICILLIN/SULBACTAM SOD 3,000 MG in 0.9 % SODIUM CHLORIDE 100 ML IV SCH ×4 (04:11→22:06)
--- NOTE | 2021-07-12 06:07 | Billing Data ---
Date of Service July 12, 2021 Coding Level of Care Code 43599 Inpt Consult Level 3
[2021-07-12 07:29] LABS: Hematocrit (blood only) 21.4 % (37-47); Hemoglobin 6.8 g/dL (12.0-16.0)
[2021-07-12 07:39] LABS: Partial Thromboplastin Ratio 1.7
[2021-07-12 07:43] LABS: Creatinine Clr Calc Pharmacy 82.4 ml/min; Est GFR (African American) 104.4 ml/min; Est GFR (Non-African American) 90.1 ml/min
--- NOTE | 2021-07-12 07:48 | Gynecologic Progress Note ---
Date of Service July 12, 2021 Assessment & Plan (1) fever: Plan: Last elevated temp 07/11 11:32a 38.5. Patient has been treated with multiple antibiotics and ID was consulted by primary team. Currently on Unasyn. I think endometritis as a cause is unlikely, given lack of fundal tenderness. No vaginal bleeding or foul-smelling discharge. Delivery was by , therefore retained products of conception is possible but unlikely, and would expect bleeding if this were the case. Septic pelvic thrombophlebitis is another consideration, but this has not been seen on CT scan, and would think that patient has received enough anticoagulants at this point to treat if this were the cause of her fevers. Considered incisional hematoma, given yesterday's small amount of bleeding from a pinpoint defect in the incision, however she is now 2+ weeks out from surgery and CT scan 2 days ago did not show concern for incisional hematoma. The rest of the incision is c/d/i and appears to be healing well, and hemostasis was easily achieved with a pressure dressing. Suspect this expression of blood was possibly a result of fundal exam yesterday morning during [employer] rounds. Appreciate primary team's exploration via peripheral smear into potential blood dyscrasias, given her massive transfusion. Also appreciate ID involvement. (2) S/P : Admission and Anticipated Discharge Date Admission Date: July 07, 2021 Subjective Morning rounds, Diane was sleeping but easily awoken and talkative. States she is feeling well this morning. She has been ambulating in the halls, states she took a longer walk yesterday. States she does not feel feverish. Lochia is less than a period. After yesterday's small amount of bleeding from the incision, she has had no further bleeding from the site and the pressure bandage was changed this morning, no further bleeding. No headaches, no vision change. She had been stopped all BP meds over the weekend - is now taking 100mg TID labetalol. BPs have been well-controlled. She has been breast pumping, states she is now getting between 5-7 ml of breast milk per day. Physical Exam Physical Exam: Gen: AAOx3 NAD Abd: soft, NTTP, nondistended. Incision clean/dry. No further bleeding from incision. No fundal/uterine tenderness. : scant lochia Ext: no edema, no calf tenderness Results & Data ([facility]) Vital Signs (Past 12 Hours) Vital Signs Temp Pulse Pulse Resp BP Pulse Ox 07/12/21 06:41 37.1 C 98 H 20 114/78 97 07/12/21 04:00 37.1 C 102 H 20 122/83 96 07/11/21 23:11 36.8 C 92 H 20 131/91 100 07/11/21 22:23 111 H 07/11/21 19:42 36.6 C 94 H 20 126/88 99
[2021-07-12] MEDS ORDERED: SODIUM CHLORIDE 0.9% 250 ML IV PRN (07:53)
[2021-07-12] MEDS: ACETAMINOPHEN 325 MG TAB PO PRN ×3 (10:25→22:37)
[2021-07-12] MEDS: FERROUS SULFATE 325 MG TAB PO SCH (10:26)
[2021-07-12] MEDS: guaiFENesin 600 MG TABCR PO SCH ×2 (10:26→20:09)
[2021-07-12] MEDS: LABETALOL HCL 100 MG TAB PO SCH ×3 (10:26→20:09)
[2021-07-12] MEDS: SACCHAROMYCES BOULARDII 250 MG CAP PO SCH (10:27)
[2021-07-12] MEDS: ADVANCED PROBIOTIC 1250 MG CAPSULE PO SCH (10:27)
--- NOTE | 2021-07-12 17:08 | Hospitalist Progress Note ---
Date of Service July 12, 2021 Assessment & Plan (1) fever: Plan: Fever of Unknown origin Causes of fever could be multifactorial including inflammatory, posttransfusion fever, Status post section on 06/24/2021 followed by exploratory laparotomy on 06/25/2021 to control bleeding Noted to have fever of 38.2 on 28 June and received oral antibiotics for an apparent endometritis She received a total of 8 unit PRBC, TXA, 2 unit FFP and cryoprecipitate for hemorrhage She has been having fever and chills and was admitted on 07/05/2021 with ongoing fever and chills Her CT of the abdomen pelvis and CTA of the chest are unremarkable UA has been negative so far CTA chest showed consolidation to suggest pneumonia. Minimal left lower lobe opacity consistent with atelectasis. Negative blood culture, procalcitonin and no leukocytosis ID on board - IV zosyn discontinue and starting on Unasyn Repeat blood no growth Continue monitor closely (2) S/P : Plan: on 06/24/2021 and followed by Exploratory laparotomy on for massive postop bleeding requiring a total of 8 unit PRBC, TXA, 2 unit FFP and cryoprecipitate for hemorrhage Management as per SERVICE SUPERINTENDENT (3) hemorrhage: Plan: As above (4) Severe preeclampsia: Plan: History of severe preeclampsia Status post urgent delivery by [id number] is doing well as of today Blood pressure remains elevated We will continue with labetalol and Norvasc's was added Blood pressure seems to be stable Blood pressure noted to be low this morning at 97/73 Amlodipine will be discontinued and labetalol has been on hold Further management of blood pressure will be as per primary Blood pressure seems to be stable without the blood pressure medications Hypertension BP impoved Labetalol decreased from 300 to 100mg due to low BP Continue monitor BP Anemia Hgb dropped to 6.8 today type an crossed and transfused 1 unit PRBC Continue monitor H/H (5) CINDY (acute kidney injury): Plan: Noted to have CINDY likely secondary to dehydration Creatinine 1.47 on admission and is improved to 1.23 as of today Advised to drink more fluid Will try to avoid giving much normal saline due to high blood pressure Kidney function is normalized resolved (6) Endometritis: Plan: Thought to have endometritis with ongoing fever No evidence of increasing white count Has been getting Zosyn will change to oral Augmentin for 3 more days Not endometrial drainage and no history fever and or chills Doubt any endometritis given no discharge and remains afebrile (7) Elevated troponin: Plan: Likely secondary to high blood pressure and strain pattern No evidence of ACS as per serial troponins DVT prophylaxis- SCD due to anemia. Encouraged to ambulate Admission and Anticipated Discharge Date Admission Date: July 07, 2021 Subjective Pt was seen and examined for follow up of fever and anemia Sitting in bed with no acute distress Pt said that she did not sleep well last night she said that she feels fine She has been walking in the hallway She has been afebrile for 24 hrs Hgb dropped to 6.8 and plan to receive 1 unit PRBC Denies any chest pain, palpitation, dizziness and SOB Review of Systems Review of Systems: All systems reviewed & are unremarkable except as noted in Subjective Physical Exam Physical Exam: General- No acute distress Head- atraumatic Eyes- PERRL, EOMI, ENT- oropharynx clear Neck- supple, no JVD Lungs- clear to auscultation Heart- regular rhythm; no murmur Abdomen- normal bowel sounds, soft, +mild tender at the incision area, dressing is clean and intact Extremities- no calf tenderness Neuro- alert, oriented x 3; PERRL, EOMI; no facial palsy; no dysarthria Skin- warm & dry Results & Data Results & Data ([facility]) Vital Signs (Past 12 Hours) Vital Signs Temp Pulse Pulse Resp BP BP BP 07/12/21 15:55 37.1 C 90 18 125/89 07/12/21 15:00 83 07/12/21 14:47 36.5 C 82 16 130/96 07/12/21 13:52 37 C 83 16 135/86 07/12/21 13:26 37 C 85 16 127/81 07/12/21 13:12 36.9 C 87 18 122/85 07/12/21 12:52 36.9 C 84 16 119/83 07/12/21 11:14 37.0 C 91 H 18 121/83 07/12/21 08:00 90 07/12/21 06:41 37.1 C 98 H 20 114/78 Pulse Ox 07/12/21 15:55 98 07/12/21 15:00 07/12/21 14:47 99 07/12/21 13:52 97 07/12/21 13:26 97 07/12/21 13:12 98 07/12/21 12:52 98 07/12/21 11:14 98 07/12/21 08:00 07/12/21 06:41 97
[2021-07-12 20:13] LABS: Hematocrit (blood only) 26.6 % (37-47); Hemoglobin 8.7 g/dL (12.0-16.0)
[2021-07-12] MEDS ORDERED: LACTATED RINGER'S 1,000 ML IV ONE (23:34)
[2021-07-13] MEDS: AMPICILLIN/SULBACTAM SOD 3,000 MG in 0.9 % SODIUM CHLORIDE 100 ML IV SCH ×4 (05:01→23:53)
[2021-07-13 05:51] LABS: Hematocrit (blood only) 27.3 % (37-47); Hemoglobin 8.8 g/dL (12.0-16.0); Mean Corpuscular Hemoglobin 29.6 pg (25-34); Mean Corpuscular Hgb Conc 32.2 g/dL (32-36); Mean Corpuscular Volume 91.9 fL (80-100); Mean Platelet Volume 8.2 fL (7.4-10.4); Nucleated RBC # (auto) 0.04 K/uL (0-0); Nucleated RBC % (auto) 0.8 %; Platelet Count 316 K/uL (130-400); RDW Coefficient of Variation 15.2 % (11.5-14.5); RDW Standard Deviation 50.2 fL (36.4-46.3); Red Blood Count 2.97 M/uL (4.2-5.4); White Blood Count 4.83 K/uL (4.8-10.8)
[2021-07-13 06:09] LABS: Creatinine Clr Calc Pharmacy 91.6 ml/min; Est GFR (African American) 118.8 ml/min; Est GFR (Non-African American) 102.5 ml/min
[2021-07-13 06:32] LABS: Basophils # (auto) 0.02 K/uL (0-0.2); Basophils % (auto) 0.4 %; Eosinophils # (auto) 0.04 K/uL (0-0.5); Eosinophils % (auto) 0.8 %; Immature Granulocytes # (auto) 0.21 K/uL (0.00-0.02); Immature Granulocytes % (auto) 4.3 %; Lymphocytes # (auto) 1.24 K/uL (1.2-3.4); Lymphocytes % (auto) 25.7 %; Monocytes # (auto) 0.29 K/uL (0.11-0.59); Neutrophils # (auto) 3.03 K/uL (1.4-6.5); Neutrophils % (auto) 62.8 %; Polychromasia 1+; Tear Drop Cells 1+
[2021-07-13] MEDS: FERROUS SULFATE 325 MG TAB PO SCH (08:05)
[2021-07-13] MEDS: SACCHAROMYCES BOULARDII 250 MG CAP PO SCH (08:05)
[2021-07-13] MEDS: guaiFENesin 600 MG TABCR PO SCH ×2 (08:05→19:57)
[2021-07-13] MEDS: ACETAMINOPHEN 325 MG TAB PO PRN ×2 (08:05→18:55)
[2021-07-13] MEDS: ADVANCED PROBIOTIC 1250 MG CAPSULE PO SCH (08:05)
[2021-07-13] MEDS: LABETALOL HCL 100 MG TAB PO SCH ×3 (08:05→19:57)
[2021-07-13 09:29] LABS: Hematocrit (blood only) 26.2 % (37-47); Hemoglobin 8.5 g/dL (12.0-16.0); Mean Corpuscular Hemoglobin 29.1 pg (25-34); Mean Corpuscular Hgb Conc 32.4 g/dL (32-36); Mean Corpuscular Volume 89.7 fL (80-100); Mean Platelet Volume 8.8 fL (7.4-10.4); Nucleated RBC # (auto) 0.04 K/uL (0-0); Nucleated RBC % (auto) 0.8 %; Platelet Count 327 K/uL (130-400); RDW Coefficient of Variation 15.5 % (11.5-14.5); Red Blood Count 2.92 M/uL (4.2-5.4); White Blood Count 4.84 K/uL (4.8-10.8)
--- NOTE | 2021-07-13 09:31 | Gynecologic Progress Note ---
Date of Service July 13, 2021 Assessment & Plan (1) Fever of unknown origin following delivery, : Plan: Diane is a 26-year-old who is 18 days from a Caesarean section which was followed on postop day 1 with a reoperation due to acute surgical bleeding. p regnancy course was complicated by severe preeclampsia patient was readmitted for preeclampsia exacerbation. patient has had labile blood pressures have shown significant improvement as of recent. Patient's current issue is fever of unknown origin I see no clear origin for the patient's fever on exam, history or imaging. fever of 38.1c last night at 11:30 p.m.. Antibiotic transition to Unasyn. Patient reports that she is doing well other than when she has the fevers at which time she reports a severe headache and chills. Will defer management to primary team. Consider transfer of care for second opinion as fevers continue and no clear origin noted (2) hemorrhage: (3) Severe preeclampsia: (4) Endometritis: Admission and Anticipated Discharge Date Admission Date: July 07, 2021 Subjective Patient had fever overnight at 11:30 a.m.. Patient reports that she felt chills and headache at the time of the fever. Patient reports that she feels well this morning with no concerns. Patient denies any significant abdominal or incisional pain. patient denying any other symptoms at the time of the fever denies any other pain or symptoms of urinary tract infection. Normal lochia noted. patient has productive cough denies other URI symptom Physical Exam Gastrointestinal (Abdomen): Inspection/Auscultation: abdomen not distended Percussion/Palpation: abdomen soft; abdomen nontender, no guarding and abdomen not rigid incision with dressing that is clean without strike through. Dressing was just recently changed. No pain noted around incision. No uterine tenderness noted. Results & Data ([facility]) Vital Signs (Past 12 Hours) Vital Signs Temp Pulse Pulse Resp BP Pulse Ox 07/13/21 08:00 37.5 C 115 H 18 137/96 98 07/13/21 02:55 37.5 C 96 H 16 123/86 97 07/13/21 02:11 37.1 C 144/99 H 07/12/21 23:30 38.1 C H 151/104 H 07/12/21 22:45 151/104 H 07/12/21 22:44 37.3 C 98 H 16 150/103 H 97 07/12/21 22:18 94 H PG Care Time/CCT Total # of Minutes Spent Total Time Spent with Patient: Total time spent is greater than 50% in coordination of care (as documented) at patient's floor/unit and/or counseling patient: Coding Level of Care Code 54721 Subseq Hosp Care Lvl 2 Diagnoses Fever of unknown origin following delivery, O86.4 hemorrhage O72.1 Severe preeclampsia O14.10 Endometritis N71.9
[2021-07-13 09:43] LABS: BUN Creatinine Ratio 15.4 (10-20); Calcium 8.2 mg/dl (8.5-10.1); Creatinine Clr Calc Pharmacy 94.4 ml/min; Est GFR (African American) 122.5 ml/min; Est GFR (Non-African American) 105.7 ml/min; Potassium 3.7 mmol/L (3.5-5.1)
[2021-07-13] MEDS ORDERED: traMADol HCL 50 MG TABLET PO STA (15:53)
[2021-07-13] MEDS: oxyCODONE HCL IR 5 MG TAB (IMMEDIATE RELEASE) PO PRN (16:08)
[2021-07-13] MEDS: BENZONATATE 100 MG CAPSULE PO PRN (16:10)
--- NOTE | 2021-07-13 16:52 | Hospitalist Progress Note ---
Date of Service July 13, 2021 Assessment & Plan (1) fever: Plan: Fever of Unknown origin Causes of fever could be multifactorial including inflammatory, posttransfusion fever, Status post section on 06/24/2021 followed by exploratory laparotomy on 06/25/2021 to control bleeding Noted to have fever of 38.2 on 28 June and received oral antibiotics for an apparent endometritis She received a total of 8 unit PRBC, TXA, 2 unit FFP and cryoprecipitate for hemorrhage She has been having fever and chills and was admitted on 07/05/2021 with ongoing fever and chills Her CT of the abdomen pelvis and CTA of the chest are unremarkable UA has been negative so far CTA chest showed consolidation to suggest pneumonia. Minimal left lower lobe opacity consistent with atelectasis. Negative blood culture, procalcitonin and no leukocytosis ID on board - IV zosyn discontinue and starting on Unasyn Continue Unasyn for now Repeat blood cx no growth Pt spiked fever last night, not sure if the fever was due to the recent blood transfusion yesterday Will need to reach to ID if afebrile for 24hr about final abx on discharge or if need to discontinue If fever persist tonight, family will ask for patient to transfer to a tertiary facility for second opinion Continue monitor closely (2) S/P : Plan: on 06/24/2021 and followed by Exploratory laparotomy on for massive postop bleeding requiring a total of 8 unit PRBC, TXA, 2 unit FFP and cryoprecipitate for hemorrhage Management as per CUSTODY ASSISTANT (3) hemorrhage: Plan: As above (4) Severe preeclampsia: Plan: History of severe preeclampsia Status post urgent delivery by C-jflgyiu-vublk is doing well as of today Blood pressure remains elevated We will continue with labetalol and Norvasc's was added Blood pressure seems to be stable Blood pressure noted to be low this morning at 97/73 Amlodipine discontinued and labetalol was on hold Continue labetalol 100mg TID Hypertension BP elevated today Labetalol decreased from 300 to 100mg due to low BP Continue labetalol 100mg TID for now If BP remains elevating, will consider to increase labetalol to 200mg TID Continue monitor BP Anemia Hgb dropped to 6.8, received 1 unit PRBC on 07/12 Continue monitor H/H If H/H continue to drop, will consider to repeat the CT scan (5) CINDY (acute kidney injury): Plan: Noted to have CINDY likely secondary to dehydration Creatinine 1.47 on admission and is improved to 1.23 as of today Advised to drink more fluid Will try to avoid giving much normal saline due to high blood pressure Kidney function is normalized resolved (6) Endometritis: Plan: Thought to have endometritis with ongoing fever No evidence of increasing white count Has been getting Zosyn will change to oral Augmentin for 3 more days Not endometrial drainage and no history fever and or chills Doubt any endometritis given no discharge and remains afebrile (7) Elevated troponin: Plan: Likely secondary to high blood pressure and strain pattern No evidence of ACS as per serial troponins DVT prophylaxis- SCD due to anemia. Encouraged to ambulate Admission and Anticipated Discharge Date Admission Date: July 07, 2021 Subjective Pt was seen and examined for follow up of fever and anemia Lying in bed with no acute distress She called the on her cellphone she said that she feels fine She spiked a fever last night after receiving blood transfusion I answered all questions from the patient and the Denies any chest pain, palpitation, dizziness and SOB Review of Systems Review of Systems: All systems reviewed & are unremarkable except as noted in Subjective Physical Exam Physical Exam: General- No acute distress Head- atraumatic Eyes- PERRL, EOMI, ENT- oropharynx clear Neck- supple, no JVD Lungs- clear to auscultation Heart- regular rhythm; no murmur Abdomen- normal bowel sounds, soft, +mild tender at the incision area, dressing is clean and intact Extremities- no calf tenderness Neuro- alert, oriented x 3; PERRL, EOMI; no facial palsy; no dysarthria Skin- warm & dry Results & Data Results & Data ([facility]) Vital Signs (Past 12 Hours) Vital Signs Temp Pulse Pulse Resp BP Pulse Ox 07/13/21 15:50 36.6 C 102 H 18 146/101 H 95 07/13/21 15:39 93 H 07/13/21 11:00 37.1 C 87 18 149/107 H 98 07/13/21 08:00 37.5 C 88 115 H 18 137/96 98
[2021-07-14] MEDS: ACETAMINOPHEN 325 MG TAB PO PRN ×2 (04:26→15:51)
[2021-07-14] MEDS: AMPICILLIN/SULBACTAM SOD 3,000 MG in 0.9 % SODIUM CHLORIDE 100 ML IV SCH ×3 (04:26→17:29)
--- NOTE | 2021-07-14 07:20 | Obstetrical Progress Note ---
Date of Service July 14, 2021 Assessment & Plan (1) Fever of unknown origin following delivery, : Plan: Spoke with patient her incision is no longer bleeding States she had a fever last night we will continue to follow along with the primary medical team Admission and Anticipated Discharge Date Admission Date: July 07, 2021 Results & Data ([facility]) Vital Signs (Past 12 Hours) Vital Signs Temp Pulse Pulse Resp BP BP Pulse Ox 07/14/21 07:08 99.5 F 99 H 18 141/99 H 98 07/14/21 03:00 100.9 F H 99 H 18 138/97 96 07/13/21 23:59 79 07/13/21 22:15 99.0 F 89 18 127/88 98 PG Care Time/CCT Total # of Minutes Spent Total Time Spent with Patient: Total time spent is greater than 50% in coordination of care (as documented) at patient's floor/unit and/or counseling patient: Coding Level of Care Code None Diagnoses Fever of unknown origin following delivery, O86.4
[2021-07-14] MEDS: FERROUS SULFATE 325 MG TAB PO SCH (07:57)
[2021-07-14] MEDS: guaiFENesin 600 MG TABCR PO SCH ×2 (07:57→21:30)
[2021-07-14] MEDS: LABETALOL HCL 100 MG TAB PO SCH ×3 (07:57→21:30)
[2021-07-14] MEDS: ADVANCED PROBIOTIC 1250 MG CAPSULE PO SCH (07:58)
[2021-07-14] MEDS: SACCHAROMYCES BOULARDII 250 MG CAP PO SCH (07:59)
[2021-07-14 08:16] LABS: Hematocrit (blood only) 26.3 % (37-47); Hemoglobin 8.6 g/dL (12.0-16.0); Mean Corpuscular Hemoglobin 29.5 pg (25-34); Mean Corpuscular Hgb Conc 32.7 g/dL (32-36); Mean Corpuscular Volume 90.1 fL (80-100); Mean Platelet Volume 8.7 fL (7.4-10.4); Nucleated RBC # (auto) 0.04 K/uL (0-0); Nucleated RBC % (auto) 0.9 %; Platelet Count 283 K/uL (130-400); RDW Coefficient of Variation 15.8 % (11.5-14.5); RDW Standard Deviation 51.1 fL (36.4-46.3); Red Blood Count 2.92 M/uL (4.2-5.4)
[2021-07-14 08:37] LABS: BUN Creatinine Ratio 11.7 (10-20); C Reactive Protein 1.14 mg/dl (0-0.5); Calcium 8.3 mg/dl (8.5-10.1); Creatinine Clr Calc Pharmacy 95.6 ml/min; Est GFR (African American) 124.4 ml/min; Est GFR (Non-African American) 107.3 ml/min; Potassium 3.8 mmol/L (3.5-5.1)
--- NOTE | 2021-07-14 12:24 | Obstetrical Progress Note ---
Date of Service July 14, 2021 Assessment & Plan (1) Fever of unknown origin following delivery, : Plan: Patient's fever has continued to relapse and remit, without ability to identify a clear infectious or non-infectious source. Peripheral smear does not show hemolytic process, there has been no convincing source of infection identified, no thrombotic process other than possible nonvisualized SPT which was addressed many days ago without resolution of fevers. Yeast was identified in one urine culture at lower than levels than are likely to result in candidal sepsis, and was most probably a contaminant - but out of desire to be complete, she is even being investigated for possible fungal sepsis via blood yeast cultures. The tiny opening in her incision is quite likely due to repeated examinations of the uterus, which is now well-contracted and low, situated behind the incision, to investigate concerns of possible endometritis. The incision had been c/d/i but it is early after her 2x laparotomies for the tissue in that area to tolerate repeated deep palpation without some liquefaction occurring, and I'm not terribly surprised to see the wound have an area of failure. Without malodor, pain, erythema or leukocytosis, without collection seen here on recent imaging, AND given the multiple antibiotics she has been on, I find it hard to think that this is an infection. The source of her fevers is thus unclear and she and Justus are understandably frustrated with her remaining in the hospital, resetting a 24 hour observation clock with every fever. A discussion was had today that included the hospitalist offering to discharge the patient to home despite today's 0300 fever, with outpatient antibiotics, close follow up, and the understanding that if Diane continues to have fever and wanted to obtain a second opinion she could then do so by presenting to a tertiary center for care. She elected not to take the hospitalist up on that offer, and instead to wait until tomorrow, taking tylenol at scheduled intervals and hoping to achieve the recommended 24 hours of inpatient observation after her last fever (0300) before leaving the hospital. Admission and Anticipated Discharge Date Admission Date: July 07, 2021 Subjective Patient discussed with hospitalist by phone this morning. Patient visited with hospitalist just now, approx 20min at bedside, and Justus on speakerphone as well. Diane is feeling better than she has been earlier this admission. Other than the continued occurrence of fevers, she has been walking around more easily, having more energy, and more frustrated with being in the hospital; really wants to be at home. No cough, no nausea. She is still having incisional drainage and last bandage placed at 0800 is being removed now. A 1" iroquois of serosanguineous drainage was shown to me by the RN before discard of the dressing. Diane denies incisional pain or tenderness. Physical Exam Physical Exam: Lying in bed, NAD, speaking fluidly. Eyes with white sclerae No external abnormality of ears, nose, mouth. Neck supple. Abdomen soft, NT, nondistended. Incision c/d/i except for a 1-2mm area just right of midline, where a serosanguineous drainage is visible as a droplet. Pal pation around this shows no collection, no fluctuance, and is not tender per the patient. I am unable to express any more fluid than that initial droplet. The opening is not large enough to permit passage of a culture swab into the wound. Fresh gauze applied. Skin dry without rashes or ecchymoses Constitutional: WD/WN, vitals as above Results & Data ([facility]) Vital Signs (Past 12 Hours) Vital Signs Temp Pulse Resp BP Pulse Ox 07/14/21 11:05 99.5 F 88 18 139/97 96 07/14/21 07:08 99.5 F 99 H 18 141/99 H 98 07/14/21 03:00 100.9 F H 99 H 18 138/97 96 PG Care Time/CCT Total # of Minutes Spent Total Time Spent with Patient: Total time spent is greater than 50% in coordination of care (as documented) at patient's floor/unit and/or counseling patient: Coding Level of Care Code None Diagnoses Fever of unknown origin following delivery, O86.4
[2021-07-14] MEDS: ACETAMINOPHEN 325 MG TAB PO SCH ×2 (12:31→21:29)
--- NOTE | 2021-07-14 13:51 | Hospitalist Progress Note ---
Date of Service July 14, 2021 Assessment & Plan (1) fever: Plan: Fever of Unknown origin Etiology is unclear Possibilities could be multifactorial including inflammatory, posttpartum Status post section on 06/24/2021 followed by exploratory laparotomy on 06/25/2021 to control bleeding Noted to have fever of 38.2 on 28 June and received oral antibiotics for possible endometritis She received a total of 8 unit PRBC, TXA, 2 unit FFP and cryoprecipitate for hemorrhage She has been having fever and chills and was admitted on 07/05/2021 with ongoing fever and chills Has had multiple blood cultures which are negative Multiple CT chest and CT abd and pelvis. Reviewed these with OBGYN Patient is clinically improving except for intermittent fevers Does not appear to have obvious wound infection/endometritis ID evaluation noted Was on zosyn and then changed to Unasyn per ID Urine culture from 07/12/21 grew alfonso 20,000U. This is likely contaminant considering previous urine cultures are negative and patient has no urinary symptoms I discussed with ID today. Though less likely but Ok with getting fungal blood culture. No antifungal recommended I spent over 40mins with patient and her partner (over the phone) discussing findings, concerns They are understandably frustrated with persistent fevers with no obvious etiology despite extensive workup OBGYN also joined the conversation. Patient and partner agreed to stay another day and plan discharge on oral antibiotics tomorrow. Patient believes she will do well at home. Fever seem to be very responsive to tylenol I think this is reasonable considering extensive workup. I did advise patient that if she goes home tomorrow, she needs to keep a fever diary and represent if fever persist. Partner stated if fever persists at home, they may consider a different facility for different opinion Will give scheduled tylenol today to help with back ache with activity and fever control. RN informed to ensure keeping tylenol daily dose max to <3250mg if possible (2) S/P : Plan: on 06/24/2021 and followed by Exploratory laparotomy on for massive postop bleeding requiring a total of 8 unit PRBC, TXA, 2 unit FFP and cryoprecipitate for hemorrhage Management as per 4TH GRADE TEACHER (3) hemorrhage: Plan: As above (4) Severe preeclampsia: Plan: History of severe preeclampsia Status post urgent delivery by Hypertension Currently on labetalol 100mg TID BP still elevated. Increase to 150mg TID and monitor Anemia Hgb dropped to 6.8, received 1 unit PRBC on 07/12 Hb remains stable. 8.6 today (5) CINDY (acute kidney injury): Plan: CINDY resolved Creatinine 1.47 on admission and is improved to 0.77 as of today (6) Elevated troponin: Plan: Likely secondary to high blood pressure and strain pattern No evidence of ACS as per serial troponins DVT prophylaxis- SCD due to anemia. Encouraged to ambulate Admission and Anticipated Discharge Date Admission Date: July 07, 2021 Subjective Patient seen and examined. Patient continues to have intermittent fevers. Reports at the time of fever episode she usually has some myalgia. Otherwise, she reports feeling better. Reports surgical site pain is much improved. Reports back pain (ongoing since prior to delivery) now with activity and much improved. Reports some cough from intubation during procedure which is also improved remarkably. Denies any headache, dizziness Denies diarrhea, constipation Denies shortness of breath, chest pain Denies nausea, vomiting Reports lochia volume is reducing RN noted some slight stain on surgical dressing Denies dysuria, freq, urgency, hematuria Physical Exam Constitutional: + well hydrated; no acute distress Eyes: PERRL, conjunctivae normal, anicteric sclerae ENMT: external ear and nose normal, oropharynx normal Respiratory: normal respiratory effort, lungs clear to auscultation Cardiovascular: RRR, no murmur, no edema Gastrointestinal (Abdomen): normal bowel sounds, soft, nontender, no hepatosplenomegaly Surgical site is healing well. Pinpoint area of serosanguinous stain, nontender Musculoskeletal: no cyanosis or clubbing, extremities motor strength 5/5 Neurologic: PERRL, EOMI, accommodation nl, no face palsy, no dysarthria Psychiatric: A+Ox3, euthymic affect Results & Data Results & Data ([facility]) Vital Signs (Past 12 Hours) Vital Signs Temp Pulse Resp BP Pulse Ox 07/14/21 11:05 37.5 C 88 18 139/97 96 07/14/21 07:08 37.5 C 99 H 18 141/99 H 98 07/14/21 03:00 38.3 C H 99 H 18 138/97 96 Laboratory Results Abnormal lab results 07/14/21 07/14/21 07/14/21 Range/Units 07:43 07:43 08:02 RBC 2.92 L (4.2-5.4) M/uL Hgb 8.6 L (12.0-16.0) g/dL Hct 26.3 L (37-47) % RDW Std Deviation 51.1 H (36.4-46.3) fL RDW Coeff of Mohit 15.8 H (11.5-14.5) % Absolute Nucleated RBC 0.04 H (0-0) K/uL ESR 37 H (0-20) mm/hr Sodium 135 L (136-145) mmol/L Calcium 8.3 L (8.5-10.1) mg/dl C-Reactive Protein 1.14 H (0-0.5) mg/dl
--- NOTE | 2021-07-14 16:31 | Communication Note ---
Date of Service: July 14, [address] Zacarias to discuss rising BP and recommend that we consider increasing patient's labetalol dose. While typing [employer] message, review chart / MAR / orders and find that Dr. Zacarias had also noted the change and has just signed order for increase of labetalol from 100mg to 150mg PO TID. Agree with increase and will continue to follow!
[2021-07-15] MEDS: ACETAMINOPHEN 325 MG TAB PO SCH ×3 (00:48→04:00)
[2021-07-15] MEDS: BENZONATATE 100 MG CAPSULE PO PRN (04:02)
[2021-07-15] MEDS: oxyCODONE HCL IR 5 MG TAB (IMMEDIATE RELEASE) PO PRN ×2 (04:02→09:04)
[2021-07-15] MEDS: AMPICILLIN/SULBACTAM SOD 3,000 MG in 0.9 % SODIUM CHLORIDE 100 ML IV SCH ×3 (04:09→11:30)
--- NOTE | 2021-07-15 07:16 | Obstetrical Progress Note ---
Date of Service July 15, 2021 Assessment & Plan (1) Fever of unknown origin following delivery, : Plan: Unfortunately Diane has continued to spike fevers overnight and her blood pressure is still not adequately controlled despite increase in labetalol dosing . Continue to titrate antihypertensives until controlled. Workup for fevers has been ongoing and hospitalist team efforts appreciated. At this time unclear what the source of her fever is. Incisional drainage not increased from yesterday, and with no tenderness/erythema/leukocytosis/collection, plus patient on unasyn as well as recently s/p multiple broad-spectrum abx, doubt incisional infection; more likely tissue trauma from repeated fundal exams due to suspicion of endometritis. Opening not large enough to allow collection of a culture from deep in the wound without skin contamination without opening the incision significantly further. That seems unwarranted at this time. We will continue to follow. Admission and Anticipated Discharge Date Admission Date: July 07, 2021 Subjective Diane was resting comfortably when I visited this morning, pain 0/10. I asked where her pain was located at the time she c/o pain 8/10 earlier in the night, and she says it was "aching in her whole body head to toe - it felt like I was being burned." She was given pain medication and it subsided completely. She was feeling "great" yesterday evening, took a shower, had lots of energy, and felt so optimistic. But overnight she couldn't sleep at all, then felt the feve r coming back, and when it was confirmed she had a fever she became very frustrated and sad. She does not have any pain at her incision, has no nausea and continues to eat well, and her lochia continues to decrease and is now barely streaks of blood. Nurses have been changing the dressing on her incision which continues to have a small opening and ooze scant serosanguineous fluid. Physical Exam Physical Exam: Lying supine, awake, NAD. Eyes: + anicteric sclerae Neck: trachea midline, no thyromegaly Respiratory: normal respiratory effort and able to speak in complete sentences; no respiratory distress and no cough Cardiovascular: Extremities: no calf tenderness and no edema Gastrointestinal (Abdomen): Inspection/Auscultation: abdomen normal to inspection and + abdominal surgical incision; abdomen not distended soft, ND, NT. Dressing over incision with gauze covered in silk tape, 1-2cm light peach colored strikethrough visible. Skin: no rashes, warm and dry Neurologic: moves all extremities and awake; not confused Genitourinary: Peripad in place, mostly clean Results & Data ([place]) Vital Signs (Past 12 Hours) Vital Signs Temp Pulse Pulse Resp BP BP Pulse Ox 07/15/21 04:05 100.2 F H 07/15/21 03:00 101.8 F H 96 H 18 150/108 H 98 07/15/21 01:56 100 H 07/15/21 00:50 98.8 F 102 H 18 129/93 98 07/14/21 22:54 101.1 F H 102 H 20 142/101 H 98 07/14/21 20:00 99.0 F 90 20 138/91 99 PG Care Time/CCT Total # of Minutes Spent Total Time Spent with Patient: Total time spent is greater than 50% in coordination of care (as documented) at patient's floor/unit and/or counseling patient: Coding Level of Care Code None Diagnoses Fever of unknown origin following delivery, O86.4
[2021-07-15 07:48] LABS: Hematocrit (blood only) 24.5 % (37-47); Hemoglobin 7.8 g/dL (12.0-16.0); Mean Corpuscular Hemoglobin 29.3 pg (25-34); Mean Corpuscular Hgb Conc 31.8 g/dL (32-36); Mean Corpuscular Volume 92.1 fL (80-100); Mean Platelet Volume 8.7 fL (7.4-10.4); Nucleated RBC # (auto) 0.03 K/uL (0-0); Nucleated RBC % (auto) 0.7 %; Platelet Count 258 K/uL (130-400); RDW Coefficient of Variation 16.1 % (11.5-14.5); RDW Standard Deviation 52.8 fL (36.4-46.3); Red Blood Count 2.66 M/uL (4.2-5.4); White Blood Count 4.57 K/uL (4.8-10.8)
[2021-07-15 08:32] LABS: BUN Creatinine Ratio 12.5 (10-20); Bilirubin Direct 0.1 mg/dl (0-0.2); Bilirubin,Total 0.4 mg/dl (0.2-1.0); Calcium 8.3 mg/dl (8.5-10.1); Creatinine Clr Calc Pharmacy 92.9 ml/min; Est GFR (African American) 118.8 ml/min; Est GFR (Non-African American) 102.5 ml/min; Potassium 3.6 mmol/L (3.5-5.1); Total Protein 6.4 gm/dl (6.0-8.3)
[2021-07-15 08:43] LABS: Lyme Ab IgG w/WB Rflx Negative (Negative); Lyme Ab IgM w/WB Rflx Negative (Negative)
[2021-07-15] MEDS: ADVANCED PROBIOTIC 1250 MG CAPSULE PO SCH (08:47)
[2021-07-15] MEDS: FERROUS SULFATE 325 MG TAB PO SCH (08:47)
[2021-07-15] MEDS: guaiFENesin 600 MG TABCR PO SCH (08:47)
[2021-07-15] MEDS: SACCHAROMYCES BOULARDII 250 MG CAP PO SCH (08:47)
[2021-07-15] MEDS: LABETALOL HCL 100 MG TAB PO SCH (08:48)
[2021-07-15] MEDS: ACETAMINOPHEN 325 MG TAB PO PRN (11:31)
--- NOTE | 2021-07-15 17:33 | Discharge Summary ---
Date of Service July 15, 2021 Admission HPI Per Admitting Provider 26 y/o POD11 s/p primary LTCS for distress during IOL for pre- eclampsia w/ SF complicated by post-op bleeding that required ex lap on POD1 for evacuation of hemoperitoneum and repair of bleeding from uterine incision presents to ER from clinic with multiple complaints. In review of her course, following re-operation on POD1 due to active bleeding, she was sent to ICU where she received a total of 6units of PRBCS, 4 units of FFP. During initial ICU course, magnesium was restarted for pre-eclampsia treatment as it had been held on admit to ICU and continued for 24 hours. She was also started on labetalol and titrated up to 300mg q8h. She continued to recover well until POD4 s/p CS when she was diagnosed with endometritis and started on gent/clinda x 48 hours. She had one temp 38C right before the 48 hours concluded on the evening of the with normal temps following and planned for dc on the however requested discharge and after counseling was discharged home on the on labetalol 300mg q8h and percocet.. -Since discharge, the pt reports intermittent fever spikes - 102.7 on Sat AM and 101 yesterday AM. Both times, pt took ibuprofen and percoet which would break the fever after a few hours. She did note chills this AM but did not take temp before ibuprofen and percocet. When takes ibuprofen, takes 2 x 200mg every 4-6 hrs -has been taking labetalol 300mg q8h, last around 930 this AM. Just before meds will be 150s-160s, 1hr after meds is normotensive to 120s. She notes a LUCIA just before medication is taken, consistent with her elevated BPs, that resolves w/ lower BP. -She notes pain at her incision with moving, but denies pain at rest. She does note a persistent R sided pain. Normal lochia, denies worsening odor or quantity since discharge. Denies difficulty w/ b/b. Is pumping but no breast concerns. -Denies persistent CP, SOB. Admission Exam Per Admitting Provider Constitutional: WD/WN, vitals as above Respiratory: normal respiratory effort, lungs clear to auscultation Cardiovascular: RRR, no murmur, no edema Gastrointestinal (Abdomen): Abd soft, appropriately tender in lower abdomen, ND. Incision c/d/i. Principal Diagnosis Post-, Severe Preeclampsia, fever of uncertain etiology Anemia Discharge Exam Constitutional + well hydrated; no acute distress Eyes PERRL, conjunctivae normal, anicteric sclerae ENMT external ear and nose normal, oropharynx normal Respiratory normal respiratory effort, lungs clear to auscultation Cardiovascular RRR, no murmur, no edema Gastrointestinal (Abdomen) normal bowel sounds, soft, nontender, no hepatosplenomegaly Surgical site healing well with dressing with a stained spot Musculoskeletal no cyanosis or clubbing, extremities motor strength 5/5 Neurologic PERRL, EOMI, accommodation nl, no face palsy, no dysarthria Psychiatric A+Ox3, euthymic affect Discharge Data Allergies Allergy/AdvReac Type Severity Reaction Status Date / Time rhubarb Allergy Intermediate THROAT Verified 07/05/21 10:40 SLIGHTLY TIGHT, SWELLIN, RASH Consultations 07/05/21 16:06 ED Decision to Admit Stat 07/05/21 17:26 Consult Hospitalist Stat 07/10/21 16:03 Consult Infectious Diseases Routine Ordered Studies 07/05/21 12:15 CT abd pelvis IV con only Stat Lung bases: The heart is normal in size and without pericardial effusion. There are trace pleural effusions with dependant atelectasis. Liver: The contrast-enhanced liver is normal in size, contour, and attenuation. There is no intrahepatic biliary ductal dilatation. The hepatic veins and portal veins are patent. Gallbladder: Unremarkable. Spleen: Normal in size and attenuation. Pancreas: Unremarkable. Adrenal glands: Unremarkable. Kidneys: The contrast enhanced kidneys are normal in size and without hydronephrosis. The kidneys enhance symmetrically. A circumaortic left renal vein is incidentally noted. Abdominal vasculature: The abdominal aorta is normal in course and caliber. Bowel: There is no bowel obstruction. The appendix is not clearly visualized Peritoneum: There is no intraperitoneal free air or abdominal ascites. Intraperitoneal blood is almost completely resolved. Lymphadenopathy: None. Pelvic viscera: The post gravid uterus is enlarged and heterogeneous. A section scar is noted in the lower uterine segment anteriorly. The endometrial canal is distended with complex material. No gas is identified within the endometrial lumen. The bladder is decompressed and appears circumferentially thick walled. A 1.4 cm fat attenuation structure seen in the anterior right adnexa on image #[id number]. A small amount of free fluid is noted in the cul-de-sac. Skeletal structures: No lytic or blastic lesions are seen. Soft tissues: Induration and foci of subcutaneous gas within the ventral pelvic wall likely represent postsurgical change. IMPRESSION: 1. The post gravid uterus is enlarged and heterogeneous. 2. There is complex debris distending the endometrial canal. This likely represents blood products. Retained products of conception or endometritis cannot be excluded and clinical correlation will be essential. 3. Intraperitoneal hemorrhage has almost completely resolved as compared to 06/28/2021. 4. A section scar/defect is seen in the anterior lower uterine segment. This is not well evaluated by CT, and the integrity of the lower uterine wall cannot be confirmed by imaging. 5. The bladder wall is thickened and hyperemic with surrounding inflammation. Correlate with clinical findings and urinalysis. 6. There is no bowel obstruction. 7. Trace pleural effusions. 8. A 1.4 cm fat attenuation structure in the anterior right adnexa is indeterminant. This could represent postoperative change, or could possibly be seen with a small dermoid. A follow-up pelvic ultrasound in several months time is recommended for reassessment. CT head/brain wo con Stat No acute intracranial hemorrhage, midline shift, intracranial mass, hydrocephalus, territorial ischemia or abnormal extra-axial collection. The calvarium is intact. The paranasal sinuses, mastoid air cells, and middle ear cavities are clear. IMPRESSION: No acute intracranial abnormality. 07/05/21 12:22 CT angio chest PE protocol Stat No pulmonary emboli are identified. There is no thoracic aortic dissection. Borderline cardiomegaly is noted. No pericardial effusion is present. Mildly enlarged bilateral axillary lymph nodes are unchanged since prior chest CT. These are also similar to chest CT April 16, 2021. No pneumothorax is noted. There is a trace left pleural effusion. Mild left lower lobe opacity reflects atelectasis. There is no consolidation to suggest pneumonia. Mild splenomegaly is noted. The abdomen and pelvis will be reported separately. IMPRESSION: 1. No pulmonary emboli identified. 2. No consolidation to suggest pneumonia. Minimal left lower lobe opacity consistent with atelectasis. 3. No change in multiple mildly enlarged bilateral axillary lymph nodes which remain indeterminate. 07/10/21 13:52 CT abd pelvis IV con only Urgent No consolidation to suggest pneumonia within the visualized lower lungs is noted. No pneumatosis, free air or portal venous gas is present. No hepatic lesions are present. There is no biliary or pancreatic ductal dilatation. Mild hepatosplenomegaly is unchanged. The adrenal glands, kidneys and pancreas are unremarkable. There is no hydronephrosis. Nephrograms are symmetric. No evidence for a bowel obstruction. Appendix is not well visualized. Postoperative findings from section are noted. A small amount gas within the subcutaneous tissues of the lower abdominal wall and pelvis are again noted. A small amount of fluid and stranding has slightly increased since prior exam. This overlies the rectus sheath. No associated fluid collection is present. Prominence of the bilateral rectus muscles is unchanged. These appear edematous. Complex debris within the endometrial canal is noted. This has decreased since prior CT of July 05, 2021. Possible defect within the right lower anterior uterine segment is again noted. Adjacent 1.6 cm fat attenuation density is unchanged. A small amount of adjacent fluid with minimal peripheral enhancement is noted. No drainable fluid collection is present. This fluid is similar to prior CT. Major vasculature is patent. No new fluid collections are present. No acute fracture or suspicious lesion within the visualized skeletal structures. No areas of bony destruction to suggest acute osteomyelitis by CT. IMPRESSION: 1. Complex debris within the endometrial canal, decreased since CT of July 05, 2021. This likely reflects blood products. Retained products of conception or endometritis cannot be excluded. 2. Status post section. Slight increase in the fluid within the deep subcutaneous tissues since prior exam. This is nonspecific. No associated fluid collection. 3. Apparent defect versus section scar within the right lower anterior uterine segment. This is not well evaluated by CT and integrity of the lower uterine wall cannot be confirmed. This is unchanged since prior CT. Adjacent fat attenuation density is also unchanged. 4. No change in a small amount of fluid with mild peripheral enhancement along anterior aspect of the lower uterine segment. This could reflect resolving hematoma or phlegmon. A small developing abscess is considered less likely. 5. No bowel obstruction. Hospital Course (1) fever: Fever of Unknown origin Etiology is unclear Possibilities could be multifactorial including inflammatory, posttpartum Status post section on 06/24/2021 followed by exploratory laparotomy on 06/25/2021 to control bleeding Noted to have fever of 38.2 on 28 June and received oral antibiotics for possible endometritis She received a total of 8 unit PRBC, TXA, 2 unit FFP and cryoprecipitate for hemorrhage She has been having fever and chills since and was admitted on 07/05/2021 with ongoing fever and chills Has had multiple blood cultures which are negative Multiple CT chest and CT abd and pelvis which did not show obvious source. Patient feels she is improving except for persistent intermittent fevers Was evaluated by ID Received IV antibiotics for over a week Reevaluated patient with OBGYN. Does not have endometritis per OBGYN CRP elevated at 1.14. ESR 47 Procalcitonin negative Peripheral smear did not schizocytes or blasts. Leukocytes were unremarkable except for rare Dohle david Due to the fact that patient received multiple transfusion recently ( Was reported to have received 8U PRBC, TXA and 2FF and Cryo post . Also received another PRBC on 07/12/21 for anemia), other tests were ordered to rule out other infectious causes such as Hep B/C, Lyme,HIV (patient consented), TB. These tests are still pending MARIBEL, CMV pending Patient and partner frustrated with persistent fevers. Patient insisted on being discharged today as she misses her baby and believes she will do better at home. She will not like continued stay while workup is being done I provided counselling. Advised to keep a fever diarrhea, need to follow up with PCP closely and to return to ER if fever persists or develop new symptoms Advised to follow up pending results with PCP (2) S/P : on 06/24/2021 and followed by Exploratory laparotomy on for massive postop bleeding requiring a total of 8 unit PRBC, TXA, 2 unit FFP and cryoprecipitate for hemorrhage Management as per [employer] (3) hemorrhage: (4) Anemia: Hgb dropped to 6.8, received 1 unit PRBC on 07/12/21 Hb went up to 8s. Hb was 7.8 today. Patient reports reducing vaginal discharge/lochia Patient to get CBC on sunday and follow up result with PCP Continue po iron (5) Severe preeclampsia: History of severe preeclampsia Status post urgent delivery by Hypertension Currently on labetalol 150mg TID (6) CINDY (acute kidney injury): CINDY resolved Creatinine 1.47 on admission and is improved to 0.8 as of today (7) Elevated troponin: Likely secondary to high blood pressure and strain pattern No evidence of ACS as per serial troponins Total Time Total Time Spent Total Time Spent (In Minutes): 60 Discharge Plan Discharge Items Patient Disposition: Home - Self-Care Reason For Visit: ?SEPTIC THROMBOPHLEBITIS Discharge Diagnosis: Post-, Severe Preeclampsia, fever of uncertain etiology Anemia Activity: Per Instructions section Non-emergency contact: Twisting Department End Finder Call non-emergency contact if: your symptoms worsen Follow-up/Referrals: Eden Dalton MD [Physician] - 07/22/21 9:50 am ([facility] [employer] [address] [facility] [address] [address] ) Louise Bahena MD [Primary Care Provider] - (Date & Time 07/19/2021 10:20 AM Provider Louise Bahena MD Department General Internal Medicine [facility] * I know you prefer after 3:30, but Dr Bahena had no openings on Sunday, and she isn't in in the afternoon on . If the scheduled time does not work for you, please call to reschedule with another provider. * ) Diet: Regular Ambulatory Orders: Complete Blood Count with Diff (Timed) Timeframe: [id number] Location: Determined by Patient Ordered By: Judy Castillo Attending Provider Instructions: Ms Flores You had a complicated alena course with preeclampisa, requiring section. You required massive transfusion for post op bleeding. However, you have had persistent intermittent fevers since. You have been undergoing multiple evaluation for these without a definitive cause identified. You are feeling better except for these intermittent fevers. You are being discharged today per your request. You still have some workup pending. Please keep a fever diary and please represent to hospital if fever worsens/persists or develop any other problems. You can use tylenol prn for fever. Do not exceed 4000mg in 24hours Please ensure follow up with your Primary doctor Please to CBC on sunday to monitor your blood counts and follow up result with your Primary Doctor. It was a pleasure taking care of you. Anna Librarian Assistant Provider Instructions: Please contact the [facility] office on Sunday at [phone] to arrange a follow up appointment within the week for a blood pressure and symptom check in our office. Take all doses of antibiotic as prescribed. Refer to post-delivery instructions provided at your initial release from the hospital for care of your incision. Pending Studies at Discharge: Yes (Multiple blood tests, Echocardiogram) Stand-Alone Forms: My [facility], Smoking Cessation Medications and DC Order Prescriptions: New labetalol 100 mg Tablet 150 mg PO TID 30 Days Qty: 135 RF: 0 acetaminophen 325 mg Tablet 650 mg PO Q4H PRN (Reason: fever or pain) Qty: 60 RF: 0 oxycodone 5 mg Tablet 5 mg PO BID PRN (Reason: pain) Qty: 7 RF: 0 Advanced Probiotic 625 mg (10 billion cell) Capsule 2 cap PO DAILY 7 Days Qty: 14 RF: 0 guaifenesin [Mucinex] 600 mg Tablet Extended Release 12hr 600 mg PO Q12 3 Days Qty: 6 RF: 0 Continued ibuprofen 400 mg Tablet 0 mg PO Q6H RF: 0 ferrous sulfate 325 mg (65 mg iron) tablet 325 mg PO QAM RF: 0 Discontinued oxycodone-acetaminophen [Percocet] 5-325 mg Tablet 1 tab PO Q4H PRN (Reason: pain) Qty: 20 RF: 0 labetalol 300 mg Tablet 300 mg PO Q8 30 Days Qty: 90 RF: 1 Discharge Orders: Discharge Order (Routine); Ordered 07/15/21 Ordered By: Judy Zacarias Admission Data Admit Date/Time: 07/07/21 07:29 Attending Provider: Judy Zacarias I. Admit Provider: Darlyn Cooper Primary Care Provider: Louise Bahena Other Providers: Travis Calderon ; Darlyn Cooper ; Pramod Prater ; Meng Melgar ; Laura Alonzo ; Brock Broussard I. ; Rosalio Joyce II ; Isha Gutierrez ; Bharath Maddox ; Rigo Flores Other Interventions: Discharge Summary Assessment (RN) Last Done: 07/15/21 12:51
[2021-07-16 06:31] LABS: HBSAG NON-REACTIVE (NON-REACTIVE)
[2021-07-17 15:42] LABS: Quantiferon NIL 0.17 IU/mL; Quantiferon TB Gold Plus NEGATIVE (NEGATIVE); Quantiferon TB1-NIL <0.00 IU/mL; Quantiferon TB2-NIL <0.00 IU/mL
[2021-07-19 14:26] LABS: Anti Nuclear Antibody Screen POSITIVE (NEGATIVE); CMV IgM Antibody >240.00 AU/mL
[2021-07-20 16:10] LABS: ANA Pattern Nuclear, Homogeneous; ANA Titer > OR = 1:1280 titer
== END 2021-07-15 13:50 | disposition home or self-care (01) | DRG 776 ==
LOC: ED 12:06 → 3W 12:06 → SUATTDRO 07-07 07:29 → 2W 07-10 13:49
DX: O14.15 Severe pre-eclampsia, complicating the puerperium; R79.89 Other specified abnormal findings of blood chemistry; I24.8 Other forms of acute ischemic heart disease; O90.89 Other complications of the puerperium, not elsewhere classified; Z98.890 Other specified postprocedural states; O99.285 Endocrine, nutritional and metabolic diseases complicating the puerperium; O99.53 Diseases of the respiratory system complicating the puerperium; O99.63 Diseases of the digestive system complicating the puerperium; R04.2 Hemoptysis; J04.10 Acute tracheitis without obstruction; N17.0 Acute kidney failure with tubular necrosis; Z83.3 Family history of diabetes mellitus; E86.0 Dehydration; O99.03 Anemia complicating the puerperium; O86.4 Pyrexia of unknown origin following delivery; Y84.8 Other medical procedures as the cause of abnormal reaction of the patient, or of later complication, without mention of misadventure at the time of the procedure; K12.1 Other forms of stomatitis